=== PATIENT | male | born 1965 | race Caucasian/White ===

== ENCOUNTER → 2016-10-10 | Outpatient (CLI) | payer OTHER | END | disposition home or self-care (01) | LOC: MW.CHRC 10:33 | PROVIDERS: ATTEND Family Medicine | DX: D69.2 Other nonthrombocytopenic purpura (principal); Z53.9 Procedure and treatment not carried out, unspecified reason ==

== ENCOUNTER 2018-10-04 16:13 | Observation (INO) | payer MEDICAID, OTHER ==
[2018-10-04] MEDS ORDERED: Sodium Chloride 0.9% 1,000 ML IV ONE ×2 (16:23→17:31)
[2018-10-04] MEDS ORDERED: Albuterol/Ipratropium 3.0-0.5 MG/3 ML Neb Soln NEB ONE (16:23)
[2018-10-04] MEDS ORDERED: methylPREDNISolone Sodium Succinate 125 MG/2 ML SDV IVPUSH ONE (16:32)
--- NOTE | 2018-10-04 16:35 | EDM.PDOC ---
ED HPI GENERAL MEDICAL PROBLEM - General Chief Complaint: Respiratory Problem Stated Complaint: CAN'T BREATH Time Seen by Provider: 10/04/18 16:16 Source of Information: Reports: Patient History Limitations: Reports: No Limitations - History of Present Illness INITIAL COMMENTS - FREE TEXT/NARRATIVE: HISTORY AND PHYSICAL: History of present illness: Patient is a 52-year-old male presents to the ED today with concern of worsening shortness of breath 7 days. Patient states he does have a history of emphysema and is on several inhalers which are no longer helping his symptoms. Patient states that if he walks more than the hallway in his house, he feels as if he is going to pass out. Patient denies any heart history or any chest pain. Patient does state he has a chronic cough which has been at his baseline. Patient states he does smoke a pack a day for over 30 years. Patient denies any other health history. Patient does follow with Dr. Ureña. Patient states he has not eaten or drank much food or fluid in the past week due to his symptoms. Patient denies fever, chills, chest pain. Denies headache, neck stiff ness, change in vision, syncope. Denies nausea, vomiting, abdominal pain, diarrhea, constipation, or dysuria. Has not noted any blood in urine or stool. Review of systems: As per history of present illness and below otherwise all systems reviewed and negative. Past medical history: As per history of present illness and as reviewed below otherwise noncontributory. Surgical history: As per history of present illness and as reviewed below otherwise noncontributory. Social history: See social history for further information Family history: As per history of present illness and as reviewed below otherwise noncontributory. Physical exam: General: Patient is alert, oriented, and in no acute distress. Patient laying laying comfortably on exam table. Patient appears older than stated age. Chronically ill appearing. HEENT: Atraumatic, normocephalic, pupils equal and reactive bilaterally, negative for conjunctival pallor or scleral icterus, mucous membranes dry, TMs normal bilaterally, throat clear, neck supple, nontender, trachea midline. No drooling or trismus noted. No meningeal signs. No hot potato voice noted. Lungs: Diffuse wheezing heard to bilateral lung bases to auscultation, breath sounds equal bilaterally, chest nontender. Heart: S1S2, regular rate and rhythm without overt murmur Abdomen: Thin, soft, nondistended, nontender. Negative for masses or hepatosplenomegaly. Negative for costovertebral tenderness. Pelvis: Stable nontender. Genitourinary: Deferred. Rectal: Deferred. Skin: Intact, warm, dry. No lesions or rashes noted. Extremities: Atraumatic, negative for cords or calf pain. Neurovascular unremarkable. Neuro: Awake, alert, oriented. Cranial nerves II through XII unremarkable. Cerebellum unremarkable. Motor and sensory unremarkable throughout. Exam nonfocal. Notes: Dr. Chase verbally involved in patients care. EKG does show generalized depression. Dr. George was consulted on patient and came to see patient following first EKG. Dr. George was made aware of second EKG and negative troponin. Per his consult, admit to observation and he will be available for consult. Dr. Brooks consulted on patient and will admit to observation. Voices understanding and is agreeable to plan of care. Denies any further questions or concerns at this time. Diagnostics: CBC, CMP, EKG, troponin, chest x-ray, UA Therapeutics: Saline, DuoNeb, Solu-Medrol, ASA Impression: COPD exacerbation Cannot rule out acute coronary syndrome Dehydration Anemia, unspecified Hypokalemia Plan: 1. Admit to observation to Dr. Brooks Definitive disposition and diagnosis as appropriate pending reevaluation and review of above. - Related Data Allergies Allergy/AdvReac Type Severity Reaction Status Date / Time No Known Allergies Allergy Verified 10/04/18 16:23 Home Meds: Home Meds Albuterol Sulfate [Proair Hfa] 1 - 2 puff INH ASDIRECTED PRN 06/30/16 [History] Glycopyrrolate/Formoterol Fum [Bevespi Aerosphere Inhaler] 1 - 2 inh PO DAILY [History] Past Medical History HEENT History: Reports: None Cardiovascular History: Reports: None Respiratory History: Reports: SOB, Other (See Below) Other Respiratory History: smokes 1 pk of cigarettes per day, SOB with excertion Gastrointestinal History: Reports: None Genitourinary History: Reports: None Musculoskeletal History: Reports: Arthritis Neurological History: Reports: None Psychiatric History: Reports: None Endocrine/Metabolic History: Reports: None Hematologic History: Reports: None - Past Surgical History HEENT Surgical History: Reports: Other (See Below) Musculoskeletal Surgical History: Reports: Shoulder Surgery - History Comment History Comment: etoh" daily" ED ROS GENERAL - Review of Systems Review Of Systems: ROS reveals no pertinent complaints other than HPI. ED EXAM, GENERAL - Physical Exam Exam: See Below (See dictation) Course - Vital Signs Last Recorded V/S: Last Vital Signs Temp 36.9 C 10/04/18 16:26 Pulse 105 H 10/04/18 20:07 Resp 18 10/04/18 20:07 BP 108/75 10/04/18 20:07 Pulse Ox 98 10/04/18 20:07 - Orders/Labs/Meds Orders: Active Orders 24 hr Category Date Time Status Admission Status [Patient Status] [ADT] Stat ADT 10/04/18 20:13 Ordered EKG Documentation Completion [RC] STAT Care 10/04/18 16:22 Active EKG Documentation Completion [RC] STAT Care 10/04/18 17:28 Active Notify Provider Consults [RC] ASDIRECTED Care 10/04/18 16:47 Active RT Aerosol Therapy [RC] ASDIRECTED Care 10/04/18 16:23 Active Consult to Physician [CONS] Stat Cons 10/04/18 16:47 Active UA RFX JOSE M AND CULT IF INDIC [URIN] Stat Lab 10/04/18 16:23 Ordered Labs: Laboratory Tests 10/04/18 10/04/18 10/04/18 Range/Units 16:30 16:30 16:30 WBC 8.41 (4.0-11.0) K/uL RBC 3.13 L (4.50-5.90) M/uL Hgb 10.9 L (13.0-17.0) g/dL Hct 33.9 L (38.0-50.0) % MCV 108.3 H (80.0-98.0) fL MCH 34.8 H (27.0-32.0) pg MCHC 32.2 (31.0-37.0) g/dL RDW Std Deviation 63.0 H (28.0-62.0) fl RDW Coeff of Willy 17 H (11.0-15.0) % Plt Count 490 H (150-400) K/uL MPV 10.80 (7.40-12.00) fL Neut % (Auto) 67.6 (48.0-80.0) % Lymph % (Auto) 22.2 (16.0-40.0) % Branch % (Auto) 9.5 (0.0-15.0) % Eos % (Auto) 0.6 (0.0-7.0) % Baso % (Auto) 0.1 (0.0-1.5) % Neut # (Auto) 5.7 (1.4-5.7) K/uL Lymph # (Auto) 1.9 (0.6-2.4) K/uL Branch # (Auto) 0.8 (0.0-0.8) K/uL Eos # (Auto) 0.1 (0.0-0.7) K/uL Baso # (Auto) 0.0 (0.0-0.1) K/uL Nucleated RBC % 0.4 /100WBC Nucleated RBCs # 0 K/uL Sodium 132 L (136-148) mmol/L Potassium 3.0 L (3.5-5.1) mmol/L Chloride 90 L (98-107) mmol/L Carbon Dioxide 20.9 L (21.0-32.0) mmol/L BUN 21 H (7.0-18.0) mg/dL Creatinine 1.2 (0.8-1.3) mg/dL Est Cr Clr Drug Dosing 54.81 mL/min Estimated GFR (MDRD) > 60.0 ml/min Glucose 143 H (74-106) mg/dL Calcium 9.5 (8.5-10.1) mg/dL Total Bilirubin 2.0 H (0.2-1.0) mg/dL AST 32 (15-37) IU/L ALT 13 L (14-63) IU/L Alkaline Phosphatase 141 H (46-116) U/L Troponin I < 0.050 < 0.050 (0.000-0.056) ng/mL B-Natriuretic Peptide (<100) PG/ML Total Protein 7.8 (6.4-8.2) g/dL Albumin 3.3 L (3.4-5.0) g/dL Globulin 4.5 H (2.6-4.0) g/dL Albumin/Globulin Ratio 0.7 L (0.9-1.6) 05/02/19 Range/Units 16:44 WBC (4.0-11.0) K/uL RBC (4.50-5.90) M/uL Hgb (13.0-17.0) g/dL Hct (38.0-50.0) % MCV (80.0-98.0) fL MCH (27.0-32.0) pg MCHC (31.0-37.0) g/dL RDW Std Deviation (28.0-62.0) fl RDW Coeff of Willy (11.0-15.0) % Plt Count (150-400) K/uL MPV (7.40-12.00) fL Neut % (Auto) (48.0-80.0) % Lymph % (Auto) (16.0-40.0) % Branch % (Auto) (0.0-15.0) % Eos % (Auto) (0.0-7.0) % Baso % (Auto) (0.0-1.5) % Neut # (Auto) (1.4-5.7) K/uL Lymph # (Auto) (0.6-2.4) K/uL Branch # (Auto) (0.0-0.8) K/uL Eos # (Auto) (0.0-0.7) K/uL Baso # (Auto) (0.0-0.1) K/uL Nucleated RBC % /100WBC Nucleated RBCs # K/uL Sodium (136-148) mmol/L Potassium (3.5-5.1) mmol/L Chloride (98-107) mmol/L Carbon Dioxide (21.0-32.0) mmol/L BUN (7.0-18.0) mg/dL Creatinine (0.8-1.3) mg/dL Est Cr Clr Drug Dosing mL/min Estimated GFR (MDRD) ml/min Glucose (74-106) mg/dL Calcium (8.5-10.1) mg/dL Total Bilirubin (0.2-1.0) mg/dL AST (15-37) IU/L ALT (14-63) IU/L Alkaline Phosphatase (46-116) U/L Troponin I (0.000-0.056) ng/mL B-Natriuretic Peptide 85 (<100) PG/ML Total Protein (6.4-8.2) g/dL Albumin (3.4-5.0) g/dL Globulin (2.6-4.0) g/dL Albumin/Globulin Ratio (0.9-1.6) Meds: Medications Discontinued Medications Generic Name Dose Route Start Last Admin Trade Name Freq PRN Reason Stop Dose Admin Albuterol/Ipratropium 3 ml 10/04/18 16:23 10/04/18 16:43 Duoneb 3.0-0.5 Mg/3 Ml NEB 10/04/18 16:24 3 ml ONETIME ONE Administration Aspirin 324 mg 10/04/18 16:48 10/04/18 17:06 Aspirin PO 10/04/18 16:49 324 mg ONETIME ONE Administration Sodium Chloride 1,000 mls @ 999 mls/hr 10/04/18 16:23 10/04/18 16:54 Normal Saline IV 10/04/18 17:23 999 mls/hr BOLUS ONE Administration Sodium Chloride 1,000 mls @ 999 mls/hr 10/04/18 17:31 10/04/18 17:52 Normal Saline IV 10/04/18 18:31 999 mls/hr STAT ONE Administration Iopamidol 50 ml 10/04/18 19:06 10/04/18 19:06 Isovue Multipack-370 (76%) IVPUSH 10/04/18 19:07 50 ml ONETIME ONE Administration Methylprednisolone Sodium Succinate 125 mg 10/04/18 16:32 10/04/18 16:54 Solu-Medrol IVPUSH 10/04/18 16:33 125 mg ONETIME ONE Administration Departure - Departure Time of Disposition: 20:16 Disposition: Refer to Observation Clinical Impression: COPD exacerbation, Dehydration, Hypokalemia Anemia Qualifiers: Anemia type: unspecified type Qualified Code(s): D64.9 - Anemia, unspecified - Discharge Information Referrals: PCP,None [Primary Care Provider] - Forms: ED Department Discharge - My Orders Last 24 Hours: My Active Orders 10/04/18 16:22 EKG Documentation Completion [RC] STAT 10/04/18 16:23 RT Aerosol Therapy [RC] ASDIRECTED UA RFX JOSE M AND CULT IF INDIC [URIN] Stat 10/04/18 17:28 EKG Documentation Completion [RC] STAT 10/04/18 20:13 Admission Status [Patient Status] [ADT] Stat - Assessment/Plan Last 24 Hours: My Active Orders 10/04/18 16:22 EKG Documentation Completion [RC] STAT 10/04/18 16:23 RT Aerosol Therapy [RC] ASDIRECTED UA RFX JOSE M AND CULT IF INDIC [URIN] Stat 10/04/18 17:28 EKG Documentation Completion [RC] STAT 10/04/18 20:13 Admission Status [Patient Status] [ADT] Stat
[2018-10-04] MEDS ORDERED: Aspirin 81 MG Tab.Chew PO ONE (16:48)
[2018-10-04 17:16] LABS: CHLORIDE,CL 90 mmol/L (98-107); SODIUM,NA 132 mmol/L (136-148)
--- NOTE | 2018-10-04 18:20 | CR ---
INDICATION: Shortness of breath COMPARISON: 06/02/2016 FINDINGS: An erect single view of the chest was obtained at 1705 hours. A faint nodule is seen superimposed over the anterior end of the left 6th rib, unchanged from the previous study. Since this has been stable for more than 2 years, no further follow-up is indicated. The lungs otherwise remain clear. No focal or diffuse infiltrates are present. The heart remains normal in size. The mediastinum is normal in appearance. The osseous structures are normal in appearance for the patient`s age. IMPRESSION: No active disease seen in the chest. Stable appearance of a small nodule in the left lateral lower chest. Dictated by Matti Schwartz MD @ Oct 04 2018 6:17PM Signed by Dr. Matti Schwartz @ Oct 04 2018 6:18PM
[2018-10-04] MEDS ORDERED: Iopamidol 755 MG/ML 500 ML Multipack Bottle IVPUSH ONE (19:06)
--- NOTE | 2018-10-04 19:57 | CT ---
INDICATION: Shortness of breath; rule out PE. COMPARISON: Chest radiograph 10/04/2018. TECHNIQUE: CT chest with intravenous contrast; coronal and sagittal reformats. FINDINGS: No CT evidence of acute or chronic pulmonary thromboembolism. No evidence of aortic aneurysm or dissection. No abnormal mediastinal or hilar lymphadenopathy. Normal size cardiac silhouette without any evidence of pericardial effusion. A 3 mm subpleural noncalcified nodular density posterior segment left upper lobe slice 53 series 502. No other abnormal intra pulmonary nodular densities are identified. Limited CT through the upper abdomen is unremarkable. IMPRESSION: Negative CT chest with intravenous contrast. Please note that all CT scans at this facility use dose modulation, iterative reconstruction, and/or weight-based dosing when appropriate to reduce radiation dose to as low as reasonably achievable. Dictated by Kt Olvera MD @ Oct 04 2018 7:51PM Signed by Dr. Kt Olvera @ Oct 04 2018 7:56PM
[2018-10-04] MEDS ORDERED: Acetaminophen 325 MG Tab PO PRN (21:21)
[2018-10-04] MEDS ORDERED: Albuterol/Ipratropium 3.0-0.5 MG/3 ML Neb Soln NEB PRN (21:49)
[2018-10-04] MEDS: Sodium Chloride 0.9% 1,000 ML IV SCH (21:57)
[2018-10-04] MEDS ORDERED: Azithromycin 500 MG in Sodium Chloride 0.9% 250 ML IV SCH (22:45)
[2018-10-04] MEDS: Temazepam 15 MG Cap PO PRN (23:55)
[2018-10-05 06:04] LABS: CHLORIDE,CL 98 mmol/L (98-107); SODIUM,NA 133 mmol/L (136-148)
--- NOTE | 2018-10-05 06:54 | PCM.HP ---
H&P History of Present Illness - General Date of Service: 10/05/18 Admit Problem/Dx: Admission Diagnosis/Problem Admission Diagnosis/Problem COPD, Moderate chronic obstructive pulmonary disease Source of Information: Patient History Limitations: Reports: No Limitations - History of Present Illness Initial Comments - Free Text/Narative: The patient is a 52-year-old gentleman who had presented to the emergency department primarily out of concern for shortness of breath for the past 7 days. He was then admitted to hospital floor approximately 11 PM yesterday. The patient says that for the past 7 days he's been unable to ambulate, weak, unable to eat or drink, and has had severe pain in the soles of both his feet. The patient has described the pain in his feet as tingling and burning and does not radiate. The patient has had a history of COPD and emphysema and he still continues to smoke. The patient also said that he has been so weak that he has been unable to get up from his bed. The patient has denied any fever or chills. He also has had nausea and vomiting associated with the anorexia. Has denied any hematemesis ER hematochezia. He's had no hemoptysis. The patient feels that his health has been declining significantly over the past several months. Onset of Symptoms: Reports: Gradual Duration of Symptoms: Reports: Day(s):, Getting Worse Location: Reports: Generalized Quality: Reports: Ache, Burning Severity: Mild Improves with: Reports: Rest Worsens with: Reports: Movement Associated Symptoms: Reports: cough w sputum (Clear), Other (Bilateral foot pain ) - Related Data Allergies/Adverse Reactions: Allergies Allergy/AdvReac Type Severity Reaction Status Date / Time No Known Allergies Allergy Verified 10/04/18 16:23 Home Medications: Home Meds Albuterol Sulfate [Proair Hfa] 1 - 2 puff INH ASDIRECTED PRN 06/30/16 [History] Glycopyrrolate/Formoterol Fum [Bevespi Aerosphere Inhaler] 1 - 2 inh PO DAILY [History] Past Medical History HEENT History: Reports: None Cardiovascular History: Reports: None Respiratory History: Reports: COPD, SOB, Other (See Below) Other Respiratory History: smokes 1 pk of cigarettes per day, SOB with excertion Gastrointestinal History: Reports: None Genitourinary History: Reports: None Musculoskeletal History: Reports: Arthritis Neurological History: Reports: None Psychiatric History: Reports: None Endocrine/Metabolic History: Reports: None Hematologic History: Reports: None Immunologic History: Reports: None Oncologic (Cancer) History: Reports: None Dermatologic History: Reports: None - Infectious Disease History Infectious Disease History: Reports: Chicken Pox - Past Surgical History Head Surgeries/Procedures: Reports: None HEENT Surgical History: Reports: Other (See Below) Musculoskeletal Surgical History: Reports: Shoulder Surgery - History Comment History Comment: etoh" daily" Social & Family History - Family History Family Medical History: Noncontributory - Tobacco Use Smoking Status *Q: Current Every Day Smoker Years of Tobacco use: 30 Packs/Tins Daily: 1 Used Tobacco, but Quit: No Second Hand Smoke Exposure: Yes - Caffeine Use Caffeine Use: Reports: Coffee - Alcohol Use Days Per Week of Alcohol Use: 7 Number of Drinks Per Day: 2 Total Drinks Per Week: 14 Date of Last Drink: 10/03/18 - Recreational Drug Use Recreational Drug Use: No - Living Situation & Occupation Living situation: Reports: Single, Alone Occupation: Unemployed H&P Review of Systems - Review of Systems: Review Of Systems: See Below General: Reports: Malaise, Weakness, Fatigue, Weight Loss HEENT: Reports: No Symptoms Pulmonary: Reports: Shortness of Breath Cardiovascular: Reports: Dyspnea on Exertion, Lightheadedness Gastrointestinal: Reports: Abdominal Pain, Anorexia, Nausea, Vomiting. Denies: Hematemesis, Hematochezia, Melena Genitourinary: Reports: No Symptoms Musculoskeletal: Reports: No Symptoms Skin: Reports: No Symptoms Psychiatric: Reports: No Symptoms Neurological: Reports: Dizziness, Difficulty Walking Hematologic/Lymphatic: Reports: No Symptoms Immunologic: Reports: No Symptoms Exam - Exam Exam: See Below - Vital Signs Vital Signs: Last Vital Signs Temp 36.6 C 10/05/18 04:50 Pulse 100 10/05/18 04:50 Resp 18 10/05/18 04:50 BP 108/73 10/05/18 04:50 Pulse Ox 94 L 10/05/18 04:50 Weight: 51.12 kg - Exam Quality Assessment: No: Supplemental Oxygen General: Alert (Cachectic), Oriented, Cooperative, Mild Distress HEENT: Conjunctiva Clear, EACs Clear, EOMI, Hearing Intact, Nares Patent, Pupils Equal, Other (Temporal muscle wasting), PERRLA. No: Mucosa Moist & [place] (Dry) Neck: Supple, Trachea Midline, 2 Lungs: Clear to Auscultation, Normal Respiratory Effort Cardiovascular: Regular Rate, Regular Rhythm GI/Abdominal Exam: Normal Bowel Sounds, Soft, Non-Tender, No Distention (Male) Exam: Deferred Rectal (Males) Exam: Deferred Back Exam: Normal Inspection, Full Range of Motion, NT Extremities: Normal Inspection, Normal Range of Motion, Non-Tender, No Pedal Edema (Plantar surfaces of both feet show no signs of ulcer, inflammation or infection.) Skin: Warm, Dry, Intact Neurological: Cranial Nerves Intact Neuro Extensive - Mental Status: Alert, Oriented x3, Normal Mood/Affect, Normal Cognition Neuro Extensive - Motor, Sensory, Reflexes: CN II-XII Intact Psychiatric: Alert, Normal Affect, Normal Mood - Patient Data Lab Results Last 24 hrs: Laboratory Results - last 24 hr 10/04/18 10/04/18 10/04/18 Range/Units 00:50 16:30 16:30 WBC 8.41 (4.0-11.0) K/uL RBC 3.13 L (4.50-5.90) M/uL Hgb 10.9 L (13.0-17.0) g/dL Hct 33.9 L (38.0-50.0) % MCV 108.3 H (80.0-98.0) fL MCH 34.8 H (27.0-32.0) pg MCHC 32.2 (31.0-37.0) g/dL RDW Std Deviation 63.0 H (28.0-62.0) fl RDW Coeff of Willy 17 H (11.0-15.0) % Plt Count 490 H (150-400) K/uL MPV 10.80 (7.40-12.00) fL Neut % (Auto) 67.6 (48.0-80.0) % Lymph % (Auto) 22.2 (16.0-40.0) % [place] % (Auto) 9.5 (0.0-15.0) % Eos % (Auto) 0.6 (0.0-7.0) % Baso % (Auto) 0.1 (0.0-1.5) % Neut # (Auto) 5.7 (1.4-5.7) K/uL Lymph # (Auto) 1.9 (0.6-2.4) K/uL [place] # (Auto) 0.8 (0.0-0.8) K/uL Eos # (Auto) 0.1 (0.0-0.7) K/uL Baso # (Auto) 0.0 (0.0-0.1) K/uL Nucleated RBC % 0.4 /100WBC Nucleated RBCs # 0 K/uL Sodium 132 L (136-148) mmol/L Potassium 3.0 L (3.5-5.1) mmol/L Chloride 90 L (98-107) mmol/L Carbon Dioxide 20.9 L (21.0-32.0) mmol/L BUN 21 H (7.0-18.0) mg/dL Creatinine 1.2 (0.8-1.3) mg/dL Est Cr Clr Drug Dosing 54.81 mL/min Estimated GFR (MDRD) > 60.0 ml/min Glucose 143 H (74-106) mg/dL Calcium 9.5 (8.5-10.1) mg/dL Magnesium (1.8-2.4) mg/dL Total Bilirubin 2.0 H (0.2-1.0) mg/dL AST 32 (15-37) IU/L ALT 13 L (14-63) IU/L Alkaline Phosphatase 141 H (46-116) U/L Troponin I < 0.050 (0.000-0.056) ng/mL B-Natriuretic Peptide (<100) PG/ML Total Protein 7.8 (6.4-8.2) g/dL Albumin 3.3 L (3.4-5.0) g/dL Globulin 4.5 H (2.6-4.0) g/dL Albumin/Globulin Ratio 0.7 L (0.9-1.6) Urine Color YELLOW Urine Appearance CLEAR Urine pH 6.0 (5.0-8.0) Ur Specific [place] <= 1.005 (1.001-1.035) Urine Protein NEGATIVE (NEGATIVE) mg/dL Urine Glucose (UA) NEGATIVE (NEGATIVE) mg/dL Urine Ketones 15 H (NEGATIVE) mg/dL Urine Occult Blood NEGATIVE (NEGATIVE) Urine Nitrite NEGATIVE (NEGATIVE) Urine Bilirubin MODERATE H (NEGATIVE) Urine Ictotest NEGATIVE Urine Urobilinogen 2.0 H (<2.0) EU/dL Ur Leukocyte Esterase NEGATIVE (NEGATIVE) 10/04/18 10/04/18 10/04/18 Range/Units 16:30 16:44 23:00 WBC (4.0-11.0) K/uL RBC (4.50-5.90) M/uL Hgb (13.0-17.0) g/dL Hct (38.0-50.0) % MCV (80.0-98.0) fL MCH (27.0-32.0) pg MCHC (31.0-37.0) g/dL RDW Std Deviation (28.0-62.0) fl RDW Coeff of Willy (11.0-15.0) % Plt Count (150-400) K/uL MPV (7.40-12.00) fL Neut % (Auto) (48.0-80.0) % Lymph % (Auto) (16.0-40.0) % [place] % (Auto) (0.0-15.0) % Eos % (Auto) (0.0-7.0) % Baso % (Auto) (0.0-1.5) % Neut # (Auto) (1.4-5.7) K/uL Lymph # (Auto) (0.6-2.4) K/uL [place] # (Auto) (0.0-0.8) K/uL Eos # (Auto) (0.0-0.7) K/uL Baso # (Auto) (0.0-0.1) K/uL Nucleated RBC % /100WBC Nucleated RBCs # K/uL Sodium (136-148) mmol/L Potassium (3.5-5.1) mmol/L Chloride (98-107) mmol/L Carbon Dioxide (21.0-32.0) mmol/L BUN (7.0-18.0) mg/dL Creatinine (0.8-1.3) mg/dL Est Cr Clr Drug Dosing mL/min Estimated GFR (MDRD) ml/min Glucose (74-106) mg/dL Calcium (8.5-10.1) mg/dL Magnesium (1.8-2.4) mg/dL Total Bilirubin (0.2-1.0) mg/dL AST (15-37) IU/L ALT (14-63) IU/L Alkaline Phosphatase (46-116) U/L Troponin I < 0.050 < 0.050 (0.000-0.056) ng/mL B-Natriuretic Peptide 85 (<100) PG/ML Total Protein (6.4-8.2) g/dL Albumin (3.4-5.0) g/dL Globulin (2.6-4.0) g/dL Albumin/Globulin Ratio (0.9-1.6) Urine Color Urine Appearance Urine pH (5.0-8.0) Ur Specific [place] (1.001-1.035) Urine Protein (NEGATIVE) mg/dL Urine Glucose (UA) (NEGATIVE) mg/dL Urine Ketones (NEGATIVE) mg/dL Urine Occult Blood (NEGATIVE) Urine Nitrite (NEGATIVE) Urine Bilirubin (NEGATIVE) Urine Ictotest Urine Urobilinogen (<2.0) EU/dL Ur Leukocyte Esterase (NEGATIVE) 10/05/18 10/05/18 10/05/18 Range/Units 04:36 04:36 04:36 WBC 5.06 (4.0-11.0) K/uL RBC 2.25 L (4.50-5.90) M/uL Hgb 7.9 L (13.0-17.0) g/dL Hct 23.9 L (38.0-50.0) % MCV 106.2 H (80.0-98.0) fL MCH 35.1 H (27.0-32.0) pg MCHC 33.1 (31.0-37.0) g/dL RDW Std Deviation 63.0 H (28.0-62.0) fl RDW Coeff of Willy 16 H (11.0-15.0) % Plt Count 396 (150-400) K/uL MPV 10.50 (7.40-12.00) fL Neut % (Auto) 86.5 H (48.0-80.0) % Lymph % (Auto) 10.7 L (16.0-40.0) % [place] % (Auto) 2.8 (0.0-15.0) % Eos % (Auto) 0.0 (0.0-7.0) % Baso % (Auto) 0.0 (0.0-1.5) % Neut # (Auto) 4.4 (1.4-5.7) K/uL Lymph # (Auto) 0.5 L (0.6-2.4) K/uL [place] # (Auto) 0.1 (0.0-0.8) K/uL Eos # (Auto) 0.0 (0.0-0.7) K/uL Baso # (Auto) 0.0 (0.0-0.1) K/uL Nucleated RBC % 0.0 /100WBC Nucleated RBCs # 0 K/uL Sodium 133 L (136-148) mmol/L Potassium 2.8 L (3.5-5.1) mmol/L Chloride 98 (98-107) mmol/L Carbon Dioxide 22.2 (21.0-32.0) mmol/L BUN 19 H (7.0-18.0) mg/dL Creatinine 0.8 (0.8-1.3) mg/dL Est Cr Clr Drug Dosing 77.21 mL/min Estimated GFR (MDRD) > 60.0 ml/min Glucose 159 H (74-106) mg/dL Calcium 8.0 L (8.5-10.1) mg/dL Magnesium 1.5 L (1.8-2.4) mg/dL Total Bilirubin (0.2-1.0) mg/dL AST (15-37) IU/L ALT (14-63) IU/L Alkaline Phosphatase (46-116) U/L Troponin I < 0.050 (0.000-0.056) ng/mL B-Natriuretic Peptide (<100) PG/ML Total Protein (6.4-8.2) g/dL Albumin (3.4-5.0) g/dL Globulin (2.6-4.0) g/dL Albumin/Globulin Ratio (0.9-1.6) Urine Color Urine Appearance Urine pH (5.0-8.0) Ur Specific [place] (1.001-1.035) Urine Protein (NEGATIVE) mg/dL Urine Glucose (UA) (NEGATIVE) mg/dL Urine Ketones (NEGATIVE) mg/dL Urine Occult Blood (NEGATIVE) Urine Nitrite (NEGATIVE) Urine Bilirubin (NEGATIVE) Urine Ictotest Urine Urobilinogen (<2.0) EU/dL Ur Leukocyte Esterase (NEGATIVE) Result Diagrams: 10/05/18 04:36 10/05/18 04:36 - Problem List (1) COPD exacerbation SNOMED Code(s): 672978158 ICD Code: J44.1 - CHRONIC OBSTRUCTIVE PULMONARY DISEASE W (ACUTE) EXACERBATION Status: Acute Priority: High Current Visit: Yes (2) Severe protein-calorie malnutrition SNOMED Code(s): 969962818, 229121920, 343548075 ICD Code: E43 - UNSPECIFIED SEVERE PROTEIN-CALORIE MALNUTRITION Status: Acute Current Visit: Yes (3) Anemia SNOMED Code(s): 963943844 ICD Code: D64.9 - ANEMIA, UNSPECIFIED Status: Acute Current Visit: Yes Qualifiers: Anemia type: iron deficiency Iron deficiency anemia type: inadequate dietary iron intake Qualified Code(s): D50.8 - Other iron deficiency anemias (4) Dehydration SNOMED Code(s): 31927976 ICD Code: E86.0 - DEHYDRATION Status: Acute Priority: High Current Visit: Yes (5) Hypokalemia SNOMED Code(s): 25682833 ICD Code: E87.6 - HYPOKALEMIA Status: Acute Priority: High Current Visit: Yes (6) Neuropathy involving both lower extremities SNOMED Code(s): 136978581 ICD Code: G57.93 - UNSPECIFIED MONONEUROPATHY OF BILATERAL LOWER LIMBS Status: Chronic Priority: High Current Visit: Yes (7) Pulmonary cachexia due to chronic obstructive pulmonary disease SNOMED Code(s): 094851631 ICD Code: J44.9 - CHRONIC OBSTRUCTIVE PULMONARY DISEASE, UNSPECIFIED; R64 - [place] Status: Chronic Priority: High Current Visit: Yes (8) Tobacco user SNOMED Code(s): 343372238 ICD Code: Z72.0 - TOBACCO USE Status: Acute Current Visit: Yes Problem List Initiated/Reviewed/Updated: Yes Orders Last 24hrs: Active Orders 24 hr Category Date Time Status Admission Status [Patient Status] [ADT] Stat ADT 10/04/18 20:13 Active EKG Documentation Completion [RC] STAT Care 10/04/18 16:22 Active EKG Documentation Completion [RC] STAT Care 10/04/18 17:28 Active Notify Provider Consults [RC] ASDIRECTED Care 10/04/18 16:47 Active Oxygen Therapy [RC] ASDIRECTED Care 10/04/18 21:18 Active RT Aerosol Therapy [RC] ASDIRECTED Care 10/04/18 16:23 Active RT Aerosol Therapy [RC] ASDIRECTED Care 10/04/18 21:50 Active Telemetry Monitoring [Cardiac Monitoring] [RC] Q8H Care 10/04/18 20:59 Active Consult to Physician [CONS] Stat Cons 10/04/18 16:47 Active Regular Diet [DIET] Diet 10/05/18 Breakfast Active Acetaminophen [Tylenol] Med 10/04/18 21:21 Active 650 mg PO Q6H PRN Albuterol/Ipratropium [DuoNeb 3.0-0.5 MG/3 ML] Med 10/04/18 21:49 Active 3 ml NEB Q4HRRT PRN Azithromycin [Zithromax] 500 mg Med 10/04/18 22:45 Active Sodium Chloride 0.9% [Normal Saline] 250 ml IV Q24H Sodium Chloride 0.9% [Normal Saline] 1,000 ml Med 10/04/18 21:30 Active IV ASDIRECTED Temazepam [Restoril] Med 10/04/18 21:53 Active 15 mg PO BEDTIME PRN oxyCODONE Med 10/04/18 21:23 Active 5 mg PO Q4H PRN Medication Orders Acetaminophen (Tylenol) 650 mg PO Q6H PRN PRN Reason: Mild pain or fever. Albuterol/Ipratropium (Duoneb 3.0-0.5 Mg/3 Ml) 3 ml NEB Q4HRRT PRN PRN Reason: Shortness of Breath Sodium Chloride (Normal Saline) 1,000 mls @ 50 mls/hr IV ASDIRECTED [facility] Last Admin: 10/04/18 21:57 Dose: 50 mls/hr Azithromycin 500 mg/ Sodium (Chloride) 250 mls @ 250 mls/hr IV Q24H [facility] Last Admin: 10/04/18 23:52 Dose: 250 mls/hr Oxycodone HCl (Oxycodone) 5 mg PO Q4H PRN PRN Reason: Moderate pain. Temazepam (Restoril) 15 mg PO BEDTIME PRN PRN Reason: Insomnia Last Admin: 10/04/18 23:55 Dose: 15 mg Assessment/Plan Comment:: The patient is a 52-year-old gentleman who will be admitted as an inpatient due to his multiple issues that need to be addressed. First follow the patient has COPD with exacerbation and he'll be kept on azithromycin and steroids. Patient also has multiple electrolyte abnormalities and these will be replaced. The patient was noted upon fluid resuscitation to be anemic and his hemoglobin was monitored. Because of the patient's symptomology been recommended to have 2 units of packed red blood cells. Patient also has exhibited severe protein calorie malnutrition and I've ordered a ferritin as well as pre-albumin to better assess this. I have also ordered boost supplements with meals. Patient also have his nausea and vomiting controlled with the use of Zofran. He is currently not on oxygen however, he'll be monitored with vital signs and if he is hypoxic he will be placed on oxygen. The patient also has been given a nicotine patch 15 mg transdermal daily. I suspect that the patient's neuropathy is likely secondary to his poor dietary intake. The patient will be placed on thiamine and folate to help with the neuropathy. The patient has been encouraged to ambulate. Repeat laboratory studies of also been ordered.
[2018-10-05] MEDS ORDERED: Magnesium Sulfate/Water 2 GM in Premix Bag 1 BAG IV ONE (07:51)
[2018-10-05] MEDS ORDERED: Potassium Chloride Riders 40 MEQ in Premix Bag 1 BAG IV ONE (08:15)
[2018-10-05] MEDS ORDERED: Sodium Chloride 0.9% with KCl 1,000 ML IV SCH (08:45)
[2018-10-05] MEDS: Folic Acid/Vitamin B Complex With C Cap PO SCH (08:51)
[2018-10-05] MEDS: Thiamine 100 MG Tab PO SCH (08:51)
[2018-10-05] MEDS: oxyCODONE 5 MG Tab PO PRN (08:51)
[2018-10-05] MEDS: BEVESPI AEROSPHERE PO SCH (08:58)
[2018-10-05] MEDS: methylPREDNISolone Sodium Succinate 125 MG/2 ML SDV IVPUSH SCH ×2 (10:07→18:34)
[2018-10-05] MEDS: Nicotine 14 MG/24 Hr Patch TRDERM SCH (10:13)
[2018-10-05] MEDS: Enoxaparin 40 MG/0.4 ML Syringe SUBCUT SCH (10:15)
[2018-10-05] MEDS ORDERED: diphenhydrAMINE 50 MG/ML SDV IVPUSH ONE (10:24)
[2018-10-05] MEDS: Gabapentin 100 MG Cap PO SCH ×2 (14:07→21:52)
[2018-10-05] MEDS: Sodium Chloride 0.9% 1,000 ML IV SCH (19:57)
[2018-10-05] MEDS: Azithromycin 500 MG in Sodium Chloride 0.9% 250 ML IV SCH (21:50)
[2018-10-06] MEDS: methylPREDNISolone Sodium Succinate 125 MG/2 ML SDV IVPUSH SCH ×3 (01:06→17:14)
[2018-10-06] MEDS: oxyCODONE 5 MG Tab PO PRN ×4 (01:07→23:49)
[2018-10-06] MEDS: Temazepam 15 MG Cap PO PRN (01:07)
[2018-10-06] MEDS: Gabapentin 100 MG Cap PO SCH ×3 (07:15→22:42)
[2018-10-06 07:24] LABS: CHLORIDE,CL 102 mmol/L (98-107); SODIUM,NA 135 mmol/L (136-148)
[2018-10-06] MEDS: Nicotine 14 MG/24 Hr Patch TRDERM SCH (08:42)
[2018-10-06] MEDS: Folic Acid/Vitamin B Complex With C Cap PO SCH (08:44)
[2018-10-06] MEDS: Thiamine 100 MG Tab PO SCH (08:44)
[2018-10-06] MEDS: BEVESPI AEROSPHERE PO SCH (08:45)
--- NOTE | 2018-10-06 09:24 | PCM.PN ---
- General Info Date of Service: 10/06/18 Admission Dx/Problem (Free Text): Admission Diagnosis/Problem Admission Diagnosis/Problem COPD, Moderate chronic obstructive pulmonary disease Subjective Update: The patient is a 52-year-old gentleman who is admitted yesterday after concern for shortness of breath, nausea and vomiting along with severe dehydration. The patient had been fluid resuscitated and provided with nutritional supplements and vitamins. The patient today says that he feels much better. He said some overall improvement in his breathing. He has been able to tolerate diet. The patient has been ambulating. Functional Status: Reports: Pain Controlled, Tolerating Diet - Review of Systems General: Reports: Fatigue HEENT: Reports: No Symptoms Pulmonary: Reports: No Symptoms Cardiovascular: Reports: No Symptoms Gastrointestinal: Reports: No Symptoms Genitourinary: Reports: No Symptoms Musculoskeletal: Reports: No Symptoms Skin: Reports: No Symptoms Neurological: Reports: Difficulty Walking, Weakness Psychiatric: Reports: No Symptoms - Patient Data Vitals - Most Recent: Last Vital Signs Temp 36.1 C 10/06/18 04:00 Pulse 74 10/06/18 04:00 Resp 16 10/06/18 04:00 BP 107/73 10/06/18 04:00 Pulse Ox 97 10/06/18 04:00 Weight - Most Recent: 51.12 kg I&O - Last 24 Hours: Intake & Output 10/05/18 10/06/18 10/06/18 22:59 06:59 14:59 Intake Total 4726 1027 Output Total 350 200 Balance 4376 827 Lab Results Last 24 Hours: Laboratory Results - last 24 hr 10/05/18 10/05/18 10/06/18 Range/Units 04:36 10:38 07:05 WBC 10.88 (4.0-11.0) K/uL RBC 2.96 L (4.50-5.90) M/uL Hgb 9.9 L (13.0-17.0) g/dL Hct 29.6 L (38.0-50.0) % MCV 100.0 H (80.0-98.0) fL MCH 33.4 H (27.0-32.0) pg MCHC 33.4 (31.0-37.0) g/dL RDW Std Deviation 76.3 H (28.0-62.0) fl RDW Coeff of Willy 21 H (11.0-15.0) % Plt Count 304 (150-400) K/uL MPV 10.70 (7.40-12.00) fL Neut % (Auto) 92.4 H (48.0-80.0) % Lymph % (Auto) 5.3 L (16.0-40.0) % [place] % (Auto) 2.3 (0.0-15.0) % Eos % (Auto) 0.0 (0.0-7.0) % Baso % (Auto) 0.0 (0.0-1.5) % Neut # (Auto) 10.1 H (1.4-5.7) K/uL Lymph # (Auto) 0.6 (0.6-2.4) K/uL [place] # (Auto) 0.3 (0.0-0.8) K/uL Eos # (Auto) 0.0 (0.0-0.7) K/uL Baso # (Auto) 0.0 (0.0-0.1) K/uL Nucleated RBC % 0.4 /100WBC Nucleated RBCs # 0 K/uL Sodium (136-148) mmol/L Potassium (3.5-5.1) mmol/L Chloride (98-107) mmol/L Carbon Dioxide (21.0-32.0) mmol/L BUN (7.0-18.0) mg/dL Creatinine (0.8-1.3) mg/dL Est Cr Clr Drug Dosing mL/min Estimated GFR (MDRD) ml/min Glucose (74-106) mg/dL Calcium (8.5-10.1) mg/dL Prealbumin 9.8 L (17.0-34.0) mg/dL Blood Type O POSITIVE Antibody Screen NEGATIVE Crossmatch See Detail 10/06/18 Range/Units 07:05 WBC (4.0-11.0) K/uL RBC (4.50-5.90) M/uL Hgb (13.0-17.0) g/dL Hct (38.0-50.0) % MCV (80.0-98.0) fL MCH (27.0-32.0) pg MCHC (31.0-37.0) g/dL RDW Std Deviation (28.0-62.0) fl RDW Coeff of Willy (11.0-15.0) % Plt Count (150-400) K/uL MPV (7.40-12.00) fL Neut % (Auto) (48.0-80.0) % Lymph % (Auto) (16.0-40.0) % [place] % (Auto) (0.0-15.0) % Eos % (Auto) (0.0-7.0) % Baso % (Auto) (0.0-1.5) % Neut # (Auto) (1.4-5.7) K/uL Lymph # (Auto) (0.6-2.4) K/uL [place] # (Auto) (0.0-0.8) K/uL Eos # (Auto) (0.0-0.7) K/uL Baso # (Auto) (0.0-0.1) K/uL Nucleated RBC % /100WBC Nucleated RBCs # K/uL Sodium 135 L (136-148) mmol/L Potassium 3.8 (3.5-5.1) mmol/L Chloride 102 (98-107) mmol/L Carbon Dioxide 22.8 (21.0-32.0) mmol/L BUN 14 (7.0-18.0) mg/dL Creatinine 0.8 (0.8-1.3) mg/dL Est Cr Clr Drug Dosing 77.21 mL/min Estimated GFR (MDRD) > 60.0 ml/min Glucose 177 H (74-106) mg/dL Calcium 8.1 L (8.5-10.1) mg/dL Prealbumin (17.0-34.0) mg/dL Blood Type Antibody Screen Crossmatch Med Orders - Current: Current Medications Acetaminophen (Tylenol) 650 mg PO Q6H PRN PRN Reason: Mild pain or fever. Last Admin: 10/05/18 14:06 Dose: 650 mg Albuterol/Ipratropium (Duoneb 3.0-0.5 Mg/3 Ml) 3 ml NEB Q4HRRT PRN PRN Reason: Shortness of Breath Enoxaparin Sodium (Lovenox) 40 mg SUBCUT Q24H [facility] Last Admin: 10/05/18 10:15 Dose: 40 mg Gabapentin (Neurontin) 100 mg PO TID [facility] Last Admin: 10/06/18 07:15 Dose: 100 mg Sodium Chloride (Normal Saline) 1,000 mls @ 50 mls/hr IV ASDIRECTED [facility] Last Admin: 10/05/18 19:57 Dose: 50 mls/hr Azithromycin 500 mg/ Sodium (Chloride) 250 mls @ 250 mls/hr IV Q24H [facility] Last Admin: 10/05/18 21:50 Dose: 250 mls/hr Methylprednisolone Sodium Succinate (Solu-Medrol) 125 mg IVPUSH Q8H [facility] Last Admin: 10/06/18 01:06 Dose: 125 mg Multivit/Ca Carb/B Cmplx/FA/Prenat (Renal Caps Softgel) 1 cap PO DAILY [facility] Last Admin: 10/06/18 08:44 Dose: 1 cap Nicotine (Habitrol) 14 mg TRDERM DAILY [facility] Last Admin: 10/06/18 08:42 Dose: 14 mg Oxycodone HCl (Oxycodone) 5 mg PO Q4H PRN PRN Reason: Moderate pain. Last Admin: 10/06/18 01:07 Dose: 5 mg Bevespi Aerosphere (Inhaler 2 Puffs) 2 each PO DAILY [facility] Last Admin: 10/06/18 08:45 Dose: 2 each Temazepam (Restoril) 15 mg PO BEDTIME PRN PRN Reason: Insomnia Last Admin: 10/06/18 01:07 Dose: 15 mg Thiamine HCl (Vitamin B-1) 100 mg PO DAILY [facility] Last Admin: 10/06/18 08:44 Dose: 100 mg Discontinued Medications Albuterol/Ipratropium (Duoneb 3.0-0.5 Mg/3 Ml) 3 ml NEB ONETIME ONE Stop: 10/04/18 16:24 Last Admin: 10/04/18 16:43 Dose: 3 ml Aspirin (Aspirin) 324 mg PO ONETIME ONE Stop: 10/04/18 16:49 Last Admin: 10/04/18 17:06 Dose: 324 mg Diphenhydramine HCl (Benadryl) 50 mg IVPUSH ONETIME ONE Stop: 10/05/18 10:25 Last Admin: 10/05/18 12:12 Dose: 50 mg Sodium Chloride (Normal Saline) 1,000 mls @ 999 mls/hr IV BOLUS ONE Stop: 10/04/18 17:23 Last Admin: 10/04/18 16:54 Dose: 999 mls/hr Sodium Chloride (Normal Saline) 1,000 mls @ 999 mls/hr IV STAT ONE Stop: 10/04/18 18:31 Last Admin: 10/04/18 17:52 Dose: 999 mls/hr Azithromycin 500 mg/ Sodium (Chloride) 250 mls @ 250 mls/hr IV Q24H [facility] Last Admin: 10/04/18 23:52 Dose: 250 mls/hr Magnesium Sulfate 2 gm/ Premix 50 mls @ 50 mls/hr IV ONETIME ONE Stop: 10/05/18 08:50 Last Admin: 10/05/18 08:45 Dose: 50 mls/hr Potassium Chloride 40 meq/ (Premix) 100 mls @ 25 mls/hr IV ONETIME ONE Stop: 10/05/18 12:14 Last Admin: 10/05/18 08:42 Dose: Not Given Potassium Chloride/Sodium Chloride (Normal Saline With 40 Meq Kcl) 1,000 mls @ 150 mls/hr IV ASDIRECTED [facility] Stop: 10/05/18 12:46 Last Admin: 10/05/18 09:16 Dose: 150 mls/hr Iopamidol (Isovue Multipack-370 (76%)) 50 ml IVPUSH ONETIME ONE Stop: 10/04/18 19:07 Last Admin: 10/04/18 19:06 Dose: 50 ml Methylprednisolone Sodium Succinate (Solu-Medrol) 125 mg IVPUSH ONETIME ONE Stop: 10/04/18 16:33 Last Admin: 10/04/18 16:54 Dose: 125 mg - Exam Quality Assessment: No: Supplemental Oxygen General: Alert (Cachexia), Oriented, Cooperative, No Acute Distress HEENT: Pupils Equal, Pupils Reactive, EOMI, Mucous Membr. Moist/[place] Neck: Supple, Trachea Midline, No JVD Lungs: Clear to Auscultation, Normal Respiratory Effort Cardiovascular: Regular Rate, Tachycardia GI/Abdominal Exam: Normal Bowel Sounds, Soft, Non-Tender, No Distention Back Exam: Normal Inspection, Full Range of Motion Extremities: Normal Inspection, Normal Range of Motion, No Pedal Edema Skin: Warm, Dry, Intact Neurological: No New Focal Deficit Psy/Mental Status: Alert, Normal Affect, Normal Mood - Problem List & Annotations (1) COPD exacerbation SNOMED Code(s): 200815799 Code(s): J44.1 - CHRONIC OBSTRUCTIVE PULMONARY DISEASE W (ACUTE) EXACERBATION Status: Acute Priority: High Current Visit: Yes (2) Severe protein-calorie malnutrition SNOMED Code(s): 438854740, 341930381, 745420350 Code(s): E43 - UNSPECIFIED SEVERE PROTEIN-CALORIE MALNUTRITION Status: Acute Current Visit: Yes (3) Anemia SNOMED Code(s): 087813051 Code(s): D64.9 - ANEMIA, UNSPECIFIED Status: Acute Current Visit: Yes Qualifiers: Anemia type: iron deficiency Iron deficiency anemia type: inadequate dietary iron intake Qualified Code(s): D50.8 - Other iron deficiency anemias (4) Dehydration SNOMED Code(s): 69615771 Code(s): E86.0 - DEHYDRATION Status: Resolved Priority: High Current Visit: Yes (5) Hypokalemia SNOMED Code(s): 99264810 Code(s): E87.6 - HYPOKALEMIA Status: Resolved Priority: High Current Visit: Yes (6) Neuropathy involving both lower extremities SNOMED Code(s): 08265867598689276 Code(s): G57.93 - UNSPECIFIED MONONEUROPATHY OF BILATERAL LOWER LIMBS Status: Chronic Priority: High Current Visit: Yes (7) Pulmonary cachexia due to chronic obstructive pulmonary disease SNOMED Code(s): 051786894 Code(s): J44.9 - CHRONIC OBSTRUCTIVE PULMONARY DISEASE, UNSPECIFIED; R64 - CACHEXIA Status: Chronic Priority: High Current Visit: Yes (8) Tobacco user SNOMED Code(s): 366740707 Code(s): Z72.0 - TOBACCO USE Status: Acute Current Visit: Yes - Problem List Review Problem List Initiated/Reviewed/Updated: Yes - My Orders Last 24 Hours: My Active Orders 10/05/18 09:00 Folic Acid/Vitamin B Comp W-C [Renal Caps Softgel] 1 cap PO DAILY Patient's Own Medication [Ptom] 2 each PO DAILY Thiamine [Vitamin B-1] 100 mg PO DAILY 10/05/18 09:15 Nicotine [Habitrol] 14 mg TRDERM DAILY 10/05/18 09:45 methylPREDNISolone Sod Succ [Solu-MEDROL] 125 mg IVPUSH Q8H 10/05/18 10:00 Enoxaparin [Lovenox] 40 mg SUBCUT Q24H 10/05/18 10:23 Verify Patient Consent Obtain [RC] ASDIRECTED Transfuse Red Blood Cells [COMM] Routine 10/05/18 14:00 Gabapentin [Neurontin] 100 mg PO TID 10/05/18 22:45 Azithromycin [Zithromax] 500 mg Sodium Chloride 0.9% [Normal Saline] 250 ml IV Q24H - Plan Plan:: The patient is a 52-year-old gentleman who is admitted yesterday secondary to multiple electrolyte abnormalities, anemia and had also received 2 units packed red blood cells. The patient's anemia blood test a been ordered track the patient's hemoglobin. If his hemoglobin drops below 7.5 mg/dL he will be considered for transfusion. Patient's hemoglobin previously was 7.9 and he was transfused out of concern for being symptomatic due to the anemia. Repeat laboratory studies been ordered. Ferritin and the albumin were ordered and the patient's ferritin level is normal however, his albumin is low which supports protein calorie malnutrition. The patient will be continued on a regular diet as tolerated as well as nutritional supplements and vitamins. The patient does not have a history of diabetes however he has been exhibiting signs similar to neuropathy and this may be from his deficiencies. The patient says that he feels that he can go home today however I believe tomorrow be probably more appropriate. Patient has been encouraged to ambulate.
[2018-10-06] MEDS: Enoxaparin 40 MG/0.4 ML Syringe SUBCUT SCH (10:18)
[2018-10-06] MEDS: Sodium Chloride 0.9% 1,000 ML IV SCH (17:36)
[2018-10-06] MEDS: Azithromycin 500 MG in Sodium Chloride 0.9% 250 ML IV SCH (22:30)
[2018-10-07] MEDS: methylPREDNISolone Sodium Succinate 125 MG/2 ML SDV IVPUSH SCH ×2 (01:42→09:53)
[2018-10-07] MEDS: oxyCODONE 5 MG Tab PO PRN ×2 (06:53→13:00)
[2018-10-07] MEDS: Gabapentin 100 MG Cap PO SCH (06:54)
[2018-10-07 08:10] LABS: CHLORIDE,CL 102 mmol/L (98-107); SODIUM,NA 136 mmol/L (136-148)
[2018-10-07] MEDS: BEVESPI AEROSPHERE PO SCH (08:40)
[2018-10-07] MEDS: Nicotine 14 MG/24 Hr Patch TRDERM SCH (08:41)
[2018-10-07] MEDS: Thiamine 100 MG Tab PO SCH (08:41)
[2018-10-07] MEDS: Folic Acid/Vitamin B Complex With C Cap PO SCH (08:44)
--- NOTE | 2018-10-07 08:44 | PCM.DCSUM1 ---
Discharge Summary - Hospital Course Free Text/Narrative:: The patient is a 52-year-old gentleman who had been admitted originally for dehydration and protein calorie malnutrition. This is due to chronic nausea and vomiting. Diagnosis: Stroke: No - Discharge Data Discharge Date: 10/07/18 Discharge Disposition: Home, Self-Care 01 Condition: Fair - Discharge Diagnosis/Problem(s) (1) COPD exacerbation SNOMED Code(s): 730031844 ICD Code: J44.1 - CHRONIC OBSTRUCTIVE PULMONARY DISEASE W (ACUTE) EXACERBATION Status: Acute Priority: High (2) Severe protein-calorie malnutrition SNOMED Code(s): 736827183, 328447892, 551786499 ICD Code: E43 - UNSPECIFIED SEVERE PROTEIN-CALORIE MALNUTRITION Status: Chronic Priority: High (3) Anemia SNOMED Code(s): 749311196 ICD Code: D64.9 - ANEMIA, UNSPECIFIED Status: Chronic Priority: High Qualifiers: Anemia type: iron deficiency Iron deficiency anemia type: inadequate dietary iron intake Qualified Code(s): D50.8 - Other iron deficiency anemias (4) Dehydration SNOMED Code(s): 92975185 ICD Code: E86.0 - DEHYDRATION Status: Resolved Priority: High (5) Hypokalemia SNOMED Code(s): 89793700 ICD Code: E87.6 - HYPOKALEMIA Status: Resolved Priority: High (6) Neuropathy involving both lower extremities SNOMED Code(s): 74150984170714452 ICD Code: G57.93 - UNSPECIFIED MONONEUROPATHY OF BILATERAL LOWER LIMBS Status: Chronic Priority: High (7) Pulmonary cachexia due to chronic obstructive pulmonary disease SNOMED Code(s): 461878050 ICD Code: J44.9 - CHRONIC OBSTRUCTIVE PULMONARY DISEASE, UNSPECIFIED; R64 - [place] Status: Chronic Priority: High (8) Tobacco user SNOMED Code(s): 617838687 ICD Code: Z72.0 - TOBACCO USE Status: Acute Priority: High - Patient Summary/Data Consults: Consultations 10/04/18 16:47 Consult to Physician [CONS] Stat 10/05/18 07:43 Consult to Physical Therapy [PT Evaluation and Treatment] [CONS] Routine OT Evaluation and Treatment [CONS] Routine Hospital Course: The patient is a 52-year-old gentleman who had presented to the emergency department primarily out of concern for shortness of breath for the past 7 days. He was then admitted to hospital floor approximately 11 PM yesterday. The patient says that for the past 7 days he's been unable to ambulate, weak, unable to eat or drink, and has had severe pain in the soles of both his feet. The patient has a history of emphysema and he still continues to smoke. The patient also said that he has been so weak that he has been unable to get up from his bed. The patient has denied any fever or chills. He also has had nausea and vomiting associated with the anorexia. Has denied any hematemesis ER hematochezia. He's had no hemoptysis. The patient feels that his health has been declining significantly over the past several months. The patient was aggressively hydrated. His symptoms were controlled with the use of Zofran. The patient initially had been kept on clear liquid diet. He also had dietary supplements with boost. Patient also had been placed on thiamine and folate as was thought that the patient's neuropathy was likely secondary to vitamin deficiency. The patient had been discharged also on gabapentin 200 mg by mouth 3 times a day. Initially had been started on gabapentin 100 mg by mouth twice a day and he had tolerated this well. Initially the patient had been anemic with a hemoglobin of 10.9 prior to fluid resuscitation. He had been given 2 units of packed red blood cells as he had been symptomatic with fatigue, and weakness. The patient tolerated the blood transfusion well. By time of discharge the patient's hemoglobin had remained stable and his last hemoglobin was 9.3 g/dL. The patient also had normal renal function throughout hospitalization. It was noted that the patient's BMI was at 16.2 kg/m. This puts the patient in a cachectic state. He had been advised to continue with his diet in order to help increase his weight. Because of the patient's COPD exacerbation he had been given azithromycin 500 mg by mouth daily along with prednisone taper. The patient has been recommended to continue with his current diet as tolerated. He is to continue his supplements consisting of thiamine and folate. He is also to have activity as tolerated. The patient is to have follow-up with his primary care physician. The patient has been hemodynamically stable and he is discharged from acute hospitalization with recommendations above. - Patient Instructions Diet: Heart Healthy Diet Activity: As Tolerated - Discharge Plan *PRESCRIPTION DRUG MONITORING PROGRAM REVIEWED*: No *COPY OF PRESCRIPTION DRUG MONITORING REPORT IN PATIENT ABI: No Prescriptions/Med Rec: Azithromycin 500 mg PO DAILY #5 tablet B Complex With Vitamin C [Vitamin B-Complex & C] 1 each PO DAILY #30 tablet.er Gabapentin [Neurontin] 300 mg PO BID #30 capsule Nicotine Polacrilex [Nicorelief] 2 mg BC Q4H PRN #60 gum PRN Reason: Withdrawal Symptoms Pantoprazole Sodium [Protonix] 20 mg PO DAILY #30 tablet. predniSONE [Prednisone] 20 mg PO DAILY #3 tablet Thiamine [Vitamin B-1] 100 mg PO DAILY #30 tablet Home Medications: Home Meds Albuterol Sulfate [Proair Hfa] 1 - 2 puff INH ASDIRECTED PRN 06/30/16 [History] Glycopyrrolate/Formoterol Fum [Bevespi Aerosphere Inhaler] 1 - 2 inh PO DAILY [History] Azithromycin 500 mg PO DAILY #5 tablet 10/07/18 [Rx] B Complex With Vitamin C [Vitamin B-Complex & C] 1 each PO DAILY #30 tablet.er 10/07/18 [Rx] Gabapentin [Neurontin] 300 mg PO BID #30 capsule 10/07/18 [Rx] Nicotine Polacrilex [Nicorelief] 2 mg BC Q4H PRN #60 gum 10/07/18 [Rx] Pantoprazole Sodium [Protonix] 20 mg PO DAILY #30 tablet. 10/07/18 [Rx] Thiamine [Vitamin B-1] 100 mg PO DAILY #30 tablet 10/07/18 [Rx] predniSONE [Prednisone] 20 mg PO DAILY #3 tablet 10/07/18 [Rx] Oxygen Therapy Mode: Room Air Patient Handouts: B-Complex Vitamin with Vitamin C formulations, Nicotine chewing gum, Chronic Obstructive Pulmonary Disease, Thiamine, Vitamin B1 tablets , Azithromycin tablets, Pantoprazole tablets, Blood Transfusion, Adult, Care After, [id number], Prednisone tablets, Steps to Quit Smoking Referrals: Bandar Ureña MD [Physician] - 10/19/18 10:00 am - Discharge Summary/Plan Comment DC Time >30 min.: Yes - General Info Date of Service: 10/07/18 Admission Dx/Problem (Free Text: Admission Diagnosis/Problem Admission Diagnosis/Problem COPD, Moderate chronic obstructive pulmonary disease Subjective Update: The patient is a 52-year-old gentleman who is admitted yesterday after concern for shortness of breath, nausea and vomiting along with severe dehydration. Functional Status: Reports: Pain Controlled - Review of Systems General: Reports: No Symptoms HEENT: Reports: No Symptoms Pulmonary: Reports: No Symptoms Cardiovascular: Reports: No Symptoms Gastrointestinal: Reports: No Symptoms Genitourinary: Reports: No Symptoms Musculoskeletal: Reports: No Symptoms Skin: Reports: No Symptoms Neurological: Reports: No Symptoms Psychiatric: Reports: No Symptoms - Patient Data Vitals - Most Recent: Last Vital Signs Temp 36.1 C 10/07/18 07:41 Pulse 78 10/07/18 07:41 Resp 16 10/07/18 07:41 BP 115/75 10/07/18 07:41 Pulse Ox 94 L 10/07/18 07:41 Weight - Most Recent: 51.12 kg I&O - Last 24 hours: Intake & Output 10/06/18 10/07/18 10/07/18 22:59 06:59 14:59 Intake Total 1296 Output Total 350 Balance 946 Lab Results - Last 24 hrs: Laboratory Results - last 24 hr 10/07/18 10/07/18 Range/Units 07:35 07:35 WBC 13.70 H (4.0-11.0) K/uL RBC 2.76 L (4.50-5.90) M/uL Hgb 9.3 L (13.0-17.0) g/dL Hct 28.1 L (38.0-50.0) % MCV 101.8 H (80.0-98.0) fL MCH 33.7 H (27.0-32.0) pg MCHC 33.1 (31.0-37.0) g/dL RDW Std Deviation 76.3 H (28.0-62.0) fl RDW Coeff of Willy 21 H (11.0-15.0) % Plt Count 283 (150-400) K/uL MPV 11.00 (7.40-12.00) fL Neut % (Auto) 89.2 H (48.0-80.0) % Lymph % (Auto) 7.1 L (16.0-40.0) % [place] % (Auto) 3.6 (0.0-15.0) % Eos % (Auto) 0.0 (0.0-7.0) % Baso % (Auto) 0.1 (0.0-1.5) % Neut # (Auto) 12.2 H (1.4-5.7) K/uL Lymph # (Auto) 1.0 (0.6-2.4) K/uL [place] # (Auto) 0.5 (0.0-0.8) K/uL Eos # (Auto) 0.0 (0.0-0.7) K/uL Baso # (Auto) 0.0 (0.0-0.1) K/uL Nucleated RBC % 0.6 /100WBC Nucleated RBCs # 0 K/uL Sodium 136 (136-148) mmol/L Potassium 3.5 (3.5-5.1) mmol/L Chloride 102 (98-107) mmol/L Carbon Dioxide 23.3 (21.0-32.0) mmol/L BUN 14 (7.0-18.0) mg/dL Creatinine 0.7 L (0.8-1.3) mg/dL Est Cr Clr Drug Dosing 88.24 mL/min Estimated GFR (MDRD) > 60.0 ml/min Glucose 126 H (74-106) mg/dL Calcium 8.2 L (8.5-10.1) mg/dL Med Orders - Current: Current Medications Acetaminophen (Tylenol) 650 mg PO Q6H PRN PRN Reason: Mild pain or fever. Last Admin: 10/05/18 14:06 Dose: 650 mg Albuterol/Ipratropium (Duoneb 3.0-0.5 Mg/3 Ml) 3 ml NEB Q4HRRT PRN PRN Reason: Shortness of Breath Enoxaparin Sodium (Lovenox) 40 mg SUBCUT Q24H [facility] Last Admin: 10/06/18 10:18 Dose: 40 mg Gabapentin (Neurontin) 100 mg PO TID [facility] Last Admin: 10/07/18 06:54 Dose: 100 mg Sodium Chloride (Normal Saline) 1,000 mls @ 50 mls/hr IV ASDIRECTED [facility] Last Admin: 10/06/18 17:36 Dose: 50 mls/hr Azithromycin 500 mg/ Sodium (Chloride) 250 mls @ 250 mls/hr IV Q24H [facility] Last Admin: 10/06/18 22:30 Dose: 250 mls/hr Methylprednisolone Sodium Succinate (Solu-Medrol) 125 mg IVPUSH Q8H [facility] Last Admin: 10/07/18 01:42 Dose: 125 mg Multivit/Ca Carb/B Cmplx/FA/Prenat (Renal Caps Softgel) 1 cap PO DAILY [facility] Last Admin: 10/06/18 08:44 Dose: 1 cap Nicotine (Habitrol) 14 mg TRDERM DAILY [facility] Last Admin: 10/06/18 08:42 Dose: 14 mg Oxycodone HCl (Oxycodone) 5 mg PO Q4H PRN PRN Reason: Moderate pain. Last Admin: 10/07/18 06:53 Dose: 5 mg Bevespi Aerosphere (Inhaler 2 Puffs) 2 each PO DAILY [facility] Last Admin: 10/06/18 08:45 Dose: 2 each Temazepam (Restoril) 15 mg PO BEDTIME PRN PRN Reason: Insomnia Last Admin: 10/06/18 01:07 Dose: 15 mg Thiamine HCl (Vitamin B-1) 100 mg PO DAILY [facility] Last Admin: 10/06/18 08:44 Dose: 100 mg Discontinued Medications Albuterol/Ipratropium (Duoneb 3.0-0.5 Mg/3 Ml) 3 ml NEB ONETIME ONE Stop: 10/04/18 16:24 Last Admin: 10/04/18 16:43 Dose: 3 ml Aspirin (Aspirin) 324 mg PO ONETIME ONE Stop: 10/04/18 16:49 Last Admin: 10/04/18 17:06 Dose: 324 mg Diphenhydramine HCl (Benadryl) 50 mg IVPUSH ONETIME ONE Stop: 10/05/18 10:25 Last Admin: 10/05/18 12:12 Dose: 50 mg Sodium Chloride (Normal Saline) 1,000 mls @ 999 mls/hr IV BOLUS ONE Stop: 10/04/18 17:23 Last Admin: 10/04/18 16:54 Dose: 999 mls/hr Sodium Chloride (Normal Saline) 1,000 mls @ 999 mls/hr IV STAT ONE Stop: 10/04/18 18:31 Last Admin: 10/04/18 17:52 Dose: 999 mls/hr Azithromycin 500 mg/ Sodium (Chloride) 250 mls @ 250 mls/hr IV Q24H [facility] Last Admin: 10/04/18 23:52 Dose: 250 mls/hr Magnesium Sulfate 2 gm/ Premix 50 mls @ 50 mls/hr IV ONETIME ONE Stop: 10/05/18 08:50 Last Admin: 10/05/18 08:45 Dose: 50 mls/hr Potassium Chloride 40 meq/ (Premix) 100 mls @ 25 mls/hr IV ONETIME ONE Stop: 10/05/18 12:14 Last Admin: 10/05/18 08:42 Dose: Not Given Potassium Chloride/Sodium Chloride (Normal Saline With 40 Meq Kcl) 1,000 mls @ 150 mls/hr IV ASDIRECTED [facility] Stop: 10/05/18 12:46 Last Admin: 10/05/18 09:16 Dose: 150 mls/hr Iopamidol (Isovue Multipack-370 (76%)) 50 ml IVPUSH ONETIME ONE Stop: 10/04/18 19:07 Last Admin: 10/04/18 19:06 Dose: 50 ml Methylprednisolone Sodium Succinate (Solu-Medrol) 125 mg IVPUSH ONETIME ONE Stop: 10/04/18 16:33 Last Admin: 10/04/18 16:54 Dose: 125 mg - Exam Quality Assessment: Denies: Supplemental Oxygen General: Reports: Alert (Cachectic, appears older), Oriented, Cooperative, No Acute Distress HEENT: Reports: Pupils Equal, Pupils Reactive, EOMI Neck: Reports: Supple, Trachea Midline Lungs: Reports: Clear to Auscultation, Normal Respiratory Effort Cardiovascular: Reports: Regular Rate, Regular Rhythm GI/Abdominal Exam: Normal Bowel Sounds, Soft, Non-Tender, No Distention Back Exam: Reports: Normal Inspection, Full Range of Motion Extremities: Normal Inspection, Normal Range of Motion, No Pedal Edema Skin: Reports: Warm, Dry, Intact Neurological: Reports: No New Focal Deficit Psy/Mental Status: Reports: Alert, Normal Affect, Normal Mood
[2018-10-07] MEDS: Enoxaparin 40 MG/0.4 ML Syringe SUBCUT SCH (09:52)
[2018-10-07 12:05] VITALS: BP 119/79
== END 2018-10-07 13:30 | disposition home or self-care (01) ==
LOC: MW.ED 16:13 → MW.MS 20:32
PROVIDERS: ADMIT Internal Medicine; ATTEND Internal Medicine
DX: J43.9 Emphysema, unspecified (principal); E86.0 Dehydration; E87.6 Hypokalemia; E43 Unspecified severe protein-calorie malnutrition; D50.8 Other iron deficiency anemias; F17.210 Nicotine dependence, cigarettes, uncomplicated; G57.93 Unspecified mononeuropathy of bilateral lower limbs; R64 Cachexia; Z68.1 Body mass index [BMI] 19.9 or less, adult; Z79.899 Other long term (current) drug therapy
CPT/HCPCS: 36415; 36430; 71045; 71275; 80048; 80053; 81003; 82728; 83735; 83880; 84134; 84484; 85025; 86850; 86900; 86901; 86920; 86921; 86922; 93005; 94640; 96361; 96374; 97161; 97530; 99285; A9270; J0456; J1200; J1650; J2930; J3475; J3480; J7040; J7050; P9016; Q9967; 96365; 96366; 96367; 96372; 96375; 96376; G0378; J7620-GY

== ENCOUNTER 2018-10-13 19:22 | Emergency (ER) | payer MEDICAID ==
--- NOTE | 2018-10-13 19:29 | EDM.PDOC ---
ED HPI GENERAL MEDICAL PROBLEM - General Chief Complaint: Lower Extremity Injury/Pain Stated Complaint: SWOLLEN FEET Time Seen by Provider: 10/13/18 19:27 - History of Present Illness INITIAL COMMENTS - FREE TEXT/NARRATIVE: HISTORY AND PHYSICAL: History of present illness: The patient is a 53-year-old male with a history of COPD neuropathy anemia malnutrition who presented on October 04 and was admitted until October 07 here for shortness of breath generalized weakness nausea and vomiting. His discharge summary has been reviewed by me. During the course of his admission he was dehydrated and fluid resuscitated and then was noted to be anemic and given packed red blood cells. Discharge hemoglobin was 9.3. His COPD was addressed and on discharge he was given prednisone and Zithromax along with B complex and B1 and the recommendation was to follow-up with his provider in the clinic. The patient says that he did not fill the prescriptions until October 08 and has been taking them but he continues to smoke cigarettes. He has inhalers at home it is been using regularly and he does not say that his shortness of breath is worse than when he was discharged. He says that he is here today because starting the day after he was discharged she started getting swelling and bilateral legs and feet and it has been progressively worsening over the last 6 days. He says he is in bed with his feet elevated and he is trying to walk around to try to move the fluid but it is not helping. He currently has no abdominal pain nausea or vomiting no diarrhea. He says he is compliant with his medications. He is here with his landlord looks out for him. The patient says he still has a harsh cough which is similar to when he was discharged and it is productive occasionally of some mucus. He denies any chest pain headache neck or back pain but says that he has generalized weakness and he does frequently fall and that is not new or different from the last admission. He denies any injuries as a result of falling. He admits that he knows that he is malnourished and needs to eat more and he says he is trying but he doesn't have much of an appetite. He says that he can eat and there is no abdominal pain nausea or vomiting with eating but he is just not very good at forcing himself to eat. This cachectic state and poor nutritional state was addressed on the last admission. The patient denies that he has had any fevers or chills just complains of generalized weakness nothing focal to one arm or one leg. Review of systems: As per history of present illness and below otherwise all systems reviewed and negative. Past medical history: As per history of present illness and as reviewed below otherwise noncontributory. Surgical history: As per history of present illness and as reviewed below otherwise noncontributory. Social history: No reported history of drug or alcohol abuse. Family history: As per history of present illness and as reviewed below otherwise noncontributory. Physical exam: General: Well-developed thin cachectic sallow-looking man who has a harsh cough in the ED but is nontoxic and not breathless. Vital signs are noted by me HEENT: Atraumatic, normocephalic negative for conjunctival pallor or scleral icterus, mucous membranes moist, throat clear, neck supple, nontender, trachea midline. Lungs: Clear to auscultation with coarse breath sounds throughout all lung braun and rhonchi but no wheezing or stridor,, breath sounds equal bilaterally , chest nontender. There is no work of breathing Heart: S1S2, regular rhythm and slightly tachycardic rate on my evaluation, negative for clicks, rubs, or JVD. Abdomen: Soft, nondistended, nontender. Negative for masses or hepatosplenomegaly. Negative for costovertebral tenderness. Bowel sounds are normoactive and there appears to be a small amount of fluid wave but no tension in the abdomen Pelvis: Stable nontender. Genitourinary: Deferred. Rectal: Deferred. Extremities: Atraumatic, negative for cords or calf pain. Neurovascular unremarkable. Patient has full range of motion of all extremities and there is no soft tissue injuries from the patient's history of falls and no bony defects appreciated throughout all 4 extremities. The lower extremities have pitting edema starting at the distal leg extending into the ankle and foot which is 2+. There is no erythema or skin changes appreciated here. Neuro: Awake, alert, oriented. Cranial nerves II through XII unremarkable. Cerebellum unremarkable. Motor in the upper extremities is 4/5 and in the lower extremities is 3/5 with poor effort and sensory unremarkable throughout. Exam nonfocal. The patient can dorsi and plantar flex with 4/5 strength Back: There are no midline step-offs tenderness defects of the cervical thoracic or lumbar spine no posterior rib or posterior pelvis tenderness and no soft tissue injuries such as ecchymosis abrasions or erythema Skin: Turgor is diminished but there are no overt rashes or lesions appreciated Diagnostics: EKG CBC CMP BNP TSH troponin UA with reflex chest x-ray Therapeutics: IV O2 monitor gentle IV fluids duo anayeli Solu-Medrol Patient now tells me that although his prescriptions were filled on the day after discharge he did not pick them off for several days and has just started them over the last 24 hours. I've advised him to continue those medications and try to push potassium-rich foods as well as protein rich foods and ensure shakes. I have advised him to elevate his legs and he says he has a scheduled follow-up appointment with Dr. Ureña in the clinic on October 19 [address] his name on the exited follow-up to try to move that appointment up. At this point the patient is aware of his testing results and that he does not have any admitted bowel problems but these are much more chronic. I explained that his leg edema is the cause for admission and that he has no findings consistent with congestive heart failure or any other derangements in his workup that require admission. He says he is comfortable with going home and would like me to try to move his appointment up. He will continue his discharge medications and elevate his feet. Impression: Lower extremity edema, chronic medical problems stable Definitive disposition and diagnosis as appropriate pending reevaluation and review of above. both legs Pain Score (Numeric/FACES): 8 - Related Data Allergies Allergy/AdvReac Type Severity Reaction Status Date / Time No Known Allergies Allergy Verified 10/13/18 19:36 Home Meds: Home Meds Albuterol Sulfate [Proair Hfa] 1 - 2 puff INH ASDIRECTED PRN 06/30/16 [History] Glycopyrrolate/Formoterol Fum [Bevespi Aerosphere Inhaler] 1 - 2 inh PO DAILY [History] Azithromycin 500 mg PO DAILY #5 tablet 10/07/18 [Rx] B Complex With Vitamin C [Vitamin B-Complex & C] 1 each PO DAILY #30 tablet.er 10/07/18 [Rx] Gabapentin [Neurontin] 300 mg PO BID #30 capsule 10/07/18 [Rx] Pantoprazole Sodium [Protonix] 20 mg PO DAILY #30 tablet. 10/07/18 [Rx] Thiamine [Vitamin B-1] 100 mg PO DAILY #30 tablet 10/07/18 [Rx] predniSONE [Prednisone] 20 mg PO DAILY #3 tablet 10/07/18 [Rx] Past Medical History HEENT History: Reports: None Cardiovascular History: Reports: None Respiratory History: Reports: COPD, SOB, Other (See Below) Other Respiratory History: smokes 1 pk of cigarettes per day, SOB with excertion Gastrointestinal History: Reports: None Genitourinary History: Reports: None Musculoskeletal History: Reports: Arthritis Neurological History: Reports: None Psychiatric History: Reports: None Endocrine/Metabolic History: Reports: None Hematologic History: Reports: None Immunologic History: Reports: None Oncologic (Cancer) History: Reports: None Dermatologic History: Reports: None - Infectious Disease History Infectious Disease History: Reports: Chicken Pox - Past Surgical History Head Surgeries/Procedures: Reports: None HEENT Surgical History: Reports: Other (See Below) Musculoskeletal Surgical History: Reports: Shoulder Surgery - History Comment History Comment: etoh" daily" Social & Family History - Family History Family Medical History: Noncontributory - Caffeine Use Caffeine Use: Reports: Coffee - Living Situation & Occupation Living situation: Reports: Single, Alone Occupation: Unemployed Review of Systems - Review of Systems Review Of Systems: ROS reveals no pertinent complaints other than HPI. ED EXAM, GENERAL - Physical Exam Exam: See Below (See dictation) Course - Vital Signs Last Recorded V/S: Last Vital Signs Temp 35.8 C 10/13/18 19:25 Pulse 102 H 10/13/18 20:33 Resp 18 10/13/18 20:33 BP 120/71 10/13/18 20:33 Pulse Ox 95 10/13/18 20:34 - Orders/Labs/Meds Orders: Active Orders 24 hr Category Date Time Status Cardiac Monitoring [RC] . DIRECTED Care 10/13/18 19:38 Active EKG Documentation Completion [RC] STAT Care 10/13/18 19:38 Active Oxygen Therapy, ED [RC] ASDIRECTED Care 10/13/18 19:38 Active Pulse Oximetry [RC] ASDIRECTED Care 10/13/18 19:38 Active RT Aerosol Therapy [RC] ASDIRECTED Care 10/13/18 19:40 Active UA RFX JOSE M AND CULT IF INDIC [URIN] Stat Lab 10/13/18 19:39 Ordered Sodium Chloride 0.9% [Normal Saline] 1,000 ml Med 10/13/18 19:45 Active IV ASDIRECTED Sodium Chloride 0.9% [Saline Flush] Med 10/13/18 19:39 Active 10 ml FLUSH ASDIRECTED PRN Sodium Chloride 0.9% [Saline Flush] Med 10/13/18 19:39 Active 2.5 ml FLUSH ASDIRECTED PRN Saline Lock Insert [OM.PC] Stat Oth 10/13/18 19:38 Ordered Medication Orders Sodium Chloride (Normal Saline) 1,000 mls @ 50 mls/hr IV ASDIRECTED SHERWIN Last Admin: 10/13/18 19:59 Dose: 50 mls/hr Sodium Chloride (Saline Flush) 10 ml FLUSH ASDIRECTED PRN PRN Reason: Keep Vein Open Last Admin: 10/13/18 20:00 Dose: 10 ml Sodium Chloride (Saline Flush) 2.5 ml FLUSH ASDIRECTED PRN PRN Reason: Keep Vein Open Last Admin: 10/13/18 20:00 Dose: 2.5 ml Labs: Laboratory Tests 10/13/18 10/13/18 10/13/18 Range/Units 19:50 19:50 19:50 WBC 12.83 H (4.0-11.0) K/uL RBC 3.36 L (4.50-5.90) M/uL Hgb 11.4 L (13.0-17.0) g/dL Hct 34.3 L (38.0-50.0) % MCV 102.1 H (80.0-98.0) fL MCH 33.9 H (27.0-32.0) pg MCHC 33.2 (31.0-37.0) g/dL RDW Std Deviation 68.8 H (28.0-62.0) fl RDW Coeff of Willy 19 H (11.0-15.0) % Plt Count 294 (150-400) K/uL MPV 10.70 (7.40-12.00) fL Neut % (Auto) 91.0 H (48.0-80.0) % Lymph % (Auto) 7.0 L (16.0-40.0) % Iron % (Auto) 1.9 (0.0-15.0) % Eos % (Auto) 0.0 (0.0-7.0) % Baso % (Auto) 0.1 (0.0-1.5) % Neut # (Auto) 11.7 H (1.4-5.7) K/uL Lymph # (Auto) 0.9 (0.6-2.4) K/uL Iron # (Auto) 0.3 (0.0-0.8) K/uL Eos # (Auto) 0.0 (0.0-0.7) K/uL Baso # (Auto) 0.0 (0.0-0.1) K/uL Nucleated RBC % 0.0 /100WBC Nucleated RBCs # 0 K/uL Sodium 138 (136-148) mmol/L Potassium 3.1 L (3.5-5.1) mmol/L Chloride 97 L (98-107) mmol/L Carbon Dioxide 28.7 (21.0-32.0) mmol/L BUN 5 L (7.0-18.0) mg/dL Creatinine 0.7 L (0.8-1.3) mg/dL Est Cr Clr Drug Dosing 93.31 mL/min Estimated GFR (MDRD) > 60.0 ml/min Glucose 157 H (74-106) mg/dL Calcium 8.7 (8.5-10.1) mg/dL Total Bilirubin 1.2 H (0.2-1.0) mg/dL AST 39 H (15-37) IU/L ALT 51 (14-63) IU/L Alkaline Phosphatase 234 H (46-116) U/L Troponin I < 0.050 (0.000-0.056) ng/mL B-Natriuretic Peptide 224 H (<100) PG/ML Total Protein 7.0 (6.4-8.2) g/dL Albumin 3.0 L (3.4-5.0) g/dL Globulin 4.0 (2.6-4.0) g/dL Albumin/Globulin Ratio 0.8 L (0.9-1.6) TSH 3rd Generation 1.08 (0.36-3.74) uIU/mL Meds: Medications Generic Name Dose Route Start Last Admin Trade Name Freq PRN Reason Stop Dose Admin Sodium Chloride 1,000 mls @ 50 mls/hr 10/13/18 19:45 10/13/18 19:59 Normal Saline IV 50 mls/hr ASDIRECTED SHERWIN Administration Sodium Chloride 10 ml 10/13/18 19:39 10/13/18 20:00 Saline Flush FLUSH 10 ml ASDIRECTED PRN Administration Keep Vein Open Sodium Chloride 2.5 ml 10/13/18 19:39 10/13/18 20:00 Saline Flush FLUSH 2.5 ml ASDIRECTED PRN Administration Keep Vein Open Discontinued Medications Generic Name Dose Route Start Last Admin Trade Name Derek PRN Reason Stop Dose Admin Albuterol/Ipratropium 3 ml 10/13/18 19:39 10/13/18 19:59 Duoneb 3.0-0.5 Mg/3 Ml NEB 10/13/18 19:40 3 ml ONETIME ONE Administration Methylprednisolone Sodium Succinate 125 mg 10/13/18 19:39 10/13/18 20:00 Solu-Medrol IVPUSH 10/13/18 19:40 125 mg ONETIME ONE Administration Potassium Chloride 40 meq 10/13/18 20:56 Klor-Con M20 PO 10/13/18 20:57 ONETIME ONE Departure - Departure Time of Disposition: 21:05 Disposition: Home, Self-Care 01 Condition: Fair Clinical Impression: Lower extremity edema - Discharge Information Referrals: Bandar Ureña MD [Primary Care Provider] - Forms: ED Department Discharge Additional Instructions: The following information is given to patients seen in the emergency department who are being discharged to home. This information is to outline your options for follow-up care. We provide all patients seen in our emergency department with a follow-up referral. The need for follow-up, as well as the timing and circumstances, are variable depending upon the specifics of your emergency department visit. If you don't have a primary care physician on staff, we will provide you with a referral. We always advise you to contact your personal physician following an emergency department visit to inform them of the circumstance of the visit and for follow-up with them and/or the need for any referrals to a consulting specialist. The emergency department will also refer you to a specialist when appropriate. This referral assures that you have the opportunity for followup care with a specialist. All of these measure are taken in an effort to provide you with optimal care, which includes your followup. Under all circumstances we always encourage you to contact your private physician who remains a resource for coordinating your care. When calling for followup care, please make the office aware that this follow-up is from your recent emergency room visit. If for any reason you are refused follow-up, please contact the emergency department at and ask to speak to the emergency department charge nurse. [facility] Primary care- Internal Medicine and Family [address] [id number] Please call the clinic on Monday at 8 AM to try to move her appointment up knowing that we put your name on the expedited follow-up list. Elevate your legs and try to eat potassium-rich foods such as bananas and whole gr. Try to supplement your diet by drinking in sure and other protein shakes. Take all medications you have been prescribed and return to ER as needed and as discussed. - My Orders Last 24 Hours: My Active Orders 10/13/18 19:38 Cardiac Monitoring [RC] . DIRECTED EKG Documentation Completion [RC] STAT Oxygen Therapy, ED [RC] ASDIRECTED Pulse Oximetry [RC] ASDIRECTED Saline Lock Insert [OM.PC] Stat 10/13/18 19:39 UA RFX JOSE M AND CULT IF INDIC [URIN] Stat Sodium Chloride 0.9% [Saline Flush] 10 ml FLUSH ASDIRECTED PRN Sodium Chloride 0.9% [Saline Flush] 2.5 ml FLUSH ASDIRECTED PRN 10/13/18 19:40 RT Aerosol Therapy [RC] ASDIRECTED 10/13/18 19:45 Sodium Chloride 0.9% [Normal Saline] 1,000 ml IV ASDIRECTED - Assessment/Plan Last 24 Hours: My Active Orders 10/13/18 19:38 Cardiac Monitoring [RC] . DIRECTED EKG Documentation Completion [RC] STAT Oxygen Therapy, ED [RC] ASDIRECTED Pulse Oximetry [RC] ASDIRECTED Saline Lock Insert [OM.PC] Stat 10/13/18 19:39 UA RFX JOSE M AND CULT IF INDIC [URIN] Stat Sodium Chloride 0.9% [Saline Flush] 10 ml FLUSH ASDIRECTED PRN Sodium Chloride 0.9% [Saline Flush] 2.5 ml FLUSH ASDIRECTED PRN 10/13/18 19:40 RT Aerosol Therapy [RC] ASDIRECTED 10/13/18 19:45 Sodium Chloride 0.9% [Normal Saline] 1,000 ml IV ASDIRECTED
[2018-10-13] MEDS ORDERED: methylPREDNISolone Sodium Succinate 125 MG/2 ML SDV IVPUSH ONE (19:39)
[2018-10-13] MEDS ORDERED: Sodium Chloride 0.9% 10 ML Syringe FLUSH PRN (19:39)
[2018-10-13] MEDS ORDERED: Albuterol/Ipratropium 3.0-0.5 MG/3 ML Neb Soln NEB ONE (19:39)
[2018-10-13] MEDS ORDERED: Sodium Chloride 0.9% 2.5 ML Syringe FLUSH PRN (19:39)
[2018-10-13] MEDS ORDERED: Sodium Chloride 0.9% 1,000 ML IV SCH (19:45)
--- NOTE | 2018-10-13 20:32 | CR ---
INDICATION: Shortness of breath and chest pain. COMPARISON: CT of the chest from 10/04/2018 FINDINGS: An erect single view of the chest was obtained at 1953 hours. The lungs remain clear. No focal or diffuse infiltrates are present. The heart remains normal in size. The mediastinum is normal in appearance. The osseous structures are normal in appearance for the patient`s age. IMPRESSION: Normal chest single view. Dictated by Matti Schwartz MD @ Oct 13 2018 8:28PM Signed by Dr. Matti Schwartz @ Oct 13 2018 8:29PM
[2018-10-13 20:34] LABS: CHLORIDE,CL 97 mmol/L (98-107); SODIUM,NA 138 mmol/L (136-148)
[2018-10-13] MEDS ORDERED: Potassium Chloride 20 MEQ Tab.ER PO ONE (20:56)
[2018-10-13 21:39] VITALS: BP 106/85
== END 2018-10-13 21:42 | disposition home or self-care (01) ==
LOC: MW.ED 19:22
DX: R60.0 Localized edema (principal); J44.9 Chronic obstructive pulmonary disease, unspecified; F17.210 Nicotine dependence, cigarettes, uncomplicated; Z79.899 Other long term (current) drug therapy
CPT/HCPCS: 36415; 71045; 80053; 83880; 84443; 84484; 85025; 93005; 94640; 96361; 96374; 99284; A9270; J2930; J7040; J7620-GY

== ENCOUNTER 2018-11-02 13:39 | Inpatient (IN) | payer MEDICAID ==
--- NOTE | 2018-11-02 13:44 | EDM.PDOC ---
ED HPI GENERAL MEDICAL PROBLEM - General Stated Complaint: UNCONTROLLABLE BOWEL Time Seen by Provider: 11/02/18 13:41 Source of Information: Reports: Patient History Limitations: Reports: No Limitations - History of Present Illness INITIAL COMMENTS - FREE TEXT/NARRATIVE: HISTORY AND PHYSICAL: History of present illness: Patient is a 53-year-old male who presents to the emergency room with complaints of diarrhea 2 weeks. He states that he has been incontinent of stool during this time. He was admitted on 10/05/18 for COPD exacerbation, weakness and anorexia. Upon his discharge he states he tried to increase his calories as he was encouraged to do by the hospitalist and his primary care provider, Dr. Ureña. He states over the past 2 weeks as soon as he eats "it goes straight through me". He has been drinking a small amount of fluids, eating soup and small amount of bread. He states that he feels very weak and "exhausted". Denies any injury, trauma or falls. Patient denies any fever, chills, headache, change in vision, syncope or near syncope. Denies any chest pain, back pain, shortness of breath or cough. Denies any abdominal pain, nausea, vomiting, diarrhea, constipation or dysuria. Has not noted any blood in urine or stool. Patient has been eating and drinking appropriately. Patient has a past medical history of COPD, emphysema, neuropathy, anemia and malnutrition. Patient is a current pack per day smoker, chronic. He reports that he drinks alcohol daily. "On a good day all have 4-5 mixed whiskey drinks" . He states occasionally he does drink more than that. Review of systems: As per history of present illness and below otherwise all systems reviewed and negative. Past medical history: As per history of present illness and as reviewed below otherwise noncontributory. Surgical history: As per history of present illness and as reviewed below otherwise noncontributory. Social history: See social history for further information Family history: As per history of present illness and as reviewed below otherwise noncontributory. Physical exam: General: Cachectic-appearing 53-year-old male. Sallow appearance. Nontoxic appearing and in no acute distress. HEENT: Atraumatic, normocephalic, pupils equal and reactive bilaterally, negative for conjunctival pallor or scleral icterus, mucous membranes dry, throat clear, neck supple, nontender, trachea midline. No drooling or trismus noted. No meningeal signs. No hot potato voice noted. Lungs: Clear to auscultation, breath sounds equal bilaterally, chest nontender. Heart: S1S2, regular rate and rhythm without overt murmur Abdomen: Soft, extremely thin, nontender. Negative for masses. Negative for costovertebral tenderness. Pelvis: Stable nontender. Genitourinary: Deferred. Rectal: +Rectal tone. No external hemorrhoids noted. Hemoccult positive. Skin: Intact, warm, dry. No lesions or rashes noted. Extremities: Atraumatic, moves all extremities per self without difficulty or deficits, negative for cords or calf pain. Neurovascular unremarkable. Neuro: Awake, alert, oriented. Cranial nerves II through XII unremarkable. Cerebellum unremarkable. Motor and sensory unremarkable throughout. Exam nonfocal. Notes: Upon entering the patient's room he is incontinent of stool. Liquid green stool noted. Rectal exam was done with consent and banker mason at the bedside. Patient does have positive rectal tone, hemoccult positive. No neurological symptoms or foot droop. Patient states he does have chronic neuropathy of his distal extremities. Patient has not been able to give us a stool sample while here. Vital signs have been reviewed by me. Laboratory results have been reviewed by me. IV potassium ordered. I did talk with Dr. Alexander about admission. He is agreeable. Patient is aware and agreeable with plan of care. Diagnostics: CBC, CMP, stool studies, CT abd/pelvis, EKG Therapeutics: IV fluids, 40meQ Potassium Impression: Hypokalemia Anemia History of COPD Dehydration Anorexia History of neuropathy involving both lower extremities Diarrhea Plan: Admission to Med/Surg with Telemetry Definitive disposition and diagnosis as appropriate pending reevaluation and review of above. Duration: Week(s): - Related Data Allergies Allergy/AdvReac Type Severity Reaction Status Date / Time No Known Allergies Allergy Verified 11/02/18 13:51 Home Meds: Home Meds Albuterol Sulfate [Proair Hfa] 1 - 2 puff INH ASDIRECTED PRN 06/30/16 [History] Glycopyrrolate/Formoterol Fum [Bevespi Aerosphere Inhaler] 1 - 2 inh PO DAILY [History] B Complex With Vitamin C [Vitamin B-Complex & C] 1 each PO DAILY #30 tablet.er 10/07/18 [Rx] Gabapentin [Neurontin] 300 mg PO BID #30 capsule 10/07/18 [Rx] Pantoprazole Sodium [Protonix] 20 mg PO DAILY #30 tablet. 10/07/18 [Rx] Thiamine [Vitamin B-1] 100 mg PO DAILY #30 tablet 10/07/18 [Rx] predniSONE [Prednisone] 20 mg PO DAILY #3 tablet 10/07/18 [Rx] Past Medical History HEENT History: Reports: None Cardiovascular History: Reports: None Respiratory History: Reports: COPD, SOB, Other (See Below) Other Respiratory History: smokes 1 pk of cigarettes per day, SOB with excertion Gastrointestinal History: Reports: None Genitourinary History: Reports: None Musculoskeletal History: Reports: Arthritis Neurological History: Reports: None Psychiatric History: Reports: None Endocrine/Metabolic History: Reports: None Hematologic History: Reports: None Immunologic History: Reports: None Oncologic (Cancer) History: Reports: None Dermatologic History: Reports: None - Infectious Disease History Infectious Disease History: Reports: Chicken Pox - Past Surgical History Head Surgeries/Procedures: Reports: None HEENT Surgical History: Reports: Other (See Below) Musculoskeletal Surgical History: Reports: Shoulder Surgery - History Comment History Comment: etoh" daily" Social & Family History - Family History Family Medical History: Noncontributory - Caffeine Use Caffeine Use: Reports: Coffee - Living Situation & Occupation Living situation: Reports: Single, Alone Occupation: Unemployed ED ROS GENERAL - Review of Systems Review Of Systems: ROS reveals no pertinent complaints other than HPI. ED EXAM, GI/ABD - Physical Exam Exam: See Below (See dictation) Course - Vital Signs Last Recorded V/S: Last Vital Signs Temp 96.4 F 11/02/18 13:51 Pulse 92 11/02/18 14:26 Resp 18 11/02/18 14:26 BP 96/64 11/02/18 14:26 Pulse Ox 100 11/02/18 14:26 - Orders/Labs/Meds Orders: Active Orders 24 hr Category Date Time Status Admission Status [Patient Status] [ADT] Stat ADT 11/02/18 15:15 Active EKG Documentation Completion [RC] STAT Care 11/02/18 15:04 Active Fecal Occult Blood Collection [RC] ASDIRECTED Care 11/02/18 13:45 Active Abdomen Pelvis wo Cont [CT] Stat Exams 11/02/18 14:30 Taken CDIFF TOX A+B [OP] Stat Lab 11/02/18 13:45 Ordered CULTURE STOOL + CAMPY+SHIGATOX [RM] Stat Lab 11/02/18 13:45 Ordered OVA & PARASITES BY IMMUNOASSAY [MREF] Stat Lab 11/02/18 13:45 Ordered UA RFX JOSE M AND CULT IF INDIC [URIN] Stat Lab 11/02/18 14:11 Ordered Potassium Chloride Riders [KCL 40 MEQ in Water 100 ML] Med 11/02/18 15:04 Active 40 meq Premix Bag 1 bag IV ONETIME Sodium Chloride 0.9% [Normal Saline] 1,000 ml Med 11/02/18 14:06 Active IV STAT Isolation [COMM] Stat Oth 11/02/18 13:46 Ordered Medication Orders Sodium Chloride (Normal Saline) 1,000 mls @ 150 mls/hr IV STAT ONE Stop: 11/02/18 20:45 Last Admin: 11/02/18 14:25 Dose: 150 mls/hr Potassium Chloride 40 meq/ (Premix) 100 mls @ 25 mls/hr IV ONETIME ONE Stop: 11/02/18 19:03 Last Admin: 11/02/18 15:11 Dose: 25 mls/hr Labs: Laboratory Tests 11/02/18 11/02/18 Range/Units 14:30 14:30 WBC 17.31 H (4.0-11.0) K/uL RBC 2.91 L (4.50-5.90) M/uL Hgb 10.0 L (13.0-17.0) g/dL Hct 29.3 L (38.0-50.0) % MCV 100.7 H (80.0-98.0) fL MCH 34.4 H (27.0-32.0) pg MCHC 34.1 (31.0-37.0) g/dL RDW Std Deviation 72.9 H (28.0-62.0) fl RDW Coeff of Willy 21 H (11.0-15.0) % Plt Count 296 (150-400) K/uL MPV 11.60 (7.40-12.00) fL Neut % (Auto) 74.7 (48.0-80.0) % Lymph % (Auto) 15.9 L (16.0-40.0) % [place] % (Auto) 8.7 (0.0-15.0) % Eos % (Auto) 0.4 (0.0-7.0) % Baso % (Auto) 0.3 (0.0-1.5) % Neut # (Auto) 12.9 H (1.4-5.7) K/uL Lymph # (Auto) 2.8 H (0.6-2.4) K/uL [place] # (Auto) 1.5 H (0.0-0.8) K/uL Eos # (Auto) 0.1 (0.0-0.7) K/uL Baso # (Auto) 0.1 (0.0-0.1) K/uL Nucleated RBC % 0.0 /100WBC Nucleated RBCs # 0 K/uL Sodium 132 L (136-148) mmol/L Potassium 2.1 L* (3.5-5.1) mmol/L Chloride 93 L (98-107) mmol/L Carbon Dioxide 23.0 (21.0-32.0) mmol/L BUN 20 H (7.0-18.0) mg/dL Creatinine 2.9 H (0.8-1.3) mg/dL Est Cr Clr Drug Dosing 20.55 mL/min Estimated GFR (MDRD) 22.8 ml/min Glucose 103 (74-106) mg/dL Calcium 7.6 L (8.5-10.1) mg/dL Total Bilirubin 0.7 (0.2-1.0) mg/dL AST 114 H (15-37) IU/L ALT 44 (14-63) IU/L Alkaline Phosphatase 304 H (46-116) U/L Total Protein 6.4 (6.4-8.2) g/dL Albumin 2.2 L (3.4-5.0) g/dL Globulin 4.2 H (2.6-4.0) g/dL Albumin/Globulin Ratio 0.5 L (0.9-1.6) Meds: Medications Generic Name Dose Route Start Last Admin Trade Name Freq PRN Reason Stop Dose Admin Sodium Chloride 1,000 mls @ 150 mls/hr 11/02/18 14:06 11/02/18 14:25 Normal Saline IV 11/02/18 20:45 150 mls/hr STAT ONE Administration Potassium Chloride 40 meq/ 100 mls @ 25 mls/hr 11/02/18 15:04 11/02/18 15:11 Premix IV 11/02/18 19:03 25 mls/hr ONETIME ONE Administration Departure - Departure Time of Disposition: 15:17 Disposition: Admitted As Inpatient 65 Clinical Impression: Neuropathy involving both lower extremities, Hypokalemia, History of COPD, Anorexia, Dehydration Anemia Qualifiers: Anemia type: iron deficiency Iron deficiency anemia type: inadequate dietary iron intake Qualified Code(s): D50.8 - Other iron deficiency anemias Diarrhea Qualifiers: Diarrhea type: unspecified type Qualified Code(s): R19.7 - Diarrhea, unspecified - Discharge Information Referrals: Bandar Ureña MD [Primary Care Provider] - - My Orders Last 24 Hours: My Active Orders 11/02/18 13:45 Fecal Occult Blood Collection [RC] ASDIRECTED CDIFF TOX A+B [OP] Stat CULTURE STOOL + CAMPY+SHIGATOX [RM] Stat OVA & PARASITES BY IMMUNOASSAY [MREF] Stat 11/02/18 13:46 Isolation [COMM] Stat 11/02/18 14:06 Sodium Chloride 0.9% [Normal Saline] 1,000 ml IV STAT 11/02/18 14:11 UA RFX JOSE M AND CULT IF INDIC [URIN] Stat 11/02/18 14:30 Abdomen Pelvis wo Cont [CT] Stat 11/02/18 15:04 EKG Documentation Completion [RC] STAT Potassium Chloride Riders [KCL 40 MEQ in Water 100 ML] 40 meq Premix Bag 1 bag IV ONETIME 11/02/18 15:15 Admission Status [Patient Status] [ADT] Stat - Assessment/Plan Last 24 Hours: My Active Orders 11/02/18 13:45 Fecal Occult Blood Collection [RC] ASDIRECTED CDIFF TOX A+B [OP] Stat CULTURE STOOL + CAMPY+SHIGATOX [RM] Stat OVA & PARASITES BY IMMUNOASSAY [MREF] Stat 11/02/18 13:46 Isolation [COMM] Stat 11/02/18 14:06 Sodium Chloride 0.9% [Normal Saline] 1,000 ml IV STAT 11/02/18 14:11 UA RFX JOSE M AND CULT IF INDIC [URIN] Stat 11/02/18 14:30 Abdomen Pelvis wo Cont [CT] Stat 11/02/18 15:04 EKG Documentation Completion [RC] STAT Potassium Chloride Riders [KCL 40 MEQ in Water 100 ML] 40 meq Premix Bag 1 bag IV ONETIME 11/02/18 15:15 Admission Status [Patient Status] [ADT] Stat
[2018-11-02] MEDS ORDERED: Sodium Chloride 0.9% 1,000 ML IV ONE ×4 (14:06→21:37)
[2018-11-02] MEDS ORDERED: Potassium Chloride Riders 40 MEQ in Premix Bag 1 BAG IV ONE (15:04)
--- NOTE | 2018-11-02 15:50 | CT ---
INDICATION: Incontinence of stool, hemoccult positive stool. CT ABDOMEN AND PELVIS WITHOUT CONTRAST TECHNIQUE: Multidetector CT imaging was performed through the abdomen and pelvis without intravenous contrast administration. Coronal and sagittal reconstructions were generated. COMPARISON: None. FINDINGS: Lower chest: Patchy and micronodular infiltrate in the basilar portion of the left lower lobe, suspicious for pneumonia. Liver: Diffuse fatty infiltration of the liver. Gallbladder and bile ducts: Partially contracted gallbladder. Question of a small amount of gallbladder sludge or small stones in the dependent portion of the gallbladder. No findings suggestive of cholecystitis. No biliary dilation identified. Pancreas: Unremarkable. Spleen: Normal. Adrenals: No nodules or masses. Kidneys, ureters, and urinary bladder: No urinary tract stones identified. No renal masses or hydronephrosis. No bladder mass or definite wall thickening. Gastrointestinal tract: Nonspecific mild prominence of gas and fluid throughout the small bowel with several air-fluid levels, with no definite caliber transition or wall thickening. The appendix and colon appear normal. Vascular structures: Normal caliber abdominal aorta with mild aortoiliac atherosclerotic calcifications. Peritoneum: No free air, abscess, or significant free fluid. Lymph nodes: No pathologically enlarged nodes identified. Reproductive organs: Borderline prostatic enlargement. Bones: Normal for age. IMPRESSION: 1. Nonspecific mild prominence of small bowel gas and fluid, possibly reflecting gastroenteritis. 2. Mild patchy and micronodular infiltrate in the basilar left lower lobe, suspicious for pneumonia. 3 Nonacute additional findings as detailed above. BROCK BLACKWELL MD [employer] [employer] Dictated by Anirudh Blackwell MD @ 11/02/2018 3:48:24 PM Dictated by: Anirudh Blackwell MD @ 11/02/2018 15:48:41 (Electronically Signed)
[2018-11-02] MEDS ORDERED: Ondansetron 4 MG/2 ML SDV IVPUSH PRN (16:04)
[2018-11-02] MEDS ORDERED: LORazepam 2 MG/ML SDV IVPUSH PRN (16:09)
[2018-11-02] MEDS ORDERED: Potassium Chloride 20 MEQ Tab.ER PO ONE ×2 (16:11→18:00)
[2018-11-02] MEDS ORDERED: Levofloxacin/Dextrose 5%-Water 750 MG in Premix Bag 1 BAG IV SCH ×3 (16:15→18:15)
[2018-11-02] MEDS ORDERED: Piperacillin/Tazobactam 3.375 GM in Sodium Chloride 0.9% 50 ML IV SCH (16:15)
[2018-11-02] MEDS ORDERED: Heparin Sodium 5,000 Units/ML Vial SUBCUT SCH (16:15)
[2018-11-02] MEDS ORDERED: Sodium Chloride 0.9% with KCl 1,000 ML IV SCH (16:30)
--- NOTE | 2018-11-02 16:31 | PCM.HP ---
H&P History of Present Illness - General Date of Service: 11/02/18 Admit Problem/Dx: Admission Diagnosis/Problem Admission Diagnosis/Problem Hypokalemia Source of Information: Patient History Limitations: Reports: No Limitations - History of Present Illness Initial Comments - Free Text/Narative: 53M hx of COPD, Alcohol abuse w/protein malnutrition that presented to the ER complaining of profuse watery diarrhea (nonbloody) that has been ongoing for the past weeks. He denies abdominal pain, says that hes been having a hard time eating due to lack of appetite. No nausea or vomiting. He also endorses a productive cough. He was recently admitted for COPD exacerbation and dehydration. He drinks 2 alcoholic beverages daily, says he cut down and has no history of withdrawals. Last drink was yesterday. - Related Data Allergies/Adverse Reactions: Allergies Allergy/AdvReac Type Severity Reaction Status Date / Time No Known Allergies Allergy Verified 11/02/18 13:51 Home Medications: Home Meds Albuterol Sulfate [Proair Hfa] 1 - 2 puff INH ASDIRECTED PRN 06/30/16 [History] Glycopyrrolate/Formoterol Fum [Bevespi Aerosphere Inhaler] 1 - 2 inh PO DAILY [History] B Complex With Vitamin C [Vitamin B-Complex & C] 1 each PO DAILY #30 tablet.er 10/07/18 [Rx] Gabapentin [Neurontin] 300 mg PO BID #30 capsule 10/07/18 [Rx] Pantoprazole Sodium [Protonix] 20 mg PO DAILY #30 tablet.dr 10/07/18 [Rx] Thiamine [Vitamin B-1] 100 mg PO DAILY #30 tablet 10/07/18 [Rx] predniSONE [Prednisone] 20 mg PO DAILY #3 tablet 10/07/18 [Rx] Past Medical History HEENT History: Reports: None Cardiovascular History: Reports: None Respiratory History: Reports: COPD, SOB, Other (See Below) Other Respiratory History: smokes 1 pk of cigarettes per day, SOB with excertion Gastrointestinal History: Reports: None Genitourinary History: Reports: None Musculoskeletal History: Reports: Arthritis Neurological History: Reports: None Psychiatric History: Reports: None Endocrine/Metabolic History: Reports: None Hematologic History: Reports: None Immunologic History: Reports: None Oncologic (Cancer) History: Reports: None Dermatologic History: Reports: None - Infectious Disease History Infectious Disease History: Reports: Chicken Pox - Past Surgical History Head Surgeries/Procedures: Reports: None HEENT Surgical History: Reports: Other (See Below) Musculoskeletal Surgical History: Reports: Shoulder Surgery - History Comment History Comment: etoh" daily" Social & Family History - Family History Family Medical History: Noncontributory - Tobacco Use Smoking Status *Q: Current Every Day Smoker Years of Tobacco use: 34 Packs/Tins Daily: 1 - Caffeine Use Caffeine Use: Reports: Coffee - Alcohol Use Days Per Week of Alcohol Use: 7 Number of Drinks Per Day: 5 Total Drinks Per Week: 35 - Recreational Drug Use Recreational Drug Use: No - Living Situation & Occupation Living situation: Reports: Single, Alone Occupation: Unemployed H&P Review of Systems - Review of Systems: Review Of Systems: ROS reveals no pertinent complaints other than HPI. Exam - Exam Exam: See Below - Vital Signs Vital Signs: Last Vital Signs Temp 36.6 C 11/02/18 16:17 Pulse 109 H 11/02/18 16:17 Resp 18 11/02/18 16:17 BP 91/66 11/02/18 16:17 Pulse Ox 99 11/02/18 16:17 Weight: 49.895 kg - Exam General: Alert, Oriented, Other (cachectic ) HEENT: PERRLA, Hearing Intact, Mucosa Moist & [place], Nares Patent, Normal Nasal Septum, Posterior Pharynx Clear, Conjunctiva Clear, EOMI, EACs Clear, TMs Clear Neck: Supple, Trachea Midline, 2 Lungs: Normal Respiratory Effort, Rales Cardiovascular: Regular Rate, Regular Rhythm GI/Abdominal Exam: Normal Bowel Sounds, Soft, Non-Tender, No Organomegaly, No Distention, No Mass Back Exam: Normal Inspection, Full Range of Motion, NT Extremities: Normal Inspection, Normal Range of Motion, Non-Tender, No Pedal Edema, Normal Capillary Refill Peripheral Pulses: 2+: Dorsalis Pedis (L), Dorsalis Pedis (R) Skin: Warm, Dry, Intact Neurological: Cranial Nerves Intact, Reflexes Equal Bilateral Neuro Extensive - Mental Status: Alert, Oriented x3, Normal Mood/Affect, Normal Cognition Neuro Extensive - Motor, Sensory, Reflexes: CN II-XII Intact, Normal Gait, Normal Reflexes. No: Tremor Psychiatric: Alert, Normal Affect, Normal Mood - Patient Data Lab Results Last 24 hrs: Laboratory Results - last 24 hr 11/02/18 11/02/18 Range/Units 14:30 14:30 WBC 17.31 H (4.0-11.0) K/uL RBC 2.91 L (4.50-5.90) M/uL Hgb 10.0 L (13.0-17.0) g/dL Hct 29.3 L (38.0-50.0) % MCV 100.7 H (80.0-98.0) fL MCH 34.4 H (27.0-32.0) pg MCHC 34.1 (31.0-37.0) g/dL RDW Std Deviation 72.9 H (28.0-62.0) fl RDW Coeff of Willy 21 H (11.0-15.0) % Plt Count 296 (150-400) K/uL MPV 11.60 (7.40-12.00) fL Neut % (Auto) 74.7 (48.0-80.0) % Lymph % (Auto) 15.9 L (16.0-40.0) % Ocean % (Auto) 8.7 (0.0-15.0) % Eos % (Auto) 0.4 (0.0-7.0) % Baso % (Auto) 0.3 (0.0-1.5) % Neut # (Auto) 12.9 H (1.4-5.7) K/uL Lymph # (Auto) 2.8 H (0.6-2.4) K/uL Ocean # (Auto) 1.5 H (0.0-0.8) K/uL Eos # (Auto) 0.1 (0.0-0.7) K/uL Baso # (Auto) 0.1 (0.0-0.1) K/uL Nucleated RBC % 0.0 /100WBC Nucleated RBCs # 0 K/uL Sodium 132 L (136-148) mmol/L Potassium 2.1 L* (3.5-5.1) mmol/L Chloride 93 L (98-107) mmol/L Carbon Dioxide 23.0 (21.0-32.0) mmol/L BUN 20 H (7.0-18.0) mg/dL Creatinine 2.9 H (0.8-1.3) mg/dL Est Cr Clr Drug Dosing 20.55 mL/min Estimated GFR (MDRD) 22.8 ml/min Glucose 103 (74-106) mg/dL Calcium 7.6 L (8.5-10.1) mg/dL Total Bilirubin 0.7 (0.2-1.0) mg/dL AST 114 H (15-37) IU/L ALT 44 (14-63) IU/L Alkaline Phosphatase 304 H (46-116) U/L Total Protein 6.4 (6.4-8.2) g/dL Albumin 2.2 L (3.4-5.0) g/dL Globulin 4.2 H (2.6-4.0) g/dL Albumin/Globulin Ratio 0.5 L (0.9-1.6) Result Diagrams: 11/02/18 14:30 11/02/18 14:30 Problem List Initiated/Reviewed/Updated: Yes Orders Last 24hrs: Active Orders 24 hr Category Date Time Status Admission Status [Patient Status] [ADT] Stat ADT 11/02/18 15:15 Active Antiembolic Devices [RC] PER UNIT ROUTINE Care 11/02/18 16:05 Ordered Cardiac Monitoring [RC] CONTINUOUS Care 11/02/18 16:04 Ordered EKG Documentation Completion [RC] STAT Care 11/02/18 15:04 Active Fecal Occult Blood Collection [RC] ASDIRECTED Care 11/02/18 13:45 Active Oxygen Therapy [RC] PRN Care 11/02/18 16:04 Ordered RT Aerosol Therapy [RC] ASDIRECTED Care 11/02/18 16:10 Ordered Telemetry Monitoring [Cardiac Monitoring] [RC] . Care 11/02/18 15:46 Active DIRECTED Up ad Anita [RC] ASDIRECTED Care 11/02/18 16:04 Ordered VTE/DVT Education [RC] PER UNIT ROUTINE Care 11/02/18 16:04 Ordered Vital Signs [RC] Q4H Care 11/02/18 16:04 Ordered Regular Diet [DIET] Diet 11/02/18 Dinner Ordered BASIC METABOLIC PANEL,BMP [CHEM] AM Lab 11/03/18 05:11 Ordered BASIC METABOLIC PANEL,BMP [CHEM] Routine Lab 11/02/18 20:00 Ordered CDIFF TOX A+B [OP] Stat Lab 11/02/18 13:45 Ordered CULTURE STOOL + CAMPY+SHIGATOX [RM] Stat Lab 11/02/18 13:45 Ordered MAGNESIUM [CHEM] Routine Lab 11/02/18 16:19 Ordered OVA & PARASITES BY IMMUNOASSAY [MREF] Stat Lab 11/02/18 13:45 Ordered UA RFX JOSE M AND CULT IF INDIC [URIN] Stat Lab 11/02/18 14:11 Ordered Acetaminophen [Tylenol] Med 11/02/18 16:04 Ordered 650 mg PO Q4H PRN Albuterol/Ipratropium [DuoNeb 3.0-0.5 MG/3 ML] Med 11/02/18 16:10 Ordered 3 ml NEB Q4H PRN Folic Acid Med 11/02/18 21:00 Ordered 1 mg PO BEDTIME Gabapentin [Neurontin] Med 11/02/18 21:00 Ordered 300 mg PO BID Heparin Sodium Med 11/02/18 16:15 Ordered 5,000 units SUBCUT Q8H LORazepam [Ativan] Med 11/02/18 16:09 Ordered See Protocol IVPUSH Q4H PRN Levofloxacin/Dextrose 5%-Water [Levaquin in D5W 750 MG/ Med 11/02/18 17:00 Active 150 ML] 750 mg Premix Bag 1 bag IV Q48H Nicotine [Habitrol] Med 11/02/18 16:15 Ordered 14 mg TRDERM DAILY Ondansetron [Zofran] Med 11/02/18 16:04 Ordered 4 mg IVPUSH Q4H PRN Pantoprazole Sodium [Protonix] Med 11/03/18 09:00 Ordered 20 mg PO DAILY Pharmacy to Dose - Vancomycin Med 11/02/18 16:15 Ordered 1 dose .XX ASDIRECTED Piperacillin/Tazobactam [Piperacil-Tazobact] 4.5 gm Med 11/02/18 16:15 Ordered Sodium Chloride 0.9% [Normal Saline] 100 ml IV Q6H Potassium Chloride Riders [KCL 40 MEQ in Water 100 ML] Med 11/02/18 15:04 Active 40 meq Premix Bag 1 bag IV ONETIME Sodium Chloride 0.9% [Normal Saline] 1,000 ml Med 11/02/18 14:06 Active IV STAT Sodium Chloride 0.9% [Normal Saline] 1,000 ml Med 11/02/18 16:21 Ordered IV STAT Sodium Chloride 0.9% with KCl [Normal Saline with 40 Med 11/02/18 16:30 Ordered mEq KCl] 1,000 ml IV ASDIRECTED Thiamine [Vitamin B-1] Med 11/02/18 21:00 Ordered 100 mg PO BEDTIME Vancomycin 1 gm Med 11/02/18 16:15 Active Sodium Chloride 0.9% [Normal Saline] 250 ml IV Q24H Isolation [COMM] Stat Oth 11/02/18 13:46 Ordered Sequential Compression Device [OM.PC] Per Unit Routine Oth 11/02/18 16:05 Ordered Resuscitation Status Routine Resus Stat 11/02/18 16:04 Ordered Medication Orders Acetaminophen (Tylenol) 650 mg PO Q4H PRN PRN Reason: Pain (Mild 1-3)/fever Albuterol/Ipratropium (Duoneb 3.0-0.5 Mg/3 Ml) 3 ml NEB Q4HRRT PRN PRN Reason: Shortness of Breath Folic Acid (Folic Acid) 1 mg PO BEDTIME SHERWIN Gabapentin (Neurontin) 300 mg PO BID SHERWIN Heparin Sodium (Porcine) (Heparin Sodium) 5,000 units SUBCUT Q8H SHERWIN Sodium Chloride (Normal Saline) 1,000 mls @ 150 mls/hr IV STAT ONE Stop: 11/02/18 20:45 Last Admin: 11/02/18 14:25 Dose: 150 mls/hr Potassium Chloride 40 meq/ (Premix) 100 mls @ 25 mls/hr IV ONETIME ONE Stop: 11/02/18 19:03 Last Admin: 11/02/18 15:11 Dose: 25 mls/hr Piperacillin Sod/Tazobactam (Sod 3.375 gm/ Sodium Chloride) 50 mls @ 50 mls/hr IV Q6H SHERWIN Levofloxacin/Dextrose 750 mg/ (Premix) 150 mls @ 100 mls/hr IV Q48H SHERWIN Vancomycin HCl 1 gm/ Sodium (Chloride) 250 mls @ 166.667 mls/hr IV Q24H SHERWIN Potassium Chloride/Sodium Chloride (Normal Saline With 40 Meq Kcl) 1,000 mls @ 150 mls/hr IV ASDIRECTED SHERWIN Sodium Chloride (Normal Saline) 1,000 mls @ 999 mls/hr IV STAT ONE Stop: 11/02/18 17:21 Lorazepam (Ativan) 0 mg IVPUSH Q4H PRN; Protocol PRN Reason: Withdrawal Symptoms Nicotine (Habitrol) 14 mg TRDERM Q24H [facility] Non-Formulary Medication (Pantoprazole Sodium [Protonix]) 20 mg PO DAILY SHERWIN Ondansetron HCl (Zofran) 4 mg IVPUSH Q4H PRN PRN Reason: Nausea Thiamine HCl (Vitamin B-1) 100 mg PO BEDTIME SHERWIN Vancomycin HCl (Pharmacy To Dose - Vancomycin) 1 dose .XX ASDIRECTED [facility] Assessment/Plan Comment:: Assessment: #1. Healthcare associated pneumonia #2. Dehydration #3. ANA #4. Hypokalemia #5. Leukocytosis #6. Macrocytic anemia #7. Hyponatremia #8. Transaminitis #9. Elevated alkphos #10. Hypoalbuminemia #11. History of COPD, peripheral neuropathy, alcohol abuse, chronic malnutrition Plan: #1. Admit as inpatient. Vitals per floor. Cardiac monitoring. DNR/DNI #2. Replace potassium as ordered. Will recheck BMP this evening #3. IV vanc/zosyn/levaquin for healthcare associated pneumonia. F/u on stool cultures as would like to minimize duration of broad spectrum IV abx if possible if there is a c. diff infection; would switch to PO vancomycin #4. Thiamine folic acid #5. CIWA as per protocol with PRN ativan #6. Check magnesium #7. PRN duoneb #8. Heparin for DVT Prophylaxis
[2018-11-02] MEDS: Acetaminophen 325 MG Tab PO PRN (17:17)
[2018-11-02] MEDS: Piperacillin/Tazobactam 3.375 GM in Sodium Chloride 0.9% 50 ML IV SCH (17:25)
[2018-11-02] MEDS: Nicotine 14 MG/24 Hr Patch TRDERM SCH (17:31)
[2018-11-02] MEDS ORDERED: Magnesium Sulfate/Water 2 GM in Premix Bag 1 BAG IV ONE (18:01)
[2018-11-02] MEDS: Thiamine 100 MG Tab PO SCH (22:24)
[2018-11-02] MEDS: Folic Acid 1 MG Tab PO SCH (22:24)
[2018-11-02] MEDS: Gabapentin 300 MG Cap PO SCH (22:24)
[2018-11-02] MEDS ORDERED: Pantoprazole 40 MG in Sodium Chloride 0.9% 100 ML IVPUSH SCH (22:30)
--- NOTE | 2018-11-02 23:06 | CR ---
INDICATION: Sepsis TECHNIQUE: Chest radiograph 1 view COMPARISON: 10/13/18 FINDINGS: Mediastinum: The mediastinum is normal in appearance. The heart silhouette is normal in size and morphology. Lung: A radiographic marker is noted over the hemithorax, designating the site of maximal reported symptoms. . No sign of pleural effusion seen. No pneumothorax is identified. Musculoskeletal: Unremarkable for age. IMPRESSION: 1. A radiographic marker is noted over the hemithorax, designating the site of maximal reported symptoms. . Dictated by: Keyshawn Hutchison MD @ 11/02/2018 23:03:34 (Electronically Signed)
--- NOTE | 2018-11-02 23:51 | PCM.SN ---
- Free Text/Narrative Note: Patient was transferred to ICU for persistently low blood pressures despite adequate fluid resuscitation. Patient complaints of dizziness. He was started on levophed and is now on 3 mcg/min maintaining maps of 65. I consult Dr. Vera regarding central line placement but Dr. Vera was reluctant to place a line due to recent heparin use. I spoke with Dr. Tello and may readdress the need for central line if Levophed drip dose increases. Nurses instructed to call if levophed drip increase to 5mcg/min for 30 minutes.
--- NOTE | 2018-11-03 00:02 | PCM.SN ---
- Free Text/Narrative Note: Pt seen, chart reviewed, cx dictated, [id number]; central line consult for sepsis; last subQ heparin was administered 6 hrs ago; this is risky for blind stick, intervention radiology would be for the best interest for the pt; please hold heparin for now, reassess situation in morning; plan central line afternoon if need continues. Plan discussed w Dr. Alexander.
[2018-11-03] MEDS: Pantoprazole 40 MG Vial IV SCH (00:29)
[2018-11-03] MEDS: Piperacillin/Tazobactam 3.375 GM in Sodium Chloride 0.9% 50 ML IV SCH ×4 (01:03→18:28)
[2018-11-03] MEDS: Gabapentin 300 MG Cap PO SCH ×2 (08:15→20:14)
[2018-11-03] MEDS ORDERED: Magnesium Sulfate/Water 4 GM in Premix Bag 1 BAG IV ONE (08:43)
[2018-11-03] MEDS ORDERED: Calcium Chloride 10% 1 GM/10 ML Syringe IVPUSH ONE (08:46)
[2018-11-03] MEDS ORDERED: Pantoprazole 40 MG Tab.CR PO SCH (09:00)
[2018-11-03] MEDS ORDERED: Albumin 25% 12.5 GM/50 ML BAG IV ONE (09:05)
[2018-11-03] MEDS ORDERED: Cyanocobalamin (Vitamin B12) 1,000 MCG/ML SDV IM ONE (09:09)
[2018-11-03] MEDS ORDERED: MVI, Adult with Vitamin K 10 ML, Thiamine 100 MG, Folic Acid 1 MG in Sodium Chloride 0.... IV ONE ×4 (09:15)
--- NOTE | 2018-11-03 09:32 | PCM.SN ---
- Free Text/Narrative Note: Pt seen this morning, looking better, much more responsive to doctor interview; levophed ongoing; bpressure hoovering around 104-110; urine output 820/12 hrs; long discussion w pt re central line placement 1) risk bleeding 2) increase infection risk, it is a foreign body 3) scratch the lung, necessitate chest tube insertion pt voiced understanding, agree to proceed; plan for noon time procedure.
[2018-11-03] MEDS: Magnesium Oxide 400 MG Tab PO SCH ×2 (09:40→20:13)
[2018-11-03] MEDS: Multivitamin Tab PO SCH (09:40)
[2018-11-03] MEDS: Potassium Chloride 20 MEQ Tab.ER PO SCH ×2 (09:40→20:13)
[2018-11-03] MEDS: Hydrocortisone Sodium Succinate 100 MG/2 ML SDV IVPUSH SCH ×2 (09:41→17:05)
[2018-11-03] MEDS: Calcium Carbonate/Vitamin D3 1500 MG-400 Units Tab PO SCH (09:41)
--- NOTE | 2018-11-03 11:16 | PCM.PN ---
- General Info Date of Service: 11/03/18 - Review of Systems Systems Review Comment:: patient feeling better, still having diarrhea, reports chest congestion. - Patient Data Vitals - Most Recent: Last Vital Signs Temp 36.3 C 11/03/18 08:00 Pulse 102 H 11/02/18 21:30 Resp 17 11/03/18 10:00 BP 92/59 L 11/03/18 10:00 Pulse Ox 99 11/03/18 10:00 Weight - Most Recent: 51.936 kg I&O - Last 24 Hours: Intake & Output 11/02/18 11/03/18 11/03/18 22:59 06:59 14:59 Intake Total 2898 300 Output Total 820 Balance 2078 300 Lab Results Last 24 Hours: Laboratory Results - last 24 hr 11/02/18 11/02/18 11/02/18 Range/Units 14:25 14:30 14:30 WBC 17.31 H (4.0-11.0) K/uL RBC 2.91 L (4.50-5.90) M/uL Hgb 10.0 L (13.0-17.0) g/dL Hct 29.3 L (38.0-50.0) % MCV 100.7 H (80.0-98.0) fL MCH 34.4 H (27.0-32.0) pg MCHC 34.1 (31.0-37.0) g/dL RDW Std Deviation 72.9 H (28.0-62.0) fl RDW Coeff of Willy 21 H (11.0-15.0) % Plt Count 296 (150-400) K/uL MPV 11.60 (7.40-12.00) fL Neut % (Auto) 74.7 (48.0-80.0) % Lymph % (Auto) 15.9 L (16.0-40.0) % [place] % (Auto) 8.7 (0.0-15.0) % Eos % (Auto) 0.4 (0.0-7.0) % Baso % (Auto) 0.3 (0.0-1.5) % Neut # (Auto) 12.9 H (1.4-5.7) K/uL Lymph # (Auto) 2.8 H (0.6-2.4) K/uL [place] # (Auto) 1.5 H (0.0-0.8) K/uL Eos # (Auto) 0.1 (0.0-0.7) K/uL Baso # (Auto) 0.1 (0.0-0.1) K/uL Nucleated RBC % 0.0 /100WBC Nucleated RBCs # 0 K/uL INR APTT (18.6-31.3) SEC Lactate (0.20-2.00) mmol/L Sodium 132 L (136-148) mmol/L Potassium 2.1 L* (3.5-5.1) mmol/L Chloride 93 L (98-107) mmol/L Carbon Dioxide 23.0 (21.0-32.0) mmol/L BUN 20 H (7.0-18.0) mg/dL Creatinine 2.9 H (0.8-1.3) mg/dL Est Cr Clr Drug Dosing 20.55 mL/min Estimated GFR (MDRD) 22.8 ml/min Glucose 103 (74-106) mg/dL Calcium 7.6 L (8.5-10.1) mg/dL Phosphorus (2.6-4.7) mg/dL Magnesium 1.3 L (1.8-2.4) mg/dL Total Bilirubin 0.7 (0.2-1.0) mg/dL AST 114 H (15-37) IU/L ALT 44 (14-63) IU/L Alkaline Phosphatase 304 H (46-116) U/L Total Protein 6.4 (6.4-8.2) g/dL Albumin 2.2 L (3.4-5.0) g/dL Globulin 4.2 H (2.6-4.0) g/dL Albumin/Globulin Ratio 0.5 L (0.9-1.6) Urine Color Urine Appearance Urine pH (5.0-8.0) Ur Specific [place] (1.001-1.035) Urine Protein (NEGATIVE) mg/dL Urine Glucose (UA) (NEGATIVE) mg/dL Urine Ketones (NEGATIVE) mg/dL Urine Occult Blood (NEGATIVE) Urine Nitrite (NEGATIVE) Urine Bilirubin (NEGATIVE) Urine Urobilinogen (<2.0) EU/dL Ur Leukocyte Esterase (NEGATIVE) Urine RBC (0-2/HPF) Urine WBC (0-5/HPF) Ur Epithelial Cells (NONE-FEW) Urine Bacteria (NEGATIVE) 11/02/18 11/02/18 11/02/18 Range/Units 19:53 21:05 21:05 WBC (4.0-11.0) K/uL RBC (4.50-5.90) M/uL Hgb 7.9 L (13.0-17.0) g/dL Hct (38.0-50.0) % MCV (80.0-98.0) fL MCH (27.0-32.0) pg MCHC (31.0-37.0) g/dL RDW Std Deviation (28.0-62.0) fl RDW Coeff of Willy (11.0-15.0) % Plt Count (150-400) K/uL MPV (7.40-12.00) fL Neut % (Auto) (48.0-80.0) % Lymph % (Auto) (16.0-40.0) % [place] % (Auto) (0.0-15.0) % Eos % (Auto) (0.0-7.0) % Baso % (Auto) (0.0-1.5) % Neut # (Auto) (1.4-5.7) K/uL Lymph # (Auto) (0.6-2.4) K/uL [place] # (Auto) (0.0-0.8) K/uL Eos # (Auto) (0.0-0.7) K/uL Baso # (Auto) (0.0-0.1) K/uL Nucleated RBC % /100WBC Nucleated RBCs # K/uL INR APTT (18.6-31.3) SEC Lactate 1.9 (0.20-2.00) mmol/L Sodium 135 L (136-148) mmol/L Potassium 3.0 L (3.5-5.1) mmol/L Chloride 100 (98-107) mmol/L Carbon Dioxide 20.3 L (21.0-32.0) mmol/L BUN 20 H (7.0-18.0) mg/dL Creatinine 2.5 H (0.8-1.3) mg/dL Est Cr Clr Drug Dosing 22.86 mL/min Estimated GFR (MDRD) 27.0 ml/min Glucose 131 H (74-106) mg/dL Calcium 6.9 L (8.5-10.1) mg/dL Phosphorus (2.6-4.7) mg/dL Magnesium (1.8-2.4) mg/dL Total Bilirubin (0.2-1.0) mg/dL AST (15-37) IU/L ALT (14-63) IU/L Alkaline Phosphatase (46-116) U/L Total Protein (6.4-8.2) g/dL Albumin (3.4-5.0) g/dL Globulin (2.6-4.0) g/dL Albumin/Globulin Ratio (0.9-1.6) Urine Color Urine Appearance Urine pH (5.0-8.0) Ur Specific [place] (1.001-1.035) Urine Protein (NEGATIVE) mg/dL Urine Glucose (UA) (NEGATIVE) mg/dL Urine Ketones (NEGATIVE) mg/dL Urine Occult Blood (NEGATIVE) Urine Nitrite (NEGATIVE) Urine Bilirubin (NEGATIVE) Urine Urobilinogen (<2.0) EU/dL Ur Leukocyte Esterase (NEGATIVE) Urine RBC (0-2/HPF) Urine WBC (0-5/HPF) Ur Epithelial Cells (NONE-FEW) Urine Bacteria (NEGATIVE) 11/03/18 11/03/18 11/03/18 Range/Units 00:26 06:02 06:02 WBC 13.60 H (4.0-11.0) K/uL RBC 2.22 L (4.50-5.90) M/uL Hgb 7.7 L (13.0-17.0) g/dL Hct 22.8 L (38.0-50.0) % MCV 102.7 H (80.0-98.0) fL MCH 34.7 H (27.0-32.0) pg MCHC 33.8 (31.0-37.0) g/dL RDW Std Deviation 75.3 H (28.0-62.0) fl RDW Coeff of Willy 21 H (11.0-15.0) % Plt Count 244 (150-400) K/uL MPV 11.40 (7.40-12.00) fL Neut % (Auto) 84.9 H (48.0-80.0) % Lymph % (Auto) 7.7 L (16.0-40.0) % [place] % (Auto) 7.2 (0.0-15.0) % Eos % (Auto) 0.1 (0.0-7.0) % Baso % (Auto) 0.1 (0.0-1.5) % Neut # (Auto) 11.5 H (1.4-5.7) K/uL Lymph # (Auto) 1.1 (0.6-2.4) K/uL [place] # (Auto) 1.0 H (0.0-0.8) K/uL Eos # (Auto) 0.0 (0.0-0.7) K/uL Baso # (Auto) 0.0 (0.0-0.1) K/uL Nucleated RBC % 0.2 /100WBC Nucleated RBCs # 0 K/uL INR 1.20 APTT (18.6-31.3) SEC Lactate (0.20-2.00) mmol/L Sodium 138 (136-148) mmol/L Potassium 3.1 L (3.5-5.1) mmol/L Chloride 107 (98-107) mmol/L Carbon Dioxide 21.8 (21.0-32.0) mmol/L BUN 17 (7.0-18.0) mg/dL Creatinine 1.7 H (0.8-1.3) mg/dL Est Cr Clr Drug Dosing 33.62 mL/min Estimated GFR (MDRD) 42.2 ml/min Glucose 151 H (74-106) mg/dL Calcium 6.3 L (8.5-10.1) mg/dL Phosphorus (2.6-4.7) mg/dL Magnesium 1.7 L (1.8-2.4) mg/dL Total Bilirubin (0.2-1.0) mg/dL AST (15-37) IU/L ALT (14-63) IU/L Alkaline Phosphatase (46-116) U/L Total Protein (6.4-8.2) g/dL Albumin (3.4-5.0) g/dL Globulin (2.6-4.0) g/dL Albumin/Globulin Ratio (0.9-1.6) Urine Color Urine Appearance Urine pH (5.0-8.0) Ur Specific [place] (1.001-1.035) Urine Protein (NEGATIVE) mg/dL Urine Glucose (UA) (NEGATIVE) mg/dL Urine Ketones (NEGATIVE) mg/dL Urine Occult Blood (NEGATIVE) Urine Nitrite (NEGATIVE) Urine Bilirubin (NEGATIVE) Urine Urobilinogen (<2.0) EU/dL Ur Leukocyte Esterase (NEGATIVE) Urine RBC (0-2/HPF) Urine WBC (0-5/HPF) Ur Epithelial Cells (NONE-FEW) Urine Bacteria (NEGATIVE) 11/03/18 11/03/18 11/03/18 Range/Units 06:02 06:02 06:02 WBC (4.0-11.0) K/uL RBC (4.50-5.90) M/uL Hgb (13.0-17.0) g/dL Hct (38.0-50.0) % MCV (80.0-98.0) fL MCH (27.0-32.0) pg MCHC (31.0-37.0) g/dL RDW Std Deviation (28.0-62.0) fl RDW Coeff of Willy (11.0-15.0) % Plt Count (150-400) K/uL MPV (7.40-12.00) fL Neut % (Auto) (48.0-80.0) % Lymph % (Auto) (16.0-40.0) % [place] % (Auto) (0.0-15.0) % Eos % (Auto) (0.0-7.0) % Baso % (Auto) (0.0-1.5) % Neut # (Auto) (1.4-5.7) K/uL Lymph # (Auto) (0.6-2.4) K/uL [place] # (Auto) (0.0-0.8) K/uL Eos # (Auto) (0.0-0.7) K/uL Baso # (Auto) (0.0-0.1) K/uL Nucleated RBC % /100WBC Nucleated RBCs # K/uL INR APTT 30.0 (18.6-31.3) SEC Lactate 1.1 (0.20-2.00) mmol/L Sodium (136-148) mmol/L Potassium (3.5-5.1) mmol/L Chloride (98-107) mmol/L Carbon Dioxide (21.0-32.0) mmol/L BUN (7.0-18.0) mg/dL Creatinine (0.8-1.3) mg/dL Est Cr Clr Drug Dosing mL/min Estimated GFR (MDRD) ml/min Glucose (74-106) mg/dL Calcium (8.5-10.1) mg/dL Phosphorus 1.9 L (2.6-4.7) mg/dL Magnesium (1.8-2.4) mg/dL Total Bilirubin (0.2-1.0) mg/dL AST (15-37) IU/L ALT (14-63) IU/L Alkaline Phosphatase (46-116) U/L Total Protein (6.4-8.2) g/dL Albumin (3.4-5.0) g/dL Globulin (2.6-4.0) g/dL Albumin/Globulin Ratio (0.9-1.6) Urine Color Urine Appearance Urine pH (5.0-8.0) Ur Specific [place] (1.001-1.035) Urine Protein (NEGATIVE) mg/dL Urine Glucose (UA) (NEGATIVE) mg/dL Urine Ketones (NEGATIVE) mg/dL Urine Occult Blood (NEGATIVE) Urine Nitrite (NEGATIVE) Urine Bilirubin (NEGATIVE) Urine Urobilinogen (<2.0) EU/dL Ur Leukocyte Esterase (NEGATIVE) Urine RBC (0-2/HPF) Urine WBC (0-5/HPF) Ur Epithelial Cells (NONE-FEW) Urine Bacteria (NEGATIVE) 11/03/18 Range/Units 09:00 WBC (4.0-11.0) K/uL RBC (4.50-5.90) M/uL Hgb (13.0-17.0) g/dL Hct (38.0-50.0) % MCV (80.0-98.0) fL MCH (27.0-32.0) pg MCHC (31.0-37.0) g/dL RDW Std Deviation (28.0-62.0) fl RDW Coeff of Willy (11.0-15.0) % Plt Count (150-400) K/uL MPV (7.40-12.00) fL Neut % (Auto) (48.0-80.0) % Lymph % (Auto) (16.0-40.0) % [place] % (Auto) (0.0-15.0) % Eos % (Auto) (0.0-7.0) % Baso % (Auto) (0.0-1.5) % Neut # (Auto) (1.4-5.7) K/uL Lymph # (Auto) (0.6-2.4) K/uL [place] # (Auto) (0.0-0.8) K/uL Eos # (Auto) (0.0-0.7) K/uL Baso # (Auto) (0.0-0.1) K/uL Nucleated RBC % /100WBC Nucleated RBCs # K/uL INR APTT (18.6-31.3) SEC Lactate (0.20-2.00) mmol/L Sodium (136-148) mmol/L Potassium (3.5-5.1) mmol/L Chloride (98-107) mmol/L Carbon Dioxide (21.0-32.0) mmol/L BUN (7.0-18.0) mg/dL Creatinine (0.8-1.3) mg/dL Est Cr Clr Drug Dosing mL/min Estimated GFR (MDRD) ml/min Glucose (74-106) mg/dL Calcium (8.5-10.1) mg/dL Phosphorus (2.6-4.7) mg/dL Magnesium (1.8-2.4) mg/dL Total Bilirubin (0.2-1.0) mg/dL AST (15-37) IU/L ALT (14-63) IU/L Alkaline Phosphatase (46-116) U/L Total Protein (6.4-8.2) g/dL Albumin (3.4-5.0) g/dL Globulin (2.6-4.0) g/dL Albumin/Globulin Ratio (0.9-1.6) Urine Color YELLOW Urine Appearance CLEAR Urine pH 5.5 (5.0-8.0) Ur Specific [place] 1.015 (1.001-1.035) Urine Protein NEGATIVE (NEGATIVE) mg/dL Urine Glucose (UA) NEGATIVE (NEGATIVE) mg/dL Urine Ketones NEGATIVE (NEGATIVE) mg/dL Urine Occult Blood TRACE-LYSED H (NEGATIVE) Urine Nitrite NEGATIVE (NEGATIVE) Urine Bilirubin NEGATIVE (NEGATIVE) Urine Urobilinogen 0.2 (<2.0) EU/dL Ur Leukocyte Esterase NEGATIVE (NEGATIVE) Urine RBC 0-3 (0-2/HPF) Urine WBC 0-2 (0-5/HPF) Ur Epithelial Cells RARE (NONE-FEW) Urine Bacteria RARE (NEGATIVE) Kike Results Last 24 Hours: Microbiology 11/02/18 20:35 Campylobacter Antigen Assay - Final Stool / Feces NEGATIVE CAMPYLOBACTER AG REFERENCE RANGE: NEGATIVE 11/02/18 17:50 Clostridium difficile Toxin A & B - Final Stool / Feces Negative for C.Diff Toxin/AG REFERENCE RANGE: NEGATIVE Med Orders - Current: Current Medications Acetaminophen (Tylenol) 650 mg PO Q4H PRN PRN Reason: Pain (Mild 1-3)/fever Last Admin: 11/02/18 17:17 Dose: 650 mg Albuterol/Ipratropium (Duoneb 3.0-0.5 Mg/3 Ml) 3 ml NEB Q4HRRT PRN PRN Reason: Shortness of Breath Ascorbic Acid (Vitamin C) 1,500 mg PO TID [facility] Calcium Carbonate (Caltrate 600+D 1500 Mg-400 Units) 1 tab PO DAILY [facility] Last Admin: 11/03/18 09:41 Dose: 1 tab Folic Acid (Folic Acid) 1 mg PO BEDTIME [facility] Last Admin: 11/02/18 22:24 Dose: 1 mg Gabapentin (Neurontin) 300 mg PO BID [facility] Last Admin: 11/03/18 08:15 Dose: 300 mg Hydrocortisone Sodium Succinate (Solu-Cortef) 100 mg IVPUSH Q8H [facility] Last Admin: 11/03/18 09:41 Dose: 100 mg Piperacillin Sod/Tazobactam (Sod 3.375 gm/ Sodium Chloride) 50 mls @ 100 mls/ hr IV Q6H [facility] Last Admin: 11/03/18 06:22 Dose: 100 mls/hr Vancomycin HCl 1 gm/ Sodium (Chloride) 250 mls @ 166.667 mls/hr IV Q24H [facility] Last Admin: 11/02/18 22:23 Dose: 166.667 mls/hr Norepinephrine Bitartrate (Norepinephr-0.9% Nacl 4 Mg/250) 4 mg in 250 mls @ 7.5 mls/hr IV TITRATE SHERWIN; Protocol Last Admin: 11/03/18 07:13 Dose: 12 mcg/min, 45 mls/hr Potassium Chloride 30 meq/Sodium Bicarbonate 150 meq/Dextrose/Water 1,165 mls @ 114.778 mls/hr IV ASDIRECTED [facility] Last Admin: 11/03/18 01:01 Dose: 114.778 mls/hr Multivitamins/Minerals 10 ml/Thiamine HCl 100 mg/ Folic Acid 1 mg/ Sodium Chloride 1,011.2 mls @ 200 mls/hr IV ONETIME ONE Stop: 11/03/18 14:18 Last Admin: 11/03/18 09:43 Dose: 200 mls/hr Thiamine HCl 200 mg/ Sodium (Chloride) 52 mls @ 104 mls/hr IV TID [facility] Lorazepam (Ativan) 0 mg IVPUSH Q4H PRN; Protocol PRN Reason: Withdrawal Symptoms Magnesium Oxide (Magnesium Oxide) 400 mg PO BID [facility] Last Admin: 11/03/18 09:40 Dose: 400 mg Multivitamins/Minerals/Vitamin C (Tab-A-Alvaro) 1 tab PO DAILY [facility] Last Admin: 11/03/18 09:40 Dose: 1 tab Nicotine (Habitrol) 14 mg TRDERM Q24H [facility] Last Admin: 11/02/18 17:31 Dose: 14 mg Ondansetron HCl (Zofran) 4 mg IVPUSH Q4H PRN PRN Reason: Nausea Last Admin: 11/03/18 00:29 Dose: 4 mg Pantoprazole Sodium (Protonix Iv) 40 mg IV Q24H [facility] Last Admin: 11/03/18 00:29 Dose: 40 mg Potassium Chloride (Klor-Con M20) 40 meq PO BID [facility] Last Admin: 11/03/18 09:40 Dose: 40 meq Sodium Phosphate (Neutra-Phos) 250 mg PO QID [facility] Thiamine HCl (Vitamin B-1) 100 mg PO BEDTIME [facility] Last Admin: 11/02/18 22:24 Dose: 100 mg Vancomycin HCl (Pharmacy To Dose - Vancomycin) 1 dose .XX ASDIRECTED [facility] Discontinued Medications Calcium Chloride (Calcium Chloride 10%) 1 gm IVPUSH ONETIME ONE Stop: 11/03/18 08:47 Last Admin: 11/03/18 10:46 Dose: 1 gm Cyanocobalamin (Vitamin B12) 1,000 mcg IM ONETIME ONE Stop: 11/03/18 09:10 Last Admin: 11/03/18 09:41 Dose: 1,000 mcg Heparin Sodium (Porcine) (Heparin Sodium) 5,000 units SUBCUT Q8H [facility] Last Admin: 11/02/18 17:31 Dose: 5,000 units Sodium Chloride (Normal Saline) 1,000 mls @ 150 mls/hr IV STAT ONE Stop: 11/02/18 20:45 Last Admin: 11/02/18 14:25 Dose: 150 mls/hr Potassium Chloride 40 meq/ (Premix) 100 mls @ 25 mls/hr IV ONETIME ONE Stop: 11/02/18 19:03 Last Admin: 11/02/18 15:11 Dose: 25 mls/hr Levofloxacin/Dextrose 750 mg/ (Premix) 150 mls @ 100 mls/hr IV Q48H [facility] Piperacillin Sod/Tazobactam (Sod 3.375 gm/ Sodium Chloride) 50 mls @ 50 mls/hr IV Q6H [facility] Last Admin: 11/02/18 17:43 Dose: Not Given Levofloxacin/Dextrose 750 mg/ (Premix) 150 mls @ 100 mls/hr IV Q48H [facility] Last Admin: 11/02/18 18:09 Dose: Not Given Vancomycin HCl 1 gm/ Sodium (Chloride) 250 mls @ 166.667 mls/hr IV Q24H [facility] Last Admin: 11/02/18 17:43 Dose: Not Given Potassium Chloride/Sodium Chloride (Normal Saline With 40 Meq Kcl) 1,000 mls @ 150 mls/hr IV ASDIRECTED [facility] Last Admin: 11/02/18 18:08 Dose: 150 mls/hr Sodium Chloride (Normal Saline) 1,000 mls @ 999 mls/hr IV STAT ONE Stop: 11/02/18 17:21 Last Admin: 11/02/18 17:17 Dose: 999 mls/hr Levofloxacin/Dextrose 750 mg/ (Premix) 150 mls @ 100 mls/hr IV Q48H [facility] Last Admin: 11/02/18 18:21 Dose: 100 mls/hr Magnesium Sulfate 2 gm/ Premix 50 mls @ 25 mls/hr IV ONETIME ONE Stop: 11/02/18 20:00 Last Admin: 11/02/18 19:20 Dose: 25 mls/hr Sodium Chloride (Normal Saline) 1,000 mls @ 999 mls/hr IV .Bolus ONE Stop: 11/02/18 20:28 Last Admin: 11/02/18 19:58 Dose: 999 mls/hr Sodium Chloride (Normal Saline) 1,000 mls @ 999 mls/hr IV .Bolus ONE Stop: 11/02/18 22:37 Last Admin: 11/02/18 22:00 Dose: 999 mls/hr Pantoprazole Sodium 40 mg/ (Sodium Chloride) 100 mls @ 10 mls/hr IVPUSH Q24H SHERWIN Last Admin: 11/03/18 00:15 Dose: Not Given Potassium Chloride 30 meq/ (Dextrose/Water) 1,015 mls @ 100 mls/hr IV ASDIRECTED [facility] Magnesium Sulfate 4 gm/ Premix 100 mls @ 50 mls/hr IV ONETIME ONE Stop: 11/03/18 10:42 Last Admin: 11/03/18 09:42 Dose: 50 mls/hr Albumin Human (Flexbumin 25%) 12.5 gm in 50 mls @ 100 mls/hr IV ONETIME ONE Stop: 11/03/18 09:34 Last Admin: 11/03/18 09:44 Dose: 100 mls/hr Pantoprazole Sodium (Protonix) 40 mg PO DAILY [facility] Potassium Chloride (Klor-Con M20) 40 meq PO ONETIME ONE Stop: 11/02/18 16:12 Last Admin: 11/02/18 17:30 Dose: 40 meq Potassium Chloride (Klor-Con M20) 40 meq PO ONETIME ONE Stop: 11/02/18 18:01 Thiamine HCl (Vitamin B-1) 200 mg IV TID SHERWIN - Exam General: Alert, Oriented, Other (cachectic) Neck: Supple Lungs: Rhonchi GI/Abdominal Exam: Normal Bowel Sounds, Soft, Non-Tender, No Distention Extremities: Non-Tender, No Pedal Edema Skin: Warm, Dry, Intact Neurological: No New Focal Deficit Psy/Mental Status: Normal Mood - Problem List Review Problem List Initiated/Reviewed/Updated: Yes - My Orders Last 24 Hours: My Active Orders 11/02/18 15:46 Telemetry Monitoring [Cardiac Monitoring] [RC] Q8H 11/02/18 21:37 Blood Culture x2 Reflex Set [OM.PC] Stat 11/02/18 21:38 Transfer Patient (Change bed) [ADT] Routine 11/02/18 21:55 CULTURE BLOOD [BC] Stat 11/02/18 22:02 CULTURE BLOOD [BC] Stat 11/02/18 22:45 Norepinephrine Bit/0.9 % NaCl [Norepinephr-0.9% NaCl 4 mg/250] 4 mg in 250 ml IV TITRATE 11/03/18 00:15 Pantoprazole [ProTONIX IV] 40 mg IV Q24H 11/03/18 00:39 Potassium Chloride 30 meq Sodium Bicarbonate [Sodium Bicarbonate 8.4%] 150 meq Dextrose 5% in Water 1,000 ml IV ASDIRECTED 11/03/18 11:09 RED BLOOD CELLS LP [BBK] Routine TYPE AND SCREEN [BBK] Routine Transfuse Red Blood Cells [COMM] Routine 11/03/18 12:00 Phosphorus #1 [Neutra-Phos] 250 mg PO QID 11/04/18 05:11 CBC WITH AUTO DIFF [HEME] AM 11/05/18 05:11 CBC WITH AUTO DIFF [HEME] AM 11/05/18 18:00 VANCOMYCIN TROUGH [CHEM] Routine - Plan Plan:: 53 yo male with pmh of alcoholism and admisison last month for COPD exacerbation who is admitted for hypovolumia due to diarrhea and septic shock from suspect pneumonia and enteritis. Septic shock: continue pressors. Dr. Vera consulted last night and plans on placing line at noon today. Patient on hydrocortisone, he has history of prednisone taper earlier this month Pneumonia: continue antibiotics of vancomycin, Zosyn and Levaquin, requiring 2 liters NC Enteritis/Hypovolumia: on Bicarb drip, received multiple fluid boluses last night, stool culture pending, C.diff negative Acute Kidney injury: Creatinine improving COPD: duonebs prn, Alcohol abuse: no signs of withdrawal, on CIWA protocol, thiamin and folic acid Hypokalemia/hypomagnesia/hypophoshatemia: replacing electrolytes Anemia: Hemoccult positive, but no blood seen in diarrhea. Patient is on protonix, will transfuse two units. He was transfused two units during his last admission. anemia of chronic disease vs. slow GI bleed
[2018-11-03] MEDS ORDERED: Lidocaine 1% 20 ML MDV ONE (11:59)
[2018-11-03] MEDS ORDERED: Sodium Phosphate 15 mMole/5 ML SDV IV ONE (12:15)
[2018-11-03] MEDS ORDERED: Sodium Phosphate 30 MMOLE in Sodium Chloride 0.9% 250 ML IV ONE (12:20)
--- NOTE | 2018-11-03 12:38 | PCM.OPNOTE ---
- General Post-Op/Procedure Note Date of Surgery/Procedure: 11/03/18 Operative Procedure(s): L central line placement Findings: L cent line in, with good blood return in all 3 lines, prelim reading cxr by myself, line is in good position, no ptx, ok to use, routine line mainenance; [id number] Pre Op Diagnosis: sepsis Post-Op Diagnosis: Same Anesthesia Technique: Local Primary Surgeon: Santo Vera Complications: None Condition: Serious Free Text/Narrative:: Intake & Output 11/02/18 11/03/18 11/03/18 22:59 06:59 14:59 Intake Total 2898 300 Output Total 820 Balance 2078 300
--- NOTE | 2018-11-03 12:41 | CR ---
Indication: Central line placement. Technique: A single AP portable view of the chest was obtained. Comparison: November 02, 2018 Findings: a left subclavian central venous catheter is identified with the tip overlying the superior vena cava. Heart is normal in size. The lungs are clear. No infiltrate, pleural effusion, or pneumothorax is identified. Impression: Left subclavian central venous catheter with the tip overlying the superior vena cava. Dictated by Linda Valenzuela MD @ Nov 03 2018 12:38PM Signed by Dr. Linda Valenzuela @ Nov 03 2018 12:39PM
--- NOTE | 2018-11-03 12:43 | PCM.SURGPN ---
- General Info Date of Service: 11/03/18 Functional Status: Reports: Pain Controlled - Review of Systems General: Reports: No Symptoms (still in icu, septic, receiving aggressive resuscitation; numbers are better, on levophed) - Patient Data Vitals - Most Recent: Last Vital Signs Temp 97.4 F 11/03/18 08:00 Pulse 102 H 11/02/18 21:30 Resp 17 11/03/18 11:00 BP 103/70 11/03/18 11:00 Pulse Ox 91 L 11/03/18 11:00 Weight - Most Recent: 114 lb 8 oz I&O - Last 24 Hours: Intake & Output 11/02/18 11/03/18 11/03/18 22:59 06:59 14:59 Intake Total 2898 300 Output Total 820 Balance 2078 300 Lab Results Last 24 Hrs: Laboratory Results - last 24 hr 11/02/18 11/02/18 11/02/18 Range/Units 14:25 14:30 14:30 WBC 17.31 H (4.0-11.0) K/uL RBC 2.91 L (4.50-5.90) M/uL Hgb 10.0 L (13.0-17.0) g/dL Hct 29.3 L (38.0-50.0) % MCV 100.7 H (80.0-98.0) fL MCH 34.4 H (27.0-32.0) pg MCHC 34.1 (31.0-37.0) g/dL RDW Std Deviation 72.9 H (28.0-62.0) fl RDW Coeff of Willy 21 H (11.0-15.0) % Plt Count 296 (150-400) K/uL MPV 11.60 (7.40-12.00) fL Neut % (Auto) 74.7 (48.0-80.0) % Lymph % (Auto) 15.9 L (16.0-40.0) % [place] % (Auto) 8.7 (0.0-15.0) % Eos % (Auto) 0.4 (0.0-7.0) % Baso % (Auto) 0.3 (0.0-1.5) % Neut # (Auto) 12.9 H (1.4-5.7) K/uL Lymph # (Auto) 2.8 H (0.6-2.4) K/uL [place] # (Auto) 1.5 H (0.0-0.8) K/uL Eos # (Auto) 0.1 (0.0-0.7) K/uL Baso # (Auto) 0.1 (0.0-0.1) K/uL Nucleated RBC % 0.0 /100WBC Nucleated RBCs # 0 K/uL INR APTT (18.6-31.3) SEC Lactate (0.20-2.00) mmol/L Sodium 132 L (136-148) mmol/L Potassium 2.1 L* (3.5-5.1) mmol/L Chloride 93 L (98-107) mmol/L Carbon Dioxide 23.0 (21.0-32.0) mmol/L BUN 20 H (7.0-18.0) mg/dL Creatinine 2.9 H (0.8-1.3) mg/dL Est Cr Clr Drug Dosing 20.55 mL/min Estimated GFR (MDRD) 22.8 ml/min Glucose 103 (74-106) mg/dL Calcium 7.6 L (8.5-10.1) mg/dL Phosphorus (2.6-4.7) mg/dL Magnesium 1.3 L (1.8-2.4) mg/dL Total Bilirubin 0.7 (0.2-1.0) mg/dL AST 114 H (15-37) IU/L ALT 44 (14-63) IU/L Alkaline Phosphatase 304 H (46-116) U/L Total Protein 6.4 (6.4-8.2) g/dL Albumin 2.2 L (3.4-5.0) g/dL Globulin 4.2 H (2.6-4.0) g/dL Albumin/Globulin Ratio 0.5 L (0.9-1.6) Urine Color Urine Appearance Urine pH (5.0-8.0) Ur Specific [place] (1.001-1.035) Urine Protein (NEGATIVE) mg/dL Urine Glucose (UA) (NEGATIVE) mg/dL Urine Ketones (NEGATIVE) mg/dL Urine Occult Blood (NEGATIVE) Urine Nitrite (NEGATIVE) Urine Bilirubin (NEGATIVE) Urine Urobilinogen (<2.0) EU/dL Ur Leukocyte Esterase (NEGATIVE) Urine RBC (0-2/HPF) Urine WBC (0-5/HPF) Ur Epithelial Cells (NONE-FEW) Urine Bacteria (NEGATIVE) 11/02/18 11/02/18 11/02/18 Range/Units 19:53 21:05 21:05 WBC (4.0-11.0) K/uL RBC (4.50-5.90) M/uL Hgb 7.9 L (13.0-17.0) g/dL Hct (38.0-50.0) % MCV (80.0-98.0) fL MCH (27.0-32.0) pg MCHC (31.0-37.0) g/dL RDW Std Deviation (28.0-62.0) fl RDW Coeff of Willy (11.0-15.0) % Plt Count (150-400) K/uL MPV (7.40-12.00) fL Neut % (Auto) (48.0-80.0) % Lymph % (Auto) (16.0-40.0) % [place] % (Auto) (0.0-15.0) % Eos % (Auto) (0.0-7.0) % Baso % (Auto) (0.0-1.5) % Neut # (Auto) (1.4-5.7) K/uL Lymph # (Auto) (0.6-2.4) K/uL [place] # (Auto) (0.0-0.8) K/uL Eos # (Auto) (0.0-0.7) K/uL Baso # (Auto) (0.0-0.1) K/uL Nucleated RBC % /100WBC Nucleated RBCs # K/uL INR APTT (18.6-31.3) SEC Lactate 1.9 (0.20-2.00) mmol/L Sodium 135 L (136-148) mmol/L Potassium 3.0 L (3.5-5.1) mmol/L Chloride 100 (98-107) mmol/L Carbon Dioxide 20.3 L (21.0-32.0) mmol/L BUN 20 H (7.0-18.0) mg/dL Creatinine 2.5 H (0.8-1.3) mg/dL Est Cr Clr Drug Dosing 22.86 mL/min Estimated GFR (MDRD) 27.0 ml/min Glucose 131 H (74-106) mg/dL Calcium 6.9 L (8.5-10.1) mg/dL Phosphorus (2.6-4.7) mg/dL Magnesium (1.8-2.4) mg/dL Total Bilirubin (0.2-1.0) mg/dL AST (15-37) IU/L ALT (14-63) IU/L Alkaline Phosphatase (46-116) U/L Total Protein (6.4-8.2) g/dL Albumin (3.4-5.0) g/dL Globulin (2.6-4.0) g/dL Albumin/Globulin Ratio (0.9-1.6) Urine Color Urine Appearance Urine pH (5.0-8.0) Ur Specific [place] (1.001-1.035) Urine Protein (NEGATIVE) mg/dL Urine Glucose (UA) (NEGATIVE) mg/dL Urine Ketones (NEGATIVE) mg/dL Urine Occult Blood (NEGATIVE) Urine Nitrite (NEGATIVE) Urine Bilirubin (NEGATIVE) Urine Urobilinogen (<2.0) EU/dL Ur Leukocyte Esterase (NEGATIVE) Urine RBC (0-2/HPF) Urine WBC (0-5/HPF) Ur Epithelial Cells (NONE-FEW) Urine Bacteria (NEGATIVE) 11/03/18 11/03/18 11/03/18 Range/Units 00:26 06:02 06:02 WBC 13.60 H (4.0-11.0) K/uL RBC 2.22 L (4.50-5.90) M/uL Hgb 7.7 L (13.0-17.0) g/dL Hct 22.8 L (38.0-50.0) % MCV 102.7 H (80.0-98.0) fL MCH 34.7 H (27.0-32.0) pg MCHC 33.8 (31.0-37.0) g/dL RDW Std Deviation 75.3 H (28.0-62.0) fl RDW Coeff of Willy 21 H (11.0-15.0) % Plt Count 244 (150-400) K/uL MPV 11.40 (7.40-12.00) fL Neut % (Auto) 84.9 H (48.0-80.0) % Lymph % (Auto) 7.7 L (16.0-40.0) % [place] % (Auto) 7.2 (0.0-15.0) % Eos % (Auto) 0.1 (0.0-7.0) % Baso % (Auto) 0.1 (0.0-1.5) % Neut # (Auto) 11.5 H (1.4-5.7) K/uL Lymph # (Auto) 1.1 (0.6-2.4) K/uL [place] # (Auto) 1.0 H (0.0-0.8) K/uL Eos # (Auto) 0.0 (0.0-0.7) K/uL Baso # (Auto) 0.0 (0.0-0.1) K/uL Nucleated RBC % 0.2 /100WBC Nucleated RBCs # 0 K/uL INR 1.20 APTT (18.6-31.3) SEC Lactate (0.20-2.00) mmol/L Sodium 138 (136-148) mmol/L Potassium 3.1 L (3.5-5.1) mmol/L Chloride 107 (98-107) mmol/L Carbon Dioxide 21.8 (21.0-32.0) mmol/L BUN 17 (7.0-18.0) mg/dL Creatinine 1.7 H (0.8-1.3) mg/dL Est Cr Clr Drug Dosing 33.62 mL/min Estimated GFR (MDRD) 42.2 ml/min Glucose 151 H (74-106) mg/dL Calcium 6.3 L (8.5-10.1) mg/dL Phosphorus (2.6-4.7) mg/dL Magnesium 1.7 L (1.8-2.4) mg/dL Total Bilirubin (0.2-1.0) mg/dL AST (15-37) IU/L ALT (14-63) IU/L Alkaline Phosphatase (46-116) U/L Total Protein (6.4-8.2) g/dL Albumin (3.4-5.0) g/dL Globulin (2.6-4.0) g/dL Albumin/Globulin Ratio (0.9-1.6) Urine Color Urine Appearance Urine pH (5.0-8.0) Ur Specific [place] (1.001-1.035) Urine Protein (NEGATIVE) mg/dL Urine Glucose (UA) (NEGATIVE) mg/dL Urine Ketones (NEGATIVE) mg/dL Urine Occult Blood (NEGATIVE) Urine Nitrite (NEGATIVE) Urine Bilirubin (NEGATIVE) Urine Urobilinogen (<2.0) EU/dL Ur Leukocyte Esterase (NEGATIVE) Urine RBC (0-2/HPF) Urine WBC (0-5/HPF) Ur Epithelial Cells (NONE-FEW) Urine Bacteria (NEGATIVE) 11/03/18 11/03/18 11/03/18 Range/Units 06:02 06:02 06:02 WBC (4.0-11.0) K/uL RBC (4.50-5.90) M/uL Hgb (13.0-17.0) g/dL Hct (38.0-50.0) % MCV (80.0-98.0) fL MCH (27.0-32.0) pg MCHC (31.0-37.0) g/dL RDW Std Deviation (28.0-62.0) fl RDW Coeff of Willy (11.0-15.0) % Plt Count (150-400) K/uL MPV (7.40-12.00) fL Neut % (Auto) (48.0-80.0) % Lymph % (Auto) (16.0-40.0) % [place] % (Auto) (0.0-15.0) % Eos % (Auto) (0.0-7.0) % Baso % (Auto) (0.0-1.5) % Neut # (Auto) (1.4-5.7) K/uL Lymph # (Auto) (0.6-2.4) K/uL [place] # (Auto) (0.0-0.8) K/uL Eos # (Auto) (0.0-0.7) K/uL Baso # (Auto) (0.0-0.1) K/uL Nucleated RBC % /100WBC Nucleated RBCs # K/uL INR APTT 30.0 (18.6-31.3) SEC Lactate 1.1 (0.20-2.00) mmol/L Sodium (136-148) mmol/L Potassium (3.5-5.1) mmol/L Chloride (98-107) mmol/L Carbon Dioxide (21.0-32.0) mmol/L BUN (7.0-18.0) mg/dL Creatinine (0.8-1.3) mg/dL Est Cr Clr Drug Dosing mL/min Estimated GFR (MDRD) ml/min Glucose (74-106) mg/dL Calcium (8.5-10.1) mg/dL Phosphorus 1.9 L (2.6-4.7) mg/dL Magnesium (1.8-2.4) mg/dL Total Bilirubin (0.2-1.0) mg/dL AST (15-37) IU/L ALT (14-63) IU/L Alkaline Phosphatase (46-116) U/L Total Protein (6.4-8.2) g/dL Albumin (3.4-5.0) g/dL Globulin (2.6-4.0) g/dL Albumin/Globulin Ratio (0.9-1.6) Urine Color Urine Appearance Urine pH (5.0-8.0) Ur Specific [place] (1.001-1.035) Urine Protein (NEGATIVE) mg/dL Urine Glucose (UA) (NEGATIVE) mg/dL Urine Ketones (NEGATIVE) mg/dL Urine Occult Blood (NEGATIVE) Urine Nitrite (NEGATIVE) Urine Bilirubin (NEGATIVE) Urine Urobilinogen (<2.0) EU/dL Ur Leukocyte Esterase (NEGATIVE) Urine RBC (0-2/HPF) Urine WBC (0-5/HPF) Ur Epithelial Cells (NONE-FEW) Urine Bacteria (NEGATIVE) 11/03/18 11/03/18 Range/Units 09:00 12:13 WBC (4.0-11.0) K/uL RBC (4.50-5.90) M/uL Hgb 7.2 L (13.0-17.0) g/dL Hct (38.0-50.0) % MCV (80.0-98.0) fL MCH (27.0-32.0) pg MCHC (31.0-37.0) g/dL RDW Std Deviation (28.0-62.0) fl RDW Coeff of Willy (11.0-15.0) % Plt Count (150-400) K/uL MPV (7.40-12.00) fL Neut % (Auto) (48.0-80.0) % Lymph % (Auto) (16.0-40.0) % [place] % (Auto) (0.0-15.0) % Eos % (Auto) (0.0-7.0) % Baso % (Auto) (0.0-1.5) % Neut # (Auto) (1.4-5.7) K/uL Lymph # (Auto) (0.6-2.4) K/uL [place] # (Auto) (0.0-0.8) K/uL Eos # (Auto) (0.0-0.7) K/uL Baso # (Auto) (0.0-0.1) K/uL Nucleated RBC % /100WBC Nucleated RBCs # K/uL INR APTT (18.6-31.3) SEC Lactate (0.20-2.00) mmol/L Sodium (136-148) mmol/L Potassium (3.5-5.1) mmol/L Chloride (98-107) mmol/L Carbon Dioxide (21.0-32.0) mmol/L BUN (7.0-18.0) mg/dL Creatinine (0.8-1.3) mg/dL Est Cr Clr Drug Dosing mL/min Estimated GFR (MDRD) ml/min Glucose (74-106) mg/dL Calcium (8.5-10.1) mg/dL Phosphorus (2.6-4.7) mg/dL Magnesium (1.8-2.4) mg/dL Total Bilirubin (0.2-1.0) mg/dL AST (15-37) IU/L ALT (14-63) IU/L Alkaline Phosphatase (46-116) U/L Total Protein (6.4-8.2) g/dL Albumin (3.4-5.0) g/dL Globulin (2.6-4.0) g/dL Albumin/Globulin Ratio (0.9-1.6) Urine Color YELLOW Urine Appearance CLEAR Urine pH 5.5 (5.0-8.0) Ur Specific [place] 1.015 (1.001-1.035) Urine Protein NEGATIVE (NEGATIVE) mg/dL Urine Glucose (UA) NEGATIVE (NEGATIVE) mg/dL Urine Ketones NEGATIVE (NEGATIVE) mg/dL Urine Occult Blood TRACE-LYSED H (NEGATIVE) Urine Nitrite NEGATIVE (NEGATIVE) Urine Bilirubin NEGATIVE (NEGATIVE) Urine Urobilinogen 0.2 (<2.0) EU/dL Ur Leukocyte Esterase NEGATIVE (NEGATIVE) Urine RBC 0-3 (0-2/HPF) Urine WBC 0-2 (0-5/HPF) Ur Epithelial Cells RARE (NONE-FEW) Urine Bacteria RARE (NEGATIVE) Kike Results Last 24 Hrs: Microbiology 11/02/18 20:35 Campylobacter Antigen Assay - Final Stool / Feces NEGATIVE CAMPYLOBACTER AG REFERENCE RANGE: NEGATIVE 11/02/18 17:50 Clostridium difficile Toxin A & B - Final Stool / Feces Negative for C.Diff Toxin/AG REFERENCE RANGE: NEGATIVE Med Orders - Current: Current Medications Acetaminophen (Tylenol) 650 mg PO Q4H PRN PRN Reason: Pain (Mild 1-3)/fever Last Admin: 11/02/18 17:17 Dose: 650 mg Albuterol/Ipratropium (Duoneb 3.0-0.5 Mg/3 Ml) 3 ml NEB Q4HRRT PRN PRN Reason: Shortness of Breath Ascorbic Acid (Vitamin C) 1,500 mg PO TID [facility] Calcium Carbonate (Caltrate 600+D 1500 Mg-400 Units) 1 tab PO DAILY [facility] Last Admin: 11/03/18 09:41 Dose: 1 tab Folic Acid (Folic Acid) 1 mg PO BEDTIME [facility] Last Admin: 11/02/18 22:24 Dose: 1 mg Gabapentin (Neurontin) 300 mg PO BID [facility] Last Admin: 11/03/18 08:15 Dose: 300 mg Hydrocortisone Sodium Succinate (Solu-Cortef) 100 mg IVPUSH Q8H [facility] Last Admin: 11/03/18 09:41 Dose: 100 mg Piperacillin Sod/Tazobactam (Sod 3.375 gm/ Sodium Chloride) 50 mls @ 100 mls/ hr IV Q6H [facility] Last Admin: 11/03/18 06:22 Dose: 100 mls/hr Vancomycin HCl 1 gm/ Sodium (Chloride) 250 mls @ 166.667 mls/hr IV Q24H [facility] Last Admin: 11/02/18 22:23 Dose: 166.667 mls/hr Norepinephrine Bitartrate (Norepinephr-0.9% Nacl 4 Mg/250) 4 mg in 250 mls @ 7.5 mls/hr IV TITRATE SHERWIN; Protocol Last Admin: 11/03/18 07:13 Dose: 12 mcg/min, 45 mls/hr Potassium Chloride 30 meq/Sodium Bicarbonate 150 meq/Dextrose/Water 1,165 mls @ 114.778 mls/hr IV ASDIRECTED [facility] Last Admin: 11/03/18 01:01 Dose: 114.778 mls/hr Multivitamins/Minerals 10 ml/Thiamine HCl 100 mg/ Folic Acid 1 mg/ Sodium Chloride 1,011.2 mls @ 200 mls/hr IV ONETIME ONE Stop: 11/03/18 14:18 Last Admin: 11/03/18 09:43 Dose: 200 mls/hr Thiamine HCl 200 mg/ Sodium (Chloride) 52 mls @ 104 mls/hr IV TID SHERWIN Sodium Phosphate 30 mmole/ (Sodium Chloride) 260 mls @ 86.667 mls/hr IV ONETIME ONE Stop: 11/03/18 15:19 Lorazepam (Ativan) 0 mg IVPUSH Q4H PRN; Protocol PRN Reason: Withdrawal Symptoms Magnesium Oxide (Magnesium Oxide) 400 mg PO BID [facility] Last Admin: 11/03/18 09:40 Dose: 400 mg Multivitamins/Minerals/Vitamin C (Tab-A-Alvaro) 1 tab PO DAILY [facility] Last Admin: 11/03/18 09:40 Dose: 1 tab Nicotine (Habitrol) 14 mg TRDERM Q24H [facility] Last Admin: 11/02/18 17:31 Dose: 14 mg Ondansetron HCl (Zofran) 4 mg IVPUSH Q4H PRN PRN Reason: Nausea Last Admin: 11/03/18 00:29 Dose: 4 mg Pantoprazole Sodium (Protonix Iv) 40 mg IV Q24H [facility] Last Admin: 11/03/18 00:29 Dose: 40 mg Potassium Chloride (Klor-Con M20) 40 meq PO BID [facility] Last Admin: 11/03/18 09:40 Dose: 40 meq Sodium Phosphate (Neutra-Phos) 250 mg PO QID [facility] Thiamine HCl (Vitamin B-1) 100 mg PO BEDTIME [facility] Last Admin: 11/02/18 22:24 Dose: 100 mg Vancomycin HCl (Pharmacy To Dose - Vancomycin) 1 dose .XX ASDIRECTED [facility] Discontinued Medications Calcium Chloride (Calcium Chloride 10%) 1 gm IVPUSH ONETIME ONE Stop: 11/03/18 08:47 Last Admin: 11/03/18 10:46 Dose: 1 gm Cyanocobalamin (Vitamin B12) 1,000 mcg IM ONETIME ONE Stop: 11/03/18 09:10 Last Admin: 11/03/18 09:41 Dose: 1,000 mcg Heparin Sodium (Porcine) (Heparin Sodium) 5,000 units SUBCUT Q8H [facility] Last Admin: 11/02/18 17:31 Dose: 5,000 units Sodium Chloride (Normal Saline) 1,000 mls @ 150 mls/hr IV STAT ONE Stop: 11/02/18 20:45 Last Admin: 11/02/18 14:25 Dose: 150 mls/hr Potassium Chloride 40 meq/ (Premix) 100 mls @ 25 mls/hr IV ONETIME ONE Stop: 11/02/18 19:03 Last Admin: 11/02/18 15:11 Dose: 25 mls/hr Levofloxacin/Dextrose 750 mg/ (Premix) 150 mls @ 100 mls/hr IV Q48H [facility] Piperacillin Sod/Tazobactam (Sod 3.375 gm/ Sodium Chloride) 50 mls @ 50 mls/hr IV Q6H [facility] Last Admin: 11/02/18 17:43 Dose: Not Given Levofloxacin/Dextrose 750 mg/ (Premix) 150 mls @ 100 mls/hr IV Q48H [facility] Last Admin: 11/02/18 18:09 Dose: Not Given Vancomycin HCl 1 gm/ Sodium (Chloride) 250 mls @ 166.667 mls/hr IV Q24H [facility] Last Admin: 11/02/18 17:43 Dose: Not Given Potassium Chloride/Sodium Chloride (Normal Saline With 40 Meq Kcl) 1,000 mls @ 150 mls/hr IV ASDIRECTED [facility] Last Admin: 11/02/18 18:08 Dose: 150 mls/hr Sodium Chloride (Normal Saline) 1,000 mls @ 999 mls/hr IV STAT ONE Stop: 11/02/18 17:21 Last Admin: 11/02/18 17:17 Dose: 999 mls/hr Levofloxacin/Dextrose 750 mg/ (Premix) 150 mls @ 100 mls/hr IV Q48H [facility] Last Admin: 11/02/18 18:21 Dose: 100 mls/hr Magnesium Sulfate 2 gm/ Premix 50 mls @ 25 mls/hr IV ONETIME ONE Stop: 11/02/18 20:00 Last Admin: 11/02/18 19:20 Dose: 25 mls/hr Sodium Chloride (Normal Saline) 1,000 mls @ 999 mls/hr IV .Bolus ONE Stop: 11/02/18 20:28 Last Admin: 11/02/18 19:58 Dose: 999 mls/hr Sodium Chloride (Normal Saline) 1,000 mls @ 999 mls/hr IV .Bolus ONE Stop: 11/02/18 22:37 Last Admin: 11/02/18 22:00 Dose: 999 mls/hr Pantoprazole Sodium 40 mg/ (Sodium Chloride) 100 mls @ 10 mls/hr IVPUSH Q24H [facility] Last Admin: 11/03/18 00:15 Dose: Not Given Potassium Chloride 30 meq/ (Dextrose/Water) 1,015 mls @ 100 mls/hr IV ASDIRECTED [facility] Magnesium Sulfate 4 gm/ Premix 100 mls @ 50 mls/hr IV ONETIME ONE Stop: 11/03/18 10:42 Last Admin: 11/03/18 09:42 Dose: 50 mls/hr Albumin Human (Flexbumin 25%) 12.5 gm in 50 mls @ 100 mls/hr IV ONETIME ONE Stop: 11/03/18 09:34 Last Admin: 11/03/18 09:44 Dose: 100 mls/hr Lidocaine HCl (Xylocaine 1%) Confirm Administered Dose 20 ml .ROUTE .STK-MED ONE Stop: 11/03/18 12:00 Pantoprazole Sodium (Protonix) 40 mg PO DAILY [facility] Potassium Chloride (Klor-Con M20) 40 meq PO ONETIME ONE Stop: 11/02/18 16:12 Last Admin: 11/02/18 17:30 Dose: 40 meq Potassium Chloride (Klor-Con M20) 40 meq PO ONETIME ONE Stop: 11/02/18 18:01 Sodium Phosphate (Sodium Phosphate) 30 mmole IV ONETIME ONE Stop: 11/03/18 12:16 Thiamine HCl (Vitamin B-1) 200 mg IV TID SHERWIN - Exam GI/Abdominal Exam: Soft, Non-Tender - Problem List Review Problem List Initiated/Reviewed/Updated: Yes - My Orders Last 24 Hours: Active Orders 24 hr Category Date Time Status Admission Status [Patient Status] [ADT] Stat ADT 11/02/18 15:15 Active Transfer Patient (Change bed) [ADT] Routine ADT 11/02/18 21:38 Ordered Antiembolic Devices [RC] PER UNIT ROUTINE Care 11/02/18 16:05 Active Cardiac Monitoring [RC] CONTINUOUS Care 11/02/18 16:04 Active Fecal Occult Blood Collection [RC] ASDIRECTED Care 11/02/18 13:45 Active Oxygen Therapy [RC] PRN Care 11/02/18 16:04 Active RT Aerosol Therapy [RC] ASDIRECTED Care 11/02/18 16:10 Active Supplement (Dietary) [Dietary Supplements] [RC] Care 11/03/18 09:00 Active TIDMEALS Telemetry Monitoring [Cardiac Monitoring] [RC] Q8H Care 11/02/18 15:46 Active Up ad Anita [RC] ASDIRECTED Care 11/02/18 16:04 Active VTE/DVT Education [RC] PER UNIT ROUTINE Care 11/02/18 16:04 Active Vital Signs [RC] Q1H Care 11/02/18 16:04 Active Consult to Lens Blank Gauger [CONS] Routine Cons 11/03/18 09:00 Active High Calorie High Protein [High Calorie] [DIET] Diet 11/03/18 Breakfast Active Chest 1V Frontal [CR] Stat Exams 11/03/18 12:16 Taken CBC WITH AUTO DIFF [HEME] AM Lab 11/04/18 05:11 Ordered CBC WITH AUTO DIFF [HEME] AM Lab 11/05/18 05:11 Ordered CULTURE BLOOD [BC] Stat Lab 11/02/18 21:55 Received CULTURE BLOOD [BC] Stat Lab 11/02/18 22:02 Received CULTURE STOOL + CAMPY+SHIGATOX [RM] Stat Lab 11/02/18 20:35 Results FERRITIN [CHEM] Routine Lab 11/03/18 12:13 Received GLIADIN IGG/IGA AB PROF, EIA [REF] Routine Lab 11/03/18 12:13 Received HIV I/II AG/AB 4TH GEN [REF] Routine Lab 11/03/18 12:13 Received IRON/TIBC [CHEM] Routine Lab 11/03/18 12:13 Received OVA & PARASITES BY IMMUNOASSAY [MREF] Stat Lab 11/02/18 21:13 Received PROCALCITONIN [REF] Urgent Lab 11/03/18 12:13 Received RED BLOOD CELLS LP [BBK] Routine Lab 11/03/18 12:13 Received TYPE AND SCREEN [BBK] Routine Lab 11/03/18 12:13 Received VANCOMYCIN TROUGH [CHEM] Routine Lab 11/05/18 18:00 Ordered Acetaminophen [Tylenol] Med 11/02/18 16:04 Active 650 mg PO Q4H PRN Albuterol/Ipratropium [DuoNeb 3.0-0.5 MG/3 ML] Med 11/02/18 16:10 Active 3 ml NEB Q4HRRT PRN Ascorbic Acid [Vitamin C] Med 11/03/18 14:00 Active 1,500 mg PO TID Calcium Carbonate/Vitamin D3 [Caltrate 600+D 1500 MG- Med 11/03/18 09:00 Active 400 Units] 1 tab PO DAILY Folic Acid Med 11/02/18 21:00 Active 1 mg PO BEDTIME Gabapentin [Neurontin] Med 11/02/18 21:00 Active 300 mg PO BID Hydrocortisone Sod Succinate [Solu-CORTEF] Med 11/03/18 09:00 Active 100 mg IVPUSH Q8H LORazepam [Ativan] Med 11/02/18 16:09 Active See Protocol IVPUSH Q4H PRN MVI, Adult with Vitamin K [Infuvite Adult] 10 ml Med 11/03/18 09:15 Active Thiamine [Vitamin B-1] 100 mg Folic Acid 1 mg Sodium Chloride 0.9% [Normal Saline] 1,000 ml IV ONETIME Magnesium Oxide Med 11/03/18 09:00 Active 400 mg PO BID Multivitamins [Tab-A-Alvaro] Med 11/03/18 09:15 Active 1 tab PO DAILY Nicotine [Habitrol] Med 11/02/18 16:15 Active 14 mg TRDERM Q24H Norepinephrine Bit/0.9 % NaCl [Norepinephr-0.9% NaCl 4 Med 11/02/18 22:45 Active mg/250] 4 mg in 250 ml IV TITRATE Ondansetron [Zofran] Med 11/02/18 16:04 Active 4 mg IVPUSH Q4H PRN Pantoprazole [ProTONIX IV] Med 11/03/18 00:15 Active 40 mg IV Q24H Pharmacy to Dose - Vancomycin Med 11/02/18 16:15 Active 1 dose .XX ASDIRECTED Phosphorus #1 [Neutra-Phos] Med 11/03/18 12:00 Active 250 mg PO QID Piperacillin/Tazobactam [Piperacil-Tazobact] 3.375 gm Med 11/02/18 17:45 Active Sodium Chloride 0.9% [Normal Saline] 50 ml IV Q6H Potassium Chloride 30 meq Med 11/03/18 00:39 Active Sodium Bicarbonate [Sodium Bicarbonate 8.4%] 150 meq Dextrose 5% in Water 1,000 ml IV ASDIRECTED Potassium Chloride [Klor-Con M20] Med 11/03/18 09:00 Active 40 meq PO BID Sodium Phosphate 30 mmole Med 11/03/18 12:20 Active Sodium Chloride 0.9% [Normal Saline] 250 ml IV ONETIME Thiamine [Vitamin B-1] Med 11/02/18 21:00 Active 100 mg PO BEDTIME Thiamine [Vitamin B-1] 200 mg Med 11/03/18 14:00 Active Sodium Chloride 0.9% [Normal Saline] 50 ml IV TID Vancomycin 1 gm Med 11/02/18 19:00 Active Sodium Chloride 0.9% [Normal Saline] 250 ml IV Q24H Blood Culture x2 Reflex Set [OM.PC] Stat Ot 11/02/18 21:37 Ordered Isolation [COMM] Stat Ot 11/02/18 13:46 Ordered Isolation [COMM] Stat Ot 11/03/18 08:52 Ordered Sequential Compression Device [OM.PC] Per Unit Routine Ot 11/02/18 16:05 Ordered Transfuse Red Blood Cells [COMM] Routine Ot 11/03/18 11:09 Ordered Resuscitation Status Routine Resus Stat 11/02/18 16:04 Ordered Medication Orders Acetaminophen (Tylenol) 650 mg PO Q4H PRN PRN Reason: Pain (Mild 1-3)/fever Last Admin: 11/02/18 17:17 Dose: 650 mg Albuterol/Ipratropium (Duoneb 3.0-0.5 Mg/3 Ml) 3 ml NEB Q4HRRT PRN PRN Reason: Shortness of Breath Ascorbic Acid (Vitamin C) 1,500 mg PO TID [facility]ERWIN Calcium Carbonate (Caltrate 600+D 1500 Mg-400 Units) 1 tab PO DAILY [facility]ERWIN Last Admin: 11/03/18 09:41 Dose: 1 tab Folic Acid (Folic Acid) 1 mg PO BEDTIME [facility] Last Admin: 11/02/18 22:24 Dose: 1 mg Gabapentin (Neurontin) 300 mg PO BID [facility] Last Admin: 11/03/18 08:15 Dose: 300 mg Admin: 11/02/18 22:24 Dose: 300 mg Hydrocortisone Sodium Succinate (Solu-Cortef) 100 mg IVPUSH Q8H [facility] Last Admin: 11/03/18 09:41 Dose: 100 mg Piperacillin Sod/Tazobactam (Sod 3.375 gm/ Sodium Chloride) 50 mls @ 100 mls/ hr IV Q6H [facility] Last Admin: 11/03/18 06:22 Dose: 100 mls/hr Infusion: 11/03/18 01:33 Dose: 100 mls/hr Admin: 11/03/18 01:03 Dose: 100 mls/hr Infusion: 11/02/18 17:55 Dose: 100 mls/hr Admin: 11/02/18 17:25 Dose: 100 mls/hr Vancomycin HCl 1 gm/ Sodium (Chloride) 250 mls @ 166.667 mls/hr IV Q24H [facility] Last Admin: 11/02/18 22:23 Dose: 166.667 mls/hr Norepinephrine Bitartrate (Norepinephr-0.9% Nacl 4 Mg/250) 4 mg in 250 mls @ 7.5 mls/hr IV TITRATE [facility]; Protocol Last Admin: 11/03/18 07:13 Dose: 12 mcg/min, 45 mls/hr Titration: 11/03/18 06:46 Dose: 11 mcg/min, 41.25 mls/hr Titration: 11/03/18 03:52 Dose: 11 mcg/min, 41.25 mls/hr Titration: 11/03/18 02:34 Dose: 10 mcg/min, 37.5 mls/hr Titration: 11/03/18 02:28 Dose: 11 mcg/min, 41.25 mls/hr Titration: 11/03/18 01:49 Dose: 12 mcg/min, 45 mls/hr Titration: 11/03/18 01:41 Dose: 11 mcg/min, 41.25 mls/hr Titration: 11/03/18 01:33 Dose: 10 mcg/min, 37.5 mls/hr Titration: 11/03/18 01:29 Dose: 9 mcg/min, 33.75 mls/hr Titration: 11/03/18 01:21 Dose: 8 mcg/min, 30 mls/hr Titration: 11/03/18 01:16 Dose: 7 mcg/min, 26.25 mls/hr Titration: 11/03/18 01:11 Dose: 6 mcg/min, 22.5 mls/hr Titration: 11/03/18 00:57 Dose: 5 mcg/min, 18.75 mls/hr Titration: 11/03/18 00:29 Dose: 4 mcg/min, 15 mls/hr Titration: 11/02/18 23:17 Dose: 3 mcg/min, 11.25 mls/hr Admin: 11/02/18 22:48 Dose: 2 mcg/min, 7.5 mls/hr Potassium Chloride 30 meq/Sodium Bicarbonate 150 meq/Dextrose/Water 1,165 mls @ 114.778 mls/hr IV ASDIRECTED [facility] Last Admin: 11/03/18 01:01 Dose: 114.778 mls/hr Multivitamins/Minerals 10 ml/Thiamine HCl 100 mg/ Folic Acid 1 mg/ Sodium Chloride 1,011.2 mls @ 200 mls/hr IV ONETIME ONE Stop: 11/03/18 14:18 Last Admin: 11/03/18 09:43 Dose: 200 mls/hr Thiamine HCl 200 mg/ Sodium (Chloride) 52 mls @ 104 mls/hr IV TID [facility] Sodium Phosphate 30 mmole/ (Sodium Chloride) 260 mls @ 86.667 mls/hr IV ONETIME ONE Stop: 11/03/18 15:19 Lorazepam (Ativan) 0 mg IVPUSH Q4H PRN; Protocol PRN Reason: Withdrawal Symptoms Magnesium Oxide (Magnesium Oxide) 400 mg PO BID [facility] Last Admin: 11/03/18 09:40 Dose: 400 mg Multivitamins/Minerals/Vitamin C (Tab-A-Alvaro) 1 tab PO DAILY [facility] Last Admin: 11/03/18 09:40 Dose: 1 tab Nicotine (Habitrol) 14 mg TRDERM Q24H [facility] Last Admin: 11/02/18 17:31 Dose: 14 mg Ondansetron HCl (Zofran) 4 mg IVPUSH Q4H PRN PRN Reason: Nausea Last Admin: 11/03/18 00:29 Dose: 4 mg Pantoprazole Sodium (Protonix Iv) 40 mg IV Q24H [facility] Last Admin: 11/03/18 00:29 Dose: 40 mg Potassium Chloride (Klor-Con M20) 40 meq PO BID [facility] Last Admin: 11/03/18 09:40 Dose: 40 meq Sodium Phosphate (Neutra-Phos) 250 mg PO QID [facility] Thiamine HCl (Vitamin B-1) 100 mg PO BEDTIME [facility] Last Admin: 11/02/18 22:24 Dose: 100 mg Vancomycin HCl (Pharmacy To Dose - Vancomycin) 1 dose .XX ASDIRECTED [facility] - Assessment Assessment (Free Text/Narrative):: on levophed, agree central line placement for sepsis; last sq heparin was 18 hrs ago, proceed w central line insertion; line in; cxr pending; my prelim reading, line in good position, no ptx; - Plan Plan (Free Text/Narrative):: on levophed, agree central line placement for sepsis; last sq heparin was 18 hrs ago, proceed w central line insertion; line in; cxr pending; my prelim reading, line in good position, no ptx;
--- NOTE | 2018-11-03 13:35 | PCM.PRNOTE ---
- Free Text/Narrative Note: Requested for a-line on 53 y/o with significant health issues. Chart reviewed, discussed, procedure explained. Understands risks and benefits. Permit signed. Left wrist prepped with chlorhexidine. Area drapped with sterile towels. Skin localized with 0.1 ml 1% lidocaine. Each entry point localized. 20g angiocath used. Insertions 1 and 2 good flow but unable to thread catheter. Needle pulled eah time and pressure for 5 minutes. Insertion #3 was threaded with some difficulty. Good backflow and flushed well. Sterile occlusive drsg applied. Pressure wave form good. Tolerated well. No problems noted post.
[2018-11-03] MEDS ORDERED: Thiamine 200 MG/2 ML MDV IV SCH (14:00)
--- NOTE | 2018-11-03 14:08 | OR ---
SURGEON: Santo Vera MD DATE OF PROCEDURE: 11/03/2018 PREOPERATIVE DIAGNOSIS: Sepsis, requiring central line placement. POSTOPERATIVE DIAGNOSIS: Sepsis, requiring central line placement. PROCEDURE PERFORMED: Central line placement to the left subclavian vein. PRIMARY SURGEON: Santo Vera MD. COMPLICATIONS: None. FINDINGS: A plain chest x-ray read by myself. Line is in good position. No pneumothorax. Await for formal Radiology reading. PROCEDURE IN DETAIL: After explaining the patient, informed consent was obtained and also explained about options. The patient concurred to proceed with surgery. Procedure was done at bedside in ICU. A roll of towel was placed behind the patient's back to hyperextend the neck, and the patient was then prepped and draped in sterile fashion on the left chest. Using Seldinger technique, a guidewire was inserted through the left chest through the left subclavian vein and followed with insertion of triple-lumen line and a triple-lumen line was then anchored to the skin and all 3 lines have blood return. A plain chest x-ray obtained, line is in good position, and no pneumothorax. 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 KAREEM / OSMIN /[id number]
[2018-11-03] MEDS: Ascorbic Acid 500 MG Tab PO SCH ×2 (14:46→21:17)
[2018-11-03] MEDS: Phosphorus #1 250 MG Tab PO SCH ×2 (14:47→17:05)
[2018-11-03] MEDS ORDERED: Thrombin (Bovine) 5,000 Unit Kit TOP ONE (15:02)
[2018-11-03] MEDS: Nicotine 14 MG/24 Hr Patch TRDERM SCH (17:05)
[2018-11-03] MEDS ORDERED: Sodium Chloride 0.9% 250 ML ONE (18:26)
[2018-11-03] MEDS: Albuterol/Ipratropium 3.0-0.5 MG/3 ML Neb Soln NEB PRN (19:13)
[2018-11-03] MEDS: Folic Acid 1 MG Tab PO SCH (20:13)
[2018-11-03] MEDS: Thiamine 100 MG Tab PO SCH (20:14)
[2018-11-03] MEDS ORDERED: guaiFENesin 300 MG/15 ML Soln 15 ML UD Cup PO PRN (20:46)
[2018-11-03] MEDS: Morphine 2 MG/ML Syringe IVPUSH PRN (21:18)
[2018-11-03] MEDS: guaiFENesin 100 MG/5 ML Soln 5 ML UD Cup PO PRN (21:48)
[2018-11-04] MEDS: Phosphorus #1 250 MG Tab PO SCH ×5 (00:03→23:14)
[2018-11-04] MEDS: Pantoprazole 40 MG Vial IV SCH ×2 (00:04→23:15)
[2018-11-04] MEDS: Piperacillin/Tazobactam 3.375 GM in Sodium Chloride 0.9% 50 ML IV SCH ×5 (00:04→23:29)
[2018-11-04] MEDS: Acetaminophen 325 MG Tab PO PRN ×3 (00:29→17:31)
[2018-11-04] MEDS: Morphine 2 MG/ML Syringe IVPUSH PRN ×2 (00:31→08:36)
[2018-11-04 01:19] LABS: CHLORIDE,CL 108 mmol/L (98-107); SODIUM,NA 142 mmol/L (136-148)
[2018-11-04] MEDS: Hydrocortisone Sodium Succinate 100 MG/2 ML SDV IVPUSH SCH ×3 (01:19→17:31)
[2018-11-04] MEDS: guaiFENesin 100 MG/5 ML Soln 5 ML UD Cup PO PRN (05:56)
[2018-11-04] MEDS: Ascorbic Acid 500 MG Tab PO SCH ×3 (05:56→21:06)
[2018-11-04 06:56] LABS: CHLORIDE,CL 108 mmol/L (98-107); SODIUM,NA 142 mmol/L (136-148)
[2018-11-04] MEDS: Magnesium Oxide 400 MG Tab PO SCH ×2 (08:37→20:37)
[2018-11-04] MEDS: Calcium Carbonate/Vitamin D3 1500 MG-400 Units Tab PO SCH (08:37)
[2018-11-04] MEDS: Potassium Chloride 20 MEQ Tab.ER PO SCH ×2 (08:37→20:37)
[2018-11-04] MEDS: Gabapentin 300 MG Cap PO SCH ×2 (08:37→20:37)
[2018-11-04] MEDS: Multivitamin Tab PO SCH (08:37)
[2018-11-04] MEDS: Nicotine 14 MG/24 Hr Patch TRDERM SCH (15:44)
--- NOTE | 2018-11-04 16:00 | PCM.PN ---
- General Info Date of Service: 11/04/18 - Review of Systems Systems Review Comment:: feeling better, still having stools, cough improved - Patient Data Vitals - Most Recent: Last Vital Signs Temp 37.2 C 11/04/18 14:00 Pulse 87 11/03/18 18:56 Resp 16 11/04/18 15:00 BP 113/73 11/04/18 15:00 Pulse Ox 90 L 11/04/18 15:00 Weight - Most Recent: 58.196 kg I&O - Last 24 Hours: Intake & Output 11/04/18 11/04/18 11/04/18 06:59 14:59 22:59 Intake Total 3120 1600 600 Output Total 425 4 Balance 2695 1600 596 Lab Results Last 24 Hours: Laboratory Results - last 24 hr 11/03/18 11/03/18 11/04/18 Range/Units 12:13 19:07 00:54 WBC 10.43 (4.0-11.0) K/uL RBC 3.05 L (4.50-5.90) M/uL Hgb 9.8 L (13.0-17.0) g/dL Hct 29.1 L (38.0-50.0) % MCV 95.4 (80.0-98.0) fL MCH 32.1 H (27.0-32.0) pg MCHC 33.7 (31.0-37.0) g/dL RDW Std Deviation 75.0 H (28.0-62.0) fl RDW Coeff of Willy 23 H (11.0-15.0) % Plt Count 219 (150-400) K/uL MPV 11.70 (7.40-12.00) fL Add Manual Diff YES Neutrophils % (Manual) 92 H (48.0-80.0) % Band Neutrophils % 2 % Lymphocytes % (Manual) 5 L (16.0-40.0) % Monocytes % (Manual) 1 (0.0-15.0) % Nucleated RBC % 0.2 /100WBC Absolute Seg Neuts 9.6 H (1.4-5.7) Band Neutrophils # 0.2 Lymphocytes # (Manual) 0.5 L (0.6-2.4) Monocytes # (Manual) 0.1 (0.0-0.8) Nucleated RBCs # 0 K/uL INR APTT (18.6-31.3) SEC Sodium 142 (136-148) mmol/L Potassium 3.7 (3.5-5.1) mmol/L Chloride 108 H (98-107) mmol/L Carbon Dioxide 20.5 L (21.0-32.0) mmol/L BUN 10 (7.0-18.0) mg/dL Creatinine 1.1 (0.8-1.3) mg/dL Est Cr Clr Drug Dosing 56.40 mL/min Estimated GFR (MDRD) > 60.0 ml/min Glucose 200 H (74-106) mg/dL Calcium 6.6 L (8.5-10.1) mg/dL Phosphorus 2.8 (2.6-4.7) mg/dL Magnesium 1.8 (1.8-2.4) mg/dL Blood Type O POSITIVE Antibody Screen NEGATIVE Crossmatch See Detail 11/04/18 11/04/18 11/04/18 Range/Units 06:21 06:21 06:21 WBC 14.02 H (4.0-11.0) K/uL RBC 2.85 L (4.50-5.90) M/uL Hgb 9.2 L (13.0-17.0) g/dL Hct 27.1 L (38.0-50.0) % MCV 95.1 (80.0-98.0) fL MCH 32.3 H (27.0-32.0) pg MCHC 33.9 (31.0-37.0) g/dL RDW Std Deviation 76.3 H (28.0-62.0) fl RDW Coeff of Willy 24 H (11.0-15.0) % Plt Count 176 (150-400) K/uL MPV 11.50 (7.40-12.00) fL Add Manual Diff YES Neutrophils % (Manual) 88 H (48.0-80.0) % Band Neutrophils % 1 % Lymphocytes % (Manual) 10 L (16.0-40.0) % Monocytes % (Manual) 1 (0.0-15.0) % Nucleated RBC % 0.2 /100WBC Absolute Seg Neuts 12.3 H (1.4-5.7) Band Neutrophils # 0.1 Lymphocytes # (Manual) 1.4 (0.6-2.4) Monocytes # (Manual) 0.1 (0.0-0.8) Nucleated RBCs # 0 K/uL INR 1.19 APTT 28.1 (18.6-31.3) SEC Sodium 142 (136-148) mmol/L Potassium 3.9 (3.5-5.1) mmol/L Chloride 108 H (98-107) mmol/L Carbon Dioxide 23.0 (21.0-32.0) mmol/L BUN 11 (7.0-18.0) mg/dL Creatinine 1.1 (0.8-1.3) mg/dL Est Cr Clr Drug Dosing 64.87 mL/min Estimated GFR (MDRD) > 60.0 ml/min Glucose 188 H (74-106) mg/dL Calcium 6.8 L (8.5-10.1) mg/dL Phosphorus 3.0 (2.6-4.7) mg/dL Magnesium 1.9 (1.8-2.4) mg/dL Blood Type Antibody Screen Crossmatch Kike Results Last 24 Hours: Microbiology 11/04/18 09:35 Gram Stain - Preliminary Sputum - Expectorated 11/02/18 20:35 Stool Culture - Final Stool / Feces NO SALMONELLA, SHIGELLA,OR E.COLI O157 ISOLATED Campylobacter Antigen Assay - Final NEGATIVE CAMPYLOBACTER AG REFERENCE RANGE: NEGATIVE Shiga Toxin I - Final Shiga Toxin II - Final 11/02/18 22:02 Aerobic Blood Culture - Preliminary Blood - Venous - Lab Draw NO GROWTH AFTER 1 DAY Anaerobic Blood Culture - Preliminary NO GROWTH AFTER 1 DAY 11/02/18 21:55 Aerobic Blood Culture - Preliminary Blood - Venous NO GROWTH AFTER 1 DAY Anaerobic Blood Culture - Preliminary NO GROWTH AFTER 1 DAY Med Orders - Current: Current Medications Acetaminophen (Tylenol) 650 mg PO Q4H PRN PRN Reason: Pain (Mild 1-3)/fever Last Admin: 11/04/18 08:37 Dose: 650 mg Albuterol/Ipratropium (Duoneb 3.0-0.5 Mg/3 Ml) 3 ml NEB Q4HRRT PRN PRN Reason: Shortness of Breath Last Admin: 11/03/18 19:13 Dose: 3 ml Ascorbic Acid (Vitamin C) 1,500 mg PO TID [facility] Last Admin: 11/04/18 14:12 Dose: 1,500 mg Calcium Carbonate (Caltrate 600+D 1500 Mg-400 Units) 1 tab PO DAILY [facility] Last Admin: 11/04/18 08:37 Dose: 1 tab Folic Acid (Folic Acid) 1 mg PO BEDTIME [facility] Last Admin: 11/03/18 20:13 Dose: 1 mg Gabapentin (Neurontin) 300 mg PO BID [facility] Last Admin: 11/04/18 08:37 Dose: 300 mg Guaifenesin (Robitussin) 300 mg PO Q6H PRN PRN Reason: Cough Last Admin: 11/04/18 05:56 Dose: 300 mg Hydrocortisone Sodium Succinate (Solu-Cortef) 100 mg IVPUSH Q8H [facility] Last Admin: 11/04/18 08:36 Dose: 100 mg Norepinephrine Bitartrate (Norepinephr-0.9% Nacl 4 Mg/250) 4 mg in 250 mls @ 7.5 mls/hr IV TITRATE [facility]; Protocol Last Titration: 11/04/18 04:11 Dose: 0 mcg/min, 0 mls/hr Potassium Chloride 30 meq/Sodium Bicarbonate 150 meq/Dextrose/Water 1,165 mls @ 114.778 mls/hr IV ASDIRECTED [facility] Last Admin: 11/04/18 12:14 Dose: 114.778 mls/hr Thiamine HCl 200 mg/ Sodium (Chloride) 52 mls @ 104 mls/hr IV TID [facility] Last Admin: 11/04/18 14:13 Dose: 104 mls/hr Piperacillin Sod/Tazobactam (Sod 3.375 gm/ Sodium Chloride) 50 mls @ 100 mls/ hr IV Q6H [facility] Last Admin: 11/04/18 12:14 Dose: 100 mls/hr Vancomycin HCl 1 gm/ Sodium (Chloride) 250 mls @ 166.667 mls/hr IV Q12H [facility] Last Admin: 11/04/18 10:10 Dose: 166.667 mls/hr Potassium Chloride 40 meq/ (Sodium Chloride) 1,020 mls @ 125 mls/hr IV ASDIRECTED [facility] Lorazepam (Ativan) 0 mg IVPUSH Q4H PRN; Protocol PRN Reason: Withdrawal Symptoms Magnesium Oxide (Magnesium Oxide) 400 mg PO BID [facility] Last Admin: 11/04/18 08:37 Dose: 400 mg Morphine Sulfate (Morphine) 1 mg IVPUSH Q2H PRN PRN Reason: Pain Last Admin: 11/04/18 08:36 Dose: 1 mg Multivitamins/Minerals/Vitamin C (Tab-A-Alvaro) 1 tab PO DAILY [facility] Last Admin: 11/04/18 08:37 Dose: 1 tab Nicotine (Habitrol) 14 mg TRDERM Q24H [facility] Last Admin: 11/04/18 15:44 Dose: 14 mg Ondansetron HCl (Zofran) 4 mg IVPUSH Q4H PRN PRN Reason: Nausea Last Admin: 11/03/18 00:29 Dose: 4 mg Pantoprazole Sodium (Protonix Iv) 40 mg IV Q24H [facility] Last Admin: 11/04/18 00:04 Dose: 40 mg Potassium Chloride (Klor-Con M20) 40 meq PO BID [facility] Last Admin: 11/04/18 08:37 Dose: 40 meq Sodium Phosphate (Neutra-Phos) 250 mg PO QID [facility] Last Admin: 11/04/18 12:14 Dose: 250 mg Thiamine HCl (Vitamin B-1) 100 mg PO BEDTIME [facility] Last Admin: 11/03/18 20:14 Dose: 100 mg Vancomycin HCl (Pharmacy To Dose - Vancomycin) 1 dose .XX ASDIRECTED [facility] Discontinued Medications Calcium Chloride (Calcium Chloride 10%) 1 gm IVPUSH ONETIME ONE Stop: 11/03/18 08:47 Last Admin: 11/03/18 10:46 Dose: 1 gm Cyanocobalamin (Vitamin B12) 1,000 mcg IM ONETIME ONE Stop: 11/03/18 09:10 Last Admin: 11/03/18 09:41 Dose: 1,000 mcg Guaifenesin (Guaifenesin) 300 mg PO Q6H PRN PRN Reason: Cough Heparin Sodium (Porcine) (Heparin Sodium) 5,000 units SUBCUT Q8H [facility] Last Admin: 11/02/18 17:31 Dose: 5,000 units Sodium Chloride (Normal Saline) 1,000 mls @ 150 mls/hr IV STAT ONE Stop: 11/02/18 20:45 Last Admin: 11/02/18 14:25 Dose: 150 mls/hr Potassium Chloride 40 meq/ (Premix) 100 mls @ 25 mls/hr IV ONETIME ONE Stop: 11/02/18 19:03 Last Admin: 11/02/18 15:11 Dose: 25 mls/hr Levofloxacin/Dextrose 750 mg/ (Premix) 150 mls @ 100 mls/hr IV Q48H [facility] Piperacillin Sod/Tazobactam (Sod 3.375 gm/ Sodium Chloride) 50 mls @ 50 mls/hr IV Q6H [facility] Last Admin: 11/02/18 17:43 Dose: Not Given Levofloxacin/Dextrose 750 mg/ (Premix) 150 mls @ 100 mls/hr IV Q48H [facility] Last Admin: 11/02/18 18:09 Dose: Not Given Vancomycin HCl 1 gm/ Sodium (Chloride) 250 mls @ 166.667 mls/hr IV Q24H [facility] Last Admin: 11/02/18 17:43 Dose: Not Given Potassium Chloride/Sodium Chloride (Normal Saline With 40 Meq Kcl) 1,000 mls @ 150 mls/hr IV ASDIRECTED [facility] Last Admin: 11/02/18 18:08 Dose: 150 mls/hr Sodium Chloride (Normal Saline) 1,000 mls @ 999 mls/hr IV STAT ONE Stop: 11/02/18 17:21 Last Admin: 11/02/18 17:17 Dose: 999 mls/hr Piperacillin Sod/Tazobactam (Sod 3.375 gm/ Sodium Chloride) 50 mls @ 100 mls/ hr IV Q6H [facility] Last Admin: 11/03/18 13:08 Dose: 100 mls/hr Levofloxacin/Dextrose 750 mg/ (Premix) 150 mls @ 100 mls/hr IV Q48H [facility] Last Admin: 11/02/18 18:21 Dose: 100 mls/hr Vancomycin HCl 1 gm/ Sodium (Chloride) 250 mls @ 166.667 mls/hr IV Q24H [facility] Last Admin: 11/03/18 18:28 Dose: 166.667 mls/hr Magnesium Sulfate 2 gm/ Premix 50 mls @ 25 mls/hr IV ONETIME ONE Stop: 11/02/18 20:00 Last Admin: 11/02/18 19:20 Dose: 25 mls/hr Sodium Chloride (Normal Saline) 1,000 mls @ 999 mls/hr IV .Bolus ONE Stop: 11/02/18 20:28 Last Admin: 11/02/18 19:58 Dose: 999 mls/hr Sodium Chloride (Normal Saline) 1,000 mls @ 999 mls/hr IV .Bolus ONE Stop: 11/02/18 22:37 Last Admin: 11/02/18 22:00 Dose: 999 mls/hr Pantoprazole Sodium 40 mg/ (Sodium Chloride) 100 mls @ 10 mls/hr IVPUSH Q24H [facility] Last Admin: 11/03/18 00:15 Dose: Not Given Potassium Chloride 30 meq/ (Dextrose/Water) 1,015 mls @ 100 mls/hr IV ASDIRECTED [facility] Magnesium Sulfate 4 gm/ Premix 100 mls @ 50 mls/hr IV ONETIME ONE Stop: 11/03/18 10:42 Last Admin: 11/03/18 09:42 Dose: 50 mls/hr Multivitamins/Minerals 10 ml/Thiamine HCl 100 mg/ Folic Acid 1 mg/ Sodium Chloride 1,011.2 mls @ 200 mls/hr IV ONETIME ONE Stop: 11/03/18 14:18 Last Admin: 11/03/18 09:43 Dose: 200 mls/hr Albumin Human (Flexbumin 25%) 12.5 gm in 50 mls @ 100 mls/hr IV ONETIME ONE Stop: 11/03/18 09:34 Last Admin: 11/03/18 09:44 Dose: 100 mls/hr Sodium Phosphate 30 mmole/ (Sodium Chloride) 260 mls @ 86.667 mls/hr IV ONETIME ONE Stop: 11/03/18 15:19 Last Admin: 11/03/18 13:05 Dose: 86.667 mls/hr Sodium Chloride (Normal Saline) Confirm Administered Dose 250 mls @ as directed .ROUTE .STK-MED ONE Stop: 11/03/18 18:27 Last Admin: 11/03/18 19:31 Dose: Not Given Potassium Chloride 40 meq/ (Sodium Chloride) 1,020 mls @ 125 mls/hr IV ASDIRECTED [facility] Lidocaine HCl (Xylocaine 1%) Confirm Administered Dose 20 ml .ROUTE .STK-MED ONE Stop: 11/03/18 12:00 Last Admin: 11/03/18 14:46 Dose: 20 ml Pantoprazole Sodium (Protonix) 40 mg PO DAILY [facility] Potassium Chloride (Klor-Con M20) 40 meq PO ONETIME ONE Stop: 11/02/18 16:12 Last Admin: 11/02/18 17:30 Dose: 40 meq Potassium Chloride (Klor-Con M20) 40 meq PO ONETIME ONE Stop: 11/02/18 18:01 Sodium Phosphate (Sodium Phosphate) 30 mmole IV ONETIME ONE Stop: 11/03/18 12:16 Thiamine HCl (Vitamin B-1) 200 mg IV TID [facility] Thrombin (Thrombin-Jmi) 5,000 unit TOP ONETIME ONE Stop: 11/03/18 15:03 Last Admin: 11/03/18 15:44 Dose: 5,000 unit - Exam General: Alert, Oriented, Cooperative Neck: Supple Lungs: Clear to Auscultation, Normal Respiratory Effort Cardiovascular: Regular Rhythm, Tachycardia GI/Abdominal Exam: Normal Bowel Sounds, Soft, Non-Tender, No Distention Extremities: No Pedal Edema Skin: Warm, Dry, Intact - Problem List Review Problem List Initiated/Reviewed/Updated: Yes - My Orders Last 24 Hours: My Active Orders 11/04/18 09:35 CULTURE SPUTUM + SMEAR [RM] Routine 11/05/18 05:11 CBC WITH AUTO DIFF [HEME] AM 11/05/18 20:00 VANCOMYCIN TROUGH [CHEM] Routine - Plan Plan:: 53 yo male with pmh of alcoholism and admisison last month for COPD exacerbation who is admitted for hypovolumia due to diarrhea and septic shock from suspect pneumonia and enteritis. Septic shock: levophed weaned off this morning, Patient on hydrocortisone, he has history of prednisone taper earlier this month Pneumonia: continue antibiotics of vancomycin, Zosyn and Levaquin, requiring 2 liters NC, cultures pending Enteritis: continue IV fluids, stool culture pending, C.diff negative Acute Kidney injury: Creatinine improving COPD: duonebs prn, Alcohol abuse: no signs of withdrawal, on CIWA protocol, thiamin and folic acid , last drink was day of admission Hypokalemia/hypomagnesia/hypophoshatemia: replacing electrolytes Anemia: Hemoccult positive, but no blood seen in diarrhea. Patient is on protonix, s/p transfusion of 2 units of pRBC two units. Hgb 9.2 today
[2018-11-04] MEDS ORDERED: Sodium Chloride 0.9% with KCl 1,000 ML ONE (19:30)
[2018-11-04] MEDS: Albuterol/Ipratropium 3.0-0.5 MG/3 ML Neb Soln NEB PRN (20:06)
[2018-11-04] MEDS ORDERED: Sodium Chloride 0.9% with KCl 1,000 ML IV SCH (20:30)
[2018-11-04] MEDS: Folic Acid 1 MG Tab PO SCH (20:36)
[2018-11-04] MEDS: Thiamine 100 MG Tab PO SCH (20:37)
[2018-11-04] MEDS ORDERED: Hydrocortisone 2.5% Crm 30 GM Tube TOP PRN ×2 (21:48→21:53)
[2018-11-04] MEDS: oxyCODONE 5 MG Tab PO PRN (21:51)
[2018-11-04] MEDS ORDERED: Cocoa Butter/Phenylephrine Rectal Supp RECTAL PRN (22:02)
[2018-11-04] MEDS: Loperamide 2 MG Cap PO PRN (23:14)
[2018-11-05] MEDS: Hydrocortisone Sodium Succinate 100 MG/2 ML SDV IVPUSH SCH (01:11)
[2018-11-05] MEDS: Ascorbic Acid 500 MG Tab PO SCH ×3 (05:18→22:58)
[2018-11-05] MEDS: Phosphorus #1 250 MG Tab PO SCH ×4 (05:18→23:22)
[2018-11-05] MEDS: Albuterol/Ipratropium 3.0-0.5 MG/3 ML Neb Soln NEB PRN ×2 (05:44→23:03)
[2018-11-05] MEDS: Piperacillin/Tazobactam 3.375 GM in Sodium Chloride 0.9% 50 ML IV SCH ×3 (05:51→18:41)
[2018-11-05 06:30] LABS: CHLORIDE,CL 110 mmol/L (98-107); SODIUM,NA 146 mmol/L (136-148)
--- NOTE | 2018-11-05 08:42 | CONS ---
DATE OF CONSULTATION: 11/02/2018 DATE OF : 1965 PRIMARY CARE PHYSICIAN: Bandar Ureña This is a consult from Dr. Alexander for central line placement because of sepsis. HISTORY OF PRESENT ILLNESS: The patient is a 53-year-old gentleman, who has a history of alcohol abuse and was admitted after not feeling well for about 2 to 3 weeks per patient. The patient mentioned that he is having incontinence of both bowel movement, as well as urination, for last 2 to 3 weeks and also having hard time to have an appetite, but he can take a couple drinks every day. PAST MEDICAL HISTORY: Includes COPD, alcohol abuse, and tobacco abuse. The patient is on steroid, prednisone 20 mg p.o. three times a day for the COPD. Abdominal surgery, none. According to patient, he never had any central line near either collar bone and did not have any trauma or collar bone broken in the past. FAMILY HISTORY: Noncontributory. ALLERGIES: Please refer to nursing for details. MEDICATION: Please refer to nursing for details. PHYSICAL EXAMINATION: GENERAL: A cachectic appearing gentleman, but has very clear mind, resting in bed. HEENT: Normocephalic and atraumatic. Sclerae anicteric. LUNGS: Clear to auscultation. HEART: Regular rate and rhythm. ABDOMEN: Soft, nondistended. No pulsating midline abdominal structure and no surgical scar or hernia. LABORATORY DATA: Upon consultation, white count 17,000 and H and H are 10 and 29, and platelets 300,000. Sodium 135, potassium 3.0, BUN is 20, creatinine is 2.5. IMPRESSION/PLAN: Sepsis, on Levophed. Primary medical team will consult for central line placement for sepsis. Unfortunately, the patient already is on 5000 units of subcu heparin prophylaxis, last dose was about 6-1/2 hours ago. In light of the situation for subclavian central line placement, there is a risk. I would like to have 24-hour history of off heparin, and also we will send to check the patient's coags, as patient has history of alcohol use and also poor nutrition. If there is dire strait situation to have central line placed, then probably the best manner will be done under Radiology, rather than a blind stick, and plan has been discussed with Dr. Alexander and we will assess in the morning, see how the patient responds to resuscitation. Otherwise with the current situation, the best time I can put in a central line with the current critical situation will be probably around 2:00 p.m. or 3:00 p.m. on the next day. We will continue to follow the patient. First of all, we will try to hold off the subcu heparin and also we will order coag tests. As always, thank you for your kind referral. KAREEM SOLORIO /[id number]
[2018-11-05] MEDS ORDERED: Magnesium Sulfate/Water 4 GM in Premix Bag 1 BAG IV ONE (08:43)
[2018-11-05] MEDS: Potassium Chloride 20 MEQ Tab.ER PO SCH ×2 (09:08→20:36)
[2018-11-05] MEDS: Calcium Carbonate/Vitamin D3 1500 MG-400 Units Tab PO SCH (09:09)
[2018-11-05] MEDS: Multivitamin Tab PO SCH (09:10)
[2018-11-05] MEDS: Gabapentin 300 MG Cap PO SCH ×2 (09:10→20:36)
[2018-11-05] MEDS: Magnesium Oxide 400 MG Tab PO SCH ×2 (09:10→20:35)
[2018-11-05] MEDS: Hydrocortisone Sodium Succinate 100 MG/2 ML SDV IV SCH ×2 (09:25→18:15)
[2018-11-05] MEDS: Loperamide 2 MG Cap PO PRN ×2 (10:47→22:57)
[2018-11-05] MEDS ORDERED: Pantoprazole 40 MG Tab.CR ONE (11:05)
[2018-11-05] MEDS: Pantoprazole 40 MG Tab.CR PO SCH (11:18)
--- NOTE | 2018-11-05 15:17 | PCM.PN ---
- General Info Date of Service: 11/05/18 Subjective Update: Doing better this morning. still having loose watery stools. No fevers overnight. Denies nausea, vomiting, chest pain, abdominal pain. - Patient Data Vitals - Most Recent: Last Vital Signs Temp 37.2 C 11/05/18 12:00 Pulse 112 H 11/05/18 14:00 Resp 18 11/05/18 14:00 BP 112/71 11/05/18 14:00 Pulse Ox 94 L 11/05/18 14:00 Weight - Most Recent: 62.188 kg I&O - Last 24 Hours: Intake & Output 11/05/18 11/05/18 11/05/18 06:59 14:59 22:59 Intake Total 0 400 Balance 2089 400 Lab Results Last 24 Hours: Laboratory Results - last 24 hr 11/05/18 11/05/18 11/05/18 Range/Units 05:35 05:35 12:50 WBC 21.27 H (4.0-11.0) K/uL RBC 2.96 L (4.50-5.90) M/uL Hgb 9.5 L (13.0-17.0) g/dL Hct 29.2 L (38.0-50.0) % MCV 98.6 H (80.0-98.0) fL MCH 32.1 H (27.0-32.0) pg MCHC 32.5 (31.0-37.0) g/dL RDW Std Deviation 78.3 H (28.0-62.0) fl RDW Coeff of Willy 24 H (11.0-15.0) % Plt Count 230 (150-400) K/uL MPV 11.80 (7.40-12.00) fL Add Manual Diff YES Neutrophils % (Manual) 86 H (48.0-80.0) % Band Neutrophils % 2 % Lymphocytes % (Manual) 10 L (16.0-40.0) % Monocytes % (Manual) 2 (0.0-15.0) % Nucleated RBC % 0.3 /100WBC Absolute Seg Neuts 18.3 H (1.4-5.7) Band Neutrophils # 0.4 Lymphocytes # (Manual) 2.1 (0.6-2.4) Monocytes # (Manual) 0.4 (0.0-0.8) Absolute Metamyelocyte 0.2 Nucleated RBCs # 0 K/uL ESR 18 (0-19) mm/hr Sodium 146 (136-148) mmol/L Potassium 4.3 (3.5-5.1) mmol/L Chloride 110 H (98-107) mmol/L Carbon Dioxide 27.2 (21.0-32.0) mmol/L BUN 8 (7.0-18.0) mg/dL Creatinine 1.0 (0.8-1.3) mg/dL Est Cr Clr Drug Dosing 73.52 mL/min Estimated GFR (MDRD) > 60.0 ml/min Glucose 143 H (74-106) mg/dL Calcium 6.4 L (8.5-10.1) mg/dL Phosphorus 2.5 L (2.6-4.7) mg/dL Magnesium 1.3 L (1.8-2.4) mg/dL Total Bilirubin 0.8 (0.2-1.0) mg/dL AST 59 H (15-37) IU/L ALT 31 (14-63) IU/L Alkaline Phosphatase 161 H (46-116) U/L C-Reactive Protein (0.00-0.90) mg/dL Total Protein 5.0 L (6.4-8.2) g/dL Albumin 1.7 L (3.4-5.0) g/dL Globulin 3.3 (2.6-4.0) g/dL Albumin/Globulin Ratio 0.5 L (0.9-1.6) 11/05/18 Range/Units 12:50 WBC (4.0-11.0) K/uL RBC (4.50-5.90) M/uL Hgb (13.0-17.0) g/dL Hct (38.0-50.0) % MCV (80.0-98.0) fL MCH (27.0-32.0) pg MCHC (31.0-37.0) g/dL RDW Std Deviation (28.0-62.0) fl RDW Coeff of Willy (11.0-15.0) % Plt Count (150-400) K/uL MPV (7.40-12.00) fL Add Manual Diff Neutrophils % (Manual) (48.0-80.0) % Band Neutrophils % % Lymphocytes % (Manual) (16.0-40.0) % Monocytes % (Manual) (0.0-15.0) % Nucleated RBC % /100WBC Absolute Seg Neuts (1.4-5.7) Band Neutrophils # Lymphocytes # (Manual) (0.6-2.4) Monocytes # (Manual) (0.0-0.8) Absolute Metamyelocyte Nucleated RBCs # K/uL ESR (0-19) mm/hr Sodium (136-148) mmol/L Potassium (3.5-5.1) mmol/L Chloride (98-107) mmol/L Carbon Dioxide (21.0-32.0) mmol/L BUN (7.0-18.0) mg/dL Creatinine (0.8-1.3) mg/dL Est Cr Clr Drug Dosing mL/min Estimated GFR (MDRD) ml/min Glucose (74-106) mg/dL Calcium (8.5-10.1) mg/dL Phosphorus (2.6-4.7) mg/dL Magnesium (1.8-2.4) mg/dL Total Bilirubin (0.2-1.0) mg/dL AST (15-37) IU/L ALT (14-63) IU/L Alkaline Phosphatase (46-116) U/L C-Reactive Protein 1.00 H (0.00-0.90) mg/dL Total Protein (6.4-8.2) g/dL Albumin (3.4-5.0) g/dL Globulin (2.6-4.0) g/dL Albumin/Globulin Ratio (0.9-1.6) Kike Results Last 24 Hours: Microbiology 11/04/18 09:35 Gram Stain - Final Sputum - Expectorated Sputum Culture - Preliminary 11/02/18 22:02 Aerobic Blood Culture - Preliminary Blood - Venous - Lab Draw NO GROWTH AFTER 2 DAYS Anaerobic Blood Culture - Preliminary NO GROWTH AFTER 2 DAYS 11/02/18 21:55 Aerobic Blood Culture - Preliminary Blood - Venous NO GROWTH AFTER 2 DAYS Anaerobic Blood Culture - Preliminary NO GROWTH AFTER 2 DAYS Med Orders - Current: Current Medications Acetaminophen (Tylenol) 650 mg PO Q4H PRN PRN Reason: Pain (Mild 1-3)/fever Last Admin: 11/04/18 17:31 Dose: 650 mg Albuterol/Ipratropium (Duoneb 3.0-0.5 Mg/3 Ml) 3 ml NEB Q4HRRT PRN PRN Reason: Shortness of Breath Last Admin: 11/05/18 05:44 Dose: 3 ml Ascorbic Acid (Vitamin C) 1,500 mg PO TID [facility] Last Admin: 11/05/18 05:18 Dose: 1,500 mg Calcium Carbonate (Caltrate 600+D 1500 Mg-400 Units) 1 tab PO DAILY [facility] Last Admin: 11/05/18 09:09 Dose: 1 tab [place] Butter/Phenylephrine (Preparation H Supp) 1 each RECTAL DAILY PRN PRN Reason: Hemorrhoids Last Admin: 11/05/18 05:18 Dose: 1 each Folic Acid (Folic Acid) 1 mg PO BEDTIME [facility] Last Admin: 11/04/18 20:36 Dose: 1 mg Gabapentin (Neurontin) 300 mg PO BID [facility] Last Admin: 11/05/18 09:10 Dose: 300 mg Guaifenesin (Robitussin) 300 mg PO Q6H PRN PRN Reason: Cough Last Admin: 11/04/18 05:56 Dose: 300 mg Hydrocortisone Sodium Succinate (Solu-Cortef) 50 mg IV Q8H [facility] Last Admin: 11/05/18 09:25 Dose: 50 mg Norepinephrine Bitartrate (Norepinephr-0.9% Nacl 4 Mg/250) 4 mg in 250 mls @ 7.5 mls/hr IV TITRATE [facility]; Protocol Last Titration: 11/04/18 04:11 Dose: 0 mcg/min, 0 mls/hr Potassium Chloride 30 meq/Sodium Bicarbonate 150 meq/Dextrose/Water 1,165 mls @ 114.778 mls/hr IV ASDIRECTED [facility] Last Admin: 11/04/18 12:14 Dose: 114.778 mls/hr Thiamine HCl 200 mg/ Sodium (Chloride) 52 mls @ 104 mls/hr IV TID [facility] Last Admin: 11/05/18 05:09 Dose: 104 mls/hr Piperacillin Sod/Tazobactam (Sod 3.375 gm/ Sodium Chloride) 50 mls @ 100 mls/ hr IV Q6H [facility] Last Admin: 11/05/18 12:18 Dose: 100 mls/hr Lactated Ringer's (Ringers, Lactated) 1,000 mls @ 150 mls/hr IV ASDIRECTED [facility] Loperamide HCl (Imodium) 2 mg PO Q6H PRN PRN Reason: Other Last Admin: 11/05/18 10:47 Dose: 2 mg Lorazepam (Ativan) 0 mg IVPUSH Q4H PRN; Protocol PRN Reason: Withdrawal Symptoms Magnesium Oxide (Magnesium Oxide) 400 mg PO BID [facility] Last Admin: 11/05/18 09:10 Dose: 400 mg Morphine Sulfate (Morphine) 1 mg IVPUSH Q2H PRN PRN Reason: Pain Last Admin: 11/04/18 08:36 Dose: 1 mg Multivitamins/Minerals/Vitamin C (Tab-A-Alavro) 1 tab PO DAILY [facility] Last Admin: 11/05/18 09:10 Dose: 1 tab Nicotine (Habitrol) 14 mg TRDERM Q24H [facility] Last Admin: 11/04/18 15:44 Dose: 14 mg Ondansetron HCl (Zofran) 4 mg IVPUSH Q4H PRN PRN Reason: Nausea Last Admin: 11/03/18 00:29 Dose: 4 mg Oxycodone HCl (Oxycodone) 5 mg PO Q4H PRN PRN Reason: Pain Last Admin: 11/04/18 21:51 Dose: 5 mg Pantoprazole Sodium (Protonix) 40 mg PO ACBREAKFAST [facility] Last Admin: 11/05/18 11:18 Dose: 40 mg Potassium Chloride (Klor-Con M20) 40 meq PO BID [facility] Last Admin: 11/05/18 09:08 Dose: 40 meq Silver Sulfadiazine (Silvadene 1% Cream 400 Gm) 0 gm TOP BID [facility] Sodium Phosphate (Neutra-Phos) 250 mg PO QID [facility] Last Admin: 11/05/18 11:17 Dose: 250 mg Thiamine HCl (Vitamin B-1) 100 mg PO BEDTIME [facility] Last Admin: 11/04/18 20:37 Dose: 100 mg Discontinued Medications Calcium Chloride (Calcium Chloride 10%) 1 gm IVPUSH ONETIME ONE Stop: 11/03/18 08:47 Last Admin: 11/03/18 10:46 Dose: 1 gm Cyanocobalamin (Vitamin B12) 1,000 mcg IM ONETIME ONE Stop: 11/03/18 09:10 Last Admin: 11/03/18 09:41 Dose: 1,000 mcg Guaifenesin (Guaifenesin) 300 mg PO Q6H PRN PRN Reason: Cough Heparin Sodium (Porcine) (Heparin Sodium) 5,000 units SUBCUT Q8H [facility] Last Admin: 11/02/18 17:31 Dose: 5,000 units Hydrocortisone (Proctozone-Hc 2.5% Crm) 0.5 gm TOP ASDIRECTED PRN PRN Reason: Itching Hydrocortisone (Proctozone-Hc 2.5% Crm) 0 gm TOP ASDIRECTED PRN PRN Reason: Itching Hydrocortisone Sodium Succinate (Solu-Cortef) 100 mg IVPUSH Q8H [facility] Last Admin: 11/05/18 01:11 Dose: 100 mg Sodium Chloride (Normal Saline) 1,000 mls @ 150 mls/hr IV STAT ONE Stop: 11/02/18 20:45 Last Admin: 11/02/18 14:25 Dose: 150 mls/hr Potassium Chloride 40 meq/ (Premix) 100 mls @ 25 mls/hr IV ONETIME ONE Stop: 11/02/18 19:03 Last Admin: 11/02/18 15:11 Dose: 25 mls/hr Levofloxacin/Dextrose 750 mg/ (Premix) 150 mls @ 100 mls/hr IV Q48H [facility] Piperacillin Sod/Tazobactam (Sod 3.375 gm/ Sodium Chloride) 50 mls @ 50 mls/hr IV Q6H [facility] Last Admin: 11/02/18 17:43 Dose: Not Given Levofloxacin/Dextrose 750 mg/ (Premix) 150 mls @ 100 mls/hr IV Q48H [facility] Last Admin: 11/02/18 18:09 Dose: Not Given Vancomycin HCl 1 gm/ Sodium (Chloride) 250 mls @ 166.667 mls/hr IV Q24H [facility] Last Admin: 11/02/18 17:43 Dose: Not Given Potassium Chloride/Sodium Chloride (Normal Saline With 40 Meq Kcl) 1,000 mls @ 150 mls/hr IV ASDIRECTED [facility] Last Admin: 11/02/18 18:08 Dose: 150 mls/hr Sodium Chloride (Normal Saline) 1,000 mls @ 999 mls/hr IV STAT ONE Stop: 11/02/18 17:21 Last Admin: 11/02/18 17:17 Dose: 999 mls/hr Piperacillin Sod/Tazobactam (Sod 3.375 gm/ Sodium Chloride) 50 mls @ 100 mls/ hr IV Q6H [facility] Last Admin: 11/03/18 13:08 Dose: 100 mls/hr Levofloxacin/Dextrose 750 mg/ (Premix) 150 mls @ 100 mls/hr IV Q48H [facility] Last Admin: 11/02/18 18:21 Dose: 100 mls/hr Vancomycin HCl 1 gm/ Sodium (Chloride) 250 mls @ 166.667 mls/hr IV Q24H [facility] Last Admin: 11/03/18 18:28 Dose: 166.667 mls/hr Magnesium Sulfate 2 gm/ Premix 50 mls @ 25 mls/hr IV ONETIME ONE Stop: 11/02/18 20:00 Last Admin: 11/02/18 19:20 Dose: 25 mls/hr Sodium Chloride (Normal Saline) 1,000 mls @ 999 mls/hr IV .Bolus ONE Stop: 11/02/18 20:28 Last Admin: 11/02/18 19:58 Dose: 999 mls/hr Sodium Chloride (Normal Saline) 1,000 mls @ 999 mls/hr IV .Bolus ONE Stop: 11/02/18 22:37 Last Admin: 11/02/18 22:00 Dose: 999 mls/hr Pantoprazole Sodium 40 mg/ (Sodium Chloride) 100 mls @ 10 mls/hr IVPUSH Q24H [facility] Last Admin: 11/03/18 00:15 Dose: Not Given Potassium Chloride 30 meq/ (Dextrose/Water) 1,015 mls @ 100 mls/hr IV ASDIRECTED [facility] Magnesium Sulfate 4 gm/ Premix 100 mls @ 50 mls/hr IV ONETIME ONE Stop: 11/03/18 10:42 Last Admin: 11/03/18 09:42 Dose: 50 mls/hr Multivitamins/Minerals 10 ml/Thiamine HCl 100 mg/ Folic Acid 1 mg/ Sodium Chloride 1,011.2 mls @ 200 mls/hr IV ONETIME ONE Stop: 11/03/18 14:18 Last Admin: 11/03/18 09:43 Dose: 200 mls/hr Albumin Human (Flexbumin 25%) 12.5 gm in 50 mls @ 100 mls/hr IV ONETIME ONE Stop: 11/03/18 09:34 Last Admin: 11/03/18 09:44 Dose: 100 mls/hr Sodium Phosphate 30 mmole/ (Sodium Chloride) 260 mls @ 86.667 mls/hr IV ONETIME ONE Stop: 11/03/18 15:19 Last Admin: 11/03/18 13:05 Dose: 86.667 mls/hr Sodium Chloride (Normal Saline) Confirm Administered Dose 250 mls @ as directed .ROUTE .[email or web address]MED ONE Stop: 11/03/18 18:27 Last Admin: 11/03/18 19:31 Dose: Not Given Vancomycin HCl 1 gm/ Sodium (Chloride) 250 mls @ 166.667 mls/hr IV Q12H [facility] Last Admin: 11/05/18 09:22 Dose: 166.667 mls/hr Potassium Chloride 40 meq/ (Sodium Chloride) 1,020 mls @ 125 mls/hr IV ASDIRECTED [facility] Potassium Chloride 40 meq/ (Sodium Chloride) 1,020 mls @ 125 mls/hr IV ASDIRECTED [facility] Potassium Chloride/Sodium Chloride (Normal Saline With 40 Meq Kcl) Confirm Administered Dose 1,000 mls @ as directed .ROUTE .[facility] [[email or web address]]-MED ONE Stop: 11/04/18 19:31 Last Admin: 11/04/18 20:29 Dose: Not Given Potassium Chloride/Sodium Chloride (Normal Saline With 40 Meq Kcl) 1,000 mls @ 125 mls/hr IV ASDIRECTED [facility] Last Infusion: 11/05/18 06:29 Dose: Infused Potassium Chloride 40 meq/ (Sodium Chloride) 1,020 mls @ 150 mls/hr IV Q6H [facility] Last Admin: 11/05/18 10:22 Dose: Not Given Magnesium Sulfate 4 gm/ Premix 100 mls @ 50 mls/hr IV ONETIME ONE Stop: 11/05/18 10:42 Last Admin: 11/05/18 10:20 Dose: 50 mls/hr Lidocaine HCl (Xylocaine 1%) Confirm Administered Dose 20 ml .ROUTE .STK-MED ONE Stop: 11/03/18 12:00 Last Admin: 11/03/18 14:46 Dose: 20 ml Pantoprazole Sodium (Protonix) 40 mg PO DAILY [facility] Pantoprazole Sodium (Protonix Iv) 40 mg IV Q24H [facility] Last Admin: 11/04/18 23:15 Dose: 40 mg Pantoprazole Sodium (Protonix) Confirm Administered Dose 40 mg .ROUTE .STK- MED ONE Stop: 11/05/18 11:06 Last Admin: 11/05/18 11:17 Dose: Not Given Potassium Chloride (Klor-Con M20) 40 meq PO ONETIME ONE Stop: 11/02/18 16:12 Last Admin: 11/02/18 17:30 Dose: 40 meq Potassium Chloride (Klor-Con M20) 40 meq PO ONETIME ONE Stop: 11/02/18 18:01 Sodium Phosphate (Neutra-Phos) 250 mg PO QID [facility] Last Admin: 11/05/18 05:18 Dose: 250 mg Sodium Phosphate (Sodium Phosphate) 30 mmole IV ONETIME ONE Stop: 11/03/18 12:16 Thiamine HCl (Vitamin B-1) 200 mg IV TID [facility] Thrombin (Thrombin-Jmi) 5,000 unit TOP ONETIME ONE Stop: 11/03/18 15:03 Last Admin: 11/03/18 15:44 Dose: 5,000 unit Vancomycin HCl (Pharmacy To Dose - Vancomycin) 1 dose .XX ASDIRECTED [facility] - Exam Quality Assessment: Supplemental Oxygen General: Alert, Oriented, Cooperative, No Acute Distress HEENT: Pupils Equal, Pupils Reactive Lungs: Clear to Auscultation. No: Crackles, Wheezing Cardiovascular: Regular Rate, Regular Rhythm, No Murmurs GI/Abdominal Exam: Soft, Non-Tender, No Distention. No: Guarding, Rebound Extremities: Normal Inspection, No Pedal Edema Skin: Warm, Dry - Problem List Review Problem List Initiated/Reviewed/Updated: Yes - My Orders Last 24 Hours: My Active Orders 11/05/18 12:37 LEGIONELLA ANTIGEN [RM] Routine WBC, STOOL [OP] Routine 11/05/18 12:48 Hemoccult [Fecal Occult Blood Collection] [RC] ASDIRECTED 11/05/18 21:00 Silver Sulfadiazine [Silvadene 1% Cream 400 GM] See Dose Instructions TOP BID 11/06/18 05:11 CBC WITH AUTO DIFF [HEME] AM COMPREHENSIVE METABOLIC PN,CMP [CHEM] AM MAGNESIUM [CHEM] AM PHOSPHORUS [CHEM] AM - Plan Plan:: A: 1. HCAP 2. Leukocytosis 3. Diarrhea 4. Macrocytic anemia s/p 2 units PRBCs 5. Hypomagnesemia 6. Hypophosphatemia 7. Alcohol abuse P: 1. HCAP- continue with Zosyn. wean O2 as tolerated. 2. Leukocytosis, likely 2/2 above and hydrocortisone intake. No fevers. Continue to monitor. 3. Diarrhea. Likely 2/2 to his alcohol consumption. Will check legionella, ESR, CRP, Stool studies. Possibly have malabsorption due to his alcohol intake. 4. Macrocytic anemia s/p 2 units PRBCs, stable. Continue with protonix and monitoring Hg. Will check b12, folate levels. 5. Hypomagnesemia, replace 6. Hypophosphatemia, replace 7. Alcohol abuse, continue CIWA monitoring. No signs of withdrawal. Dispo:2-3 days
[2018-11-05 16:40] LABS: CHLORIDE,CL 111 mmol/L (98-107); SODIUM,NA 145 mmol/L (136-148)
[2018-11-05] MEDS: Nicotine 14 MG/24 Hr Patch TRDERM SCH (17:00)
[2018-11-05] MEDS: Heparin Sodium 5,000 Units/ML Vial SUBCUT SCH ×2 (18:08→23:22)
[2018-11-05] MEDS: oxyCODONE 5 MG Tab PO PRN ×2 (18:30→22:59)
[2018-11-05] MEDS: Lactated Ringers 1,000 ML IV SCH (18:36)
[2018-11-05] MEDS: Silver Sulfadiazine 1% Crm 400 GM Jar TOP SCH (20:34)
[2018-11-05] MEDS: Thiamine 100 MG Tab PO SCH (20:35)
[2018-11-05] MEDS: guaiFENesin 100 MG/5 ML Soln 5 ML UD Cup PO PRN (20:36)
[2018-11-05] MEDS: Folic Acid 1 MG Tab PO SCH (20:37)
[2018-11-06] MEDS: Hydrocortisone Sodium Succinate 100 MG/2 ML SDV IV SCH ×3 (00:13→17:03)
[2018-11-06] MEDS: Piperacillin/Tazobactam 3.375 GM in Sodium Chloride 0.9% 50 ML IV SCH ×4 (00:13→18:28)
[2018-11-06] MEDS: Morphine 2 MG/ML Syringe IVPUSH PRN (00:13)
[2018-11-06] MEDS: Lactated Ringers 1,000 ML IV SCH (01:22)
[2018-11-06] MEDS: Ascorbic Acid 500 MG Tab PO SCH ×3 (05:34→22:22)
[2018-11-06] MEDS: Phosphorus #1 250 MG Tab PO SCH ×3 (05:34→18:28)
[2018-11-06] MEDS: Loperamide 2 MG Cap PO PRN (05:34)
[2018-11-06] MEDS: oxyCODONE 5 MG Tab PO PRN (05:52)
[2018-11-06 06:15] LABS: CHLORIDE,CL 108 mmol/L (98-107); SODIUM,NA 143 mmol/L (136-148)
[2018-11-06] MEDS: Pantoprazole 40 MG Tab.CR PO SCH (08:09)
[2018-11-06] MEDS: Gabapentin 300 MG Cap PO SCH ×2 (09:10→20:21)
[2018-11-06] MEDS: Calcium Carbonate/Vitamin D3 1500 MG-400 Units Tab PO SCH (09:10)
[2018-11-06] MEDS: Multivitamin Tab PO SCH (09:10)
[2018-11-06] MEDS: Potassium Chloride 20 MEQ Tab.ER PO SCH ×2 (09:11→20:21)
[2018-11-06] MEDS ORDERED: Nystatin Susp 100,000 Unit/ML 5 ML UD Cup ONE (09:52)
[2018-11-06] MEDS: Magnesium Oxide 400 MG Tab PO SCH (10:07)
[2018-11-06] MEDS: Silver Sulfadiazine 1% Crm 400 GM Jar TOP SCH ×2 (10:18→20:22)
[2018-11-06] MEDS: Heparin Sodium 5,000 Units/ML Vial SUBCUT SCH ×3 (11:28→22:22)
[2018-11-06] MEDS: Nystatin Susp 100,000 Unit/ML 5 ML UD Cup PO SCH ×2 (11:33→18:28)
[2018-11-06] MEDS ORDERED: Heparin Sodium 5,000 Units/ML Vial ONE (16:31)
[2018-11-06] MEDS ORDERED: Ascorbic Acid 500 MG Tab ONE (16:31)
[2018-11-06] MEDS: Thiamine 100 MG Tab PO SCH ×2 (16:38→22:22)
[2018-11-06] MEDS: Nicotine 14 MG/24 Hr Patch TRDERM SCH (16:39)
--- NOTE | 2018-11-06 19:35 | PCM.PN ---
- General Info Date of Service: 11/06/18 Subjective Update: No acute events overnight. Patient still having multiple loose bowel movements but states he feels better. No vomiting. Denies any chest pain, dyspnea. Some diffuse mild abdominal pain, no rebound. - Patient Data Vitals - Most Recent: Last Vital Signs Temp 37.4 C 11/06/18 16:00 Pulse 111 H 11/06/18 16:00 Resp 20 11/06/18 16:00 BP 116/82 11/06/18 16:00 Pulse Ox 94 L 11/06/18 16:00 Weight - Most Recent: 62.188 kg I&O - Last 24 Hours: Intake & Output 11/06/18 11/06/18 11/06/18 06:59 14:59 22:59 Intake Total 1300 594 Output Total 450 300 Balance 850 294 Lab Results Last 24 Hours: Laboratory Results - last 24 hr 11/03/18 11/06/18 11/06/18 Range/Units 12:13 05:25 05:25 WBC 20.44 H (4.0-11.0) K/uL RBC 3.05 L (4.50-5.90) M/uL Hgb 9.9 L (13.0-17.0) g/dL Hct 30.7 L (38.0-50.0) % MCV 100.7 H (80.0-98.0) fL MCH 32.5 H (27.0-32.0) pg MCHC 32.2 (31.0-37.0) g/dL RDW Std Deviation 81.2 H (28.0-62.0) fl RDW Coeff of Willy 25 H (11.0-15.0) % Plt Count 238 (150-400) K/uL MPV 12.10 H (7.40-12.00) fL Add Manual Diff YES Neutrophils % (Manual) 86 H (48.0-80.0) % Band Neutrophils % 3 % Lymphocytes % (Manual) 6 L (16.0-40.0) % Monocytes % (Manual) 4 (0.0-15.0) % Metamyelocytes % 1 % Nucleated RBC % 0.2 /100WBC Absolute Seg Neuts 17.6 H (1.4-5.7) Band Neutrophils # 0.6 Lymphocytes # (Manual) 1.2 (0.6-2.4) Monocytes # (Manual) 0.8 (0.0-0.8) Absolute Metamyelocyte 0.2 Nucleated RBCs # 0 K/uL Sodium 143 (136-148) mmol/L Potassium 3.9 (3.5-5.1) mmol/L Chloride 108 H (98-107) mmol/L Carbon Dioxide 28.0 (21.0-32.0) mmol/L BUN 8 (7.0-18.0) mg/dL Creatinine 0.9 (0.8-1.3) mg/dL Est Cr Clr Drug Dosing 82.53 mL/min Estimated GFR (MDRD) > 60.0 ml/min Glucose 132 H (74-106) mg/dL Calcium 6.9 L (8.5-10.1) mg/dL Phosphorus 3.4 (2.6-4.7) mg/dL Magnesium 1.8 (1.8-2.4) mg/dL Total Bilirubin 1.0 (0.2-1.0) mg/dL AST 57 H (15-37) IU/L ALT 31 (14-63) IU/L Alkaline Phosphatase 166 H (46-116) U/L Total Protein 4.8 L (6.4-8.2) g/dL Albumin 1.7 L (3.4-5.0) g/dL Globulin 3.1 (2.6-4.0) g/dL Albumin/Globulin Ratio 0.6 L (0.9-1.6) Procalcitonin 6.88 H (<0.10) ng/mL Kike Results Last 24 Hours: Microbiology 11/02/18 21:13 Cryptosporidium/Giardia - Final Stool / Feces 11/06/18 09:11 Legionella Antigen - Final Urine, Clean Catch 11/04/18 09:35 Gram Stain - Final Sputum - Expectorated Sputum Culture - Preliminary 11/02/18 22:02 Aerobic Blood Culture - Preliminary Blood - Venous - Lab Draw NO GROWTH AFTER 3 DAYS Anaerobic Blood Culture - Preliminary NO GROWTH AFTER 3 DAYS 11/02/18 21:55 Aerobic Blood Culture - Preliminary Blood - Venous NO GROWTH AFTER 3 DAYS Anaerobic Blood Culture - Preliminary NO GROWTH AFTER 3 DAYS 11/05/18 14:52 Stool for WBCs - Final Stool / Feces POSITIVE FOR WBC'S REFERENCE RANGE: NO WBC SEEN Med Orders - Current: Current Medications Acetaminophen (Tylenol) 650 mg PO Q4H PRN PRN Reason: Pain (Mild 1-3)/fever Last Admin: 11/04/18 17:31 Dose: 650 mg Albuterol/Ipratropium (Duoneb 3.0-0.5 Mg/3 Ml) 3 ml NEB Q4HRRT PRN PRN Reason: Shortness of Breath Last Admin: 11/05/18 23:03 Dose: 3 ml Ascorbic Acid (Vitamin C) 1,500 mg PO TID [facility] Last Admin: 11/06/18 16:43 Dose: 1,500 mg Calcium Carbonate (Caltrate 600+D 1500 Mg-400 Units) 1 tab PO DAILY [facility] Last Admin: 11/06/18 09:10 Dose: 1 tab [place] Butter/Phenylephrine (Preparation H Supp) 1 each RECTAL DAILY PRN PRN Reason: Hemorrhoids Last Admin: 11/05/18 05:18 Dose: 1 each Folic Acid (Folic Acid) 1 mg PO BEDTIME [facility] Last Admin: 11/05/18 20:37 Dose: 1 mg Gabapentin (Neurontin) 300 mg PO BID [facility] Last Admin: 11/06/18 09:10 Dose: 300 mg Guaifenesin (Robitussin) 300 mg PO Q6H PRN PRN Reason: Cough Last Admin: 11/05/18 20:36 Dose: 300 mg Heparin Sodium (Porcine) (Heparin Sodium) 5,000 units SUBCUT Q8H [facility] Last Admin: 11/06/18 16:59 Dose: 5,000 units Hydrocortisone Sodium Succinate (Solu-Cortef) 25 mg IV Q8H [facility] Last Admin: 11/06/18 17:03 Dose: 25 mg Norepinephrine Bitartrate (Norepinephr-0.9% Nacl 4 Mg/250) 4 mg in 250 mls @ 7.5 mls/hr IV TITRATE [facility]; Protocol Last Titration: 11/04/18 04:11 Dose: 0 mcg/min, 0 mls/hr Potassium Chloride 30 meq/Sodium Bicarbonate 150 meq/Dextrose/Water 1,165 mls @ 114.778 mls/hr IV ASDIRECTED [facility] Last Admin: 11/04/18 12:14 Dose: 114.778 mls/hr Piperacillin Sod/Tazobactam (Sod 3.375 gm/ Sodium Chloride) 50 mls @ 100 mls/ hr IV Q6H [facility] Last Admin: 11/06/18 18:28 Dose: 100 mls/hr Loperamide HCl (Imodium) 2 mg PO Q6H PRN PRN Reason: Other Last Admin: 11/06/18 05:34 Dose: 2 mg Lorazepam (Ativan) 0 mg IVPUSH Q4H PRN; Protocol PRN Reason: Withdrawal Symptoms Morphine Sulfate (Morphine) 1 mg IVPUSH Q2H PRN PRN Reason: Pain Last Admin: 11/06/18 00:13 Dose: 1 mg Multivitamins/Minerals/Vitamin C (Tab-A-Alvaro) 1 tab PO DAILY [facility] Last Admin: 11/06/18 09:10 Dose: 1 tab Nicotine (Habitrol) 14 mg TRDERM Q24H [facility] Last Admin: 11/06/18 16:39 Dose: 14 mg Nystatin (Mycostatin) 5 ml PO QID [facility] Last Admin: 11/06/18 18:28 Dose: 5 ml Ondansetron HCl (Zofran) 4 mg IVPUSH Q4H PRN PRN Reason: Nausea Last Admin: 11/03/18 00:29 Dose: 4 mg Oxycodone HCl (Oxycodone) 5 mg PO Q4H PRN PRN Reason: Pain Last Admin: 11/06/18 05:52 Dose: 5 mg Pantoprazole Sodium (Protonix) 40 mg PO ACBREAKFAST [facility] Last Admin: 11/06/18 08:09 Dose: 40 mg Potassium Chloride (Klor-Con M20) 40 meq PO BID [facility] Last Admin: 11/06/18 09:11 Dose: 40 meq Silver Sulfadiazine (Silvadene 1% Cream 400 Gm) 0 gm TOP BID [facility] Last Admin: 11/06/18 10:18 Dose: 400 mg Sodium Phosphate (Neutra-Phos) 250 mg PO QID [facility] Last Admin: 11/06/18 18:28 Dose: 250 mg Thiamine HCl (Vitamin B-1) 100 mg PO TID [facility] Last Admin: 11/06/18 16:38 Dose: 100 mg Discontinued Medications Ascorbic Acid (Vitamin C) Confirm Administered Dose 500 mg .ROUTE .STK-MED ONE Stop: 11/06/18 16:32 Last Admin: 11/06/18 17:09 Dose: Not Given Calcium Chloride (Calcium Chloride 10%) 1 gm IVPUSH ONETIME ONE Stop: 11/03/18 08:47 Last Admin: 11/03/18 10:46 Dose: 1 gm Cyanocobalamin (Vitamin B12) 1,000 mcg IM ONETIME ONE Stop: 11/03/18 09:10 Last Admin: 11/03/18 09:41 Dose: 1,000 mcg Guaifenesin (Guaifenesin) 300 mg PO Q6H PRN PRN Reason: Cough Heparin Sodium (Porcine) (Heparin Sodium) 5,000 units SUBCUT Q8H [facility] Last Admin: 11/02/18 17:31 Dose: 5,000 units Heparin Sodium (Porcine) (Heparin Sodium) Confirm Administered Dose 5,000 units .ROUTE .STK-MED ONE Stop: 11/06/18 16:32 Last Admin: 11/06/18 17:09 Dose: Not Given Hydrocortisone (Proctozone-Hc 2.5% Crm) 0.5 gm TOP ASDIRECTED PRN PRN Reason: Itching Hydrocortisone (Proctozone-Hc 2.5% Crm) 0 gm TOP ASDIRECTED PRN PRN Reason: Itching Hydrocortisone Sodium Succinate (Solu-Cortef) 100 mg IVPUSH Q8H [facility] Last Admin: 11/05/18 01:11 Dose: 100 mg Hydrocortisone Sodium Succinate (Solu-Cortef) 50 mg IV Q8H [facility] Last Admin: 11/06/18 00:13 Dose: 50 mg Sodium Chloride (Normal Saline) 1,000 mls @ 150 mls/hr IV STAT ONE Stop: 11/02/18 20:45 Last Admin: 11/02/18 14:25 Dose: 150 mls/hr Potassium Chloride 40 meq/ (Premix) 100 mls @ 25 mls/hr IV ONETIME ONE Stop: 11/02/18 19:03 Last Admin: 11/02/18 15:11 Dose: 25 mls/hr Levofloxacin/Dextrose 750 mg/ (Premix) 150 mls @ 100 mls/hr IV Q48H [facility] Piperacillin Sod/Tazobactam (Sod 3.375 gm/ Sodium Chloride) 50 mls @ 50 mls/hr IV Q6H [facility] Last Admin: 11/02/18 17:43 Dose: Not Given Levofloxacin/Dextrose 750 mg/ (Premix) 150 mls @ 100 mls/hr IV Q48H [facility] Last Admin: 11/02/18 18:09 Dose: Not Given Vancomycin HCl 1 gm/ Sodium (Chloride) 250 mls @ 166.667 mls/hr IV Q24H [facility] Last Admin: 11/02/18 17:43 Dose: Not Given Potassium Chloride/Sodium Chloride (Normal Saline With 40 Meq Kcl) 1,000 mls @ 150 mls/hr IV ASDIRECTED [facility] Last Admin: 11/02/18 18:08 Dose: 150 mls/hr Sodium Chloride (Normal Saline) 1,000 mls @ 999 mls/hr IV STAT ONE Stop: 11/02/18 17:21 Last Admin: 11/02/18 17:17 Dose: 999 mls/hr Piperacillin Sod/Tazobactam (Sod 3.375 gm/ Sodium Chloride) 50 mls @ 100 mls/ hr IV Q6H [facility] Last Admin: 11/03/18 13:08 Dose: 100 mls/hr Levofloxacin/Dextrose 750 mg/ (Premix) 150 mls @ 100 mls/hr IV Q48H [facility] Last Admin: 11/02/18 18:21 Dose: 100 mls/hr Vancomycin HCl 1 gm/ Sodium (Chloride) 250 mls @ 166.667 mls/hr IV Q24H [facility] Last Admin: 11/03/18 18:28 Dose: 166.667 mls/hr Magnesium Sulfate 2 gm/ Premix 50 mls @ 25 mls/hr IV ONETIME ONE Stop: 11/02/18 20:00 Last Admin: 11/02/18 19:20 Dose: 25 mls/hr Sodium Chloride (Normal Saline) 1,000 mls @ 999 mls/hr IV .Bolus ONE Stop: 11/02/18 20:28 Last Admin: 11/02/18 19:58 Dose: 999 mls/hr Sodium Chloride (Normal Saline) 1,000 mls @ 999 mls/hr IV .Bolus ONE Stop: 11/02/18 22:37 Last Admin: 11/02/18 22:00 Dose: 999 mls/hr Pantoprazole Sodium 40 mg/ (Sodium Chloride) 100 mls @ 10 mls/hr IVPUSH Q24H [facility] Last Admin: 11/03/18 00:15 Dose: Not Given Potassium Chloride 30 meq/ (Dextrose/Water) 1,015 mls @ 100 mls/hr IV ASDIRECTED [facility] Magnesium Sulfate 4 gm/ Premix 100 mls @ 50 mls/hr IV ONETIME ONE Stop: 11/03/18 10:42 Last Admin: 11/03/18 09:42 Dose: 50 mls/hr Multivitamins/Minerals 10 ml/Thiamine HCl 100 mg/ Folic Acid 1 mg/ Sodium Chloride 1,011.2 mls @ 200 mls/hr IV ONETIME ONE Stop: 11/03/18 14:18 Last Admin: 11/03/18 09:43 Dose: 200 mls/hr Thiamine HCl 200 mg/ Sodium (Chloride) 52 mls @ 104 mls/hr IV TID [facility] Last Admin: 11/06/18 16:14 Dose: Not Given Albumin Human (Flexbumin 25%) 12.5 gm in 50 mls @ 100 mls/hr IV ONETIME ONE Stop: 11/03/18 09:34 Last Admin: 11/03/18 09:44 Dose: 100 mls/hr Sodium Phosphate 30 mmole/ (Sodium Chloride) 260 mls @ 86.667 mls/hr IV ONETIME ONE Stop: 11/03/18 15:19 Last Admin: 11/03/18 13:05 Dose: 86.667 mls/hr Sodium Chloride (Normal Saline) Confirm Administered Dose 250 mls @ as directed .ROUTE .STK-MED ONE Stop: 11/03/18 18:27 Last Admin: 11/03/18 19:31 Dose: Not Given Vancomycin HCl 1 gm/ Sodium (Chloride) 250 mls @ 166.667 mls/hr IV Q12H [facility] Last Admin: 11/05/18 09:22 Dose: 166.667 mls/hr Potassium Chloride 40 meq/ (Sodium Chloride) 1,020 mls @ 125 mls/hr IV ASDIRECTED [facility] Potassium Chloride 40 meq/ (Sodium Chloride) 1,020 mls @ 125 mls/hr IV ASDIRECTED [facility] Potassium Chloride/Sodium Chloride (Normal Saline With 40 Meq Kcl) Confirm Administered Dose 1,000 mls @ as directed .ROUTE .STK-MED ONE Stop: 11/04/18 19:31 Last Admin: 11/04/18 20:29 Dose: Not Given Potassium Chloride/Sodium Chloride (Normal Saline With 40 Meq Kcl) 1,000 mls @ 125 mls/hr IV ASDIRECTED [facility] Last Infusion: 11/05/18 06:29 Dose: Infused Potassium Chloride 40 meq/ (Sodium Chloride) 1,020 mls @ 150 mls/hr IV Q6H [facility] Last Admin: 11/05/18 10:22 Dose: Not Given Magnesium Sulfate 4 gm/ Premix 100 mls @ 50 mls/hr IV ONETIME ONE Stop: 11/05/18 10:42 Last Admin: 11/05/18 10:20 Dose: 50 mls/hr Lactated Ringer's (Ringers, Lactated) 1,000 mls @ 150 mls/hr IV ASDIRECTED [facility] Last Admin: 11/06/18 01:22 Dose: 150 mls/hr Lidocaine HCl (Xylocaine 1%) Confirm Administered Dose 20 ml .ROUTE .STK-MED ONE Stop: 11/03/18 12:00 Last Admin: 11/03/18 14:46 Dose: 20 ml Magnesium Oxide (Magnesium Oxide) 400 mg PO BID [facility] Last Admin: 11/06/18 10:07 Dose: Not Given Nystatin (Mycostatin) Confirm Administered Dose 5 ml .ROUTE .STK-MED ONE Stop: 11/06/18 09:53 Last Admin: 11/06/18 10:19 Dose: 5 ml Pantoprazole Sodium (Protonix) 40 mg PO DAILY [facility] Pantoprazole Sodium (Protonix Iv) 40 mg IV Q24H [facility] Last Admin: 11/04/18 23:15 Dose: 40 mg Pantoprazole Sodium (Protonix) Confirm Administered Dose 40 mg .ROUTE .STK- MED ONE Stop: 11/05/18 11:06 Last Admin: 11/05/18 11:17 Dose: Not Given Potassium Chloride (Klor-Con M20) 40 meq PO ONETIME ONE Stop: 11/02/18 16:12 Last Admin: 11/02/18 17:30 Dose: 40 meq Potassium Chloride (Klor-Con M20) 40 meq PO ONETIME ONE Stop: 11/02/18 18:01 Sodium Phosphate (Neutra-Phos) 250 mg PO QID [facility] Last Admin: 11/05/18 05:18 Dose: 250 mg Sodium Phosphate (Sodium Phosphate) 30 mmole IV ONETIME ONE Stop: 11/03/18 12:16 Thiamine HCl (Vitamin B-1) 100 mg PO BEDTIME [facility] Last Admin: 11/05/18 20:35 Dose: 100 mg Thiamine HCl (Vitamin B-1) 200 mg IV TID [facility] Thrombin (Thrombin-Jmi) 5,000 unit TOP ONETIME ONE Stop: 11/03/18 15:03 Last Admin: 11/03/18 15:44 Dose: 5,000 unit Vancomycin HCl (Pharmacy To Dose - Vancomycin) 1 dose .XX ASDIRECTED [facility] - Exam General: Alert, Oriented, Cooperative, No Acute Distress Lungs: Rhonchi, Wheezing Cardiovascular: Regular Rate, Regular Rhythm GI/Abdominal Exam: Other (soft, non distended. Mildly diffuse tenderness. no rebound.) Extremities: Normal Inspection, No Pedal Edema Skin: Warm, Dry - Problem List Review Problem List Initiated/Reviewed/Updated: Yes - My Orders Last 24 Hours: My Active Orders 11/05/18 21:00 Silver Sulfadiazine [Silvadene 1% Cream 400 GM] See Dose Instructions TOP BID 11/06/18 10:34 Transfer Patient (Change bed) [ADT] Routine Consult to Physical Therapy [PT Evaluation and Treatment] [CONS] Routine 11/06/18 12:00 Nystatin [Mycostatin] 5 ml PO QID - Plan Plan:: A: 1. HCAP 2. Leukocytosis 3. Enteritis 4. Macrocytic anemia s/p 2 units PRBCs, stable 5. Hypomagnesemia, resolved 6. Hypophosphatemia, resolved 7. Hypokalemia, resolved 7. Alcohol abuse P: 1. HCAP- continue with Zosyn. 2. Leukocytosis, multifactorial likely reactive due to above and steroid administration. Will wean down hydrocortisone. 3. Enteritis, likely infectious since stool WBCs were positive. Pending other stool studies results. Will continue with Zosyn. Will likely need colonoscopy as outpatient due to enteritis. 4. Macrocytic anemia s/p 2 units PRBCs, stable. Continue with protonix and monitoring Hg. 5. Alcohol abuse, continue CIWA monitoring and lorazepam PRN. No signs of alcohol withdrawal. Dispo:2-3 days
[2018-11-06] MEDS: Folic Acid 1 MG Tab PO SCH (20:21)
[2018-11-07] MEDS: Hydrocortisone Sodium Succinate 100 MG/2 ML SDV IV SCH ×2 (00:14→08:14)
[2018-11-07] MEDS: Piperacillin/Tazobactam 3.375 GM in Sodium Chloride 0.9% 50 ML IV SCH ×4 (00:16→17:46)
[2018-11-07] MEDS: Nystatin Susp 100,000 Unit/ML 5 ML UD Cup PO SCH ×4 (00:16→17:45)
[2018-11-07] MEDS: Phosphorus #1 250 MG Tab PO SCH ×4 (00:16→17:45)
[2018-11-07] MEDS: Ascorbic Acid 500 MG Tab PO SCH ×3 (06:36→22:32)
[2018-11-07] MEDS: Thiamine 100 MG Tab PO SCH ×3 (06:36→22:33)
[2018-11-07] MEDS: Pantoprazole 40 MG Tab.CR PO SCH (06:36)
[2018-11-07 07:10] LABS: CHLORIDE,CL 111 mmol/L (98-107); SODIUM,NA 145 mmol/L (136-148)
[2018-11-07] MEDS ORDERED: Magnesium Sulfate/Water 2 GM in Premix Bag 1 BAG IV ONE (08:02)
[2018-11-07] MEDS: Potassium Chloride 20 MEQ Tab.ER PO SCH ×2 (08:15→21:01)
[2018-11-07] MEDS: Gabapentin 300 MG Cap PO SCH ×2 (08:15→21:01)
[2018-11-07] MEDS: Multivitamin Tab PO SCH (08:16)
[2018-11-07] MEDS: Calcium Carbonate/Vitamin D3 1500 MG-400 Units Tab PO SCH (08:17)
[2018-11-07] MEDS: Silver Sulfadiazine 1% Crm 400 GM Jar TOP SCH (08:18)
[2018-11-07] MEDS: Loperamide 2 MG Cap PO PRN (08:27)
[2018-11-07] MEDS: Heparin Sodium 5,000 Units/ML Vial SUBCUT SCH ×2 (08:28→15:16)
[2018-11-07] MEDS: oxyCODONE 5 MG Tab PO PRN ×2 (09:53→16:30)
[2018-11-07] MEDS: Albuterol/Ipratropium 3.0-0.5 MG/3 ML Neb Soln NEB PRN (10:00)
[2018-11-07] MEDS: Nystatin Topical Powder 15 GM Bottle TOP SCH ×2 (13:45→22:34)
--- NOTE | 2018-11-07 14:27 | PCM.PN ---
- General Info Date of Service: 11/07/18 Subjective Update: No acute events overnight. Feeling better this morning. Denies chest pain. Endorses some dyspnea with activity. No nausea or vomiting. - Patient Data Vitals - Most Recent: Last Vital Signs Temp 36.6 C 11/07/18 12:00 Pulse 118 H 11/07/18 12:00 Resp 18 11/07/18 12:00 BP 123/70 11/07/18 12:00 Pulse Ox 93 L 11/07/18 12:00 Weight - Most Recent: 65.317 kg I&O - Last 24 Hours: Intake & Output 11/06/18 11/07/18 11/07/18 22:59 06:59 14:59 Intake Total 594 1100 50 Output Total 300 Balance 294 1100 50 Lab Results Last 24 Hours: Laboratory Results - last 24 hr 11/07/18 11/07/18 Range/Units 06:08 06:08 WBC 17.56 H (4.0-11.0) K/uL RBC 2.87 L (4.50-5.90) M/uL Hgb 9.2 L (13.0-17.0) g/dL Hct 29.1 L (38.0-50.0) % MCV 101.4 H (80.0-98.0) fL MCH 32.1 H (27.0-32.0) pg MCHC 31.6 (31.0-37.0) g/dL RDW Std Deviation 87.8 H (28.0-62.0) fl RDW Coeff of Willy 25 H (11.0-15.0) % Plt Count 211 (150-400) K/uL MPV 11.30 (7.40-12.00) fL Nucleated RBC % 0.0 /100WBC Nucleated RBCs # 0 K/uL Sodium 145 (136-148) mmol/L Potassium 3.8 (3.5-5.1) mmol/L Chloride 111 H (98-107) mmol/L Carbon Dioxide 26.4 (21.0-32.0) mmol/L BUN 8 (7.0-18.0) mg/dL Creatinine 0.9 (0.8-1.3) mg/dL Est Cr Clr Drug Dosing 86.69 mL/min Estimated GFR (MDRD) > 60.0 ml/min Glucose 105 (74-106) mg/dL Calcium 7.6 L (8.5-10.1) mg/dL Phosphorus 3.8 (2.6-4.7) mg/dL Magnesium 1.7 L (1.8-2.4) mg/dL Total Bilirubin 0.9 (0.2-1.0) mg/dL AST 53 H (15-37) IU/L ALT 29 (14-63) IU/L Alkaline Phosphatase 164 H (46-116) U/L Total Protein 4.6 L (6.4-8.2) g/dL Albumin 1.6 L (3.4-5.0) g/dL Globulin 3.0 (2.6-4.0) g/dL Albumin/Globulin Ratio 0.5 L (0.9-1.6) Kike Results Last 24 Hours: Microbiology 11/02/18 22:02 Aerobic Blood Culture - Preliminary Blood - Venous - Lab Draw NO GROWTH AFTER 4 DAYS Anaerobic Blood Culture - Preliminary NO GROWTH AFTER 4 DAYS 11/02/18 21:55 Aerobic Blood Culture - Preliminary Blood - Venous NO GROWTH AFTER 4 DAYS Anaerobic Blood Culture - Preliminary NO GROWTH AFTER 4 DAYS 11/02/18 21:13 Cryptosporidium/Giardia - Final Stool / Feces 11/06/18 09:11 Legionella Antigen - Final Urine, Clean Catch Med Orders - Current: Current Medications Acetaminophen (Tylenol) 650 mg PO Q4H PRN PRN Reason: Pain (Mild 1-3)/fever Last Admin: 11/04/18 17:31 Dose: 650 mg Albuterol/Ipratropium (Duoneb 3.0-0.5 Mg/3 Ml) 3 ml NEB Q4HRRT PRN PRN Reason: Shortness of Breath Last Admin: 11/07/18 10:00 Dose: 3 ml Ascorbic Acid (Vitamin C) 1,500 mg PO TID [facility] Last Admin: 11/07/18 13:44 Dose: 1,500 mg Calcium Carbonate (Caltrate 600+D 1500 Mg-400 Units) 1 tab PO DAILY [facility] Last Admin: 11/07/18 08:17 Dose: 1 tab [place] Butter/Phenylephrine (Preparation H Supp) 1 each RECTAL DAILY PRN PRN Reason: Hemorrhoids Last Admin: 11/05/18 05:18 Dose: 1 each Folic Acid (Folic Acid) 1 mg PO BEDTIME [facility] Last Admin: 11/06/18 20:21 Dose: 1 mg Gabapentin (Neurontin) 300 mg PO BID [facility] Last Admin: 11/07/18 08:15 Dose: 300 mg Guaifenesin (Robitussin) 300 mg PO Q6H PRN PRN Reason: Cough Last Admin: 11/05/18 20:36 Dose: 300 mg Heparin Sodium (Porcine) (Heparin Sodium) 5,000 units SUBCUT Q8H [facility] Last Admin: 11/07/18 08:28 Dose: 5,000 units Piperacillin Sod/Tazobactam (Sod 3.375 gm/ Sodium Chloride) 50 mls @ 100 mls/ hr IV Q6H [facility] Last Admin: 11/07/18 11:32 Dose: 100 mls/hr Loperamide HCl (Imodium) 2 mg PO Q6H PRN PRN Reason: Other Last Admin: 11/07/18 08:27 Dose: 2 mg Lorazepam (Ativan) 0 mg IVPUSH Q4H PRN; Protocol PRN Reason: Withdrawal Symptoms Morphine Sulfate (Morphine) 1 mg IVPUSH Q2H PRN PRN Reason: Pain Last Admin: 11/06/18 00:13 Dose: 1 mg Multivitamins/Minerals/Vitamin C (Tab-A-Alvaro) 1 tab PO DAILY [facility] Last Admin: 11/07/18 08:16 Dose: 1 tab Nicotine (Habitrol) 14 mg TRDERM Q24H [facility] Last Admin: 11/06/18 16:39 Dose: 14 mg Nystatin (Mycostatin) 5 ml PO QID [facility] Last Admin: 11/07/18 11:32 Dose: 5 ml Nystatin (Nystop) 0 gm TOP TID [facility] Last Admin: 11/07/18 13:45 Dose: 1 applic Ondansetron HCl (Zofran) 4 mg IVPUSH Q4H PRN PRN Reason: Nausea Last Admin: 11/03/18 00:29 Dose: 4 mg Oxycodone HCl (Oxycodone) 5 mg PO Q4H PRN PRN Reason: Pain Last Admin: 11/07/18 09:53 Dose: 5 mg Pantoprazole Sodium (Protonix) 40 mg PO ACBREAKFAST [facility] Last Admin: 11/07/18 06:36 Dose: 40 mg Potassium Chloride (Klor-Con M20) 40 meq PO BID [facility] Last Admin: 11/07/18 08:15 Dose: 40 meq Sodium Phosphate (Neutra-Phos) 250 mg PO QID [facility] Last Admin: 11/07/18 11:32 Dose: 250 mg Thiamine HCl (Vitamin B-1) 100 mg PO TID [facility] Last Admin: 11/07/18 13:46 Dose: 100 mg Discontinued Medications Ascorbic Acid (Vitamin C) Confirm Administered Dose 500 mg .ROUTE .[facility] ONE Stop: 11/06/18 16:32 Last Admin: 11/06/18 17:09 Dose: Not Given Calcium Chloride (Calcium Chloride 10%) 1 gm IVPUSH ONETIME ONE Stop: 11/03/18 08:47 Last Admin: 11/03/18 10:46 Dose: 1 gm Cyanocobalamin (Vitamin B12) 1,000 mcg IM ONETIME ONE Stop: 11/03/18 09:10 Last Admin: 11/03/18 09:41 Dose: 1,000 mcg Guaifenesin (Guaifenesin) 300 mg PO Q6H PRN PRN Reason: Cough Heparin Sodium (Porcine) (Heparin Sodium) 5,000 units SUBCUT Q8H [facility] Last Admin: 11/02/18 17:31 Dose: 5,000 units Heparin Sodium (Porcine) (Heparin Sodium) Confirm Administered Dose 5,000 units .ROUTE .[facility] ONE Stop: 11/06/18 16:32 Last Admin: 11/06/18 17:09 Dose: Not Given Hydrocortisone (Proctozone-Hc 2.5% Crm) 0.5 gm TOP ASDIRECTED PRN PRN Reason: Itching Hydrocortisone (Proctozone-Hc 2.5% Crm) 0 gm TOP ASDIRECTED PRN PRN Reason: Itching Hydrocortisone Sodium Succinate (Solu-Cortef) 100 mg IVPUSH Q8H [facility] Last Admin: 11/05/18 01:11 Dose: 100 mg Hydrocortisone Sodium Succinate (Solu-Cortef) 50 mg IV Q8H [facility] Last Admin: 11/06/18 00:13 Dose: 50 mg Hydrocortisone Sodium Succinate (Solu-Cortef) 25 mg IV Q8H [facility] Last Admin: 11/07/18 08:14 Dose: 25 mg Sodium Chloride (Normal Saline) 1,000 mls @ 150 mls/hr IV STAT ONE Stop: 11/02/18 20:45 Last Admin: 11/02/18 14:25 Dose: 150 mls/hr Potassium Chloride 40 meq/ (Premix) 100 mls @ 25 mls/hr IV ONETIME ONE Stop: 11/02/18 19:03 Last Admin: 11/02/18 15:11 Dose: 25 mls/hr Levofloxacin/Dextrose 750 mg/ (Premix) 150 mls @ 100 mls/hr IV Q48H [facility] Piperacillin Sod/Tazobactam (Sod 3.375 gm/ Sodium Chloride) 50 mls @ 50 mls/hr IV Q6H [facility] Last Admin: 11/02/18 17:43 Dose: Not Given Levofloxacin/Dextrose 750 mg/ (Premix) 150 mls @ 100 mls/hr IV Q48H [facility] Last Admin: 11/02/18 18:09 Dose: Not Given Vancomycin HCl 1 gm/ Sodium (Chloride) 250 mls @ 166.667 mls/hr IV Q24H [facility] Last Admin: 11/02/18 17:43 Dose: Not Given Potassium Chloride/Sodium Chloride (Normal Saline With 40 Meq Kcl) 1,000 mls @ 150 mls/hr IV ASDIRECTED [facility] Last Admin: 11/02/18 18:08 Dose: 150 mls/hr Sodium Chloride (Normal Saline) 1,000 mls @ 999 mls/hr IV STAT ONE Stop: 11/02/18 17:21 Last Admin: 11/02/18 17:17 Dose: 999 mls/hr Piperacillin Sod/Tazobactam (Sod 3.375 gm/ Sodium Chloride) 50 mls @ 100 mls/ hr IV Q6H [facility] Last Admin: 11/03/18 13:08 Dose: 100 mls/hr Levofloxacin/Dextrose 750 mg/ (Premix) 150 mls @ 100 mls/hr IV Q48H [facility] Last Admin: 11/02/18 18:21 Dose: 100 mls/hr Vancomycin HCl 1 gm/ Sodium (Chloride) 250 mls @ 166.667 mls/hr IV Q24H [facility] Last Admin: 11/03/18 18:28 Dose: 166.667 mls/hr Magnesium Sulfate 2 gm/ Premix 50 mls @ 25 mls/hr IV ONETIME ONE Stop: 11/02/18 20:00 Last Admin: 11/02/18 19:20 Dose: 25 mls/hr Sodium Chloride (Normal Saline) 1,000 mls @ 999 mls/hr IV .Bolus ONE Stop: 11/02/18 20:28 Last Admin: 11/02/18 19:58 Dose: 999 mls/hr Sodium Chloride (Normal Saline) 1,000 mls @ 999 mls/hr IV .Bolus ONE Stop: 11/02/18 22:37 Last Admin: 11/02/18 22:00 Dose: 999 mls/hr Pantoprazole Sodium 40 mg/ (Sodium Chloride) 100 mls @ 10 mls/hr IVPUSH Q24H [facility] Last Admin: 11/03/18 00:15 Dose: Not Given Norepinephrine Bitartrate (Norepinephr-0.9% Nacl 4 Mg/250) 4 mg in 250 mls @ 7.5 mls/hr IV TITRATE [facility]; Protocol Last Titration: 11/04/18 04:11 Dose: 0 mcg/min, 0 mls/hr Potassium Chloride 30 meq/ (Dextrose/Water) 1,015 mls @ 100 mls/hr IV ASDIRECTED [facility] Potassium Chloride 30 meq/Sodium Bicarbonate 150 meq/Dextrose/Water 1,165 mls @ 114.778 mls/hr IV ASDIRECTED [facility] Last Admin: 11/04/18 12:14 Dose: 114.778 mls/hr Magnesium Sulfate 4 gm/ Premix 100 mls @ 50 mls/hr IV ONETIME ONE Stop: 11/03/18 10:42 Last Admin: 11/03/18 09:42 Dose: 50 mls/hr Multivitamins/Minerals 10 ml/Thiamine HCl 100 mg/ Folic Acid 1 mg/ Sodium Chloride 1,011.2 mls @ 200 mls/hr IV ONETIME ONE Stop: 11/03/18 14:18 Last Admin: 11/03/18 09:43 Dose: 200 mls/hr Thiamine HCl 200 mg/ Sodium (Chloride) 52 mls @ 104 mls/hr IV TID [facility] Last Admin: 11/06/18 16:14 Dose: Not Given Albumin Human (Flexbumin 25%) 12.5 gm in 50 mls @ 100 mls/hr IV ONETIME ONE Stop: 11/03/18 09:34 Last Admin: 11/03/18 09:44 Dose: 100 mls/hr Sodium Phosphate 30 mmole/ (Sodium Chloride) 260 mls @ 86.667 mls/hr IV ONETIME ONE Stop: 11/03/18 15:19 Last Admin: 11/03/18 13:05 Dose: 86.667 mls/hr Sodium Chloride (Normal Saline) Confirm Administered Dose 250 mls @ as directed .ROUTE .STK-MED ONE Stop: 11/03/18 18:27 Last Admin: 11/03/18 19:31 Dose: Not Given Vancomycin HCl 1 gm/ Sodium (Chloride) 250 mls @ 166.667 mls/hr IV Q12H [facility] Last Admin: 11/05/18 09:22 Dose: 166.667 mls/hr Potassium Chloride 40 meq/ (Sodium Chloride) 1,020 mls @ 125 mls/hr IV ASDIRECTED [facility] Potassium Chloride 40 meq/ (Sodium Chloride) 1,020 mls @ 125 mls/hr IV ASDIRECTED [facility] Potassium Chloride/Sodium Chloride (Normal Saline With 40 Meq Kcl) Confirm Administered Dose 1,000 mls @ as directed .ROUTE .ST-MED ONE Stop: 11/04/18 19:31 Last Admin: 11/04/18 20:29 Dose: Not Given Potassium Chloride/Sodium Chloride (Normal Saline With 40 Meq Kcl) 1,000 mls @ 125 mls/hr IV ASDIRECTED [facility] Last Infusion: 11/05/18 06:29 Dose: Infused Potassium Chloride 40 meq/ (Sodium Chloride) 1,020 mls @ 150 mls/hr IV Q6H [facility] Last Admin: 11/05/18 10:22 Dose: Not Given Magnesium Sulfate 4 gm/ Premix 100 mls @ 50 mls/hr IV ONETIME ONE Stop: 11/05/18 10:42 Last Admin: 11/05/18 10:20 Dose: 50 mls/hr Lactated Ringer's (Ringers, Lactated) 1,000 mls @ 150 mls/hr IV ASDIRECTED [facility] Last Admin: 11/06/18 01:22 Dose: 150 mls/hr Magnesium Sulfate 2 gm/ Premix 50 mls @ 25 mls/hr IV ONETIME ONE Stop: 11/07/18 10:01 Last Admin: 11/07/18 08:14 Dose: 25 mls/hr Lidocaine HCl (Xylocaine 1%) Confirm Administered Dose 20 ml .ROUTE .STK-MED ONE Stop: 11/03/18 12:00 Last Admin: 11/03/18 14:46 Dose: 20 ml Magnesium Oxide (Magnesium Oxide) 400 mg PO BID [facility] Last Admin: 11/06/18 10:07 Dose: Not Given Nystatin (Mycostatin) Confirm Administered Dose 5 ml .ROUTE .STK-MED ONE Stop: 11/06/18 09:53 Last Admin: 11/06/18 10:19 Dose: 5 ml Pantoprazole Sodium (Protonix) 40 mg PO DAILY [facility] Pantoprazole Sodium (Protonix Iv) 40 mg IV Q24H [facility] Last Admin: 11/04/18 23:15 Dose: 40 mg Pantoprazole Sodium (Protonix) Confirm Administered Dose 40 mg .ROUTE .[facility] ONE Stop: 11/05/18 11:06 Last Admin: 11/05/18 11:17 Dose: Not Given Potassium Chloride (Klor-Con M20) 40 meq PO ONETIME ONE Stop: 11/02/18 16:12 Last Admin: 11/02/18 17:30 Dose: 40 meq Potassium Chloride (Klor-Con M20) 40 meq PO ONETIME ONE Stop: 11/02/18 18:01 Silver Sulfadiazine (Silvadene 1% Cream 400 Gm) 0 gm TOP BID [facility] Last Admin: 11/07/18 08:18 Dose: 1 applic Sodium Phosphate (Neutra-Phos) 250 mg PO QID [facility] Last Admin: 11/05/18 05:18 Dose: 250 mg Sodium Phosphate (Sodium Phosphate) 30 mmole IV ONETIME ONE Stop: 11/03/18 12:16 Thiamine HCl (Vitamin B-1) 100 mg PO BEDTIME [facility] Last Admin: 11/05/18 20:35 Dose: 100 mg Thiamine HCl (Vitamin B-1) 200 mg IV TID [facility] Thrombin (Thrombin-Jmi) 5,000 unit TOP ONETIME ONE Stop: 11/03/18 15:03 Last Admin: 11/03/18 15:44 Dose: 5,000 unit Vancomycin HCl (Pharmacy To Dose - Vancomycin) 1 dose .XX ASDIRECTED [facility] - Exam General: Alert, Oriented, Cooperative, No Acute Distress Lungs: Normal Respiratory Effort, Rhonchi. No: Wheezing Cardiovascular: Tachycardia GI/Abdominal Exam: Normal Bowel Sounds, Soft, Non-Tender, No Distention (Male) Exam: Scrotal Swelling Extremities: Normal Inspection, No Pedal Edema - Problem List Review Problem List Initiated/Reviewed/Updated: Yes - Plan Plan:: A: 1. HCAP 2. Leukocytosis 3. Enteritis 4. Macrocytic anemia s/p 2 units PRBCs, stable 5. Hypomagnesemia 6. Alcohol abuse 7. Tinea cruris P: 1. HCAP- continue with Zosyn day 5 2. Leukocytosis, improving. Discontinued steroids. 3. Enteritis, improving. Bowel movements decreasing in frequency. Continue to monitor. Will need outpatient colonoscopy. 4. Hypomagnesemia-replaced with MgS 2g IV once. 5. Alcohol abuse, continue CIWA monitoring and lorazepam PRN. No signs of alcohol withdrawal. Dispo:likely dc in 2-3 days.
[2018-11-07] MEDS: Nicotine 14 MG/24 Hr Patch TRDERM SCH (15:16)
[2018-11-07] MEDS: Folic Acid 1 MG Tab PO SCH (21:01)
[2018-11-07] MEDS: guaiFENesin 100 MG/5 ML Soln 5 ML UD Cup PO PRN (22:33)
[2018-11-08] MEDS: Heparin Sodium 5,000 Units/ML Vial SUBCUT SCH ×4 (00:04→23:11)
[2018-11-08] MEDS: Phosphorus #1 250 MG Tab PO SCH ×5 (00:05→23:12)
[2018-11-08] MEDS: Nystatin Susp 100,000 Unit/ML 5 ML UD Cup PO SCH ×5 (00:06→23:12)
[2018-11-08] MEDS: Piperacillin/Tazobactam 3.375 GM in Sodium Chloride 0.9% 50 ML IV SCH ×2 (00:08→06:00)
[2018-11-08] MEDS: Ascorbic Acid 500 MG Tab PO SCH ×3 (05:57→21:27)
[2018-11-08] MEDS: Thiamine 100 MG Tab PO SCH ×3 (05:57→21:28)
[2018-11-08] MEDS: Nystatin Topical Powder 15 GM Bottle TOP SCH ×3 (05:59→21:30)
[2018-11-08 06:09] LABS: CHLORIDE,CL 111 mmol/L (98-107); SODIUM,NA 144 mmol/L (136-148)
[2018-11-08] MEDS: Pantoprazole 40 MG Tab.CR PO SCH (06:45)
[2018-11-08] MEDS: Multivitamin Tab PO SCH (08:56)
[2018-11-08] MEDS: Potassium Chloride 20 MEQ Tab.ER PO SCH ×2 (08:57→21:29)
[2018-11-08] MEDS: Calcium Carbonate/Vitamin D3 1500 MG-400 Units Tab PO SCH (08:57)
[2018-11-08] MEDS: Gabapentin 300 MG Cap PO SCH ×2 (08:57→21:29)
[2018-11-08] MEDS: oxyCODONE 5 MG Tab PO PRN ×4 (09:08→21:54)
[2018-11-08] MEDS: guaiFENesin 100 MG/5 ML Soln 5 ML UD Cup PO PRN (09:09)
[2018-11-08] MEDS: Albuterol/Ipratropium 3.0-0.5 MG/3 ML Neb Soln NEB PRN (10:46)
[2018-11-08] MEDS: Cefdinir 300 MG Cap PO SCH ×2 (11:21→21:29)
--- NOTE | 2018-11-08 12:41 | PCM.PN ---
- General Info Date of Service: 11/08/18 Subjective Update: No acute events overnight. However, patient states he did not sleep well last night due staff coming in and out. Denies any chest pain, abdominal pain, dysuria. States his stools are less frequent and more formed. - Patient Data Vitals - Most Recent: Last Vital Signs Temp 36.6 C 11/08/18 11:50 Pulse 73 11/08/18 11:50 Resp 14 11/08/18 11:50 BP 138/57 L 11/08/18 11:50 Pulse Ox 98 11/08/18 11:50 Weight - Most Recent: 65.459 kg I&O - Last 24 Hours: Intake & Output 11/07/18 11/08/18 11/08/18 22:59 06:59 14:59 Intake Total 1116 520 Output Total 250 Balance 1116 270 Lab Results Last 24 Hours: Laboratory Results - last 24 hr 11/08/18 11/08/18 Range/Units 05:33 05:33 WBC 18.01 H (4.0-11.0) K/uL RBC 2.74 L (4.50-5.90) M/uL Hgb 8.9 L (13.0-17.0) g/dL Hct 27.5 L (38.0-50.0) % MCV 100.4 H (80.0-98.0) fL MCH 32.5 H (27.0-32.0) pg MCHC 32.4 (31.0-37.0) g/dL RDW Std Deviation 85.4 H (28.0-62.0) fl RDW Coeff of Willy 24 H (11.0-15.0) % Plt Count 185 (150-400) K/uL MPV 11.00 (7.40-12.00) fL Neut % (Auto) 80.9 H (48.0-80.0) % Lymph % (Auto) 10.7 L (16.0-40.0) % [place] % (Auto) 8.0 (0.0-15.0) % Eos % (Auto) 0.3 (0.0-7.0) % Baso % (Auto) 0.1 (0.0-1.5) % Neut # (Auto) 14.6 H (1.4-5.7) K/uL Lymph # (Auto) 1.9 (0.6-2.4) K/uL [place] # (Auto) 1.4 H (0.0-0.8) K/uL Eos # (Auto) 0.1 (0.0-0.7) K/uL Baso # (Auto) 0.0 (0.0-0.1) K/uL Nucleated RBC % 0.2 /100WBC Nucleated RBCs # 0 K/uL Sodium 144 (136-148) mmol/L Potassium 3.5 (3.5-5.1) mmol/L Chloride 111 H (98-107) mmol/L Carbon Dioxide 24.9 (21.0-32.0) mmol/L BUN 6 L (7.0-18.0) mg/dL Creatinine 0.8 (0.8-1.3) mg/dL Est Cr Clr Drug Dosing 97.52 mL/min Estimated GFR (MDRD) > 60.0 ml/min Glucose 88 (74-106) mg/dL Calcium 7.4 L (8.5-10.1) mg/dL Magnesium 1.8 (1.8-2.4) mg/dL Total Bilirubin 1.2 H (0.2-1.0) mg/dL AST 57 H (15-37) IU/L ALT 32 (14-63) IU/L Alkaline Phosphatase 152 H (46-116) U/L Total Protein 4.5 L (6.4-8.2) g/dL Albumin 1.6 L (3.4-5.0) g/dL Globulin 2.9 (2.6-4.0) g/dL Albumin/Globulin Ratio 0.6 L (0.9-1.6) Kike Results Last 24 Hours: Microbiology 11/04/18 09:35 Gram Stain - Final Sputum - Expectorated Sputum Culture - Final Normal Respiratory Shanice Yeast 11/02/18 22:02 Aerobic Blood Culture - Final Blood - Venous - Lab Draw NO GROWTH AFTER 5 DAYS Anaerobic Blood Culture - Final NO GROWTH AFTER 5 DAYS 11/02/18 21:55 Aerobic Blood Culture - Final Blood - Venous NO GROWTH AFTER 5 DAYS Anaerobic Blood Culture - Final NO GROWTH AFTER 5 DAYS Med Orders - Current: Current Medications Acetaminophen (Tylenol) 650 mg PO Q4H PRN PRN Reason: Pain (Mild 1-3)/fever Last Admin: 11/04/18 17:31 Dose: 650 mg Albuterol/Ipratropium (Duoneb 3.0-0.5 Mg/3 Ml) 3 ml NEB Q4HRRT PRN PRN Reason: Shortness of Breath Last Admin: 11/08/18 10:46 Dose: 3 ml Ascorbic Acid (Vitamin C) 1,500 mg PO TID [facility] Last Admin: 11/08/18 05:57 Dose: 1,500 mg Calcium Carbonate (Caltrate 600+D 1500 Mg-400 Units) 1 tab PO DAILY [facility] Last Admin: 11/08/18 08:57 Dose: 1 tab Cefdinir (Omnicef) 300 mg PO BID [facility] Last Admin: 11/08/18 11:21 Dose: 300 mg [place] Butter/Phenylephrine (Preparation H Supp) 1 each RECTAL DAILY PRN PRN Reason: Hemorrhoids Last Admin: 11/05/18 05:18 Dose: 1 each Folic Acid (Folic Acid) 1 mg PO BEDTIME [facility] Last Admin: 11/07/18 21:01 Dose: 1 mg Gabapentin (Neurontin) 300 mg PO BID [facility] Last Admin: 11/08/18 08:57 Dose: 300 mg Guaifenesin (Robitussin) 300 mg PO Q6H PRN PRN Reason: Cough Last Admin: 11/08/18 09:09 Dose: 300 mg Heparin Sodium (Porcine) (Heparin Sodium) 5,000 units SUBCUT Q8H [facility] Last Admin: 11/08/18 06:45 Dose: 5,000 units Loperamide HCl (Imodium) 2 mg PO Q6H PRN PRN Reason: Other Last Admin: 11/07/18 08:27 Dose: 2 mg Lorazepam (Ativan) 0 mg IVPUSH Q4H PRN; Protocol PRN Reason: Withdrawal Symptoms Multivitamins/Minerals/Vitamin C (Tab-A-Alvaro) 1 tab PO DAILY [facility] Last Admin: 11/08/18 08:56 Dose: 1 tab Nicotine (Habitrol) 14 mg TRDERM Q24H [facility] Last Admin: 11/07/18 15:16 Dose: 14 mg Nystatin (Mycostatin) 5 ml PO QID [facility] Last Admin: 11/08/18 11:21 Dose: 5 ml Nystatin (Nystop) 0 gm TOP TID [facility] Last Admin: 11/08/18 05:59 Dose: 1 applic Ondansetron HCl (Zofran) 4 mg IVPUSH Q4H PRN PRN Reason: Nausea Last Admin: 11/03/18 00:29 Dose: 4 mg Oxycodone HCl (Oxycodone) 5 mg PO Q4H PRN PRN Reason: Pain Last Admin: 11/08/18 09:08 Dose: 5 mg Pantoprazole Sodium (Protonix) 40 mg PO ACBREAKFAST [facility] Last Admin: 11/08/18 06:45 Dose: 40 mg Potassium Chloride (Klor-Con M20) 40 meq PO BID [facility] Last Admin: 11/08/18 08:57 Dose: 40 meq Sodium Phosphate (Neutra-Phos) 250 mg PO QID [facility] Last Admin: 11/08/18 11:21 Dose: 250 mg Thiamine HCl (Vitamin B-1) 100 mg PO TID [facility] Last Admin: 11/08/18 05:57 Dose: 100 mg Discontinued Medications Ascorbic Acid (Vitamin C) Confirm Administered Dose 500 mg .ROUTE .STK-MED ONE Stop: 11/06/18 16:32 Last Admin: 11/06/18 17:09 Dose: Not Given Calcium Chloride (Calcium Chloride 10%) 1 gm IVPUSH ONETIME ONE Stop: 11/03/18 08:47 Last Admin: 11/03/18 10:46 Dose: 1 gm Cyanocobalamin (Vitamin B12) 1,000 mcg IM ONETIME ONE Stop: 11/03/18 09:10 Last Admin: 11/03/18 09:41 Dose: 1,000 mcg Guaifenesin (Guaifenesin) 300 mg PO Q6H PRN PRN Reason: Cough Heparin Sodium (Porcine) (Heparin Sodium) 5,000 units SUBCUT Q8H [facility] Last Admin: 11/02/18 17:31 Dose: 5,000 units Heparin Sodium (Porcine) (Heparin Sodium) Confirm Administered Dose 5,000 units .ROUTE .STK-MED ONE Stop: 11/06/18 16:32 Last Admin: 11/06/18 17:09 Dose: Not Given Hydrocortisone (Proctozone-Hc 2.5% Crm) 0.5 gm TOP ASDIRECTED PRN PRN Reason: Itching Hydrocortisone (Proctozone-Hc 2.5% Crm) 0 gm TOP ASDIRECTED PRN PRN Reason: Itching Hydrocortisone Sodium Succinate (Solu-Cortef) 100 mg IVPUSH Q8H [facility] Last Admin: 11/05/18 01:11 Dose: 100 mg Hydrocortisone Sodium Succinate (Solu-Cortef) 50 mg IV Q8H [facility] Last Admin: 11/06/18 00:13 Dose: 50 mg Hydrocortisone Sodium Succinate (Solu-Cortef) 25 mg IV Q8H [facility] Last Admin: 11/07/18 08:14 Dose: 25 mg Sodium Chloride (Normal Saline) 1,000 mls @ 150 mls/hr IV STAT ONE Stop: 11/02/18 20:45 Last Admin: 11/02/18 14:25 Dose: 150 mls/hr Potassium Chloride 40 meq/ (Premix) 100 mls @ 25 mls/hr IV ONETIME ONE Stop: 11/02/18 19:03 Last Admin: 11/02/18 15:11 Dose: 25 mls/hr Levofloxacin/Dextrose 750 mg/ (Premix) 150 mls @ 100 mls/hr IV Q48H [facility] Piperacillin Sod/Tazobactam (Sod 3.375 gm/ Sodium Chloride) 50 mls @ 50 mls/hr IV Q6H [facility] Last Admin: 11/02/18 17:43 Dose: Not Given Levofloxacin/Dextrose 750 mg/ (Premix) 150 mls @ 100 mls/hr IV Q48H [facility] Last Admin: 11/02/18 18:09 Dose: Not Given Vancomycin HCl 1 gm/ Sodium (Chloride) 250 mls @ 166.667 mls/hr IV Q24H [facility] Last Admin: 11/02/18 17:43 Dose: Not Given Potassium Chloride/Sodium Chloride (Normal Saline With 40 Meq Kcl) 1,000 mls @ 150 mls/hr IV ASDIRECTED [facility] Last Admin: 11/02/18 18:08 Dose: 150 mls/hr Sodium Chloride (Normal Saline) 1,000 mls @ 999 mls/hr IV STAT ONE Stop: 11/02/18 17:21 Last Admin: 11/02/18 17:17 Dose: 999 mls/hr Piperacillin Sod/Tazobactam (Sod 3.375 gm/ Sodium Chloride) 50 mls @ 100 mls/ hr IV Q6H [facility] Last Admin: 11/03/18 13:08 Dose: 100 mls/hr Levofloxacin/Dextrose 750 mg/ (Premix) 150 mls @ 100 mls/hr IV Q48H [facility] Last Admin: 11/02/18 18:21 Dose: 100 mls/hr Vancomycin HCl 1 gm/ Sodium (Chloride) 250 mls @ 166.667 mls/hr IV Q24H [facility] Last Admin: 11/03/18 18:28 Dose: 166.667 mls/hr Magnesium Sulfate 2 gm/ Premix 50 mls @ 25 mls/hr IV ONETIME ONE Stop: 11/02/18 20:00 Last Admin: 11/02/18 19:20 Dose: 25 mls/hr Sodium Chloride (Normal Saline) 1,000 mls @ 999 mls/hr IV .Bolus ONE Stop: 11/02/18 20:28 Last Admin: 11/02/18 19:58 Dose: 999 mls/hr Sodium Chloride (Normal Saline) 1,000 mls @ 999 mls/hr IV .Bolus ONE Stop: 11/02/18 22:37 Last Admin: 11/02/18 22:00 Dose: 999 mls/hr Pantoprazole Sodium 40 mg/ (Sodium Chloride) 100 mls @ 10 mls/hr IVPUSH Q24H [facility] Last Admin: 11/03/18 00:15 Dose: Not Given Norepinephrine Bitartrate (Norepinephr-0.9% Nacl 4 Mg/250) 4 mg in 250 mls @ 7.5 mls/hr IV TITRATE [facility]; Protocol Last Titration: 11/04/18 04:11 Dose: 0 mcg/min, 0 mls/hr Potassium Chloride 30 meq/ (Dextrose/Water) 1,015 mls @ 100 mls/hr IV ASDIRECTED [facility] Potassium Chloride 30 meq/Sodium Bicarbonate 150 meq/Dextrose/Water 1,165 mls @ 114.778 mls/hr IV ASDIRECTED [facility] Last Admin: 11/04/18 12:14 Dose: 114.778 mls/hr Magnesium Sulfate 4 gm/ Premix 100 mls @ 50 mls/hr IV ONETIME ONE Stop: 11/03/18 10:42 Last Admin: 11/03/18 09:42 Dose: 50 mls/hr Multivitamins/Minerals 10 ml/Thiamine HCl 100 mg/ Folic Acid 1 mg/ Sodium Chloride 1,011.2 mls @ 200 mls/hr IV ONETIME ONE Stop: 11/03/18 14:18 Last Admin: 11/03/18 09:43 Dose: 200 mls/hr Thiamine HCl 200 mg/ Sodium (Chloride) 52 mls @ 104 mls/hr IV TID [facility] Last Admin: 11/06/18 16:14 Dose: Not Given Albumin Human (Flexbumin 25%) 12.5 gm in 50 mls @ 100 mls/hr IV ONETIME ONE Stop: 11/03/18 09:34 Last Admin: 11/03/18 09:44 Dose: 100 mls/hr Sodium Phosphate 30 mmole/ (Sodium Chloride) 260 mls @ 86.667 mls/hr IV ONETIME ONE Stop: 11/03/18 15:19 Last Admin: 11/03/18 13:05 Dose: 86.667 mls/hr Piperacillin Sod/Tazobactam (Sod 3.375 gm/ Sodium Chloride) 50 mls @ 100 mls/ hr IV Q6H [facility] Last Admin: 11/08/18 06:00 Dose: 100 mls/hr Sodium Chloride (Normal Saline) Confirm Administered Dose 250 mls @ as directed .ROUTE .STK-MED ONE Stop: 11/03/18 18:27 Last Admin: 11/03/18 19:31 Dose: Not Given Vancomycin HCl 1 gm/ Sodium (Chloride) 250 mls @ 166.667 mls/hr IV Q12H [facility] Last Admin: 11/05/18 09:22 Dose: 166.667 mls/hr Potassium Chloride 40 meq/ (Sodium Chloride) 1,020 mls @ 125 mls/hr IV ASDIRECTED [facility] Potassium Chloride 40 meq/ (Sodium Chloride) 1,020 mls @ 125 mls/hr IV ASDIRECTED [facility] Potassium Chloride/Sodium Chloride (Normal Saline With 40 Meq Kcl) Confirm Administered Dose 1,000 mls @ as directed .ROUTE .STK-MED ONE Stop: 11/04/18 19:31 Last Admin: 11/04/18 20:29 Dose: Not Given Potassium Chloride/Sodium Chloride (Normal Saline With 40 Meq Kcl) 1,000 mls @ 125 mls/hr IV ASDIRECTED [facility] Last Infusion: 11/05/18 06:29 Dose: Infused Potassium Chloride 40 meq/ (Sodium Chloride) 1,020 mls @ 150 mls/hr IV Q6H [facility] Last Admin: 11/05/18 10:22 Dose: Not Given Magnesium Sulfate 4 gm/ Premix 100 mls @ 50 mls/hr IV ONETIME ONE Stop: 11/05/18 10:42 Last Admin: 11/05/18 10:20 Dose: 50 mls/hr Lactated Ringer's (Ringers, Lactated) 1,000 mls @ 150 mls/hr IV ASDIRECTED [facility] Last Admin: 11/06/18 01:22 Dose: 150 mls/hr Magnesium Sulfate 2 gm/ Premix 50 mls @ 25 mls/hr IV ONETIME ONE Stop: 11/07/18 10:01 Last Admin: 11/07/18 08:14 Dose: 25 mls/hr Lidocaine HCl (Xylocaine 1%) Confirm Administered Dose 20 ml .ROUTE .STK-MED ONE Stop: 11/03/18 12:00 Last Admin: 11/03/18 14:46 Dose: 20 ml Magnesium Oxide (Magnesium Oxide) 400 mg PO BID [facility] Last Admin: 11/06/18 10:07 Dose: Not Given Morphine Sulfate (Morphine) 1 mg IVPUSH Q2H PRN PRN Reason: Pain Last Admin: 11/06/18 00:13 Dose: 1 mg Nystatin (Mycostatin) Confirm Administered Dose 5 ml .ROUTE .STK-MED ONE Stop: 11/06/18 09:53 Last Admin: 11/06/18 10:19 Dose: 5 ml Pantoprazole Sodium (Protonix) 40 mg PO DAILY [facility] Pantoprazole Sodium (Protonix Iv) 40 mg IV Q24H [facility] Last Admin: 11/04/18 23:15 Dose: 40 mg Pantoprazole Sodium (Protonix) Confirm Administered Dose 40 mg .ROUTE .STK- MED ONE Stop: 11/05/18 11:06 Last Admin: 11/05/18 11:17 Dose: Not Given Potassium Chloride (Klor-Con M20) 40 meq PO ONETIME ONE Stop: 11/02/18 16:12 Last Admin: 11/02/18 17:30 Dose: 40 meq Potassium Chloride (Klor-Con M20) 40 meq PO ONETIME ONE Stop: 11/02/18 18:01 Silver Sulfadiazine (Silvadene 1% Cream 400 Gm) 0 gm TOP BID [facility] Last Admin: 11/07/18 08:18 Dose: 1 applic Sodium Phosphate (Neutra-Phos) 250 mg PO QID [facility] Last Admin: 11/05/18 05:18 Dose: 250 mg Sodium Phosphate (Sodium Phosphate) 30 mmole IV ONETIME ONE Stop: 11/03/18 12:16 Thiamine HCl (Vitamin B-1) 100 mg PO BEDTIME [facility] Last Admin: 11/05/18 20:35 Dose: 100 mg Thiamine HCl (Vitamin B-1) 200 mg IV TID [facility] Thrombin (Thrombin-Jmi) 5,000 unit TOP ONETIME ONE Stop: 11/03/18 15:03 Last Admin: 11/03/18 15:44 Dose: 5,000 unit Vancomycin HCl (Pharmacy To Dose - Vancomycin) 1 dose .XX ASDIRECTED [facility] - Exam General: Alert, Oriented, Cooperative, No Acute Distress Lungs: Other (bilateral rhonchi, no wheezing) Cardiovascular: Regular Rate, Regular Rhythm GI/Abdominal Exam: Normal Bowel Sounds, Soft, Non-Tender, No Distention Extremities: Normal Inspection, No Pedal Edema Skin: Warm, Dry - Problem List Review Problem List Initiated/Reviewed/Updated: Yes - My Orders Last 24 Hours: My Active Orders 11/08/18 11:15 Cefdinir [Omnicef] 300 mg PO BID - Plan Plan:: A: 1. HCAP 2. Leukocytosis 3. Enteritis, improving 4. Macrocytic anemia s/p 2 units PRBCs, stable 5. Hypomagnesemia 6. Hypokalemia 6. Alcohol abuse 7. Tinea cruris P: 1. HCAP- DC IV antibiotic and transition to Cefdinir. 2. Leukocytosis, still elevated. Likely due to recent steroid use. Afebrile. Will continue to monitor. 3. Enteritis, improving. Fewer stools and more formed. Will need outpatient colonoscopy. 4. Hypomagnesemia-replaced with MgS 2g IV once. 5. Hypokalemia, replaced with KCl 40 mEq once. recheck tomorrow. 6. Alcohol abuse, continue CIWA monitoring and lorazepam PRN. No signs of alcohol withdrawal. Dispo:likely dc tomorrow.
[2018-11-08] MEDS ORDERED: Potassium Chloride 10% 20 MEQ/15 ML Soln 30 ML UD Cup PO ONE (12:42)
[2018-11-08] MEDS ORDERED: Magnesium Sulfate/Water 2 GM in Premix Bag 1 BAG IV ONE (12:42)
[2018-11-08] MEDS: Nicotine 14 MG/24 Hr Patch TRDERM SCH (15:30)
[2018-11-08] MEDS: Folic Acid 1 MG Tab PO SCH (21:28)
[2018-11-09] MEDS: oxyCODONE 5 MG Tab PO PRN ×3 (03:26→11:57)
[2018-11-09] MEDS: Ascorbic Acid 500 MG Tab PO SCH (06:20)
[2018-11-09] MEDS: Heparin Sodium 5,000 Units/ML Vial SUBCUT SCH (06:21)
[2018-11-09] MEDS: Thiamine 100 MG Tab PO SCH (06:21)
[2018-11-09] MEDS: Phosphorus #1 250 MG Tab PO SCH ×2 (06:21→12:04)
[2018-11-09] MEDS: Nystatin Susp 100,000 Unit/ML 5 ML UD Cup PO SCH ×2 (06:21→12:05)
[2018-11-09 06:25] LABS: CHLORIDE,CL 112 mmol/L (98-107); SODIUM,NA 145 mmol/L (136-148)
[2018-11-09] MEDS: Pantoprazole 40 MG Tab.CR PO SCH (06:31)
[2018-11-09] MEDS: Nystatin Topical Powder 15 GM Bottle TOP SCH (06:45)
[2018-11-09] MEDS: Calcium Carbonate/Vitamin D3 1500 MG-400 Units Tab PO SCH (10:24)
[2018-11-09] MEDS: Potassium Chloride 20 MEQ Tab.ER PO SCH (10:25)
[2018-11-09] MEDS: Gabapentin 300 MG Cap PO SCH (10:27)
[2018-11-09] MEDS: Multivitamin Tab PO SCH (10:29)
[2018-11-09] MEDS: Cefdinir 300 MG Cap PO SCH (10:34)
[2018-11-09] MEDS: Albuterol/Ipratropium 3.0-0.5 MG/3 ML Neb Soln NEB PRN (11:02)
[2018-11-09] MEDS: Loperamide 2 MG Cap PO PRN (11:17)
[2018-11-09 12:11] VITALS: BP 122/90
--- NOTE | 2018-11-09 12:14 | PCM.DCSUM1 ---
<Alek ElisaAddy - Last Filed: 11/09/18 14:15> Discharge Summary - Hospital Course Free Text/Narrative:: Cal Arroyo is a 53 y/o male with history of alcohol abuse and COPD who presented to the ER with diarrhea and shortness of breath. Imaging Showed a left basilar infiltrate and he was admitted for pneumonia. He was started on IV antibiotics and CIWA implementation with lorazepam PRN. He did not show signs of withdrawal, however, he remained hypotensive even after fluid resuscitation so he was transferred to the ICU and a central line was placed by General Surgery for pressor administration. His blood pressure stabilized and after few days he was able to be transferred out from the ICU. His diarrhea improved and became more formed and less frequent. Stool studies were performed and were negative for C.diff. He was encouraged to eat a high calorie diet since he was severely protein malnourished. He was monitored for refeeding syndrome and his electrolytes were monitored and replaced. In addition, CT abdomen showed enteritis so he was started on Zosyn. His leukocytosis was trending down and it was attributed to recent steroid administration. He remained afebrile. He improved over this hospitalization and transitioned to cefdinir. He was advised to finish the full course of cefdinir and follow-up with his PCP. He will need a colonoscopy as outpatient to further assess his enteritis. - Discharge Data Discharge Date: 11/09/18 Discharge Disposition: Home, Self-Care 01 Condition: Fair - Patient Summary/Data Operative Procedure(s) Performed: L central line placement Consults: Consultations 11/03/18 09:00 Consult to Office Services Specialist [CONS] Routine 11/06/18 10:34 Consult to Physical Therapy [PT Evaluation and Treatment] [CONS] Routine - Patient Instructions Diet: Regular Diet as Tolerated, No Alcoholic Beverages Diet, Other: Take High protein shakes. Activity: As Tolerated Notify Provider of: Fever, Increased Pain, Swelling and Redness, Nausea and/or Vomiting - Discharge Plan *PRESCRIPTION DRUG MONITORING PROGRAM REVIEWED*: Not Applicable *COPY OF PRESCRIPTION DRUG MONITORING REPORT IN PATIENT ABI: Not Applicable Prescriptions/Med Rec: Ascorbic Acid [Vitamin C] 1,500 mg PO TID #90 tablet Calcium Carbonate/Vitamin D3 [Caltrate 600+D 1500 MG-400 Units] 1 tab PO DAILY # 30 tablet Cefdinir [Omnicef] 300 mg PO BID 3 Days #60 cap Folic Acid 1 mg PO BEDTIME #30 tablet Loperamide [Imodium] 2 mg PO Q6H PRN #30 cap PRN Reason: Other Nystatin [Nystop] 1 mg TOP TID PRN #1 bottle PRN Reason: Rash Pantoprazole Sodium 40 mg PO DAILY #30 tablet.dr Salvador Rolle, [place]/K Phos [place] [Av-Phos 250 Neutral Tablet] 250 mg PO DAILY #30 tablet Thiamine [Vitamin B-1] 100 mg PO TID #90 tablet Home Medications: Home Meds Albuterol Sulfate [Proair Hfa] 1 - 2 puff INH ASDIRECTED PRN 06/30/16 [History] Glycopyrrolate/Formoterol Fum [Bevespi Aerosphere Inhaler] 1 - 2 inh PO DAILY [History] B Complex With Vitamin C [Vitamin B-Complex & C] 1 each PO DAILY #30 tablet.er 10/07/18 [Rx] Gabapentin [Neurontin] 300 mg PO BID #30 capsule 10/07/18 [Rx] Ascorbic Acid [Vitamin C] 1,500 mg PO TID #90 tablet 11/09/18 [Rx] Calcium Carbonate/Vitamin D3 [Caltrate 600+D 1500 MG-400 Units] 1 tab PO DAILY # 30 tablet 11/09/18 [Rx] Cefdinir [Omnicef] 300 mg PO BID 3 Days #60 cap 11/09/18 [Rx] Folic Acid 1 mg PO BEDTIME #30 tablet 11/09/18 [Rx] Loperamide [Imodium] 2 mg PO Q6H PRN #30 cap 11/09/18 [Rx] Nystatin [Nystop] 1 mg TOP TID PRN #1 bottle 11/09/18 [Rx] Pantoprazole Sodium 40 mg PO DAILY #30 tablet. 11/09/18 [Rx] Salvador Rolle [place]/K Phos [place] [Av-Phos 250 Neutral Tablet] 250 mg PO DAILY #30 tablet 11/09/18 [Rx] Thiamine [Vitamin B-1] 100 mg PO TID #90 tablet 11/09/18 [Rx] Patient Handouts: Loperamide tablets or capsules, Nystatin topical powder, Cefdinir capsules, Hypokalemia, Thiamine, Vitamin B1 tablets, Pantoprazole tablets, Calcium; Vitamin D chewable tablet, Folic Acid, Vitamin B9 tablets Referrals: Bandar Ureña MD [Primary Care Provider] - 11/15/18 1:00 pm - Discharge Summary/Plan Comment DC Time >30 min.: No - Patient Data Vitals - Most Recent: Last Vital Signs Temp 37.3 C 11/09/18 12:09 Pulse 100 11/09/18 12:09 Resp 20 11/09/18 12:09 BP 122/90 11/09/18 12:09 Pulse Ox 93 L 11/09/18 12:09 Weight - Most Recent: 64.58 kg I&O - Last 24 hours: Intake & Output 11/08/18 11/09/18 11/09/18 22:59 06:59 14:59 Intake Total 1500 870 Output Total 450 25 Balance 1050 845 Lab Results - Last 24 hrs: Laboratory Results - last 24 hr 11/03/18 11/09/18 11/09/18 Range/Units 12:13 04:50 04:50 WBC 17.69 H (4.0-11.0) K/uL RBC 2.69 L (4.50-5.90) M/uL Hgb 8.7 L (13.0-17.0) g/dL Hct 27.8 L (38.0-50.0) % MCV 103.3 H (80.0-98.0) fL MCH 32.3 H (27.0-32.0) pg MCHC 31.3 (31.0-37.0) g/dL RDW Std Deviation 89.0 H (28.0-62.0) fl RDW Coeff of Willy 25 H (11.0-15.0) % Plt Count 198 (150-400) K/uL MPV 11.60 (7.40-12.00) fL Nucleated RBC % 0.0 /100WBC Nucleated RBCs # 0 K/uL Sodium 145 (136-148) mmol/L Potassium 4.5 (3.5-5.1) mmol/L Chloride 112 H (98-107) mmol/L Carbon Dioxide 25.2 (21.0-32.0) mmol/L BUN 7 (7.0-18.0) mg/dL Creatinine 0.7 L (0.8-1.3) mg/dL Est Cr Clr Drug Dosing 110.20 mL/min Estimated GFR (MDRD) > 60.0 ml/min Glucose 106 (74-106) mg/dL Calcium 7.6 L (8.5-10.1) mg/dL Magnesium 2.0 (1.8-2.4) mg/dL Gliadin (Deamidat) IgG 3 (0-19) units Gliadin (Deamidat) IgA 43 H (0-19) units JOSE M Results - Last 24 hrs: Microbiology 11/04/18 09:35 Gram Stain - Final Sputum - Expectorated Sputum Culture - Final Normal Respiratory Shanice Yeast Med Orders - Current: Current Medications Acetaminophen (Tylenol) 650 mg PO Q4H PRN PRN Reason: Pain (Mild 1-3)/fever Last Admin: 11/04/18 17:31 Dose: 650 mg Albuterol/Ipratropium (Duoneb 3.0-0.5 Mg/3 Ml) 3 ml NEB Q4HRRT PRN PRN Reason: Shortness of Breath Last Admin: 11/09/18 11:02 Dose: 3 ml Ascorbic Acid (Vitamin C) 1,500 mg PO TID [facility] Last Admin: 11/09/18 06:20 Dose: 1,500 mg Calcium Carbonate (Caltrate 600+D 1500 Mg-400 Units) 1 tab PO DAILY [facility] Last Admin: 11/09/18 10:24 Dose: 1 tab Cefdinir (Omnicef) 300 mg PO BID [facility] Last Admin: 11/09/18 10:34 Dose: 300 mg [place] Butter/Phenylephrine (Preparation H Supp) 1 each RECTAL DAILY PRN PRN Reason: Hemorrhoids Last Admin: 11/05/18 05:18 Dose: 1 each Folic Acid (Folic Acid) 1 mg PO BEDTIME [facility] Last Admin: 11/08/18 21:28 Dose: 1 mg Gabapentin (Neurontin) 300 mg PO BID [facility] Last Admin: 11/09/18 10:27 Dose: 300 mg Guaifenesin (Robitussin) 300 mg PO Q6H PRN PRN Reason: Cough Last Admin: 11/08/18 09:09 Dose: 300 mg Heparin Sodium (Porcine) (Heparin Sodium) 5,000 units SUBCUT Q8H [facility] Last Admin: 11/09/18 06:21 Dose: 5,000 units Loperamide HCl (Imodium) 2 mg PO Q6H PRN PRN Reason: Other Last Admin: 11/09/18 11:17 Dose: 2 mg Lorazepam (Ativan) 0 mg IVPUSH Q4H PRN; Protocol PRN Reason: Withdrawal Symptoms Multivitamins/Minerals/Vitamin C (Tab-A-Alvaro) 1 tab PO DAILY [facility] Last Admin: 11/09/18 10:29 Dose: 1 tab Nicotine (Habitrol) 14 mg TRDERM Q24H [facility] Last Admin: 11/08/18 15:30 Dose: 14 mg Nystatin (Mycostatin) 5 ml PO QID [facility] Last Admin: 11/09/18 12:05 Dose: 5 ml Nystatin (Nystop) 0 gm TOP TID [facility] Last Admin: 11/09/18 06:45 Dose: 1 applic Ondansetron HCl (Zofran) 4 mg IVPUSH Q4H PRN PRN Reason: Nausea Last Admin: 11/03/18 00:29 Dose: 4 mg Oxycodone HCl (Oxycodone) 5 mg PO Q4H PRN PRN Reason: Pain Last Admin: 11/09/18 11:57 Dose: 5 mg Pantoprazole Sodium (Protonix) 40 mg PO ACBREAKFAST [facility] Last Admin: 11/09/18 06:31 Dose: 40 mg Potassium Chloride (Klor-Con M20) 40 meq PO BID [facility] Last Admin: 11/09/18 10:25 Dose: 40 meq Sodium Phosphate (Neutra-Phos) 250 mg PO QID [facility] Last Admin: 11/09/18 12:04 Dose: 250 mg Thiamine HCl (Vitamin B-1) 100 mg PO TID [facility] Last Admin: 11/09/18 06:21 Dose: 100 mg Discontinued Medications Ascorbic Acid (Vitamin C) Confirm Administered Dose 500 mg .ROUTE .STK-MED ONE Stop: 11/06/18 16:32 Last Admin: 11/06/18 17:09 Dose: Not Given Calcium Chloride (Calcium Chloride 10%) 1 gm IVPUSH ONETIME ONE Stop: 11/03/18 08:47 Last Admin: 11/03/18 10:46 Dose: 1 gm Cyanocobalamin (Vitamin B12) 1,000 mcg IM ONETIME ONE Stop: 11/03/18 09:10 Last Admin: 11/03/18 09:41 Dose: 1,000 mcg Guaifenesin (Guaifenesin) 300 mg PO Q6H PRN PRN Reason: Cough Heparin Sodium (Porcine) (Heparin Sodium) 5,000 units SUBCUT Q8H [facility] Last Admin: 11/02/18 17:31 Dose: 5,000 units Heparin Sodium (Porcine) (Heparin Sodium) Confirm Administered Dose 5,000 units .ROUTE .STK-MED ONE Stop: 11/06/18 16:32 Last Admin: 11/06/18 17:09 Dose: Not Given Hydrocortisone (Proctozone-Hc 2.5% Crm) 0.5 gm TOP ASDIRECTED PRN PRN Reason: Itching Hydrocortisone (Proctozone-Hc 2.5% Crm) 0 gm TOP ASDIRECTED PRN PRN Reason: Itching Hydrocortisone Sodium Succinate (Solu-Cortef) 100 mg IVPUSH Q8H [facility] Last Admin: 11/05/18 01:11 Dose: 100 mg Hydrocortisone Sodium Succinate (Solu-Cortef) 50 mg IV Q8H [facility] Last Admin: 11/06/18 00:13 Dose: 50 mg Hydrocortisone Sodium Succinate (Solu-Cortef) 25 mg IV Q8H [facility] Last Admin: 11/07/18 08:14 Dose: 25 mg Sodium Chloride (Normal Saline) 1,000 mls @ 150 mls/hr IV STAT ONE Stop: 11/02/18 20:45 Last Admin: 11/02/18 14:25 Dose: 150 mls/hr Potassium Chloride 40 meq/ (Premix) 100 mls @ 25 mls/hr IV ONETIME ONE Stop: 11/02/18 19:03 Last Admin: 11/02/18 15:11 Dose: 25 mls/hr Levofloxacin/Dextrose 750 mg/ (Premix) 150 mls @ 100 mls/hr IV Q48H [facility] Piperacillin Sod/Tazobactam (Sod 3.375 gm/ Sodium Chloride) 50 mls @ 50 mls/hr IV Q6H [facility] Last Admin: 11/02/18 17:43 Dose: Not Given Levofloxacin/Dextrose 750 mg/ (Premix) 150 mls @ 100 mls/hr IV Q48H [facility] Last Admin: 11/02/18 18:09 Dose: Not Given Vancomycin HCl 1 gm/ Sodium (Chloride) 250 mls @ 166.667 mls/hr IV Q24H [facility] Last Admin: 11/02/18 17:43 Dose: Not Given Potassium Chloride/Sodium Chloride (Normal Saline With 40 Meq Kcl) 1,000 mls @ 150 mls/hr IV ASDIRECTED [facility] Last Admin: 11/02/18 18:08 Dose: 150 mls/hr Sodium Chloride (Normal Saline) 1,000 mls @ 999 mls/hr IV STAT ONE Stop: 11/02/18 17:21 Last Admin: 11/02/18 17:17 Dose: 999 mls/hr Piperacillin Sod/Tazobactam (Sod 3.375 gm/ Sodium Chloride) 50 mls @ 100 mls/ hr IV Q6H [facility] Last Admin: 11/03/18 13:08 Dose: 100 mls/hr Levofloxacin/Dextrose 750 mg/ (Premix) 150 mls @ 100 mls/hr IV Q48H [facility] Last Admin: 11/02/18 18:21 Dose: 100 mls/hr Vancomycin HCl 1 gm/ Sodium (Chloride) 250 mls @ 166.667 mls/hr IV Q24H [facility] Last Admin: 11/03/18 18:28 Dose: 166.667 mls/hr Magnesium Sulfate 2 gm/ Premix 50 mls @ 25 mls/hr IV ONETIME ONE Stop: 11/02/18 20:00 Last Admin: 11/02/18 19:20 Dose: 25 mls/hr Sodium Chloride (Normal Saline) 1,000 mls @ 999 mls/hr IV .Bolus ONE Stop: 11/02/18 20:28 Last Admin: 11/02/18 19:58 Dose: 999 mls/hr Sodium Chloride (Normal Saline) 1,000 mls @ 999 mls/hr IV .Bolus ONE Stop: 11/02/18 22:37 Last Admin: 11/02/18 22:00 Dose: 999 mls/hr Pantoprazole Sodium 40 mg/ (Sodium Chloride) 100 mls @ 10 mls/hr IVPUSH Q24H [facility] Last Admin: 11/03/18 00:15 Dose: Not Given Norepinephrine Bitartrate (Norepinephr-0.9% Nacl 4 Mg/250) 4 mg in 250 mls @ 7.5 mls/hr IV TITRATE [facility]; Protocol Last Titration: 11/04/18 04:11 Dose: 0 mcg/min, 0 mls/hr Potassium Chloride 30 meq/ (Dextrose/Water) 1,015 mls @ 100 mls/hr IV ASDIRECTED [facility] Potassium Chloride 30 meq/Sodium Bicarbonate 150 meq/Dextrose/Water 1,165 mls @ 114.778 mls/hr IV ASDIRECTED [facility] Last Admin: 11/04/18 12:14 Dose: 114.778 mls/hr Magnesium Sulfate 4 gm/ Premix 100 mls @ 50 mls/hr IV ONETIME ONE Stop: 11/03/18 10:42 Last Admin: 11/03/18 09:42 Dose: 50 mls/hr Multivitamins/Minerals 10 ml/Thiamine HCl 100 mg/ Folic Acid 1 mg/ Sodium Chloride 1,011.2 mls @ 200 mls/hr IV ONETIME ONE Stop: 11/03/18 14:18 Last Admin: 11/03/18 09:43 Dose: 200 mls/hr Thiamine HCl 200 mg/ Sodium (Chloride) 52 mls @ 104 mls/hr IV TID [facility] Last Admin: 11/06/18 16:14 Dose: Not Given Albumin Human (Flexbumin 25%) 12.5 gm in 50 mls @ 100 mls/hr IV ONETIME ONE Stop: 11/03/18 09:34 Last Admin: 11/03/18 09:44 Dose: 100 mls/hr Sodium Phosphate 30 mmole/ (Sodium Chloride) 260 mls @ 86.667 mls/hr IV ONETIME ONE Stop: 11/03/18 15:19 Last Admin: 11/03/18 13:05 Dose: 86.667 mls/hr Piperacillin Sod/Tazobactam (Sod 3.375 gm/ Sodium Chloride) 50 mls @ 100 mls/ hr IV Q6H [facility] Last Admin: 11/08/18 06:00 Dose: 100 mls/hr Sodium Chloride (Normal Saline) Confirm Administered Dose 250 mls @ as directed .ROUTE .STK-MED ONE Stop: 11/03/18 18:27 Last Admin: 11/03/18 19:31 Dose: Not Given Vancomycin HCl 1 gm/ Sodium (Chloride) 250 mls @ 166.667 mls/hr IV Q12H [facility] Last Admin: 11/05/18 09:22 Dose: 166.667 mls/hr Potassium Chloride 40 meq/ (Sodium Chloride) 1,020 mls @ 125 mls/hr IV ASDIRECTED [facility] Potassium Chloride 40 meq/ (Sodium Chloride) 1,020 mls @ 125 mls/hr IV ASDIRECTED [facility] Potassium Chloride/Sodium Chloride (Normal Saline With 40 Meq Kcl) Confirm Administered Dose 1,000 mls @ as directed .ROUTE .STK-MED ONE Stop: 11/04/18 19:31 Last Admin: 11/04/18 20:29 Dose: Not Given Potassium Chloride/Sodium Chloride (Normal Saline With 40 Meq Kcl) 1,000 mls @ 125 mls/hr IV ASDIRECTED [facility] Last Infusion: 11/05/18 06:29 Dose: Infused Potassium Chloride 40 meq/ (Sodium Chloride) 1,020 mls @ 150 mls/hr IV Q6H [facility] Last Admin: 11/05/18 10:22 Dose: Not Given Magnesium Sulfate 4 gm/ Premix 100 mls @ 50 mls/hr IV ONETIME ONE Stop: 11/05/18 10:42 Last Admin: 11/05/18 10:20 Dose: 50 mls/hr Lactated Ringer's (Ringers, Lactated) 1,000 mls @ 150 mls/hr IV ASDIRECTED [facility] Last Admin: 11/06/18 01:22 Dose: 150 mls/hr Magnesium Sulfate 2 gm/ Premix 50 mls @ 25 mls/hr IV ONETIME ONE Stop: 11/07/18 10:01 Last Admin: 11/07/18 08:14 Dose: 25 mls/hr Magnesium Sulfate 2 gm/ Premix 50 mls @ 25 mls/hr IV ONETIME ONE Stop: 11/08/18 14:41 Last Admin: 11/08/18 13:42 Dose: 25 mls/hr Lidocaine HCl (Xylocaine 1%) Confirm Administered Dose 20 ml .ROUTE .STK-MED ONE Stop: 11/03/18 12:00 Last Admin: 11/03/18 14:46 Dose: 20 ml Magnesium Oxide (Magnesium Oxide) 400 mg PO BID [facility] Last Admin: 11/06/18 10:07 Dose: Not Given Morphine Sulfate (Morphine) 1 mg IVPUSH Q2H PRN PRN Reason: Pain Last Admin: 11/06/18 00:13 Dose: 1 mg Nystatin (Mycostatin) Confirm Administered Dose 5 ml .ROUTE .STK-MED ONE Stop: 11/06/18 09:53 Last Admin: 11/06/18 10:19 Dose: 5 ml Pantoprazole Sodium (Protonix) 40 mg PO DAILY [facility] Pantoprazole Sodium (Protonix Iv) 40 mg IV Q24H [facility] Last Admin: 11/04/18 23:15 Dose: 40 mg Pantoprazole Sodium (Protonix) Confirm Administered Dose 40 mg .ROUTE .STK- MED ONE Stop: 11/05/18 11:06 Last Admin: 11/05/18 11:17 Dose: Not Given Potassium Chloride (Klor-Con M20) 40 meq PO ONETIME ONE Stop: 11/02/18 16:12 Last Admin: 11/02/18 17:30 Dose: 40 meq Potassium Chloride (Klor-Con M20) 40 meq PO ONETIME ONE Stop: 11/02/18 18:01 Potassium Chloride (Potassium Chloride) 40 meq PO ONETIME ONE Stop: 11/08/18 12:43 Last Admin: 11/08/18 13:38 Dose: 40 meq Silver Sulfadiazine (Silvadene 1% Cream 400 Gm) 0 gm TOP BID [facility] Last Admin: 11/07/18 08:18 Dose: 1 applic Sodium Phosphate (Neutra-Phos) 250 mg PO QID [facility] Last Admin: 11/05/18 05:18 Dose: 250 mg Sodium Phosphate (Sodium Phosphate) 30 mmole IV ONETIME ONE Stop: 11/03/18 12:16 Thiamine HCl (Vitamin B-1) 100 mg PO BEDTIME [facility] Last Admin: 11/05/18 20:35 Dose: 100 mg Thiamine HCl (Vitamin B-1) 200 mg IV TID [facility] Thrombin (Thrombin-Jmi) 5,000 unit TOP ONETIME ONE Stop: 11/03/18 15:03 Last Admin: 11/03/18 15:44 Dose: 5,000 unit Vancomycin HCl (Pharmacy To Dose - Vancomycin) 1 dose .XX ASDIRECTED [facility] <Duane Alexander J - Last Filed: 11/11/18 19:22> Discharge Summary - Patient Summary/Data Consults: Consultations 11/03/18 09:00 Consult to Office Services Specialist [CONS] Routine 11/06/18 10:34 Consult to Physical Therapy [PT Evaluation and Treatment] [CONS] Routine - Patient Data Vitals - Most Recent: Last Vital Signs Temp 37.3 C 11/09/18 12:09 Pulse 100 11/09/18 12:09 Resp 20 11/09/18 12:09 BP 122/90 11/09/18 12:09 Pulse Ox 93 L 11/09/18 12:09 Med Orders - Current: Current Medications Discontinued Medications Acetaminophen (Tylenol) 650 mg PO Q4H PRN PRN Reason: Pain (Mild 1-3)/fever Last Admin: 11/04/18 17:31 Dose: 650 mg Albuterol/Ipratropium (Duoneb 3.0-0.5 Mg/3 Ml) 3 ml NEB Q4HRRT PRN PRN Reason: Shortness of Breath Last Admin: 11/09/18 11:02 Dose: 3 ml Ascorbic Acid (Vitamin C) 1,500 mg PO TID [facility] Last Admin: 11/09/18 06:20 Dose: 1,500 mg Ascorbic Acid (Vitamin C) Confirm Administered Dose 500 mg .ROUTE .STK-MED ONE Stop: 11/06/18 16:32 Last Admin: 11/06/18 17:09 Dose: Not Given Calcium Carbonate (Caltrate 600+D 1500 Mg-400 Units) 1 tab PO DAILY [facility] Last Admin: 11/09/18 10:24 Dose: 1 tab Calcium Chloride (Calcium Chloride 10%) 1 gm IVPUSH ONETIME ONE Stop: 11/03/18 08:47 Last Admin: 11/03/18 10:46 Dose: 1 gm Cefdinir (Omnicef) 300 mg PO BID [facility] Last Admin: 11/09/18 10:34 Dose: 300 mg [place] Butter/Phenylephrine (Preparation H Supp) 1 each RECTAL DAILY PRN PRN Reason: Hemorrhoids Last Admin: 11/05/18 05:18 Dose: 1 each Cyanocobalamin (Vitamin B12) 1,000 mcg IM ONETIME ONE Stop: 11/03/18 09:10 Last Admin: 11/03/18 09:41 Dose: 1,000 mcg Folic Acid (Folic Acid) 1 mg PO BEDTIME [facility] Last Admin: 11/08/18 21:28 Dose: 1 mg Gabapentin (Neurontin) 300 mg PO BID [facility] Last Admin: 11/09/18 10:27 Dose: 300 mg Guaifenesin (Guaifenesin) 300 mg PO Q6H PRN PRN Reason: Cough Guaifenesin (Robitussin) 300 mg PO Q6H PRN PRN Reason: Cough Last Admin: 11/08/18 09:09 Dose: 300 mg Heparin Sodium (Porcine) (Heparin Sodium) 5,000 units SUBCUT Q8H [facility] Last Admin: 11/02/18 17:31 Dose: 5,000 units Heparin Sodium (Porcine) (Heparin Sodium) 5,000 units SUBCUT Q8H [facility] Last Admin: 11/09/18 06:21 Dose: 5,000 units Heparin Sodium (Porcine) (Heparin Sodium) Confirm Administered Dose 5,000 units .ROUTE .STK-MED ONE Stop: 11/06/18 16:32 Last Admin: 11/06/18 17:09 Dose: Not Given Hydrocortisone (Proctozone-Hc 2.5% Crm) 0.5 gm TOP ASDIRECTED PRN PRN Reason: Itching Hydrocortisone (Proctozone-Hc 2.5% Crm) 0 gm TOP ASDIRECTED PRN PRN Reason: Itching Hydrocortisone Sodium Succinate (Solu-Cortef) 100 mg IVPUSH Q8H [facility] Last Admin: 11/05/18 01:11 Dose: 100 mg Hydrocortisone Sodium Succinate (Solu-Cortef) 50 mg IV Q8H [facility] Last Admin: 11/06/18 00:13 Dose: 50 mg Hydrocortisone Sodium Succinate (Solu-Cortef) 25 mg IV Q8H [facility] Last Admin: 11/07/18 08:14 Dose: 25 mg Sodium Chloride (Normal Saline) 1,000 mls @ 150 mls/hr IV STAT ONE Stop: 11/02/18 20:45 Last Admin: 11/02/18 14:25 Dose: 150 mls/hr Potassium Chloride 40 meq/ (Premix) 100 mls @ 25 mls/hr IV ONETIME ONE Stop: 11/02/18 19:03 Last Admin: 11/02/18 15:11 Dose: 25 mls/hr Levofloxacin/Dextrose 750 mg/ (Premix) 150 mls @ 100 mls/hr IV Q48H [facility] Piperacillin Sod/Tazobactam (Sod 3.375 gm/ Sodium Chloride) 50 mls @ 50 mls/hr IV Q6H [facility] Last Admin: 11/02/18 17:43 Dose: Not Given Levofloxacin/Dextrose 750 mg/ (Premix) 150 mls @ 100 mls/hr IV Q48H [facility] Last Admin: 11/02/18 18:09 Dose: Not Given Vancomycin HCl 1 gm/ Sodium (Chloride) 250 mls @ 166.667 mls/hr IV Q24H [facility] Last Admin: 11/02/18 17:43 Dose: Not Given Potassium Chloride/Sodium Chloride (Normal Saline With 40 Meq Kcl) 1,000 mls @ 150 mls/hr IV ASDIRECTED [facility] Last Admin: 11/02/18 18:08 Dose: 150 mls/hr Sodium Chloride (Normal Saline) 1,000 mls @ 999 mls/hr IV STAT ONE Stop: 11/02/18 17:21 Last Admin: 11/02/18 17:17 Dose: 999 mls/hr Piperacillin Sod/Tazobactam (Sod 3.375 gm/ Sodium Chloride) 50 mls @ 100 mls/ hr IV Q6H [facility] Last Admin: 11/03/18 13:08 Dose: 100 mls/hr Levofloxacin/Dextrose 750 mg/ (Premix) 150 mls @ 100 mls/hr IV Q48H [facility] Last Admin: 11/02/18 18:21 Dose: 100 mls/hr Vancomycin HCl 1 gm/ Sodium (Chloride) 250 mls @ 166.667 mls/hr IV Q24H [facility] Last Admin: 11/03/18 18:28 Dose: 166.667 mls/hr Magnesium Sulfate 2 gm/ Premix 50 mls @ 25 mls/hr IV ONETIME ONE Stop: 11/02/18 20:00 Last Admin: 11/02/18 19:20 Dose: 25 mls/hr Sodium Chloride (Normal Saline) 1,000 mls @ 999 mls/hr IV .Bolus ONE Stop: 11/02/18 20:28 Last Admin: 11/02/18 19:58 Dose: 999 mls/hr Sodium Chloride (Normal Saline) 1,000 mls @ 999 mls/hr IV .Bolus ONE Stop: 11/02/18 22:37 Last Admin: 11/02/18 22:00 Dose: 999 mls/hr Pantoprazole Sodium 40 mg/ (Sodium Chloride) 100 mls @ 10 mls/hr IVPUSH Q24H [facility] Last Admin: 11/03/18 00:15 Dose: Not Given Norepinephrine Bitartrate (Norepinephr-0.9% Nacl 4 Mg/250) 4 mg in 250 mls @ 7.5 mls/hr IV TITRATE [facility]; Protocol Last Titration: 11/04/18 04:11 Dose: 0 mcg/min, 0 mls/hr Potassium Chloride 30 meq/ (Dextrose/Water) 1,015 mls @ 100 mls/hr IV ASDIRECTED [facility] Potassium Chloride 30 meq/Sodium Bicarbonate 150 meq/Dextrose/Water 1,165 mls @ 114.778 mls/hr IV ASDIRECTED [facility] Last Admin: 11/04/18 12:14 Dose: 114.778 mls/hr Magnesium Sulfate 4 gm/ Premix 100 mls @ 50 mls/hr IV ONETIME ONE Stop: 11/03/18 10:42 Last Admin: 11/03/18 09:42 Dose: 50 mls/hr Multivitamins/Minerals 10 ml/Thiamine HCl 100 mg/ Folic Acid 1 mg/ Sodium Chloride 1,011.2 mls @ 200 mls/hr IV ONETIME ONE Stop: 11/03/18 14:18 Last Admin: 11/03/18 09:43 Dose: 200 mls/hr Thiamine HCl 200 mg/ Sodium (Chloride) 52 mls @ 104 mls/hr IV TID [facility] Last Admin: 11/06/18 16:14 Dose: Not Given Albumin Human (Flexbumin 25%) 12.5 gm in 50 mls @ 100 mls/hr IV ONETIME ONE Stop: 11/03/18 09:34 Last Admin: 11/03/18 09:44 Dose: 100 mls/hr Sodium Phosphate 30 mmole/ (Sodium Chloride) 260 mls @ 86.667 mls/hr IV ONETIME ONE Stop: 11/03/18 15:19 Last Admin: 11/03/18 13:05 Dose: 86.667 mls/hr Piperacillin Sod/Tazobactam (Sod 3.375 gm/ Sodium Chloride) 50 mls @ 100 mls/ hr IV Q6H [facility] Last Admin: 11/08/18 06:00 Dose: 100 mls/hr Sodium Chloride (Normal Saline) Confirm Administered Dose 250 mls @ as directed .ROUTE .STK-MED ONE Stop: 11/03/18 18:27 Last Admin: 11/03/18 19:31 Dose: Not Given Vancomycin HCl 1 gm/ Sodium (Chloride) 250 mls @ 166.667 mls/hr IV Q12H [facility] Last Admin: 11/05/18 09:22 Dose: 166.667 mls/hr Potassium Chloride 40 meq/ (Sodium Chloride) 1,020 mls @ 125 mls/hr IV ASDIRECTED [facility] Potassium Chloride 40 meq/ (Sodium Chloride) 1,020 mls @ 125 mls/hr IV ASDIRECTED [facility] Potassium Chloride/Sodium Chloride (Normal Saline With 40 Meq Kcl) Confirm Administered Dose 1,000 mls @ as directed .ROUTE .STK-MED ONE Stop: 11/04/18 19:31 Last Admin: 11/04/18 20:29 Dose: Not Given Potassium Chloride/Sodium Chloride (Normal Saline With 40 Meq Kcl) 1,000 mls @ 125 mls/hr IV ASDIRECTED [facility] Last Infusion: 11/05/18 06:29 Dose: Infused Potassium Chloride 40 meq/ (Sodium Chloride) 1,020 mls @ 150 mls/hr IV Q6H [facility] Last Admin: 11/05/18 10:22 Dose: Not Given Magnesium Sulfate 4 gm/ Premix 100 mls @ 50 mls/hr IV ONETIME ONE Stop: 11/05/18 10:42 Last Admin: 11/05/18 10:20 Dose: 50 mls/hr Lactated Ringer's (Ringers, Lactated) 1,000 mls @ 150 mls/hr IV ASDIRECTED [facility] Last Admin: 11/06/18 01:22 Dose: 150 mls/hr Magnesium Sulfate 2 gm/ Premix 50 mls @ 25 mls/hr IV ONETIME ONE Stop: 11/07/18 10:01 Last Admin: 11/07/18 08:14 Dose: 25 mls/hr Magnesium Sulfate 2 gm/ Premix 50 mls @ 25 mls/hr IV ONETIME ONE Stop: 11/08/18 14:41 Last Admin: 11/08/18 13:42 Dose: 25 mls/hr Lidocaine HCl (Xylocaine 1%) Confirm Administered Dose 20 ml .ROUTE .STK-MED ONE Stop: 11/03/18 12:00 Last Admin: 11/03/18 14:46 Dose: 20 ml Loperamide HCl (Imodium) 2 mg PO Q6H PRN PRN Reason: Other Last Admin: 11/09/18 11:17 Dose: 2 mg Lorazepam (Ativan) 0 mg IVPUSH Q4H PRN; Protocol PRN Reason: Withdrawal Symptoms Magnesium Oxide (Magnesium Oxide) 400 mg PO BID [facility] Last Admin: 11/06/18 10:07 Dose: Not Given Morphine Sulfate (Morphine) 1 mg IVPUSH Q2H PRN PRN Reason: Pain Last Admin: 11/06/18 00:13 Dose: 1 mg Multivitamins/Minerals/Vitamin C (Tab-A-Alvaro) 1 tab PO DAILY [facility] Last Admin: 11/09/18 10:29 Dose: 1 tab Nicotine (Habitrol) 14 mg TRDERM Q24H [facility] Last Admin: 11/08/18 15:30 Dose: 14 mg Nystatin (Mycostatin) 5 ml PO QID [facility] Last Admin: 11/09/18 12:05 Dose: 5 ml Nystatin (Mycostatin) Confirm Administered Dose 5 ml .ROUTE .STK-MED ONE Stop: 11/06/18 09:53 Last Admin: 11/06/18 10:19 Dose: 5 ml Nystatin (Nystop) 0 gm TOP TID [facility] Last Admin: 11/09/18 06:45 Dose: 1 applic Ondansetron HCl (Zofran) 4 mg IVPUSH Q4H PRN PRN Reason: Nausea Last Admin: 11/03/18 00:29 Dose: 4 mg Oxycodone HCl (Oxycodone) 5 mg PO Q4H PRN PRN Reason: Pain Last Admin: 11/09/18 11:57 Dose: 5 mg Pantoprazole Sodium (Protonix) 40 mg PO DAILY [facility] Pantoprazole Sodium (Protonix Iv) 40 mg IV Q24H [facility] Last Admin: 11/04/18 23:15 Dose: 40 mg Pantoprazole Sodium (Protonix) 40 mg PO ACBREAKFAST [facility] Last Admin: 11/09/18 06:31 Dose: 40 mg Pantoprazole Sodium (Protonix) Confirm Administered Dose 40 mg .ROUTE .STK- MED ONE Stop: 11/05/18 11:06 Last Admin: 11/05/18 11:17 Dose: Not Given Potassium Chloride (Klor-Con M20) 40 meq PO ONETIME ONE Stop: 11/02/18 16:12 Last Admin: 11/02/18 17:30 Dose: 40 meq Potassium Chloride (Klor-Con M20) 40 meq PO ONETIME ONE Stop: 11/02/18 18:01 Potassium Chloride (Klor-Con M20) 40 meq PO BID [facility] Last Admin: 11/09/18 10:25 Dose: 40 meq Potassium Chloride (Potassium Chloride) 40 meq PO ONETIME ONE Stop: 11/08/18 12:43 Last Admin: 11/08/18 13:38 Dose: 40 meq Silver Sulfadiazine (Silvadene 1% Cream 400 Gm) 0 gm TOP BID [facility] Last Admin: 11/07/18 08:18 Dose: 1 applic Sodium Phosphate (Neutra-Phos) 250 mg PO QID [facility] Last Admin: 11/05/18 05:18 Dose: 250 mg Sodium Phosphate (Sodium Phosphate) 30 mmole IV ONETIME ONE Stop: 11/03/18 12:16 Sodium Phosphate (Neutra-Phos) 250 mg PO QID [facility] Last Admin: 11/09/18 12:04 Dose: 250 mg Thiamine HCl (Vitamin B-1) 100 mg PO BEDTIME [facility] Last Admin: 11/05/18 20:35 Dose: 100 mg Thiamine HCl (Vitamin B-1) 200 mg IV TID [facility] Thiamine HCl (Vitamin B-1) 100 mg PO TID [facility] Last Admin: 11/09/18 06:21 Dose: 100 mg Thrombin (Thrombin-Jmi) 5,000 unit TOP ONETIME ONE Stop: 11/03/18 15:03 Last Admin: 11/03/18 15:44 Dose: 5,000 unit Vancomycin HCl (Pharmacy To Dose - Vancomycin) 1 dose .XX ASDIRECTED [facility] - Free Text/Narrative Note: I have examined the patient. I have discussed findings and treatment plan with the resident. I agree with the assessment and plan outlined in the following resident's note.
== END 2018-11-09 13:00 | disposition home or self-care (01) | DRG 871 ==
LOC: MW.ED 13:39 → MW.MS 15:23 → MW.ICU 21:49 → MW.MS 11-06 14:10
PROVIDERS: ADMIT Internal Medicine; ATTEND Internal Medicine
PROC: HZ2ZZZZ Detoxification Services for Substance Abuse Treatment (ICD-10-PCS; 2018-11-02)
PROC: 3E043XZ Introduction of Vasopressor into Central Vein, Percutaneous Approach (ICD-10-PCS; 2018-11-05)
PROC: 30233N1 Transfusion of Nonautologous Red Blood Cells into Peripheral Vein, Percutaneous Approach (ICD-10-PCS; principal; 2018-11-08)
DX: A41.9 Sepsis, unspecified organism (principal); J18.9 Pneumonia, unspecified organism; R65.21 Severe sepsis with septic shock; E87.1 Hypo-osmolality and hyponatremia; N17.9 Acute kidney failure, unspecified; F17.210 Nicotine dependence, cigarettes, uncomplicated; M19.91 Primary osteoarthritis, unspecified site; E86.0 Dehydration; E87.6 Hypokalemia; E88.09 Other disorders of plasma-protein metabolism, not elsewhere classified; G62.9 Polyneuropathy, unspecified; Z66 Do not resuscitate; J43.9 Emphysema, unspecified; K52.9 Noninfective gastroenteritis and colitis, unspecified; B35.6 Tinea cruris; D53.9 Nutritional anemia, unspecified; F10.10 Alcohol abuse, uncomplicated; Z79.899 Other long term (current) drug therapy; Z79.52 Long term (current) use of systemic steroids
CPT/HCPCS: 36415; 36430; 36620; 71045; 71045-26; 74176; 74176-26; 80048; 80053; 81001; 82607; 82728; 82746; 83516; 83550; 83605; 83630; 83735; 84100; 84145; 85018; 85025; 85027; 85049; 85610; 85652; 85730; 86140; 86850; 86900; 86901; 86920; 86921; 86922; 87040; 87046; 87070; 87205; 87324; 87328; 87329; 87389; 87899; 93005; 94640; 96361; 96365; 97161-GP; 99284; 99285-25; A4217; A9270-GY; C9113; J1644; J1720; J1956; J2001; J2270; J2405; J2543; J3370; J3411; J3420; J3475; J3480; J7040; J7050; J7060; J7120; J7620-GY; P9016; P9047

== ENCOUNTER 2018-11-11 13:40 | Inpatient (IN) | payer MEDICAID ==
[2018-11-11] MEDS ORDERED: Sodium Chloride 0.9% 1,000 ML IV ONE (13:46)
[2018-11-11] MEDS ORDERED: methylPREDNISolone Sodium Succinate 125 MG/2 ML SDV IVPUSH ONE (13:47)
[2018-11-11] MEDS ORDERED: Albuterol/Ipratropium 3.0-0.5 MG/3 ML Neb Soln NEB ONE (13:47)
--- NOTE | 2018-11-11 14:03 | EDM.PDOC ---
ED HPI GENERAL MEDICAL PROBLEM - General Chief Complaint: Respiratory Problem Stated Complaint: TROUBLE BREATHING Time Seen by Provider: 11/11/18 13:48 Source of Information: Reports: Patient History Limitations: Reports: No Limitations - History of Present Illness INITIAL COMMENTS - FREE TEXT/NARRATIVE: HISTORY AND PHYSICAL: History of present illness: Patient is a 53-year-old male presents to the ED today with concern of 9 out of 10 midsternal chest pain and shortness of breath. Patient states starting last night he began to experience the symptoms before when he woke up this morning he noticed they were worse. Patient was seen in our ED on 11/02/18 and was admitted for a left lower lobe pneumonia and malnourishment. Patient was discharged on 11/09/18 (2 days ago). Patient has also been recently admitted over the past few months for COPD exacerbations and malnourishment. Patient states he feels as if he needs to cough but does not have the energy to cough up anything. Patient states he has not smoked any cigarettes since his admission on November 02. Patient denies fever, chills. Denies headache, neck stiff ness, change in vision , syncope, or near syncope. Denies nausea, vomiting, abdominal pain, diarrhea, constipation, or dysuria. Has not noted any blood in urine or stool. Patient has a history of COPD, malnutrition, chronic alcohol abuse, heavy smoking history, and anemia. Review of systems: As per history of present illness and below otherwise all systems reviewed and negative. Past medical history: As per history of present illness and as reviewed below otherwise noncontributory. Surgical history: As per history of present illness and as reviewed below otherwise noncontributory. Social history: See social history for further information Family history: As per history of present illness and as reviewed below otherwise noncontributory. Physical exam: General: Patient is alert, oriented, and in mild respiratory distress. Patient seated on exam table, speaking 3-4 word sentences and tachypneic. Patient appears chronically ill and older than stated age. He appears thin and cachectic. HEENT: Atraumatic, normocephalic, pupils equal and reactive bilaterally, negative for conjunctival pallor or scleral icterus, mucous membranes dry, TMs normal bilaterally, throat clear, neck supple, nontender, trachea midline. No drooling or trismus noted. No meningeal signs. No hot potato voice noted. Lungs: Crackles heard diffusely to bilateral lung braun to auscultation, breath sounds equal bilaterally, chest nontender. Heart: (heard sounds limited due to lung sounds) S1S2, regular rate and rhythm without overt murmur Abdomen: Thin, soft, nondistended, nontender. Negative for masses or hepatosplenomegaly. Negative for costovertebral tenderness. Pelvis: Stable nontender. Genitourinary: Deferred. Rectal: Deferred. Skin: Intact, warm, dry. No lesions or rashes noted. Extremities: Atraumatic, negative for cords or calf pain. Neurovascular unremarkable. 3+ pitting edema of bilateral lower extremities to knees. Neuro: Awake, alert, oriented. Cranial nerves II through XII unremarkable. Cerebellum unremarkable. Motor and sensory unremarkable throughout. Exam nonfocal. Notes: Patient 78% on RA, placed on oxymask 15L and immediately came up to 98%. Patient does appear dry on exam but does also appear to be third spacing fluids. Fluids started at a rate of 80 due to both volume deleted and third spacing issue. Dr. Alexander consulted on patient and per his recommendations will start levofloxacin in ED and admit to observation. Voices understanding and is agreeable to plan of care. Denies any further questions or concerns at this time. Diagnostics: CBC, CMP, UA, troponin, EKG, lactate, blood cultures 2, lipase, chest x-ray, cardiac monitoring Therapeutics: Saline, Solu-Medrol, DuoNeb, O2, levofloxacin Impression: Pneumonia Hypoxia H/o COPD Chronic medical history at baseline Plan: 1. Admit to observation to Dr. Alexander Definitive disposition and diagnosis as appropriate pending reevaluation and review of above. chest pain Pain Score (Numeric/FACES): 10 - Related Data Allergies Allergy/AdvReac Type Severity Reaction Status Date / Time No Known Allergies Allergy Verified 11/02/18 13:51 Home Meds: Home Meds Albuterol Sulfate [Proair Hfa] 1 - 2 puff INH ASDIRECTED PRN 06/30/16 [History] Glycopyrrolate/Formoterol Fum [Bevespi Aerosphere Inhaler] 1 - 2 inh PO DAILY [History] B Complex With Vitamin C [Vitamin B-Complex & C] 1 each PO DAILY #30 tablet.er 10/07/18 [Rx] Gabapentin [Neurontin] 300 mg PO BID #30 capsule 10/07/18 [Rx] Pantoprazole Sodium [Protonix] 20 mg PO DAILY #30 tablet. 10/07/18 [Rx] Thiamine [Vitamin B-1] 100 mg PO DAILY #30 tablet 10/07/18 [Rx] Ascorbic Acid [Vitamin C] 1,500 mg PO TID #90 tablet 11/09/18 [Rx] Calcium Carbonate/Vitamin D3 [Caltrate 600+D 1500 MG-400 Units] 1 tab PO DAILY # 30 tablet 11/09/18 [Rx] Cefdinir [Omnicef] 300 mg PO BID 3 Days #60 cap 11/09/18 [Rx] Folic Acid 1 mg PO BEDTIME #30 tablet 11/09/18 [Rx] Loperamide [Imodium] 2 mg PO Q6H PRN #30 cap 11/09/18 [Rx] Nystatin [Nystop] 1 mg TOP TID PRN #1 bottle 11/09/18 [Rx] Pantoprazole Sodium 40 mg PO DAILY #30 tablet. 11/09/18 [Rx] Sod Phos Di, Ford/K Phos Ford [Av-Phos 250 Neutral Tablet] 250 mg PO DAILY #30 tablet 11/09/18 [Rx] Thiamine [Vitamin B-1] 100 mg PO TID #90 tablet 11/09/18 [Rx] Past Medical History HEENT History: Reports: None Cardiovascular History: Reports: None Respiratory History: Reports: COPD, SOB, Other (See Below) Other Respiratory History: smokes 1 pk of cigarettes per day, SOB with excertion Gastrointestinal History: Reports: None Genitourinary History: Reports: Prostate Disorder Musculoskeletal History: Reports: Arthritis Neurological History: Reports: None Psychiatric History: Reports: None Endocrine/Metabolic History: Reports: None Hematologic History: Reports: None Immunologic History: Reports: None Oncologic (Cancer) History: Reports: None Dermatologic History: Reports: None - Infectious Disease History Infectious Disease History: Reports: Chicken Pox - Past Surgical History Head Surgeries/Procedures: Reports: None HEENT Surgical History: Reports: Other (See Below) Cardiovascular Surgical History: Reports: None Respiratory Surgical History: Reports: None GI Surgical History: Reports: None Musculoskeletal Surgical History: Reports: Shoulder Surgery - History Comment History Comment: etoh" daily" Social & Family History - Family History Family Medical History: Noncontributory - Caffeine Use Caffeine Use: Reports: Coffee - Living Situation & Occupation Living situation: Reports: Single, Alone Occupation: Unemployed ED ROS GENERAL - Review of Systems Review Of Systems: ROS reveals no pertinent complaints other than HPI. ED EXAM, GENERAL - Physical Exam Exam: See Below (see dictation) Course - Vital Signs Last Recorded V/S: Last Vital Signs Temp 37.2 C 11/11/18 13:51 Pulse 122 H 11/11/18 13:51 Resp 24 H 11/11/18 13:51 BP 147/91 H 11/11/18 13:51 Pulse Ox 80 L 11/11/18 13:51 - Orders/Labs/Meds Orders: Active Orders 24 hr Category Date Time Status Admission Status [Patient Status] [ADT] Stat ADT 11/11/18 14:43 Ordered Cardiac Monitoring [RC] . DIRECTED Care 11/11/18 13:46 Active EKG Documentation Completion [RC] STAT Care 11/11/18 13:46 Active Oxygen Therapy [RC] ASDIRECTED Care 11/11/18 13:46 Active RT Aerosol Therapy [RC] ASDIRECTED Care 11/11/18 13:47 Active CULTURE BLOOD [BC] Stat Lab 11/11/18 12:10 Received CULTURE BLOOD [BC] Stat Lab 11/11/18 13:48 Received UA RFX JOSE M AND CULT IF INDIC [URIN] Stat Lab 11/11/18 13:46 Ordered Levofloxacin/Dextrose 5%-Water [Levaquin in D5W 750 MG/ Med 11/11/18 14:41 Ordered 150 ML] 750 mg Premix Bag 1 bag IV ONETIME Sodium Chloride 0.9% [Normal Saline] 1,000 ml Med 11/11/18 13:46 Active IV BOLUS Blood Culture x2 Reflex Set [OM.PC] Stat Oth 11/11/18 13:48 Ordered Medication Orders Sodium Chloride (Normal Saline) 1,000 mls @ 999 mls/hr IV BOLUS ONE Stop: 11/11/18 14:46 Last Infusion: 11/11/18 13:59 Dose: 80 mls/hr Admin: 11/11/18 13:59 Dose: 999 mls/hr Levofloxacin/Dextrose 750 mg/ (Premix) 150 mls @ 100 mls/hr IV ONETIME ONE Stop: 11/11/18 16:10 Labs: Laboratory Tests 11/11/18 11/11/18 11/11/18 Range/Units 13:48 13:48 13:48 WBC 20.33 H (4.0-11.0) K/uL RBC 3.21 L (4.50-5.90) M/uL Hgb 10.5 L (13.0-17.0) g/dL Hct 33.2 L (38.0-50.0) % MCV 103.4 H (80.0-98.0) fL MCH 32.7 H (27.0-32.0) pg MCHC 31.6 (31.0-37.0) g/dL RDW Std Deviation 88.4 H (28.0-62.0) fl RDW Coeff of Willy 24 H (11.0-15.0) % Plt Count 278 (150-400) K/uL MPV 11.60 (7.40-12.00) fL Add Manual Diff YES Neutrophils % (Manual) 78 (48.0-80.0) % Band Neutrophils % 5 % Lymphocytes % (Manual) 6 L (16.0-40.0) % Monocytes % (Manual) 7 (0.0-15.0) % Eosinophils % (Manual) 1 (0.0-7.0) % Metamyelocytes % 3 % Nucleated RBC % 0.0 /100WBC Absolute Seg Neuts 15.9 H (1.4-5.7) Band Neutrophils # 1.0 Lymphocytes # (Manual) 1.2 (0.6-2.4) Monocytes # (Manual) 1.4 H (0.0-0.8) Eosinophils # (Manual) 0.2 (0.0-0.7) Absolute Metamyelocyte 0.6 Nucleated RBCs # 0 K/uL Lactate 2.8 H (0.20-2.00) mmol/L Sodium 141 (136-148) mmol/L Potassium 4.2 (3.5-5.1) mmol/L Chloride 107 (98-107) mmol/L Carbon Dioxide 21.8 (21.0-32.0) mmol/L BUN 3 L (7.0-18.0) mg/dL Creatinine 0.8 (0.8-1.3) mg/dL Est Cr Clr Drug Dosing 88.04 mL/min Estimated GFR (MDRD) > 60.0 ml/min Glucose 91 (74-106) mg/dL Calcium 8.2 L (8.5-10.1) mg/dL Total Bilirubin 0.9 (0.2-1.0) mg/dL AST 59 H (15-37) IU/L ALT 33 (14-63) IU/L Alkaline Phosphatase 193 H (46-116) U/L Troponin I < 0.050 (0.000-0.056) ng/mL Total Protein 6.0 L (6.4-8.2) g/dL Albumin 2.0 L (3.4-5.0) g/dL Globulin 4.0 (2.6-4.0) g/dL Albumin/Globulin Ratio 0.5 L (0.9-1.6) Lipase 73 (73-393) U/L Meds: Medications Generic Name Dose Route Start Last Admin Trade Name Freq PRN Reason Stop Dose Admin Sodium Chloride 1,000 mls @ 999 mls/hr 11/11/18 13:46 11/11/18 13:59 Normal Saline IV 11/11/18 14:46 80 mls/hr BOLUS ONE Infusion Levofloxacin/Dextrose 750 mg/ 150 mls @ 100 mls/hr 11/11/18 14:41 Premix IV 11/11/18 16:10 ONETIME ONE Discontinued Medications Generic Name Dose Route Start Last Admin Trade Name Freq PRN Reason Stop Dose Admin Albuterol/Ipratropium 3 ml 11/11/18 13:47 11/11/18 13:52 Duoneb 3.0-0.5 Mg/3 Ml NEB 11/11/18 13:48 3 ml ONETIME ONE Administration Methylprednisolone Sodium Succinate 125 mg 11/11/18 13:47 11/11/18 13:59 Solu-Medrol IVPUSH 11/11/18 13:48 125 mg ONETIME ONE Administration Departure - Departure Time of Disposition: 14:47 Disposition: Refer to Observation Clinical Impression: Hypoxia Pneumonia Qualifiers: Pneumonia type: due to unspecified organism Laterality: left Lung location: lower lobe of lung Qualified Code(s): J18.1 - Lobar pneumonia, unspecified organism - Discharge Information - My Orders Last 24 Hours: My Active Orders 11/11/18 12:10 CULTURE BLOOD [BC] Stat 11/11/18 13:46 Cardiac Monitoring [RC] . DIRECTED EKG Documentation Completion [RC] STAT Oxygen Therapy [RC] ASDIRECTED UA RFX JOSE M AND CULT IF INDIC [URIN] Stat Sodium Chloride 0.9% [Normal Saline] 1,000 ml IV BOLUS 11/11/18 13:47 RT Aerosol Therapy [RC] ASDIRECTED 11/11/18 13:48 CULTURE BLOOD [BC] Stat Blood Culture x2 Reflex Set [OM.PC] Stat 11/11/18 14:41 Levofloxacin/Dextrose 5%-Water [Levaquin in D5W 750 MG/150 ML] 750 mg Premix Bag 1 bag IV ONETIME 11/11/18 14:43 Admission Status [Patient Status] [ADT] Stat - Assessment/Plan Last 24 Hours: My Active Orders 11/11/18 12:10 CULTURE BLOOD [BC] Stat 11/11/18 13:46 Cardiac Monitoring [RC] . DIRECTED EKG Documentation Completion [RC] STAT Oxygen Therapy [RC] ASDIRECTED UA RFX JOSE M AND CULT IF INDIC [URIN] Stat Sodium Chloride 0.9% [Normal Saline] 1,000 ml IV BOLUS 11/11/18 13:47 RT Aerosol Therapy [RC] ASDIRECTED 11/11/18 13:48 CULTURE BLOOD [BC] Stat Blood Culture x2 Reflex Set [OM.PC] Stat 11/11/18 14:41 Levofloxacin/Dextrose 5%-Water [Levaquin in D5W 750 MG/150 ML] 750 mg Premix Bag 1 bag IV ONETIME 11/11/18 14:43 Admission Status [Patient Status] [ADT] Stat
[2018-11-11 14:24] LABS: CHLORIDE,CL 107 mmol/L (98-107); SODIUM,NA 141 mmol/L (136-148)
--- NOTE | 2018-11-11 14:28 | CR ---
INDICATION: Short of breath. Chest pain. TECHNIQUE: Portable 1 view chest. COMPARISON: Portable chest 11/12/2018. FINDINGS: Removal of the left-sided central venous catheter. Heart and mediastinum are normal in size. Pulmonary vessels are normal. Right hilar bronchial wall thickening and patchy infiltrate. Patchy infiltrate in the left lower lobe. No pleural fluid. No acute bony abnormalities. IMPRESSION: 1. Removal of the left-sided catheter. No pneumothorax. 2. Right hilar bronchial wall thickening and patchy infiltrate. 3. Patchy left lower lobe infiltrate. Dictated by Cat Winn MD @ Nov 11 2018 2:28PM Signed by Dr. Cat Winn @ Nov 11 2018 2:28PM
[2018-11-11] MEDS ORDERED: Levofloxacin/Dextrose 5%-Water 750 MG in Premix Bag 1 BAG IV ONE (14:41)
[2018-11-11] MEDS: Sodium Chloride 0.9% 1,000 ML IV SCH ×2 (17:03→23:54)
[2018-11-11] MEDS: Acetaminophen 325 MG Tab PO PRN ×2 (17:24→21:44)
[2018-11-11] MEDS ORDERED: LORazepam 2 MG/ML SDV IVPUSH PRN (17:52)
--- NOTE | 2018-11-11 17:55 | PCM.HP ---
H&P History of Present Illness - General Date of Service: 11/11/18 Admit Problem/Dx: Admission Diagnosis/Problem Admission Diagnosis/Problem Pneumonia - History of Present Illness Initial Comments - Free Text/Narative: 53 yo male who was recently discharged three days ago after receiving treatment for pneumonia, COPD, enteritis and hypovolemia from diarrhea. After discharge he did not fill any his prescriptions including his antibiotic. He complains of worsening shortness of breath. PAtient reports he can't catch his breath. He reports increasing sputum production and wheezing. He was seen in the ED and noted to be satting in the 70s on room air and 96% on NC. Chest x-ray revealed patchy infiltrates. rib Pain Score (Numeric/FACES): 7 - Related Data Allergies/Adverse Reactions: Allergies Allergy/AdvReac Type Severity Reaction Status Date / Time No Known Allergies Allergy Verified 11/02/18 13:51 Home Medications: Home Meds Albuterol Sulfate [Proair Hfa] 1 - 2 puff INH ASDIRECTED PRN 06/30/16 [History] Glycopyrrolate/Formoterol Fum [Bevespi Aerosphere Inhaler] 1 - 2 inh PO DAILY [History] B Complex With Vitamin C [Vitamin B-Complex & C] 1 each PO DAILY #30 tablet.er 10/07/18 [Rx] Gabapentin [Neurontin] 300 mg PO BID #30 capsule 10/07/18 [Rx] Ascorbic Acid [Vitamin C] 1,500 mg PO TID #90 tablet 11/09/18 [Rx] Calcium Carbonate/Vitamin D3 [Caltrate 600+D 1500 MG-400 Units] 1 tab PO DAILY # 30 tablet 11/09/18 [Rx] Cefdinir [Omnicef] 300 mg PO BID 3 Days #60 cap 11/09/18 [Rx] Folic Acid 1 mg PO BEDTIME #30 tablet 11/09/18 [Rx] Loperamide [Imodium] 2 mg PO Q6H PRN #30 cap 11/09/18 [Rx] Nystatin [Nystop] 1 mg TOP TID PRN #1 bottle 11/09/18 [Rx] Pantoprazole Sodium 40 mg PO DAILY #30 tablet. 11/09/18 [Rx] Sod Phos Di, Randolph/K Phos Randolph [Av-Phos 250 Neutral Tablet] 250 mg PO DAILY #30 tablet 11/09/18 [Rx] Thiamine [Vitamin B-1] 100 mg PO TID #90 tablet 11/09/18 [Rx] Past Medical History HEENT History: Reports: None Cardiovascular History: Reports: None Respiratory History: Reports: COPD, SOB, Other (See Below) Other Respiratory History: smokes 1 pk of cigarettes per day, SOB with excertion Gastrointestinal History: Reports: None Genitourinary History: Reports: Prostate Disorder Musculoskeletal History: Reports: Arthritis Neurological History: Reports: None Psychiatric History: Reports: None Endocrine/Metabolic History: Reports: None Hematologic History: Reports: None Immunologic History: Reports: None Oncologic (Cancer) History: Reports: None Dermatologic History: Reports: None - Infectious Disease History Infectious Disease History: Reports: Chicken Pox - Past Surgical History Head Surgeries/Procedures: Reports: None HEENT Surgical History: Reports: Other (See Below) Cardiovascular Surgical History: Reports: None Respiratory Surgical History: Reports: None GI Surgical History: Reports: None Musculoskeletal Surgical History: Reports: Shoulder Surgery - History Comment History Comment: etoh" daily" Social & Family History - Family History Family Medical History: Noncontributory - Tobacco Use Smoking Status *Q: Former Smoker Used Tobacco, but Quit: Yes Month/Year Tobacco Last Used: 35 - Caffeine Use Caffeine Use: Reports: Coffee - Recreational Drug Use Recreational Drug Use: No - Living Situation & Occupation Living situation: Reports: Single, Alone Occupation: Unemployed H&P Review of Systems - Review of Systems: Review Of Systems: ROS reveals no pertinent complaints other than HPI. Exam - Exam Exam: See Below - Vital Signs Vital Signs: Last Vital Signs Temp 37.0 C 11/11/18 15:49 Pulse 122 H 11/11/18 15:49 Resp 20 11/11/18 15:49 BP 135/76 11/11/18 15:49 Pulse Ox 97 11/11/18 15:49 Weight: 61.235 kg - Exam General: Alert, Oriented HEENT: Mucosa Moist & [place] Lungs: Normal Respiratory Effort, Rhonchi, Wheezing Cardiovascular: Regular Rate, Regular Rhythm GI/Abdominal Exam: Normal Bowel Sounds, Soft, Non-Tender Extremities: Non-Tender, No Pedal Edema Skin: Warm, Dry, Intact Neurological: Cranial Nerves Intact - Patient Data Lab Results Last 24 hrs: Laboratory Results - last 24 hr 11/11/18 11/11/18 11/11/18 Range/Units 13:48 13:48 13:48 WBC 20.33 H (4.0-11.0) K/uL RBC 3.21 L (4.50-5.90) M/uL Hgb 10.5 L (13.0-17.0) g/dL Hct 33.2 L (38.0-50.0) % MCV 103.4 H (80.0-98.0) fL MCH 32.7 H (27.0-32.0) pg MCHC 31.6 (31.0-37.0) g/dL RDW Std Deviation 88.4 H (28.0-62.0) fl RDW Coeff of Willy 24 H (11.0-15.0) % Plt Count 278 (150-400) K/uL MPV 11.60 (7.40-12.00) fL Add Manual Diff YES Neutrophils % (Manual) 78 (48.0-80.0) % Band Neutrophils % 5 % Lymphocytes % (Manual) 6 L (16.0-40.0) % Monocytes % (Manual) 7 (0.0-15.0) % Eosinophils % (Manual) 1 (0.0-7.0) % Metamyelocytes % 3 % Nucleated RBC % 0.0 /100WBC Absolute Seg Neuts 15.9 H (1.4-5.7) Band Neutrophils # 1.0 Lymphocytes # (Manual) 1.2 (0.6-2.4) Monocytes # (Manual) 1.4 H (0.0-0.8) Eosinophils # (Manual) 0.2 (0.0-0.7) Absolute Metamyelocyte 0.6 Nucleated RBCs # 0 K/uL Lactate 2.8 H (0.20-2.00) mmol/L Sodium 141 (136-148) mmol/L Potassium 4.2 (3.5-5.1) mmol/L Chloride 107 (98-107) mmol/L Carbon Dioxide 21.8 (21.0-32.0) mmol/L BUN 3 L (7.0-18.0) mg/dL Creatinine 0.8 (0.8-1.3) mg/dL Est Cr Clr Drug Dosing 88.04 mL/min Estimated GFR (MDRD) > 60.0 ml/min Glucose 91 (74-106) mg/dL Calcium 8.2 L (8.5-10.1) mg/dL Total Bilirubin 0.9 (0.2-1.0) mg/dL AST 59 H (15-37) IU/L ALT 33 (14-63) IU/L Alkaline Phosphatase 193 H (46-116) U/L Troponin I < 0.050 (0.000-0.056) ng/mL Total Protein 6.0 L (6.4-8.2) g/dL Albumin 2.0 L (3.4-5.0) g/dL Globulin 4.0 (2.6-4.0) g/dL Albumin/Globulin Ratio 0.5 L (0.9-1.6) Lipase 73 (73-393) U/L Urine Color Urine Appearance Urine pH (5.0-8.0) Ur Specific Reynolds (1.001-1.035) Urine Protein (NEGATIVE) mg/dL Urine Glucose (UA) (NEGATIVE) mg/dL Urine Ketones (NEGATIVE) mg/dL Urine Occult Blood (NEGATIVE) Urine Nitrite (NEGATIVE) Urine Bilirubin (NEGATIVE) Urine Urobilinogen (<2.0) EU/dL Ur Leukocyte Esterase (NEGATIVE) 11/11/18 Range/Units 15:33 WBC (4.0-11.0) K/uL RBC (4.50-5.90) M/uL Hgb (13.0-17.0) g/dL Hct (38.0-50.0) % MCV (80.0-98.0) fL MCH (27.0-32.0) pg MCHC (31.0-37.0) g/dL RDW Std Deviation (28.0-62.0) fl RDW Coeff of Willy (11.0-15.0) % Plt Count (150-400) K/uL MPV (7.40-12.00) fL Add Manual Diff Neutrophils % (Manual) (48.0-80.0) % Band Neutrophils % % Lymphocytes % (Manual) (16.0-40.0) % Monocytes % (Manual) (0.0-15.0) % Eosinophils % (Manual) (0.0-7.0) % Metamyelocytes % % Nucleated RBC % /100WBC Absolute Seg Neuts (1.4-5.7) Band Neutrophils # Lymphocytes # (Manual) (0.6-2.4) Monocytes # (Manual) (0.0-0.8) Eosinophils # (Manual) (0.0-0.7) Absolute Metamyelocyte Nucleated RBCs # K/uL Lactate (0.20-2.00) mmol/L Sodium (136-148) mmol/L Potassium (3.5-5.1) mmol/L Chloride (98-107) mmol/L Carbon Dioxide (21.0-32.0) mmol/L BUN (7.0-18.0) mg/dL Creatinine (0.8-1.3) mg/dL Est Cr Clr Drug Dosing mL/min Estimated GFR (MDRD) ml/min Glucose (74-106) mg/dL Calcium (8.5-10.1) mg/dL Total Bilirubin (0.2-1.0) mg/dL AST (15-37) IU/L ALT (14-63) IU/L Alkaline Phosphatase (46-116) U/L Troponin I (0.000-0.056) ng/mL Total Protein (6.4-8.2) g/dL Albumin (3.4-5.0) g/dL Globulin (2.6-4.0) g/dL Albumin/Globulin Ratio (0.9-1.6) Lipase (73-393) U/L Urine Color YELLOW Urine Appearance CLEAR Urine pH 6.0 (5.0-8.0) Ur Specific Reynolds 1.015 (1.001-1.035) Urine Protein NEGATIVE (NEGATIVE) mg/dL Urine Glucose (UA) NEGATIVE (NEGATIVE) mg/dL Urine Ketones NEGATIVE (NEGATIVE) mg/dL Urine Occult Blood NEGATIVE (NEGATIVE) Urine Nitrite NEGATIVE (NEGATIVE) Urine Bilirubin NEGATIVE (NEGATIVE) Urine Urobilinogen 0.2 (<2.0) EU/dL Ur Leukocyte Esterase NEGATIVE (NEGATIVE) Result Diagrams: 11/11/18 13:48 11/11/18 13:48 Problem List Initiated/Reviewed/Updated: Yes Orders Last 24hrs: Active Orders 24 hr Category Date Time Status Admission Status [Patient Status] [ADT] Stat ADT 11/11/18 14:43 Active Cardiac Monitoring [RC] Q8H Care 11/11/18 13:46 Active Communication Order [RC] Q6H Care 11/11/18 16:06 Active EKG Documentation Completion [RC] STAT Care 11/11/18 13:46 Active Oxygen Therapy [RC] ASDIRECTED Care 11/11/18 13:46 Active RT Aerosol Therapy [RC] ASDIRECTED Care 11/11/18 13:47 Active Telemetry Monitoring [Cardiac Monitoring] [RC] Care 11/11/18 13:46 Active ASDIRECTED Regular Diet [DIET] Diet 11/12/18 Dinner Active Chest PE [Ang Chest] [CT] Stat Exams 11/11/18 17:50 Ordered CULTURE BLOOD [BC] Stat Lab 11/11/18 12:10 Received CULTURE BLOOD [BC] Stat Lab 11/11/18 13:48 Received CULTURE SPUTUM + SMEAR [RM] Routine Lab 11/11/18 17:50 Ordered LACTIC ACID,WHOLE BLOOD [BG] Q6H Lab 11/11/18 19:48 Ordered LACTIC ACID,WHOLE BLOOD [BG] Q6H Lab 11/12/18 01:48 Ordered LACTIC ACID,WHOLE BLOOD [BG] Q6H Lab 11/12/18 07:48 Ordered LACTIC ACID,WHOLE BLOOD [BG] Q6H Lab 11/12/18 13:48 Ordered LACTIC ACID,WHOLE BLOOD [BG] Q6H Lab 11/12/18 19:48 Ordered LACTIC ACID,WHOLE BLOOD [BG] Q6H Lab 11/13/18 01:48 Ordered VANCOMYCIN TROUGH [CHEM] Timed Lab 11/13/18 15:15 Ordered Acetaminophen [Tylenol] Med 11/11/18 16:45 Active 650 mg PO Q4H PRN Folic Acid Med 11/11/18 18:00 Ordered 1 mg PO DAILY LORazepam [Ativan] Med 11/11/18 17:52 Ordered See Protocol IVPUSH Q4H PRN Levofloxacin/Dextrose 5%-Water [Levaquin in D5W 750 MG/ Med 11/12/18 14:00 Ordered 150 ML] 750 mg Premix Bag 1 bag IV Q24H Pharmacy to Dose - Vancomycin Med 11/11/18 16:15 Active 1 dose .XX ASDIRECTED Piperacillin/Tazobactam [Piperacil-Tazobact] 3.375 gm Med 11/11/18 18:00 Ordered Sodium Chloride 0.9% [Normal Saline] 50 ml IV Q6H Sodium Chloride 0.9% [Normal Saline] 1,000 ml Med 11/11/18 16:15 Active IV ASDIRECTED Thiamine [Vitamin B-1] Med 11/11/18 18:00 Ordered 100 mg PO DAILY Vancomycin 1 gm Med 11/11/18 16:15 Active Sodium Chloride 0.9% [Normal Saline] 250 ml IV Q12H methylPREDNISolone Sod Succ [Solu-MEDROL] Med 11/11/18 22:00 Ordered 125 mg IVPUSH Q8H Blood Culture x2 Reflex Set [OM.PC] Stat Oth 11/11/18 13:48 Ordered Medication Orders Acetaminophen (Tylenol) 650 mg PO Q4H PRN PRN Reason: Pain Last Admin: 11/11/18 17:24 Dose: 650 mg Sodium Chloride (Normal Saline) 1,000 mls @ 125 mls/hr IV ASDIRECTED [facility] Last Admin: 11/11/18 17:03 Dose: 125 mls/hr Vancomycin HCl 1 gm/ Sodium (Chloride) 250 mls @ 166.667 mls/hr IV Q12H [facility] Last Admin: 11/11/18 17:04 Dose: 166.667 mls/hr Levofloxacin/Dextrose 750 mg/ (Premix) 150 mls @ 100 mls/hr IV Q24H [facility] Piperacillin Sod/Tazobactam (Sod 3.375 gm/ Sodium Chloride) 50 mls @ 100 mls/ hr IV Q6H [facility] Vancomycin HCl (Pharmacy To Dose - Vancomycin) 1 dose .XX ASDIRECTED [facility] Assessment/Plan Comment:: 53 yo male admitted with acute hypoxic respiratory failure secondary to pneumonia and COPD. Patient has been noncompliant with outpatient medication since discharge. Hypoxia: will wean supplemental O2 as tolerated. We will check CT angio., we will trend lactic acid Pneumonia: treating with vancomycin, Zosyn and Levaquin, cultures ordered. COPD: solumedrol and duonebs Alcohol abuse: on [facility] protocol with prn ativan.
[2018-11-11] MEDS ORDERED: Ondansetron 4 MG Tab.DIS PO PRN (18:00)
[2018-11-11] MEDS: Heparin Sodium 5,000 Units/ML Vial SUBCUT SCH (18:31)
[2018-11-11] MEDS: Folic Acid 1 MG Tab PO SCH (18:31)
[2018-11-11] MEDS: Thiamine 100 MG Tab PO SCH (18:31)
[2018-11-11] MEDS: Albuterol/Ipratropium 3.0-0.5 MG/3 ML Neb Soln NEB PRN (18:35)
[2018-11-11] MEDS ORDERED: Iopamidol 755 MG/ML 200 ML Multipack Bottle IVPUSH ONE (19:20)
[2018-11-11] MEDS: Piperacillin/Tazobactam 3.375 GM in Sodium Chloride 0.9% 50 ML IV SCH ×2 (19:29→23:54)
--- NOTE | 2018-11-11 20:13 | CT ---
INDICATION: Chest pain and shortness of breath. COMPARISON: 10/04/2018 TECHNIQUE: CT examination of the chest was performed with the uneventful intravenous administration of 100 cc of Isovue 370 while 1 and 3 mm thick axial sections were obtained through the pulmonary arteries. Please note that all CT scans at this facility use dose modulation, iterative reconstruction, and/or weight-based dosing when appropriate to reduce radiation dose to as low as reasonably achievable. FINDINGS: : There is no sign of pulmonary embolism, with normal enhancement and branching of the pulmonary arteries. There are new moderate right and mild left pleural effusions. There is new mild platelike atelectasis in the posterior right upper lobe adjacent to the major fissure. There is new moderate atelectasis of the right lateral middle lobe adjacent to the major fissure. There is new mild patchy peribronchial infiltrate scattered throughout the left lower lobe consistent with bronchitis. More focal patchy infiltrates are seen in the posterior-lateral left lower lobe which may be areas of atelectasis or pneumonia. The previously seen 3 millimeter subpleural nodule in the anterior-lateral left upper lobe is unchanged in appearance, seen on image 46 series 402. There is no sign of mediastinal or hilar mass or adenopathy. The heart and great vessels are normal in appearance. There is no sign of supraclavicular or axillary mass or adenopathy. There is new moderate ascites. The visualized superior liver has a slightly nodular contour, suggestive of cirrhosis. It is low in density from fatty infiltration. The visualized superior spleen, pancreas, left kidney, and adrenals are normal in appearance. The osseous structures are normal in appearance for the patient`s age. IMPRESSION: No sign of pulmonary embolism. New moderate right and mild left pleural effusions. New mild platelike atelectasis in the posterior right upper lobe and moderate atelectasis in the lateral right middle lobe adjacent to the major fissure. New mild patchy peribronchial infiltrates scattered throughout the left lower lobe consistent with bronchitis. New focal patchy infiltrates in the posterior-lateral left lower lobe, atelectasis versus pneumonia. New moderate ascites. Fatty infiltration of the liver. Please note that all CT scans at this facility use dose modulation, iterative reconstruction, and/or weight-based dosing when appropriate to reduce radiation dose to as low as reasonably achievable. Dictated by Matti Schwartz MD @ Nov 11 2018 8:01PM Signed by Dr. Matti Schwartz @ Nov 11 2018 8:12PM
[2018-11-11] MEDS ORDERED: oxyCODONE 5 MG Tab PO ONE (20:38)
[2018-11-11] MEDS: methylPREDNISolone Sodium Succinate 125 MG/2 ML SDV IVPUSH SCH (21:45)
[2018-11-12] MEDS: Heparin Sodium 5,000 Units/ML Vial SUBCUT SCH ×3 (01:09→18:26)
[2018-11-12] MEDS: Albuterol/Ipratropium 3.0-0.5 MG/3 ML Neb Soln NEB PRN ×5 (01:09→23:52)
[2018-11-12] MEDS: Piperacillin/Tazobactam 3.375 GM in Sodium Chloride 0.9% 50 ML IV SCH ×3 (05:45→18:26)
[2018-11-12] MEDS: methylPREDNISolone Sodium Succinate 125 MG/2 ML SDV IVPUSH SCH ×3 (05:45→22:17)
[2018-11-12 06:23] LABS: CHLORIDE,CL 107 mmol/L (98-107); SODIUM,NA 140 mmol/L (136-148)
--- NOTE | 2018-11-12 09:47 | PCM.PN ---
<Addy Wise - Last Filed: 11/12/18 09:41> - General Info Date of Service: 11/12/18 Subjective Update: No acute events overnight. Endorses dyspnea. No chest pain, abdominal pain, dysuria. Stools more formed and less frequent. - Patient Data Vitals - Most Recent: Last Vital Signs Temp 37.7 C 11/12/18 03:16 Pulse 114 H 11/12/18 03:16 Resp 20 11/12/18 03:16 BP 124/66 11/12/18 03:16 Pulse Ox 97 11/12/18 03:16 Weight - Most Recent: 61.235 kg I&O - Last 24 Hours: Intake & Output 11/11/18 11/12/18 11/12/18 22:59 06:59 14:59 Intake Total 250 520 Output Total 100 350 Balance 150 170 Lab Results Last 24 Hours: Laboratory Results - last 24 hr 11/11/18 11/11/18 11/11/18 Range/Units 13:48 13:48 13:48 WBC 20.33 H (4.0-11.0) K/uL RBC 3.21 L (4.50-5.90) M/uL Hgb 10.5 L (13.0-17.0) g/dL Hct 33.2 L (38.0-50.0) % MCV 103.4 H (80.0-98.0) fL MCH 32.7 H (27.0-32.0) pg MCHC 31.6 (31.0-37.0) g/dL RDW Std Deviation 88.4 H (28.0-62.0) fl RDW Coeff of Willy 24 H (11.0-15.0) % Plt Count 278 (150-400) K/uL MPV 11.60 (7.40-12.00) fL Neut % (Auto) (48.0-80.0) % Lymph % (Auto) (16.0-40.0) % Maverick % (Auto) (0.0-15.0) % Eos % (Auto) (0.0-7.0) % Baso % (Auto) (0.0-1.5) % Neut # (Auto) (1.4-5.7) K/uL Lymph # (Auto) (0.6-2.4) K/uL Maverick # (Auto) (0.0-0.8) K/uL Eos # (Auto) (0.0-0.7) K/uL Baso # (Auto) (0.0-0.1) K/uL Add Manual Diff YES Neutrophils % (Manual) 78 (48.0-80.0) % Band Neutrophils % 5 % Lymphocytes % (Manual) 6 L (16.0-40.0) % Monocytes % (Manual) 7 (0.0-15.0) % Eosinophils % (Manual) 1 (0.0-7.0) % Metamyelocytes % 3 % Nucleated RBC % 0.0 /100WBC Absolute Seg Neuts 15.9 H (1.4-5.7) Band Neutrophils # 1.0 Lymphocytes # (Manual) 1.2 (0.6-2.4) Monocytes # (Manual) 1.4 H (0.0-0.8) Eosinophils # (Manual) 0.2 (0.0-0.7) Absolute Metamyelocyte 0.6 Nucleated RBCs # 0 K/uL Lactate 2.8 H (0.20-2.00) mmol/L Sodium 141 (136-148) mmol/L Potassium 4.2 (3.5-5.1) mmol/L Chloride 107 (98-107) mmol/L Carbon Dioxide 21.8 (21.0-32.0) mmol/L BUN 3 L (7.0-18.0) mg/dL Creatinine 0.8 (0.8-1.3) mg/dL Est Cr Clr Drug Dosing 88.04 mL/min Estimated GFR (MDRD) > 60.0 ml/min Glucose 91 (74-106) mg/dL Calcium 8.2 L (8.5-10.1) mg/dL Total Bilirubin 0.9 (0.2-1.0) mg/dL AST 59 H (15-37) IU/L ALT 33 (14-63) IU/L Alkaline Phosphatase 193 H (46-116) U/L Troponin I < 0.050 (0.000-0.056) ng/mL Total Protein 6.0 L (6.4-8.2) g/dL Albumin 2.0 L (3.4-5.0) g/dL Globulin 4.0 (2.6-4.0) g/dL Albumin/Globulin Ratio 0.5 L (0.9-1.6) Lipase 73 (73-393) U/L Prostate Specific Ag (0.05-4.00) ng/mL Urine Color Urine Appearance Urine pH (5.0-8.0) Ur Specific Sabin (1.001-1.035) Urine Protein (NEGATIVE) mg/dL Urine Glucose (UA) (NEGATIVE) mg/dL Urine Ketones (NEGATIVE) mg/dL Urine Occult Blood (NEGATIVE) Urine Nitrite (NEGATIVE) Urine Bilirubin (NEGATIVE) Urine Urobilinogen (<2.0) EU/dL Ur Leukocyte Esterase (NEGATIVE) 11/11/18 11/11/18 11/12/18 Range/Units 15:33 19:53 05:50 WBC 9.61 (4.0-11.0) K/uL RBC 2.70 L (4.50-5.90) M/uL Hgb 8.7 L (13.0-17.0) g/dL Hct 27.5 L (38.0-50.0) % MCV 101.9 H (80.0-98.0) fL MCH 32.2 H (27.0-32.0) pg MCHC 31.6 (31.0-37.0) g/dL RDW Std Deviation 85.6 H (28.0-62.0) fl RDW Coeff of Willy 24 H (11.0-15.0) % Plt Count 238 (150-400) K/uL MPV 11.60 (7.40-12.00) fL Neut % (Auto) 91.0 H (48.0-80.0) % Lymph % (Auto) 7.4 L (16.0-40.0) % Maverick % (Auto) 1.5 (0.0-15.0) % Eos % (Auto) 0.0 (0.0-7.0) % Baso % (Auto) 0.1 (0.0-1.5) % Neut # (Auto) 8.8 H (1.4-5.7) K/uL Lymph # (Auto) 0.7 (0.6-2.4) K/uL Maverick # (Auto) 0.1 (0.0-0.8) K/uL Eos # (Auto) 0.0 (0.0-0.7) K/uL Baso # (Auto) 0.0 (0.0-0.1) K/uL Add Manual Diff Neutrophils % (Manual) (48.0-80.0) % Band Neutrophils % % Lymphocytes % (Manual) (16.0-40.0) % Monocytes % (Manual) (0.0-15.0) % Eosinophils % (Manual) (0.0-7.0) % Metamyelocytes % % Nucleated RBC % 0.0 /100WBC Absolute Seg Neuts (1.4-5.7) Band Neutrophils # Lymphocytes # (Manual) (0.6-2.4) Monocytes # (Manual) (0.0-0.8) Eosinophils # (Manual) (0.0-0.7) Absolute Metamyelocyte Nucleated RBCs # 0 K/uL Lactate 1.5 (0.20-2.00) mmol/L Sodium (136-148) mmol/L Potassium (3.5-5.1) mmol/L Chloride (98-107) mmol/L Carbon Dioxide (21.0-32.0) mmol/L BUN (7.0-18.0) mg/dL Creatinine (0.8-1.3) mg/dL Est Cr Clr Drug Dosing mL/min Estimated GFR (MDRD) ml/min Glucose (74-106) mg/dL Calcium (8.5-10.1) mg/dL Total Bilirubin (0.2-1.0) mg/dL AST (15-37) IU/L ALT (14-63) IU/L Alkaline Phosphatase (46-116) U/L Troponin I (0.000-0.056) ng/mL Total Protein (6.4-8.2) g/dL Albumin (3.4-5.0) g/dL Globulin (2.6-4.0) g/dL Albumin/Globulin Ratio (0.9-1.6) Lipase (73-393) U/L Prostate Specific Ag (0.05-4.00) ng/mL Urine Color YELLOW Urine Appearance CLEAR Urine pH 6.0 (5.0-8.0) Ur Specific Sabin 1.015 (1.001-1.035) Urine Protein NEGATIVE (NEGATIVE) mg/dL Urine Glucose (UA) NEGATIVE (NEGATIVE) mg/dL Urine Ketones NEGATIVE (NEGATIVE) mg/dL Urine Occult Blood NEGATIVE (NEGATIVE) Urine Nitrite NEGATIVE (NEGATIVE) Urine Bilirubin NEGATIVE (NEGATIVE) Urine Urobilinogen 0.2 (<2.0) EU/dL Ur Leukocyte Esterase NEGATIVE (NEGATIVE) 11/12/18 11/12/18 Range/Units 05:50 05:50 WBC (4.0-11.0) K/uL RBC (4.50-5.90) M/uL Hgb (13.0-17.0) g/dL Hct (38.0-50.0) % MCV (80.0-98.0) fL MCH (27.0-32.0) pg MCHC (31.0-37.0) g/dL RDW Std Deviation (28.0-62.0) fl RDW Coeff of Willy (11.0-15.0) % Plt Count (150-400) K/uL MPV (7.40-12.00) fL Neut % (Auto) (48.0-80.0) % Lymph % (Auto) (16.0-40.0) % Maverick % (Auto) (0.0-15.0) % Eos % (Auto) (0.0-7.0) % Baso % (Auto) (0.0-1.5) % Neut # (Auto) (1.4-5.7) K/uL Lymph # (Auto) (0.6-2.4) K/uL Maverick # (Auto) (0.0-0.8) K/uL Eos # (Auto) (0.0-0.7) K/uL Baso # (Auto) (0.0-0.1) K/uL Add Manual Diff Neutrophils % (Manual) (48.0-80.0) % Band Neutrophils % % Lymphocytes % (Manual) (16.0-40.0) % Monocytes % (Manual) (0.0-15.0) % Eosinophils % (Manual) (0.0-7.0) % Metamyelocytes % % Nucleated RBC % /100WBC Absolute Seg Neuts (1.4-5.7) Band Neutrophils # Lymphocytes # (Manual) (0.6-2.4) Monocytes # (Manual) (0.0-0.8) Eosinophils # (Manual) (0.0-0.7) Absolute Metamyelocyte Nucleated RBCs # K/uL Lactate (0.20-2.00) mmol/L Sodium 140 (136-148) mmol/L Potassium 3.8 (3.5-5.1) mmol/L Chloride 107 (98-107) mmol/L Carbon Dioxide 21.6 (21.0-32.0) mmol/L BUN 5 L (7.0-18.0) mg/dL Creatinine 0.7 L (0.8-1.3) mg/dL Est Cr Clr Drug Dosing 104.49 mL/min Estimated GFR (MDRD) > 60.0 ml/min Glucose 142 H (74-106) mg/dL Calcium 7.5 L (8.5-10.1) mg/dL Total Bilirubin 0.6 (0.2-1.0) mg/dL AST 43 H (15-37) IU/L ALT 34 (14-63) IU/L Alkaline Phosphatase 152 H (46-116) U/L Troponin I (0.000-0.056) ng/mL Total Protein 4.9 L (6.4-8.2) g/dL Albumin 1.6 L (3.4-5.0) g/dL Globulin 3.3 (2.6-4.0) g/dL Albumin/Globulin Ratio 0.5 L (0.9-1.6) Lipase (73-393) U/L Prostate Specific Ag 0.42 (0.05-4.00) ng/mL Urine Color Urine Appearance Urine pH (5.0-8.0) Ur Specific Sabin (1.001-1.035) Urine Protein (NEGATIVE) mg/dL Urine Glucose (UA) (NEGATIVE) mg/dL Urine Ketones (NEGATIVE) mg/dL Urine Occult Blood (NEGATIVE) Urine Nitrite (NEGATIVE) Urine Bilirubin (NEGATIVE) Urine Urobilinogen (<2.0) EU/dL Ur Leukocyte Esterase (NEGATIVE) Kike Results Last 24 Hours: Microbiology 11/12/18 00:10 Gram Stain - Preliminary Sputum - Expectorated Med Orders - Current: Current Medications Acetaminophen (Tylenol) 650 mg PO Q4H PRN PRN Reason: Pain Last Admin: 11/11/18 21:44 Dose: 650 mg Albuterol/Ipratropium (Duoneb 3.0-0.5 Mg/3 Ml) 3 ml NEB Q4HRRT PRN PRN Reason: Shortness Of Breath/wheezing Last Admin: 11/12/18 05:45 Dose: 3 ml Folic Acid (Folic Acid) 1 mg PO DAILY COUNTS INCLUDE 234 BEDS AT THE [facility] Last Admin: 11/11/18 18:31 Dose: 1 mg Heparin Sodium (Porcine) (Heparin Sodium) 5,000 units SUBCUT Q8H COUNTS INCLUDE 234 BEDS AT THE [facility] Last Admin: 11/12/18 01:09 Dose: 5,000 units Sodium Chloride (Normal Saline) 1,000 mls @ 125 mls/hr IV ASDIRECTED COUNTS INCLUDE 234 BEDS AT THE [facility] Last Admin: 11/11/18 23:54 Dose: 125 mls/hr Vancomycin HCl 1 gm/ Sodium (Chloride) 250 mls @ 166.667 mls/hr IV Q12H COUNTS INCLUDE 234 BEDS AT THE [facility] Last Admin: 11/12/18 03:16 Dose: 166.667 mls/hr Levofloxacin/Dextrose 750 mg/ (Premix) 150 mls @ 100 mls/hr IV Q24H COUNTS INCLUDE 234 BEDS AT THE [facility] Piperacillin Sod/Tazobactam (Sod 3.375 gm/ Sodium Chloride) 50 mls @ 100 mls/ hr IV Q6H COUNTS INCLUDE 234 BEDS AT THE [facility] Last Admin: 11/12/18 05:45 Dose: 100 mls/hr Lorazepam (Ativan) 0 mg IVPUSH Q4H PRN; Protocol PRN Reason: Agitation Methylprednisolone Sodium Succinate (Solu-Medrol) 125 mg IVPUSH Q8H COUNTS INCLUDE 234 BEDS AT THE [facility] Last Admin: 11/12/18 05:45 Dose: 125 mg Ondansetron HCl (Zofran Odt) 4 mg PO Q4H PRN PRN Reason: nausea, able to take PO Thiamine HCl (Vitamin B-1) 100 mg PO DAILY COUNTS INCLUDE 234 BEDS AT THE [facility] Last Admin: 11/11/18 18:31 Dose: 100 mg Vancomycin HCl (Pharmacy To Dose - Vancomycin) 1 dose .XX ASDIRECTED COUNTS INCLUDE 234 BEDS AT THE [facility] Discontinued Medications Albuterol/Ipratropium (Duoneb 3.0-0.5 Mg/3 Ml) 3 ml NEB ONETIME ONE Stop: 11/11/18 13:48 Last Admin: 11/11/18 13:52 Dose: 3 ml Sodium Chloride (Normal Saline) 1,000 mls @ 999 mls/hr IV BOLUS ONE Stop: 11/11/18 14:46 Last Infusion: 11/11/18 13:59 Dose: 80 mls/hr Levofloxacin/Dextrose 750 mg/ (Premix) 150 mls @ 100 mls/hr IV ONETIME ONE Stop: 11/11/18 16:10 Last Admin: 11/11/18 14:49 Dose: 100 mls/hr Iopamidol (Isovue Multipack-370 (76%)) 100 ml IVPUSH ONETIME ONE Stop: 11/11/18 19:21 Last Admin: 11/11/18 19:25 Dose: 100 ml Methylprednisolone Sodium Succinate (Solu-Medrol) 125 mg IVPUSH ONETIME ONE Stop: 11/11/18 13:48 Last Admin: 11/11/18 13:59 Dose: 125 mg Oxycodone HCl (Oxycodone) 5 mg PO ONETIME ONE Stop: 11/11/18 20:39 Last Admin: 11/11/18 21:45 Dose: 5 mg - Exam Quality Assessment: Supplemental Oxygen General: Alert, Oriented, Cooperative, No Acute Distress Lungs: Clear to Auscultation, Rhonchi, Wheezing GI/Abdominal Exam: Normal Bowel Sounds, Soft, Non-Tender, No Distention Extremities: Normal Inspection, No Pedal Edema Skin: Warm, Dry - Problem List Review Problem List Initiated/Reviewed/Updated: Yes - My Orders Last 24 Hours: My Active Orders 11/12/18 Lunch Gluten Free Diet [DIET] - Plan Plan:: A: 1. Acute hypoxic respiratory failure 2. COPD exacerbation 3. HCAP 4. Alcohol abuse 5. Celiac disease 6. Self care deficit 7. Severe protein undernourishment P: 1. Acute hypoxic respiratory failure 2/2 COPD, HCAP. Continue with duonebs, methylprednisolone and broad spectrum antibiotics. 2. Celiac disease- Gluten free diet. 3. Self care deficit- PT Dispo: 1-2 days. <Israel Brooks M - Last Filed: 11/12/18 10:50> - General Info Admission Dx/Problem (Free Text): I have seen and examined to patient independently of medical imaging director, Addy Gaston MD. I have discussed the case for care of this patient with him. I have reviewed and approve of the plan of care as outlined by medical imaging director. Please see orders. - Patient Data Vitals - Most Recent: Last Vital Signs Temp 37.7 C 11/12/18 03:16 Pulse 114 H 11/12/18 03:16 Resp 20 11/12/18 03:16 BP 124/66 11/12/18 03:16 Pulse Ox 97 11/12/18 03:16 I&O - Last 24 Hours: Intake & Output 11/11/18 11/12/18 11/12/18 22:59 06:59 14:59 Intake Total 250 520 Output Total 100 350 Balance 150 170 Lab Results Last 24 Hours: Laboratory Results - last 24 hr 11/11/18 11/11/18 11/11/18 Range/Units 13:48 13:48 13:48 WBC 20.33 H (4.0-11.0) K/uL RBC 3.21 L (4.50-5.90) M/uL Hgb 10.5 L (13.0-17.0) g/dL Hct 33.2 L (38.0-50.0) % MCV 103.4 H (80.0-98.0) fL MCH 32.7 H (27.0-32.0) pg MCHC 31.6 (31.0-37.0) g/dL RDW Std Deviation 88.4 H (28.0-62.0) fl RDW Coeff of Willy 24 H (11.0-15.0) % Plt Count 278 (150-400) K/uL MPV 11.60 (7.40-12.00) fL Neut % (Auto) (48.0-80.0) % Lymph % (Auto) (16.0-40.0) % Maverick % (Auto) (0.0-15.0) % Eos % (Auto) (0.0-7.0) % Baso % (Auto) (0.0-1.5) % Neut # (Auto) (1.4-5.7) K/uL Lymph # (Auto) (0.6-2.4) K/uL Maverick # (Auto) (0.0-0.8) K/uL Eos # (Auto) (0.0-0.7) K/uL Baso # (Auto) (0.0-0.1) K/uL Add Manual Diff YES Neutrophils % (Manual) 78 (48.0-80.0) % Band Neutrophils % 5 % Lymphocytes % (Manual) 6 L (16.0-40.0) % Monocytes % (Manual) 7 (0.0-15.0) % Eosinophils % (Manual) 1 (0.0-7.0) % Metamyelocytes % 3 % Nucleated RBC % 0.0 /100WBC Absolute Seg Neuts 15.9 H (1.4-5.7) Band Neutrophils # 1.0 Lymphocytes # (Manual) 1.2 (0.6-2.4) Monocytes # (Manual) 1.4 H (0.0-0.8) Eosinophils # (Manual) 0.2 (0.0-0.7) Absolute Metamyelocyte 0.6 Nucleated RBCs # 0 K/uL Lactate 2.8 H (0.20-2.00) mmol/L Sodium 141 (136-148) mmol/L Potassium 4.2 (3.5-5.1) mmol/L Chloride 107 (98-107) mmol/L Carbon Dioxide 21.8 (21.0-32.0) mmol/L BUN 3 L (7.0-18.0) mg/dL Creatinine 0.8 (0.8-1.3) mg/dL Est Cr Clr Drug Dosing 88.04 mL/min Estimated GFR (MDRD) > 60.0 ml/min Glucose 91 (74-106) mg/dL Calcium 8.2 L (8.5-10.1) mg/dL Total Bilirubin 0.9 (0.2-1.0) mg/dL AST 59 H (15-37) IU/L ALT 33 (14-63) IU/L Alkaline Phosphatase 193 H (46-116) U/L Troponin I < 0.050 (0.000-0.056) ng/mL Total Protein 6.0 L (6.4-8.2) g/dL Albumin 2.0 L (3.4-5.0) g/dL Globulin 4.0 (2.6-4.0) g/dL Albumin/Globulin Ratio 0.5 L (0.9-1.6) Lipase 73 (73-393) U/L Prostate Specific Ag (0.05-4.00) ng/mL Urine Color Urine Appearance Urine pH (5.0-8.0) Ur Specific Sabin (1.001-1.035) Urine Protein (NEGATIVE) mg/dL Urine Glucose (UA) (NEGATIVE) mg/dL Urine Ketones (NEGATIVE) mg/dL Urine Occult Blood (NEGATIVE) Urine Nitrite (NEGATIVE) Urine Bilirubin (NEGATIVE) Urine Urobilinogen (<2.0) EU/dL Ur Leukocyte Esterase (NEGATIVE) 11/11/18 11/11/18 11/12/18 Range/Units 15:33 19:53 05:50 WBC 9.61 (4.0-11.0) K/uL RBC 2.70 L (4.50-5.90) M/uL Hgb 8.7 L (13.0-17.0) g/dL Hct 27.5 L (38.0-50.0) % MCV 101.9 H (80.0-98.0) fL MCH 32.2 H (27.0-32.0) pg MCHC 31.6 (31.0-37.0) g/dL RDW Std Deviation 85.6 H (28.0-62.0) fl RDW Coeff of Willy 24 H (11.0-15.0) % Plt Count 238 (150-400) K/uL MPV 11.60 (7.40-12.00) fL Neut % (Auto) 91.0 H (48.0-80.0) % Lymph % (Auto) 7.4 L (16.0-40.0) % Maverick % (Auto) 1.5 (0.0-15.0) % Eos % (Auto) 0.0 (0.0-7.0) % Baso % (Auto) 0.1 (0.0-1.5) % Neut # (Auto) 8.8 H (1.4-5.7) K/uL Lymph # (Auto) 0.7 (0.6-2.4) K/uL Maverick # (Auto) 0.1 (0.0-0.8) K/uL Eos # (Auto) 0.0 (0.0-0.7) K/uL Baso # (Auto) 0.0 (0.0-0.1) K/uL Add Manual Diff Neutrophils % (Manual) (48.0-80.0) % Band Neutrophils % % Lymphocytes % (Manual) (16.0-40.0) % Monocytes % (Manual) (0.0-15.0) % Eosinophils % (Manual) (0.0-7.0) % Metamyelocytes % % Nucleated RBC % 0.0 /100WBC Absolute Seg Neuts (1.4-5.7) Band Neutrophils # Lymphocytes # (Manual) (0.6-2.4) Monocytes # (Manual) (0.0-0.8) Eosinophils # (Manual) (0.0-0.7) Absolute Metamyelocyte Nucleated RBCs # 0 K/uL Lactate 1.5 (0.20-2.00) mmol/L Sodium (136-148) mmol/L Potassium (3.5-5.1) mmol/L Chloride (98-107) mmol/L Carbon Dioxide (21.0-32.0) mmol/L BUN (7.0-18.0) mg/dL Creatinine (0.8-1.3) mg/dL Est Cr Clr Drug Dosing mL/min Estimated GFR (MDRD) ml/min Glucose (74-106) mg/dL Calcium (8.5-10.1) mg/dL Total Bilirubin (0.2-1.0) mg/dL AST (15-37) IU/L ALT (14-63) IU/L Alkaline Phosphatase (46-116) U/L Troponin I (0.000-0.056) ng/mL Total Protein (6.4-8.2) g/dL Albumin (3.4-5.0) g/dL Globulin (2.6-4.0) g/dL Albumin/Globulin Ratio (0.9-1.6) Lipase (73-393) U/L Prostate Specific Ag (0.05-4.00) ng/mL Urine Color YELLOW Urine Appearance CLEAR Urine pH 6.0 (5.0-8.0) Ur Specific Sabin 1.015 (1.001-1.035) Urine Protein NEGATIVE (NEGATIVE) mg/dL Urine Glucose (UA) NEGATIVE (NEGATIVE) mg/dL Urine Ketones NEGATIVE (NEGATIVE) mg/dL Urine Occult Blood NEGATIVE (NEGATIVE) Urine Nitrite NEGATIVE (NEGATIVE) Urine Bilirubin NEGATIVE (NEGATIVE) Urine Urobilinogen 0.2 (<2.0) EU/dL Ur Leukocyte Esterase NEGATIVE (NEGATIVE) 11/12/18 11/12/18 Range/Units 05:50 05:50 WBC (4.0-11.0) K/uL RBC (4.50-5.90) M/uL Hgb (13.0-17.0) g/dL Hct (38.0-50.0) % MCV (80.0-98.0) fL MCH (27.0-32.0) pg MCHC (31.0-37.0) g/dL RDW Std Deviation (28.0-62.0) fl RDW Coeff of Willy (11.0-15.0) % Plt Count (150-400) K/uL MPV (7.40-12.00) fL Neut % (Auto) (48.0-80.0) % Lymph % (Auto) (16.0-40.0) % Maverick % (Auto) (0.0-15.0) % Eos % (Auto) (0.0-7.0) % Baso % (Auto) (0.0-1.5) % Neut # (Auto) (1.4-5.7) K/uL Lymph # (Auto) (0.6-2.4) K/uL Maverick # (Auto) (0.0-0.8) K/uL Eos # (Auto) (0.0-0.7) K/uL Baso # (Auto) (0.0-0.1) K/uL Add Manual Diff Neutrophils % (Manual) (48.0-80.0) % Band Neutrophils % % Lymphocytes % (Manual) (16.0-40.0) % Monocytes % (Manual) (0.0-15.0) % Eosinophils % (Manual) (0.0-7.0) % Metamyelocytes % % Nucleated RBC % /100WBC Absolute Seg Neuts (1.4-5.7) Band Neutrophils # Lymphocytes # (Manual) (0.6-2.4) Monocytes # (Manual) (0.0-0.8) Eosinophils # (Manual) (0.0-0.7) Absolute Metamyelocyte Nucleated RBCs # K/uL Lactate (0.20-2.00) mmol/L Sodium 140 (136-148) mmol/L Potassium 3.8 (3.5-5.1) mmol/L Chloride 107 (98-107) mmol/L Carbon Dioxide 21.6 (21.0-32.0) mmol/L BUN 5 L (7.0-18.0) mg/dL Creatinine 0.7 L (0.8-1.3) mg/dL Est Cr Clr Drug Dosing 104.49 mL/min Estimated GFR (MDRD) > 60.0 ml/min Glucose 142 H (74-106) mg/dL Calcium 7.5 L (8.5-10.1) mg/dL Total Bilirubin 0.6 (0.2-1.0) mg/dL AST 43 H (15-37) IU/L ALT 34 (14-63) IU/L Alkaline Phosphatase 152 H (46-116) U/L Troponin I (0.000-0.056) ng/mL Total Protein 4.9 L (6.4-8.2) g/dL Albumin 1.6 L (3.4-5.0) g/dL Globulin 3.3 (2.6-4.0) g/dL Albumin/Globulin Ratio 0.5 L (0.9-1.6) Lipase (73-393) U/L Prostate Specific Ag 0.42 (0.05-4.00) ng/mL Urine Color Urine Appearance Urine pH (5.0-8.0) Ur Specific Sabin (1.001-1.035) Urine Protein (NEGATIVE) mg/dL Urine Glucose (UA) (NEGATIVE) mg/dL Urine Ketones (NEGATIVE) mg/dL Urine Occult Blood (NEGATIVE) Urine Nitrite (NEGATIVE) Urine Bilirubin (NEGATIVE) Urine Urobilinogen (<2.0) EU/dL Ur Leukocyte Esterase (NEGATIVE) Kike Results Last 24 Hours: Microbiology 11/12/18 00:10 Gram Stain - Preliminary Sputum - Expectorated Med Orders - Current: Current Medications Acetaminophen (Tylenol) 650 mg PO Q4H PRN PRN Reason: Pain Last Admin: 11/12/18 10:13 Dose: 650 mg Albuterol/Ipratropium (Duoneb 3.0-0.5 Mg/3 Ml) 3 ml NEB Q4HRRT PRN PRN Reason: Shortness Of Breath/wheezing Last Admin: 11/12/18 05:45 Dose: 3 ml Benzonatate (Tessalon Perles) 200 mg PO TID SHERWIN Folic Acid (Folic Acid) 1 mg PO DAILY SHERWIN Last Admin: 11/12/18 10:15 Dose: 1 mg Heparin Sodium (Porcine) (Heparin Sodium) 5,000 units SUBCUT Q8H COUNTS INCLUDE 234 BEDS AT THE [facility] Last Admin: 11/12/18 10:16 Dose: 5,000 units Sodium Chloride (Normal Saline) 1,000 mls @ 125 mls/hr IV ASDIRECTED COUNTS INCLUDE 234 BEDS AT THE [facility] Last Admin: 11/11/18 23:54 Dose: 125 mls/hr Vancomycin HCl 1 gm/ Sodium (Chloride) 250 mls @ 166.667 mls/hr IV Q12H COUNTS INCLUDE 234 BEDS AT THE [facility] Last Admin: 11/12/18 03:16 Dose: 166.667 mls/hr Levofloxacin/Dextrose 750 mg/ (Premix) 150 mls @ 100 mls/hr IV Q24H COUNTS INCLUDE 234 BEDS AT THE [facility] Piperacillin Sod/Tazobactam (Sod 3.375 gm/ Sodium Chloride) 50 mls @ 100 mls/ hr IV Q6H COUNTS INCLUDE 234 BEDS AT THE [facility] Last Admin: 11/12/18 05:45 Dose: 100 mls/hr Lorazepam (Ativan) 0 mg IVPUSH Q4H PRN; Protocol PRN Reason: Agitation Methylprednisolone Sodium Succinate (Solu-Medrol) 125 mg IVPUSH Q8H COUNTS INCLUDE 234 BEDS AT THE [facility] Last Admin: 11/12/18 05:45 Dose: 125 mg Ondansetron HCl (Zofran Odt) 4 mg PO Q4H PRN PRN Reason: nausea, able to take PO Thiamine HCl (Vitamin B-1) 100 mg PO DAILY COUNTS INCLUDE 234 BEDS AT THE [facility] Last Admin: 11/12/18 10:15 Dose: 100 mg Vancomycin HCl (Pharmacy To Dose - Vancomycin) 1 dose .XX ASDIRECTED COUNTS INCLUDE 234 BEDS AT THE [facility] Discontinued Medications Albuterol/Ipratropium (Duoneb 3.0-0.5 Mg/3 Ml) 3 ml NEB ONETIME ONE Stop: 11/11/18 13:48 Last Admin: 11/11/18 13:52 Dose: 3 ml Benzonatate (Tessalon Perles) Confirm Administered Dose 100 mg .ROUTE .STK-MED ONE Stop: 11/12/18 10:09 Last Admin: 11/12/18 10:13 Dose: 100 mg Sodium Chloride (Normal Saline) 1,000 mls @ 999 mls/hr IV BOLUS ONE Stop: 11/11/18 14:46 Last Infusion: 11/11/18 13:59 Dose: 80 mls/hr Levofloxacin/Dextrose 750 mg/ (Premix) 150 mls @ 100 mls/hr IV ONETIME ONE Stop: 11/11/18 16:10 Last Admin: 11/11/18 14:49 Dose: 100 mls/hr Iopamidol (Isovue Multipack-370 (76%)) 100 ml IVPUSH ONETIME ONE Stop: 11/11/18 19:21 Last Admin: 11/11/18 19:25 Dose: 100 ml Methylprednisolone Sodium Succinate (Solu-Medrol) 125 mg IVPUSH ONETIME ONE Stop: 11/11/18 13:48 Last Admin: 11/11/18 13:59 Dose: 125 mg Oxycodone HCl (Oxycodone) 5 mg PO ONETIME ONE Stop: 11/11/18 20:39 Last Admin: 11/11/18 21:45 Dose: 5 mg
[2018-11-12] MEDS ORDERED: Benzonatate 100 MG Cap ONE (10:08)
[2018-11-12] MEDS: Acetaminophen 325 MG Tab PO PRN ×2 (10:13→22:35)
[2018-11-12] MEDS: Folic Acid 1 MG Tab PO SCH (10:15)
[2018-11-12] MEDS: Thiamine 100 MG Tab PO SCH (10:15)
[2018-11-12] MEDS ORDERED: Ketorolac 15 MG/ML SDV IVPUSH SCH (12:15)
[2018-11-12] MEDS: Levofloxacin/Dextrose 5%-Water 750 MG in Premix Bag 1 BAG IV SCH (14:13)
[2018-11-12] MEDS: Benzonatate 100 MG Cap PO SCH ×2 (14:14→22:17)
[2018-11-12] MEDS: Sodium Chloride 0.9% 1,000 ML IV SCH (16:33)
[2018-11-13] MEDS: Heparin Sodium 5,000 Units/ML Vial SUBCUT SCH ×3 (01:04→18:01)
[2018-11-13] MEDS: Piperacillin/Tazobactam 3.375 GM in Sodium Chloride 0.9% 50 ML IV SCH ×5 (01:04→23:50)
[2018-11-13] MEDS: Sodium Chloride 0.9% 1,000 ML IV SCH ×2 (02:11→11:55)
[2018-11-13] MEDS: Albuterol/Ipratropium 3.0-0.5 MG/3 ML Neb Soln NEB PRN ×3 (04:10→14:12)
[2018-11-13] MEDS: methylPREDNISolone Sodium Succinate 125 MG/2 ML SDV IVPUSH SCH ×3 (05:44→21:56)
[2018-11-13] MEDS: Benzonatate 100 MG Cap PO SCH ×3 (05:45→21:53)
[2018-11-13 06:14] LABS: CHLORIDE,CL 109 mmol/L (98-107); SODIUM,NA 142 mmol/L (136-148)
[2018-11-13] MEDS: Thiamine 100 MG Tab PO SCH (08:21)
[2018-11-13] MEDS: Folic Acid 1 MG Tab PO SCH (08:21)
[2018-11-13] MEDS ORDERED: Potassium Chloride 20 MEQ Tab.ER PO ONE (09:41)
[2018-11-13] MEDS: Albuterol/Ipratropium 3.0-0.5 MG/3 ML Neb Soln NEB SCH ×3 (11:26→23:49)
[2018-11-13] MEDS: Ketorolac 15 MG/ML SDV IVPUSH PRN ×2 (11:49→20:00)
--- NOTE | 2018-11-13 13:01 | PCM.PN ---
<Addy Wise - Last Filed: 11/13/18 12:56> - General Info Date of Service: 11/13/18 Subjective Update: No acute events overnight. Feeling short of breath this morning. Denies nausea, vomiting, chest pain, abdominal pain, dysuria. - Patient Data Vitals - Most Recent: Last Vital Signs Temp 37.2 C 11/13/18 11:41 Pulse 120 H 11/13/18 11:41 Resp 16 11/13/18 11:41 BP 133/89 11/13/18 11:41 Pulse Ox 93 L 11/13/18 11:41 Weight - Most Recent: 61.235 kg I&O - Last 24 Hours: Intake & Output 11/12/18 11/13/18 11/13/18 22:59 06:59 14:59 Intake Total 1600 2613 50 Balance 1600 2613 50 Lab Results Last 24 Hours: Laboratory Results - last 24 hr 11/13/18 11/13/18 11/13/18 Range/Units 02:20 05:35 05:35 WBC 12.53 H (4.0-11.0) K/uL RBC 2.76 L (4.50-5.90) M/uL Hgb 8.8 L (13.0-17.0) g/dL Hct 28.3 L (38.0-50.0) % MCV 102.5 H (80.0-98.0) fL MCH 31.9 (27.0-32.0) pg MCHC 31.1 (31.0-37.0) g/dL RDW Std Deviation 88.2 H (28.0-62.0) fl RDW Coeff of Willy 24 H (11.0-15.0) % Plt Count 271 (150-400) K/uL MPV 11.90 (7.40-12.00) fL Nucleated RBC % 0.0 /100WBC Nucleated RBCs # 0 K/uL Lactate 0.7 (0.20-2.00) mmol/L Sodium 142 (136-148) mmol/L Potassium 3.2 L (3.5-5.1) mmol/L Chloride 109 H (98-107) mmol/L Carbon Dioxide 20.5 L (21.0-32.0) mmol/L BUN 9 (7.0-18.0) mg/dL Creatinine 0.7 L (0.8-1.3) mg/dL Est Cr Clr Drug Dosing 104.49 mL/min Estimated GFR (MDRD) > 60.0 ml/min Glucose 145 H (74-106) mg/dL Calcium 7.7 L (8.5-10.1) mg/dL Kike Results Last 24 Hours: Microbiology 11/12/18 00:10 Gram Stain - Final Sputum - Expectorated Sputum Culture - Preliminary Yeast 11/11/18 12:10 Aerobic Blood Culture - Preliminary Blood - Venous - Lab Draw NO GROWTH AFTER 1 DAY Anaerobic Blood Culture - Preliminary NO GROWTH AFTER 1 DAY 11/11/18 13:48 Aerobic Blood Culture - Preliminary Blood - Venous NO GROWTH AFTER 1 DAY Anaerobic Blood Culture - Preliminary NO GROWTH AFTER 1 DAY Med Orders - Current: Current Medications Acetaminophen (Tylenol) 650 mg PO Q4H PRN PRN Reason: Pain Last Admin: 11/12/18 22:35 Dose: 650 mg Albuterol/Ipratropium (Duoneb 3.0-0.5 Mg/3 Ml) 3 ml NEB Q6HRRT [facility] Last Admin: 11/13/18 11:26 Dose: 3 ml Albuterol/Ipratropium (Duoneb 3.0-0.5 Mg/3 Ml) 3 ml NEB Q4HRRT PRN PRN Reason: Shortness of Breath Benzonatate (Tessalon Perles) 200 mg PO TID [facility] Last Admin: 11/13/18 05:45 Dose: 200 mg Folic Acid (Folic Acid) 1 mg PO DAILY [facility] Last Admin: 11/13/18 08:21 Dose: 1 mg Heparin Sodium (Porcine) (Heparin Sodium) 5,000 units SUBCUT Q8H [facility] Last Admin: 11/13/18 10:00 Dose: 5,000 units Sodium Chloride (Normal Saline) 1,000 mls @ 125 mls/hr IV ASDIRECTED [facility] Last Admin: 11/13/18 11:55 Dose: 125 mls/hr Vancomycin HCl 1 gm/ Sodium (Chloride) 250 mls @ 166.667 mls/hr IV Q12H [facility] Last Admin: 11/13/18 04:12 Dose: 166.667 mls/hr Levofloxacin/Dextrose 750 mg/ (Premix) 150 mls @ 100 mls/hr IV Q24H [facility] Last Admin: 11/12/18 14:13 Dose: 100 mls/hr Piperacillin Sod/Tazobactam (Sod 3.375 gm/ Sodium Chloride) 50 mls @ 100 mls/ hr IV Q6H [facility] Last Admin: 11/13/18 11:43 Dose: 100 mls/hr Ketorolac Tromethamine (Toradol) 15 mg IVPUSH Q6H PRN PRN Reason: Pain Stop: 11/17/18 12:11 Last Admin: 11/13/18 11:49 Dose: 15 mg Lorazepam (Ativan) 0 mg IVPUSH Q4H PRN; Protocol PRN Reason: Agitation Last Admin: 11/12/18 12:09 Dose: 2 mg Methylprednisolone Sodium Succinate (Solu-Medrol) 125 mg IVPUSH Q8H [facility] Last Admin: 11/13/18 05:44 Dose: 125 mg Ondansetron HCl (Zofran Odt) 4 mg PO Q4H PRN PRN Reason: nausea, able to take PO Thiamine HCl (Vitamin B-1) 100 mg PO DAILY [facility] Last Admin: 11/13/18 08:21 Dose: 100 mg Vancomycin HCl (Pharmacy To Dose - Vancomycin) 1 dose .XX ASDIRECTED [facility] Discontinued Medications Albuterol/Ipratropium (Duoneb 3.0-0.5 Mg/3 Ml) 3 ml NEB ONETIME ONE Stop: 11/11/18 13:48 Last Admin: 11/11/18 13:52 Dose: 3 ml Albuterol/Ipratropium (Duoneb 3.0-0.5 Mg/3 Ml) 3 ml NEB Q4HRRT PRN PRN Reason: Shortness Of Breath/wheezing Last Admin: 11/13/18 09:36 Dose: 3 ml Benzonatate (Tessalon Perles) Confirm Administered Dose 100 mg .ROUTE .STK-MED ONE Stop: 11/12/18 10:09 Last Admin: 11/12/18 10:13 Dose: 100 mg Sodium Chloride (Normal Saline) 1,000 mls @ 999 mls/hr IV BOLUS ONE Stop: 11/11/18 14:46 Last Infusion: 11/11/18 13:59 Dose: 80 mls/hr Levofloxacin/Dextrose 750 mg/ (Premix) 150 mls @ 100 mls/hr IV ONETIME ONE Stop: 11/11/18 16:10 Last Admin: 11/11/18 14:49 Dose: 100 mls/hr Iopamidol (Isovue Multipack-370 (76%)) 100 ml IVPUSH ONETIME ONE Stop: 11/11/18 19:21 Last Admin: 11/11/18 19:25 Dose: 100 ml Ketorolac Tromethamine (Toradol) 15 mg IVPUSH Q6H [facility] Stop: 11/17/18 12:11 Last Admin: 11/12/18 12:44 Dose: 15 mg Methylprednisolone Sodium Succinate (Solu-Medrol) 125 mg IVPUSH ONETIME ONE Stop: 11/11/18 13:48 Last Admin: 11/11/18 13:59 Dose: 125 mg Oxycodone HCl (Oxycodone) 5 mg PO ONETIME ONE Stop: 11/11/18 20:39 Last Admin: 11/11/18 21:45 Dose: 5 mg Potassium Chloride (Klor-Con M20) 40 meq PO ONETIME ONE Stop: 11/13/18 09:42 Last Admin: 11/13/18 10:54 Dose: 40 meq - Exam General: Alert, Oriented, Cooperative, No Acute Distress Lungs: Other (good airflow with rhonchi and wheezing bilaterally) Cardiovascular: Regular Rate, Regular Rhythm GI/Abdominal Exam: Normal Bowel Sounds, Soft, Non-Tender Extremities: Normal Inspection, No Pedal Edema Skin: Warm, Dry - Problem List Review Problem List Initiated/Reviewed/Updated: Yes - My Orders Last 24 Hours: My Active Orders 11/12/18 14:00 Benzonatate [Tessalon Perles] 200 mg PO TID 11/12/18 16:00 CIWAA Assessment [RC] Q4H 11/12/18 16:06 Ketorolac [Toradol] 15 mg IVPUSH Q6H PRN 11/13/18 09:38 RT Aerosol Therapy [RC] ASDIRECTED Albuterol/Ipratropium [DuoNeb 3.0-0.5 MG/3 ML] 3 ml NEB Q4HRRT PRN 11/13/18 12:00 Albuterol/Ipratropium [DuoNeb 3.0-0.5 MG/3 ML] 3 ml NEB Q6HRRT 11/13/18 14:00 Nystatin [Mycostatin] 5 ml PO TID - Plan Plan:: A: 1. Acute hypoxic respiratory failure 2. COPD exacerbation 3. HCAP 4. Hypokalemia 5. Leukocytosis likely reactive due to steroids 6. Oral thrush 7. Alcohol abuse 8. Celiac disease 9. Self care deficit 10. Severe protein undernourishment P: 1. Acute hypoxic respiratory failure. scheduled Duonebs Q6H and PRN. Continue antibiotics and methylprednisolone. 2. Hypokalemia, replaced with KCl 40 mEq PO once. Recheck tomorrow. Dispo: 2-3 days. <CeciliaIsraelGabino - Last Filed: 11/13/18 18:04> - General Info Admission Dx/Problem (Free Text): I have seen and examined to patient independently of medical unit secretary, Addy Gaston MD. I have discussed the case for care of this patient with him. I have reviewed and approve of the plan of care as outlined by medical unit secretary. Please see orders. - Patient Data Vitals - Most Recent: Last Vital Signs Temp 36.7 C 11/13/18 15:06 Pulse 139 H 11/13/18 15:06 Resp 18 11/13/18 15:06 BP 134/80 11/13/18 15:06 Pulse Ox 94 L 11/13/18 15:06 I&O - Last 24 Hours: Intake & Output 11/13/18 11/13/18 11/13/18 06:59 14:59 22:59 Intake Total 2613 60 2330 Output Total 500 Balance 2613 60 1830 Lab Results Last 24 Hours: Laboratory Results - last 24 hr 11/13/18 11/13/18 11/13/18 Range/Units 02:20 05:35 05:35 WBC 12.53 H (4.0-11.0) K/uL RBC 2.76 L (4.50-5.90) M/uL Hgb 8.8 L (13.0-17.0) g/dL Hct 28.3 L (38.0-50.0) % MCV 102.5 H (80.0-98.0) fL MCH 31.9 (27.0-32.0) pg MCHC 31.1 (31.0-37.0) g/dL RDW Std Deviation 88.2 H (28.0-62.0) fl RDW Coeff of Willy 24 H (11.0-15.0) % Plt Count 271 (150-400) K/uL MPV 11.90 (7.40-12.00) fL Nucleated RBC % 0.0 /100WBC Nucleated RBCs # 0 K/uL Lactate 0.7 (0.20-2.00) mmol/L Sodium 142 (136-148) mmol/L Potassium 3.2 L (3.5-5.1) mmol/L Chloride 109 H (98-107) mmol/L Carbon Dioxide 20.5 L (21.0-32.0) mmol/L BUN 9 (7.0-18.0) mg/dL Creatinine 0.7 L (0.8-1.3) mg/dL Est Cr Clr Drug Dosing 104.49 mL/min Estimated GFR (MDRD) > 60.0 ml/min Glucose 145 H (74-106) mg/dL Calcium 7.7 L (8.5-10.1) mg/dL Magnesium (1.8-2.4) mg/dL Vancomycin Trough (5.0-10.0) ug/mL 11/13/18 11/13/18 Range/Units 05:57 15:10 WBC (4.0-11.0) K/uL RBC (4.50-5.90) M/uL Hgb (13.0-17.0) g/dL Hct (38.0-50.0) % MCV (80.0-98.0) fL MCH (27.0-32.0) pg MCHC (31.0-37.0) g/dL RDW Std Deviation (28.0-62.0) fl RDW Coeff of Willy (11.0-15.0) % Plt Count (150-400) K/uL MPV (7.40-12.00) fL Nucleated RBC % /100WBC Nucleated RBCs # K/uL Lactate (0.20-2.00) mmol/L Sodium (136-148) mmol/L Potassium (3.5-5.1) mmol/L Chloride (98-107) mmol/L Carbon Dioxide (21.0-32.0) mmol/L BUN (7.0-18.0) mg/dL Creatinine (0.8-1.3) mg/dL Est Cr Clr Drug Dosing mL/min Estimated GFR (MDRD) ml/min Glucose (74-106) mg/dL Calcium (8.5-10.1) mg/dL Magnesium 1.7 L (1.8-2.4) mg/dL Vancomycin Trough 17.7 H (5.0-10.0) ug/mL Kike Results Last 24 Hours: Microbiology 11/11/18 12:10 Aerobic Blood Culture - Preliminary Blood - Venous - Lab Draw NO GROWTH AFTER 2 DAYS Anaerobic Blood Culture - Preliminary NO GROWTH AFTER 2 DAYS 11/11/18 13:48 Aerobic Blood Culture - Preliminary Blood - Venous NO GROWTH AFTER 2 DAYS Anaerobic Blood Culture - Preliminary NO GROWTH AFTER 2 DAYS 11/12/18 00:10 Gram Stain - Final Sputum - Expectorated Sputum Culture - Preliminary Yeast Med Orders - Current: Current Medications Acetaminophen (Tylenol) 650 mg PO Q4H PRN PRN Reason: Pain Last Admin: 11/13/18 16:59 Dose: 650 mg Albuterol/Ipratropium (Duoneb 3.0-0.5 Mg/3 Ml) 3 ml NEB Q6HRRT [facility] Last Admin: 11/13/18 17:16 Dose: 3 ml Albuterol/Ipratropium (Duoneb 3.0-0.5 Mg/3 Ml) 3 ml NEB Q4HRRT PRN PRN Reason: Shortness of Breath Last Admin: 11/13/18 14:12 Dose: 3 ml Benzonatate (Tessalon Perles) 200 mg PO TID [facility] Last Admin: 11/13/18 13:23 Dose: 200 mg Folic Acid (Folic Acid) 1 mg PO DAILY [facility] Last Admin: 11/13/18 08:21 Dose: 1 mg Heparin Sodium (Porcine) (Heparin Sodium) 5,000 units SUBCUT Q8H [facility] Last Admin: 11/13/18 18:01 Dose: 5,000 units Sodium Chloride (Normal Saline) 1,000 mls @ 125 mls/hr IV ASDIRECTED [facility] Last Admin: 11/13/18 11:55 Dose: 125 mls/hr Vancomycin HCl 1 gm/ Sodium (Chloride) 250 mls @ 166.667 mls/hr IV Q12H [facility] Last Admin: 11/13/18 16:15 Dose: 166.667 mls/hr Levofloxacin/Dextrose 750 mg/ (Premix) 150 mls @ 100 mls/hr IV Q24H [facility] Last Admin: 11/13/18 13:18 Dose: 100 mls/hr Piperacillin Sod/Tazobactam (Sod 3.375 gm/ Sodium Chloride) 50 mls @ 100 mls/ hr IV Q6H [facility] Last Admin: 11/13/18 18:03 Dose: 100 mls/hr Magnesium Sulfate 2 gm/ Premix 50 mls @ 25 mls/hr IV ONETIME ONE Stop: 11/13/18 19:10 Ketorolac Tromethamine (Toradol) 15 mg IVPUSH Q6H PRN PRN Reason: Pain Stop: 11/17/18 12:11 Last Admin: 11/13/18 11:49 Dose: 15 mg Lorazepam (Ativan) 0 mg IVPUSH Q4H PRN; Protocol PRN Reason: Agitation Last Admin: 11/12/18 12:09 Dose: 2 mg Methylprednisolone Sodium Succinate (Solu-Medrol) 125 mg IVPUSH Q8H [facility] Last Admin: 11/13/18 13:25 Dose: 125 mg Nystatin (Mycostatin) 5 ml PO TID [facility] Last Admin: 11/13/18 13:24 Dose: 5 ml Ondansetron HCl (Zofran Odt) 4 mg PO Q4H PRN PRN Reason: nausea, able to take PO Thiamine HCl (Vitamin B-1) 100 mg PO DAILY [facility] Last Admin: 11/13/18 08:21 Dose: 100 mg Vancomycin HCl (Pharmacy To Dose - Vancomycin) 1 dose .XX ASDIRECTED [facility] Discontinued Medications Albuterol/Ipratropium (Duoneb 3.0-0.5 Mg/3 Ml) 3 ml NEB ONETIME ONE Stop: 11/11/18 13:48 Last Admin: 11/11/18 13:52 Dose: 3 ml Albuterol/Ipratropium (Duoneb 3.0-0.5 Mg/3 Ml) 3 ml NEB Q4HRRT PRN PRN Reason: Shortness Of Breath/wheezing Last Admin: 11/13/18 09:36 Dose: 3 ml Benzonatate (Tessalon Perles) Confirm Administered Dose 100 mg .ROUTE .STK-MED ONE Stop: 11/12/18 10:09 Last Admin: 11/12/18 10:13 Dose: 100 mg Sodium Chloride (Normal Saline) 1,000 mls @ 999 mls/hr IV BOLUS ONE Stop: 11/11/18 14:46 Last Infusion: 11/11/18 13:59 Dose: 80 mls/hr Levofloxacin/Dextrose 750 mg/ (Premix) 150 mls @ 100 mls/hr IV ONETIME ONE Stop: 11/11/18 16:10 Last Admin: 11/11/18 14:49 Dose: 100 mls/hr Iopamidol (Isovue Multipack-370 (76%)) 100 ml IVPUSH ONETIME ONE Stop: 11/11/18 19:21 Last Admin: 11/11/18 19:25 Dose: 100 ml Ketorolac Tromethamine (Toradol) 15 mg IVPUSH Q6H [facility] Stop: 11/17/18 12:11 Last Admin: 11/12/18 12:44 Dose: 15 mg Methylprednisolone Sodium Succinate (Solu-Medrol) 125 mg IVPUSH ONETIME ONE Stop: 11/11/18 13:48 Last Admin: 11/11/18 13:59 Dose: 125 mg Oxycodone HCl (Oxycodone) 5 mg PO ONETIME ONE Stop: 11/11/18 20:39 Last Admin: 11/11/18 21:45 Dose: 5 mg Potassium Chloride (Klor-Con M20) 40 meq PO ONETIME ONE Stop: 11/13/18 09:42 Last Admin: 11/13/18 10:54 Dose: 40 meq
[2018-11-13] MEDS: Levofloxacin/Dextrose 5%-Water 750 MG in Premix Bag 1 BAG IV SCH (13:18)
[2018-11-13] MEDS: Nystatin Susp 100,000 Unit/ML 5 ML UD Cup PO SCH ×2 (13:24→21:54)
[2018-11-13] MEDS: Acetaminophen 325 MG Tab PO PRN ×2 (16:59→21:53)
[2018-11-13] MEDS ORDERED: Magnesium Sulfate/Water 2 GM in Premix Bag 1 BAG IV ONE (17:11)
[2018-11-14] MEDS: Albuterol/Ipratropium 3.0-0.5 MG/3 ML Neb Soln NEB PRN (01:58)
[2018-11-14] MEDS: Heparin Sodium 5,000 Units/ML Vial SUBCUT SCH ×3 (01:59→19:31)
[2018-11-14] MEDS: Sodium Chloride 0.9% 1,000 ML IV SCH ×3 (02:12→23:43)
[2018-11-14] MEDS: Acetaminophen 325 MG Tab PO PRN (05:45)
[2018-11-14] MEDS: Benzonatate 100 MG Cap PO SCH ×3 (05:46→21:20)
[2018-11-14] MEDS: methylPREDNISolone Sodium Succinate 125 MG/2 ML SDV IVPUSH SCH ×2 (05:47→08:00)
[2018-11-14] MEDS: Nystatin Susp 100,000 Unit/ML 5 ML UD Cup PO SCH ×3 (05:47→21:20)
[2018-11-14] MEDS: Piperacillin/Tazobactam 3.375 GM in Sodium Chloride 0.9% 50 ML IV SCH ×4 (05:47→23:44)
[2018-11-14] MEDS: Albuterol/Ipratropium 3.0-0.5 MG/3 ML Neb Soln NEB SCH ×4 (05:56→23:44)
[2018-11-14 06:07] LABS: CHLORIDE,CL 110 mmol/L (98-107); SODIUM,NA 143 mmol/L (136-148)
[2018-11-14] MEDS ORDERED: Temazepam 15 MG Cap PO PRN (07:26)
[2018-11-14] MEDS ORDERED: Potassium Chloride 10% 20 MEQ/15 ML Soln 30 ML UD Cup PO SCH (07:30)
[2018-11-14] MEDS: Ketorolac 15 MG/ML SDV IVPUSH PRN ×2 (07:56→20:32)
[2018-11-14] MEDS: Thiamine 100 MG Tab PO SCH (08:10)
[2018-11-14] MEDS: Folic Acid 1 MG Tab PO SCH (08:10)
--- NOTE | 2018-11-14 08:18 | PCM.PN ---
<Addy Wise - Last Filed: 11/14/18 08:14> - General Info Date of Service: 11/14/18 Subjective Update: No acute events overnight. Did not sleep well. Still coughing and short of breath. No chest pain, abdominal pain. Poor appetite. - Patient Data Vitals - Most Recent: Last Vital Signs Temp 36.4 C 11/14/18 07:25 Pulse 106 H 11/14/18 07:25 Resp 20 11/14/18 07:25 BP 134/88 11/14/18 07:25 Pulse Ox 92 L 11/14/18 07:25 Weight - Most Recent: 61.235 kg I&O - Last 24 Hours: Intake & Output 11/13/18 11/14/18 11/14/18 22:59 06:59 14:59 Intake Total 2430 1703 Output Total 500 400 Balance 1930 1303 Lab Results Last 24 Hours: Laboratory Results - last 24 hr 11/13/18 11/13/18 11/14/18 Range/Units 05:57 15:10 05:35 Sodium 143 (136-148) mmol/L Potassium 3.5 (3.5-5.1) mmol/L Chloride 110 H (98-107) mmol/L Carbon Dioxide 24.9 (21.0-32.0) mmol/L BUN 8 (7.0-18.0) mg/dL Creatinine 0.7 L (0.8-1.3) mg/dL Est Cr Clr Drug Dosing 104.49 mL/min Estimated GFR (MDRD) > 60.0 ml/min Glucose 170 H (74-106) mg/dL Calcium 7.8 L (8.5-10.1) mg/dL Magnesium 1.7 L 2.1 (1.8-2.4) mg/dL Vancomycin Trough 17.7 H (5.0-10.0) ug/mL Kike Results Last 24 Hours: Microbiology 11/11/18 12:10 Aerobic Blood Culture - Preliminary Blood - Venous - Lab Draw NO GROWTH AFTER 2 DAYS Anaerobic Blood Culture - Preliminary NO GROWTH AFTER 2 DAYS 11/11/18 13:48 Aerobic Blood Culture - Preliminary Blood - Venous NO GROWTH AFTER 2 DAYS Anaerobic Blood Culture - Preliminary NO GROWTH AFTER 2 DAYS 11/12/18 00:10 Gram Stain - Final Sputum - Expectorated Sputum Culture - Preliminary Yeast Med Orders - Current: Current Medications Acetaminophen (Tylenol) 650 mg PO Q4H PRN PRN Reason: Pain Last Admin: 11/14/18 05:45 Dose: 650 mg Albuterol/Ipratropium (Duoneb 3.0-0.5 Mg/3 Ml) 3 ml NEB Q6HRRT [facility] Last Admin: 11/14/18 05:56 Dose: 3 ml Albuterol/Ipratropium (Duoneb 3.0-0.5 Mg/3 Ml) 3 ml NEB Q4HRRT PRN PRN Reason: Shortness of Breath Last Admin: 11/14/18 01:58 Dose: 3 ml Benzonatate (Tessalon Perles) 200 mg PO TID [facility] Last Admin: 11/14/18 05:46 Dose: 200 mg Folic Acid (Folic Acid) 1 mg PO DAILY [facility] Last Admin: 11/14/18 08:10 Dose: 1 mg Heparin Sodium (Porcine) (Heparin Sodium) 5,000 units SUBCUT Q8H [facility] Last Admin: 11/14/18 01:59 Dose: Not Given Sodium Chloride (Normal Saline) 1,000 mls @ 125 mls/hr IV ASDIRECTED [facility] Last Admin: 11/14/18 02:12 Dose: 125 mls/hr Vancomycin HCl 1 gm/ Sodium (Chloride) 250 mls @ 166.667 mls/hr IV Q12H [facility] Last Admin: 11/14/18 03:46 Dose: 166.667 mls/hr Levofloxacin/Dextrose 750 mg/ (Premix) 150 mls @ 100 mls/hr IV Q24H [facility] Last Admin: 11/13/18 13:18 Dose: 100 mls/hr Piperacillin Sod/Tazobactam (Sod 3.375 gm/ Sodium Chloride) 50 mls @ 100 mls/ hr IV Q6H [facility] Last Admin: 11/14/18 05:47 Dose: 100 mls/hr Ketorolac Tromethamine (Toradol) 15 mg IVPUSH Q6H PRN PRN Reason: Pain Stop: 11/17/18 12:11 Last Admin: 11/14/18 07:56 Dose: 15 mg Lorazepam (Ativan) 0 mg IVPUSH Q4H PRN; Protocol PRN Reason: Agitation Last Admin: 11/12/18 12:09 Dose: 2 mg Methylprednisolone Sodium Succinate (Solu-Medrol) 125 mg IVPUSH DAILY [facility] Last Admin: 11/14/18 08:00 Dose: 125 mg Nystatin (Mycostatin) 5 ml PO TID [facility] Last Admin: 11/14/18 05:47 Dose: 5 ml Ondansetron HCl (Zofran Odt) 4 mg PO Q4H PRN PRN Reason: nausea, able to take PO Potassium Chloride (Potassium Chloride) 40 meq PO Q4H [facility] Stop: 11/14/18 11:31 Last Admin: 11/14/18 08:10 Dose: 40 meq Temazepam (Restoril) 15 mg PO BEDTIME PRN PRN Reason: Insomnia Thiamine HCl (Vitamin B-1) 100 mg PO DAILY [facility] Last Admin: 11/14/18 08:10 Dose: 100 mg Vancomycin HCl (Pharmacy To Dose - Vancomycin) 1 dose .XX ASDIRECTED [facility] Discontinued Medications Albuterol/Ipratropium (Duoneb 3.0-0.5 Mg/3 Ml) 3 ml NEB ONETIME ONE Stop: 11/11/18 13:48 Last Admin: 11/11/18 13:52 Dose: 3 ml Albuterol/Ipratropium (Duoneb 3.0-0.5 Mg/3 Ml) 3 ml NEB Q4HRRT PRN PRN Reason: Shortness Of Breath/wheezing Last Admin: 11/13/18 09:36 Dose: 3 ml Benzonatate (Tessalon Perles) Confirm Administered Dose 100 mg .ROUTE .STK-MED ONE Stop: 11/12/18 10:09 Last Admin: 11/12/18 10:13 Dose: 100 mg Sodium Chloride (Normal Saline) 1,000 mls @ 999 mls/hr IV BOLUS ONE Stop: 11/11/18 14:46 Last Infusion: 11/11/18 13:59 Dose: 80 mls/hr Levofloxacin/Dextrose 750 mg/ (Premix) 150 mls @ 100 mls/hr IV ONETIME ONE Stop: 11/11/18 16:10 Last Admin: 11/11/18 14:49 Dose: 100 mls/hr Magnesium Sulfate 2 gm/ Premix 50 mls @ 25 mls/hr IV ONETIME ONE Stop: 11/13/18 19:10 Last Admin: 11/13/18 18:41 Dose: 25 mls/hr Iopamidol (Isovue Multipack-370 (76%)) 100 ml IVPUSH ONETIME ONE Stop: 11/11/18 19:21 Last Admin: 11/11/18 19:25 Dose: 100 ml Ketorolac Tromethamine (Toradol) 15 mg IVPUSH Q6H [facility] Stop: 11/17/18 12:11 Last Admin: 11/12/18 12:44 Dose: 15 mg Methylprednisolone Sodium Succinate (Solu-Medrol) 125 mg IVPUSH ONETIME ONE Stop: 11/11/18 13:48 Last Admin: 11/11/18 13:59 Dose: 125 mg Methylprednisolone Sodium Succinate (Solu-Medrol) 125 mg IVPUSH Q8H [facility] Last Admin: 11/14/18 05:47 Dose: 125 mg Oxycodone HCl (Oxycodone) 5 mg PO ONETIME ONE Stop: 11/11/18 20:39 Last Admin: 11/11/18 21:45 Dose: 5 mg Potassium Chloride (Klor-Con M20) 40 meq PO ONETIME ONE Stop: 11/13/18 09:42 Last Admin: 11/13/18 10:54 Dose: 40 meq - Exam Quality Assessment: Supplemental Oxygen General: Alert, Oriented, Cooperative, No Acute Distress Lungs: Normal Respiratory Effort, Rhonchi, Wheezing Cardiovascular: Regular Rhythm, Tachycardia GI/Abdominal Exam: Normal Bowel Sounds, Soft, Non-Tender Extremities: No Pedal Edema Skin: Warm, Dry - Problem List Review Problem List Initiated/Reviewed/Updated: Yes - My Orders Last 24 Hours: My Active Orders 11/13/18 09:38 RT Aerosol Therapy [RC] ASDIRECTED Albuterol/Ipratropium [DuoNeb 3.0-0.5 MG/3 ML] 3 ml NEB Q4HRRT PRN 11/13/18 12:00 Albuterol/Ipratropium [DuoNeb 3.0-0.5 MG/3 ML] 3 ml NEB Q6HRRT 11/13/18 14:00 Nystatin [Mycostatin] 5 ml PO TID 11/14/18 07:26 Temazepam [Restoril] 15 mg PO BEDTIME PRN 11/14/18 07:30 Potassium Chloride 40 meq PO Q4H 11/14/18 09:00 methylPREDNISolone Sod Succ [Solu-MEDROL] 125 mg IVPUSH DAILY - Plan Plan:: A: 1. Acute hypoxic respiratory failure, stable 2. COPD exacerbation 3. HCAP 4. Hypokalemia 5. Leukocytosis 6. Oral thrush 7. Alcohol abuse 8. Celiac disease 9. Self care deficit 10. Severe protein undernourishment P: 1. Acute hypoxic respiratory failure. scheduled Duonebs Q6H and PRN. Continue antibiotics and methylprednisolone. 2. HCAP- Will continue with Levaquin, Zosyn and Vancomycin for now. 3. Hypokalemia, replaced with KCl 40 mEq PO x2 doses. Recheck tomorrow. Dispo: likely 2-3 days. <Israel Brooks - Last Filed: 11/14/18 09:59> - Patient Data Vitals - Most Recent: Last Vital Signs Temp 36.4 C 11/14/18 07:25 Pulse 106 H 11/14/18 07:25 Resp 20 11/14/18 07:25 BP 134/88 11/14/18 07:25 Pulse Ox 92 L 11/14/18 07:25 I&O - Last 24 Hours: Intake & Output 11/13/18 11/14/18 11/14/18 22:59 06:59 14:59 Intake Total 2430 1703 Output Total 500 400 Balance 1930 1303 Lab Results Last 24 Hours: Laboratory Results - last 24 hr 11/13/18 11/13/18 11/14/18 Range/Units 05:57 15:10 05:35 Sodium 143 (136-148) mmol/L Potassium 3.5 (3.5-5.1) mmol/L Chloride 110 H (98-107) mmol/L Carbon Dioxide 24.9 (21.0-32.0) mmol/L BUN 8 (7.0-18.0) mg/dL Creatinine 0.7 L (0.8-1.3) mg/dL Est Cr Clr Drug Dosing 104.49 mL/min Estimated GFR (MDRD) > 60.0 ml/min Glucose 170 H (74-106) mg/dL Calcium 7.8 L (8.5-10.1) mg/dL Magnesium 1.7 L 2.1 (1.8-2.4) mg/dL Vancomycin Trough 17.7 H (5.0-10.0) ug/mL Kike Results Last 24 Hours: Microbiology 11/12/18 00:10 Gram Stain - Final Sputum - Expectorated Sputum Culture - Final Yeast 11/11/18 12:10 Aerobic Blood Culture - Preliminary Blood - Venous - Lab Draw NO GROWTH AFTER 2 DAYS Anaerobic Blood Culture - Preliminary NO GROWTH AFTER 2 DAYS 11/11/18 13:48 Aerobic Blood Culture - Preliminary Blood - Venous NO GROWTH AFTER 2 DAYS Anaerobic Blood Culture - Preliminary NO GROWTH AFTER 2 DAYS Med Orders - Current: Current Medications Acetaminophen (Tylenol) 650 mg PO Q4H PRN PRN Reason: Pain Last Admin: 11/14/18 05:45 Dose: 650 mg Albuterol/Ipratropium (Duoneb 3.0-0.5 Mg/3 Ml) 3 ml NEB Q6HRRT [facility] Last Admin: 11/14/18 05:56 Dose: 3 ml Albuterol/Ipratropium (Duoneb 3.0-0.5 Mg/3 Ml) 3 ml NEB Q4HRRT PRN PRN Reason: Shortness of Breath Last Admin: 11/14/18 01:58 Dose: 3 ml Benzonatate (Tessalon Perles) 200 mg PO TID [facility] Last Admin: 11/14/18 05:46 Dose: 200 mg Folic Acid (Folic Acid) 1 mg PO DAILY [facility] Last Admin: 11/14/18 08:10 Dose: 1 mg Heparin Sodium (Porcine) (Heparin Sodium) 5,000 units SUBCUT Q8H [facility] Last Admin: 11/14/18 01:59 Dose: Not Given Sodium Chloride (Normal Saline) 1,000 mls @ 125 mls/hr IV ASDIRECTED [facility] Last Admin: 11/14/18 02:12 Dose: 125 mls/hr Vancomycin HCl 1 gm/ Sodium (Chloride) 250 mls @ 166.667 mls/hr IV Q12H [facility] Last Admin: 11/14/18 03:46 Dose: 166.667 mls/hr Levofloxacin/Dextrose 750 mg/ (Premix) 150 mls @ 100 mls/hr IV Q24H [facility] Last Admin: 11/13/18 13:18 Dose: 100 mls/hr Piperacillin Sod/Tazobactam (Sod 3.375 gm/ Sodium Chloride) 50 mls @ 100 mls/ hr IV Q6H [facility] Last Admin: 11/14/18 05:47 Dose: 100 mls/hr Ketorolac Tromethamine (Toradol) 15 mg IVPUSH Q6H PRN PRN Reason: Pain Stop: 11/17/18 12:11 Last Admin: 11/14/18 07:56 Dose: 15 mg Lorazepam (Ativan) 0.5 mg PO Q8H PRN PRN Reason: Anxiety Methylprednisolone Sodium Succinate (Solu-Medrol) 125 mg IVPUSH DAILY [facility] Last Admin: 11/14/18 08:00 Dose: 125 mg Nystatin (Mycostatin) 5 ml PO TID [facility] Last Admin: 11/14/18 05:47 Dose: 5 ml Ondansetron HCl (Zofran Odt) 4 mg PO Q4H PRN PRN Reason: nausea, able to take PO Last Admin: 11/14/18 08:18 Dose: 4 mg Potassium Chloride (Potassium Chloride) 40 meq PO Q4H [facility] Stop: 11/14/18 11:31 Last Admin: 11/14/18 08:10 Dose: 40 meq Temazepam (Restoril) 15 mg PO BEDTIME PRN PRN Reason: Insomnia Thiamine HCl (Vitamin B-1) 100 mg PO DAILY [facility] Last Admin: 11/14/18 08:10 Dose: 100 mg Vancomycin HCl (Pharmacy To Dose - Vancomycin) 1 dose .XX ASDIRECTED [facility] Discontinued Medications Albuterol/Ipratropium (Duoneb 3.0-0.5 Mg/3 Ml) 3 ml NEB ONETIME ONE Stop: 11/11/18 13:48 Last Admin: 11/11/18 13:52 Dose: 3 ml Albuterol/Ipratropium (Duoneb 3.0-0.5 Mg/3 Ml) 3 ml NEB Q4HRRT PRN PRN Reason: Shortness Of Breath/wheezing Last Admin: 11/13/18 09:36 Dose: 3 ml Benzonatate (Tessalon Perles) Confirm Administered Dose 100 mg .ROUTE .STK-MED ONE Stop: 11/12/18 10:09 Last Admin: 11/12/18 10:13 Dose: 100 mg Sodium Chloride (Normal Saline) 1,000 mls @ 999 mls/hr IV BOLUS ONE Stop: 11/11/18 14:46 Last Infusion: 11/11/18 13:59 Dose: 80 mls/hr Levofloxacin/Dextrose 750 mg/ (Premix) 150 mls @ 100 mls/hr IV ONETIME ONE Stop: 11/11/18 16:10 Last Admin: 11/11/18 14:49 Dose: 100 mls/hr Magnesium Sulfate 2 gm/ Premix 50 mls @ 25 mls/hr IV ONETIME ONE Stop: 11/13/18 19:10 Last Admin: 11/13/18 18:41 Dose: 25 mls/hr Iopamidol (Isovue Multipack-370 (76%)) 100 ml IVPUSH ONETIME ONE Stop: 11/11/18 19:21 Last Admin: 11/11/18 19:25 Dose: 100 ml Ketorolac Tromethamine (Toradol) 15 mg IVPUSH Q6H [facility] Stop: 11/17/18 12:11 Last Admin: 11/12/18 12:44 Dose: 15 mg Lorazepam (Ativan) 0 mg IVPUSH Q4H PRN; Protocol PRN Reason: Agitation Last Admin: 11/12/18 12:09 Dose: 2 mg Methylprednisolone Sodium Succinate (Solu-Medrol) 125 mg IVPUSH ONETIME ONE Stop: 11/11/18 13:48 Last Admin: 11/11/18 13:59 Dose: 125 mg Methylprednisolone Sodium Succinate (Solu-Medrol) 125 mg IVPUSH Q8H [facility] Last Admin: 11/14/18 05:47 Dose: 125 mg Oxycodone HCl (Oxycodone) 5 mg PO ONETIME ONE Stop: 11/11/18 20:39 Last Admin: 11/11/18 21:45 Dose: 5 mg Potassium Chloride (Klor-Con M20) 40 meq PO ONETIME ONE Stop: 11/13/18 09:42 Last Admin: 11/13/18 10:54 Dose: 40 meq
[2018-11-14] MEDS ORDERED: LORazepam 0.5 MG Tab PO PRN (10:00)
[2018-11-14] MEDS ORDERED: Albuterol 8 GM Inhaler INH PRN (10:22)
[2018-11-14] MEDS ORDERED: Potassium Chloride 20 MEQ Tab.ER PO SCH (11:30)
--- NOTE | 2018-11-14 11:30 | CR ---
EXAMINATION: Two-view chest (PA and Lateral views). HISTORY: Dyspnea. Comparison: CT dated 11/11/2018. FINDINGS: The trachea is midline. The cardiomediastinal silhouette is within normal limits. Mild persistent infiltrates bilaterally. No significant pleural effusion or pneumothorax. Osseous structures appear unremarkable. IMPRESSION: Mild persistent pulmonary infiltrates noted.
[2018-11-14] MEDS: Levofloxacin/Dextrose 5%-Water 750 MG in Premix Bag 1 BAG IV SCH (15:07)
--- NOTE | 2018-11-14 16:50 | US ---
EXAMINATION: Right upper quadrant ultrasound HISTORY: Ascites COMPARISON: Abdomen and pelvis dated 11/02/2018 TECHNIQUE: Grayscale and color Doppler imaging obtained. FINDINGS: The pancreas appears normal. The liver is increased in echogenicity with a mildly nodular contour. No focal hepatic mass. The common bile duct measures 5 mm. The gallbladder wall thickness is normal however the gallbladder is minimally distended containing sludge. Right kidney measures 10.6 cm [id number] without evidence of hydronephrosis. Small to moderate abnormal ascites. IMPRESSION: 1. Liver is echogenic and nodular consistent with cirrhosis. 2. Abdominal ascites.
[2018-11-15] MEDS: Heparin Sodium 5,000 Units/ML Vial SUBCUT SCH ×3 (03:07→18:43)
[2018-11-15] MEDS: Ketorolac 15 MG/ML SDV IVPUSH PRN ×2 (03:09→20:33)
[2018-11-15] MEDS: Albuterol/Ipratropium 3.0-0.5 MG/3 ML Neb Soln NEB PRN (04:07)
[2018-11-15] MEDS: Albuterol/Ipratropium 3.0-0.5 MG/3 ML Neb Soln NEB SCH ×4 (05:33→23:57)
[2018-11-15] MEDS: Acetaminophen 325 MG Tab PO PRN (06:14)
[2018-11-15] MEDS: Nystatin Susp 100,000 Unit/ML 5 ML UD Cup PO SCH ×3 (06:14→21:34)
[2018-11-15] MEDS: Benzonatate 100 MG Cap PO SCH ×3 (06:14→21:34)
[2018-11-15] MEDS: Piperacillin/Tazobactam 3.375 GM in Sodium Chloride 0.9% 50 ML IV SCH ×4 (06:15→23:57)
[2018-11-15 06:18] LABS: CHLORIDE,CL 111 mmol/L (98-107); SODIUM,NA 140 mmol/L (136-148)
--- NOTE | 2018-11-15 08:53 | PCM.PN ---
<Addy Wise - Last Filed: 11/15/18 08:45> - General Info Date of Service: 11/15/18 Subjective Update: No acute events overnight. Denies chest pain, abdominal pain, dysuria, diarrhea. Still short of breath with lower extremity edema. - Patient Data Vitals - Most Recent: Last Vital Signs Temp 36.2 C 11/15/18 07:17 Pulse 104 H 11/15/18 03:20 Resp 14 11/15/18 07:17 BP 146/86 H 11/15/18 07:17 Pulse Ox 97 11/15/18 07:17 Weight - Most Recent: 61.235 kg I&O - Last 24 Hours: Intake & Output 11/14/18 11/15/18 11/15/18 22:59 06:59 14:59 Intake Total 850 2569 Output Total 100 650 Balance 750 1919 Lab Results Last 24 Hours: Laboratory Results - last 24 hr 11/15/18 11/15/18 Range/Units 05:35 05:35 WBC 14.81 H (4.0-11.0) K/uL RBC 2.90 L (4.50-5.90) M/uL Hgb 9.4 L (13.0-17.0) g/dL Hct 30.8 L (38.0-50.0) % MCV 106.2 H (80.0-98.0) fL MCH 32.4 H (27.0-32.0) pg MCHC 30.5 L (31.0-37.0) g/dL RDW Std Deviation 92.7 H (28.0-62.0) fl RDW Coeff of Willy 24 H (11.0-15.0) % Plt Count 204 (150-400) K/uL MPV 11.50 (7.40-12.00) fL Nucleated RBC % 0.0 /100WBC Nucleated RBCs # 0 K/uL Sodium 140 (136-148) mmol/L Potassium 4.1 (3.5-5.1) mmol/L Chloride 111 H (98-107) mmol/L Carbon Dioxide 26.3 (21.0-32.0) mmol/L BUN 7 (7.0-18.0) mg/dL Creatinine 0.7 L (0.8-1.3) mg/dL Est Cr Clr Drug Dosing 104.49 mL/min Estimated GFR (MDRD) > 60.0 ml/min Glucose 100 (74-106) mg/dL Calcium 7.9 L (8.5-10.1) mg/dL Kike Results Last 24 Hours: Microbiology 11/11/18 12:10 Aerobic Blood Culture - Preliminary Blood - Venous - Lab Draw NO GROWTH AFTER 3 DAYS Anaerobic Blood Culture - Preliminary NO GROWTH AFTER 3 DAYS 11/11/18 13:48 Aerobic Blood Culture - Preliminary Blood - Venous NO GROWTH AFTER 3 DAYS Anaerobic Blood Culture - Preliminary NO GROWTH AFTER 3 DAYS 11/12/18 00:10 Gram Stain - Final Sputum - Expectorated Sputum Culture - Final Yeast Med Orders - Current: Current Medications Acetaminophen (Tylenol) 650 mg PO Q4H PRN PRN Reason: Pain Last Admin: 11/15/18 06:14 Dose: 650 mg Albuterol (Ventolin Hfa) 0 gm INH Q4H PRN PRN Reason: Wheezing Albuterol/Ipratropium (Duoneb 3.0-0.5 Mg/3 Ml) 3 ml NEB Q6HRRT [facility] Last Admin: 11/15/18 05:33 Dose: 3 ml Albuterol/Ipratropium (Duoneb 3.0-0.5 Mg/3 Ml) 3 ml NEB Q4HRRT PRN PRN Reason: Shortness of Breath Last Admin: 11/15/18 04:07 Dose: 3 ml Benzonatate (Tessalon Perles) 200 mg PO TID [facility] Last Admin: 11/15/18 06:14 Dose: 200 mg Folic Acid (Folic Acid) 1 mg PO DAILY [facility] Last Admin: 11/14/18 08:10 Dose: 1 mg Furosemide (Lasix) 20 mg IVPUSH ONETIME ONE Stop: 11/15/18 10:01 Heparin Sodium (Porcine) (Heparin Sodium) 5,000 units SUBCUT Q8H [facility] Last Admin: 11/15/18 03:07 Dose: 5,000 units Sodium Chloride (Normal Saline) 1,000 mls @ 125 mls/hr IV ASDIRECTED [facility] Last Admin: 11/14/18 23:43 Dose: 125 mls/hr Vancomycin HCl 1 gm/ Sodium (Chloride) 250 mls @ 166.667 mls/hr IV Q12H [facility] Last Admin: 11/15/18 03:15 Dose: 166.667 mls/hr Levofloxacin/Dextrose 750 mg/ (Premix) 150 mls @ 100 mls/hr IV Q24H [facility] Last Admin: 11/14/18 15:07 Dose: 100 mls/hr Piperacillin Sod/Tazobactam (Sod 3.375 gm/ Sodium Chloride) 50 mls @ 100 mls/ hr IV Q6H [facility] Last Admin: 11/15/18 06:15 Dose: 100 mls/hr Albumin Human (Flexbumin 25%) 12.5 gm in 50 mls @ 100 mls/hr IV ONETIME ONE Stop: 11/15/18 08:47 Ketorolac Tromethamine (Toradol) 15 mg IVPUSH Q6H PRN PRN Reason: Pain Stop: 11/17/18 12:11 Last Admin: 11/15/18 03:09 Dose: 15 mg Lorazepam (Ativan) 0.5 mg PO Q8H PRN PRN Reason: Anxiety Methylprednisolone Sodium Succinate (Solu-Medrol) 125 mg IVPUSH DAILY [facility] Last Admin: 11/14/18 08:00 Dose: 125 mg Nystatin (Mycostatin) 5 ml PO TID [facility] Last Admin: 11/15/18 06:14 Dose: 5 ml Ondansetron HCl (Zofran Odt) 4 mg PO Q4H PRN PRN Reason: nausea, able to take PO Last Admin: 11/14/18 08:18 Dose: 4 mg Potassium Chloride (Klor-Con M20) 40 meq PO ONETIME@1130 [facility] Last Admin: 11/14/18 11:29 Dose: 40 meq Temazepam (Restoril) 15 mg PO BEDTIME PRN PRN Reason: Insomnia Thiamine HCl (Vitamin B-1) 100 mg PO DAILY [facility] Last Admin: 11/14/18 08:10 Dose: 100 mg Vancomycin HCl (Pharmacy To Dose - Vancomycin) 1 dose .XX ASDIRECTED [facility] Discontinued Medications Albuterol/Ipratropium (Duoneb 3.0-0.5 Mg/3 Ml) 3 ml NEB ONETIME ONE Stop: 11/11/18 13:48 Last Admin: 11/11/18 13:52 Dose: 3 ml Albuterol/Ipratropium (Duoneb 3.0-0.5 Mg/3 Ml) 3 ml NEB Q4HRRT PRN PRN Reason: Shortness Of Breath/wheezing Last Admin: 11/13/18 09:36 Dose: 3 ml Benzonatate (Tessalon Perles) Confirm Administered Dose 100 mg .ROUTE .STK-MED ONE Stop: 11/12/18 10:09 Last Admin: 11/12/18 10:13 Dose: 100 mg Sodium Chloride (Normal Saline) 1,000 mls @ 999 mls/hr IV BOLUS ONE Stop: 11/11/18 14:46 Last Infusion: 11/11/18 13:59 Dose: 80 mls/hr Levofloxacin/Dextrose 750 mg/ (Premix) 150 mls @ 100 mls/hr IV ONETIME ONE Stop: 11/11/18 16:10 Last Admin: 11/11/18 14:49 Dose: 100 mls/hr Magnesium Sulfate 2 gm/ Premix 50 mls @ 25 mls/hr IV ONETIME ONE Stop: 11/13/18 19:10 Last Admin: 11/13/18 18:41 Dose: 25 mls/hr Iopamidol (Isovue Multipack-370 (76%)) 100 ml IVPUSH ONETIME ONE Stop: 11/11/18 19:21 Last Admin: 11/11/18 19:25 Dose: 100 ml Ketorolac Tromethamine (Toradol) 15 mg IVPUSH Q6H [facility] Stop: 11/17/18 12:11 Last Admin: 11/12/18 12:44 Dose: 15 mg Lorazepam (Ativan) 0 mg IVPUSH Q4H PRN; Protocol PRN Reason: Agitation Last Admin: 11/12/18 12:09 Dose: 2 mg Methylprednisolone Sodium Succinate (Solu-Medrol) 125 mg IVPUSH ONETIME ONE Stop: 11/11/18 13:48 Last Admin: 11/11/18 13:59 Dose: 125 mg Methylprednisolone Sodium Succinate (Solu-Medrol) 125 mg IVPUSH Q8H [facility] Last Admin: 11/14/18 05:47 Dose: 125 mg Oxycodone HCl (Oxycodone) 5 mg PO ONETIME ONE Stop: 11/11/18 20:39 Last Admin: 11/11/18 21:45 Dose: 5 mg Potassium Chloride (Klor-Con M20) 40 meq PO ONETIME ONE Stop: 11/13/18 09:42 Last Admin: 11/13/18 10:54 Dose: 40 meq Potassium Chloride (Potassium Chloride) 40 meq PO Q4H [facility] Stop: 11/14/18 11:31 Last Admin: 11/14/18 08:10 Dose: 40 meq - Exam Quality Assessment: Supplemental Oxygen General: Alert, Oriented, Cooperative, No Acute Distress Lungs: Clear to Auscultation, Normal Respiratory Effort, Crackles, Rhonchi Cardiovascular: Regular Rhythm, Tachycardia GI/Abdominal Exam: Normal Bowel Sounds, Soft, Non-Tender Extremities: Other (2+ pedal edema up to knees) Skin: Warm, Dry - Problem List Review Problem List Initiated/Reviewed/Updated: Yes - My Orders Last 24 Hours: My Active Orders 11/14/18 08:30 OCCULT BLOOD DIAGNOSTIC [OP] Routine 11/14/18 09:00 methylPREDNISolone Sod Succ [Solu-MEDROL] 125 mg IVPUSH DAILY 11/14/18 10:00 LORazepam [Ativan] 0.5 mg PO Q8H PRN 11/14/18 10:22 Albuterol [Ventolin HFA] See Dose Instructions INH Q4H PRN 11/14/18 10:25 RT Post Treatment Assessment [RC] Click to Edit RT Pre-Treatment Assessment [RC] Click to Edit 11/14/18 11:30 Potassium Chloride [Klor-Con M20] 40 meq PO ONETIME@1130 11/15/18 05:35 HEPATITIS PANEL (4) [REF] Routine 11/15/18 08:18 Albumin 25% [Flexbumin 25%] 12.5 gm in 50 ml IV ONETIME 11/15/18 10:00 Furosemide [Lasix] 20 mg IVPUSH ONETIME ONE - Plan Plan:: A: 1. Acute hypoxic respiratory failure, stable 2. Lower extremity edema 3. Liver cirrhosis 4. COPD exacerbation 5. HCAP 6. Leukocytosis 7. Oral thrush 8. Alcohol abuse 9. Celiac disease 10. Self care deficit 11. Severe protein undernourishment P: 1. Acute hypoxic respiratory failure. scheduled Duonebs Q6H and PRN. Continue antibiotics and methylprednisolone daily. 2. Lower extremity edema 2/2 hypoalbuminemia. Will administer albumin 25% and give lasix 1 hour after to see if that helps with edema. 3. Liver cirrhosis, U/S showed hepatic nodularity consistent with liver cirrhosis. Will test for Hepatitis. Likely 2/2 to extensive alcohol history. 4. HCAP- continue antibiotics for now. Dispo: likely dc this weekend. <CeciliaIsrael condon M - Last Filed: 11/15/18 13:12> - General Info Admission Dx/Problem (Free Text): I have seen and examined to patient independently of phlebotomist medical lab assistant, Addy Gaston MD. I have discussed the case for care of this patient with him. I have reviewed and approve of the plan of care as outlined by phlebotomist medical lab assistant. Please see orders. - Patient Data Vitals - Most Recent: Last Vital Signs Temp 36.3 C 11/15/18 11:00 Pulse 104 H 11/15/18 03:20 Resp 12 11/15/18 11:00 BP 150/96 H 11/15/18 11:00 Pulse Ox 90 L 11/15/18 11:00 I&O - Last 24 Hours: Intake & Output 11/14/18 11/15/18 11/15/18 22:59 06:59 14:59 Intake Total 850 2569 100 Output Total 100 650 Balance 750 1919 100 Lab Results Last 24 Hours: Laboratory Results - last 24 hr 11/15/18 11/15/18 Range/Units 05:35 05:35 WBC 14.81 H (4.0-11.0) K/uL RBC 2.90 L (4.50-5.90) M/uL Hgb 9.4 L (13.0-17.0) g/dL Hct 30.8 L (38.0-50.0) % MCV 106.2 H (80.0-98.0) fL MCH 32.4 H (27.0-32.0) pg MCHC 30.5 L (31.0-37.0) g/dL RDW Std Deviation 92.7 H (28.0-62.0) fl RDW Coeff of Willy 24 H (11.0-15.0) % Plt Count 204 (150-400) K/uL MPV 11.50 (7.40-12.00) fL Nucleated RBC % 0.0 /100WBC Nucleated RBCs # 0 K/uL Sodium 140 (136-148) mmol/L Potassium 4.1 (3.5-5.1) mmol/L Chloride 111 H (98-107) mmol/L Carbon Dioxide 26.3 (21.0-32.0) mmol/L BUN 7 (7.0-18.0) mg/dL Creatinine 0.7 L (0.8-1.3) mg/dL Est Cr Clr Drug Dosing 104.49 mL/min Estimated GFR (MDRD) > 60.0 ml/min Glucose 100 (74-106) mg/dL Calcium 7.9 L (8.5-10.1) mg/dL [facility] Results Last 24 Hours: Microbiology 11/14/18 08:30 Stool Occult Blood (KIKE) - Final Stool / Feces 11/11/18 12:10 Aerobic Blood Culture - Preliminary Blood - Venous - Lab Draw NO GROWTH AFTER 3 DAYS Anaerobic Blood Culture - Preliminary NO GROWTH AFTER 3 DAYS 11/11/18 13:48 Aerobic Blood Culture - Preliminary Blood - Venous NO GROWTH AFTER 3 DAYS Anaerobic Blood Culture - Preliminary NO GROWTH AFTER 3 DAYS 11/12/18 00:10 Gram Stain - Final Sputum - Expectorated Sputum Culture - Final Yeast Med Orders - Current: Current Medications Acetaminophen (Tylenol) 650 mg PO Q4H PRN PRN Reason: Pain Last Admin: 11/15/18 06:14 Dose: 650 mg Albuterol (Ventolin Hfa) 0 gm INH Q4H PRN PRN Reason: Wheezing Albuterol/Ipratropium (Duoneb 3.0-0.5 Mg/3 Ml) 3 ml NEB Q6HRRT [facility] Last Admin: 11/15/18 11:31 Dose: 3 ml Albuterol/Ipratropium (Duoneb 3.0-0.5 Mg/3 Ml) 3 ml NEB Q4HRRT PRN PRN Reason: Shortness of Breath Last Admin: 11/15/18 04:07 Dose: 3 ml Benzonatate (Tessalon Perles) 200 mg PO TID [facility] Last Admin: 11/15/18 06:14 Dose: 200 mg Folic Acid (Folic Acid) 1 mg PO DAILY [facility] Last Admin: 11/15/18 09:04 Dose: 1 mg Heparin Sodium (Porcine) (Heparin Sodium) 5,000 units SUBCUT Q8H [facility] Last Admin: 11/15/18 10:07 Dose: 5,000 units Vancomycin HCl 1 gm/ Sodium (Chloride) 250 mls @ 166.667 mls/hr IV Q12H [facility] Last Admin: 11/15/18 03:15 Dose: 166.667 mls/hr Levofloxacin/Dextrose 750 mg/ (Premix) 150 mls @ 100 mls/hr IV Q24H [facility] Last Admin: 11/14/18 15:07 Dose: 100 mls/hr Piperacillin Sod/Tazobactam (Sod 3.375 gm/ Sodium Chloride) 50 mls @ 100 mls/ hr IV Q6H [facility] Last Admin: 11/15/18 11:47 Dose: 100 mls/hr Ketorolac Tromethamine (Toradol) 15 mg IVPUSH Q6H PRN PRN Reason: Pain Stop: 11/17/18 12:11 Last Admin: 11/15/18 03:09 Dose: 15 mg Lorazepam (Ativan) 0.5 mg PO Q8H PRN PRN Reason: Anxiety Methylprednisolone Sodium Succinate (Solu-Medrol) 125 mg IVPUSH DAILY [facility] Last Admin: 11/15/18 09:10 Dose: 125 mg Nystatin (Mycostatin) 5 ml PO TID [facility] Last Admin: 11/15/18 06:14 Dose: 5 ml Ondansetron HCl (Zofran Odt) 4 mg PO Q4H PRN PRN Reason: nausea, able to take PO Last Admin: 11/14/18 08:18 Dose: 4 mg Temazepam (Restoril) 15 mg PO BEDTIME PRN PRN Reason: Insomnia Thiamine HCl (Vitamin B-1) 100 mg PO DAILY [facility] Last Admin: 11/15/18 09:04 Dose: 100 mg Vancomycin HCl (Pharmacy To Dose - Vancomycin) 1 dose .XX ASDIRECTED [facility] Discontinued Medications Albuterol/Ipratropium (Duoneb 3.0-0.5 Mg/3 Ml) 3 ml NEB ONETIME ONE Stop: 11/11/18 13:48 Last Admin: 11/11/18 13:52 Dose: 3 ml Albuterol/Ipratropium (Duoneb 3.0-0.5 Mg/3 Ml) 3 ml NEB Q4HRRT PRN PRN Reason: Shortness Of Breath/wheezing Last Admin: 11/13/18 09:36 Dose: 3 ml Benzonatate (Tessalon Perles) Confirm Administered Dose 100 mg .ROUTE .STK-MED ONE Stop: 11/12/18 10:09 Last Admin: 11/12/18 10:13 Dose: 100 mg Furosemide (Lasix) 20 mg IVPUSH ONETIME ONE Stop: 11/15/18 10:01 Last Admin: 11/15/18 11:03 Dose: 20 mg Sodium Chloride (Normal Saline) 1,000 mls @ 999 mls/hr IV BOLUS ONE Stop: 11/11/18 14:46 Last Infusion: 11/11/18 13:59 Dose: 80 mls/hr Levofloxacin/Dextrose 750 mg/ (Premix) 150 mls @ 100 mls/hr IV ONETIME ONE Stop: 11/11/18 16:10 Last Admin: 11/11/18 14:49 Dose: 100 mls/hr Sodium Chloride (Normal Saline) 1,000 mls @ 125 mls/hr IV ASDIRECTED [facility] Last Admin: 11/15/18 09:26 Dose: 125 mls/hr Magnesium Sulfate 2 gm/ Premix 50 mls @ 25 mls/hr IV ONETIME ONE Stop: 11/13/18 19:10 Last Admin: 11/13/18 18:41 Dose: 25 mls/hr Albumin Human (Flexbumin 25%) 12.5 gm in 50 mls @ 100 mls/hr IV ONETIME ONE Stop: 11/15/18 08:47 Last Admin: 11/15/18 09:18 Dose: 100 mls/hr Iopamidol (Isovue Multipack-370 (76%)) 100 ml IVPUSH ONETIME ONE Stop: 11/11/18 19:21 Last Admin: 11/11/18 19:25 Dose: 100 ml Ketorolac Tromethamine (Toradol) 15 mg IVPUSH Q6H [facility] Stop: 11/17/18 12:11 Last Admin: 11/12/18 12:44 Dose: 15 mg Lorazepam (Ativan) 0 mg IVPUSH Q4H PRN; Protocol PRN Reason: Agitation Last Admin: 11/12/18 12:09 Dose: 2 mg Methylprednisolone Sodium Succinate (Solu-Medrol) 125 mg IVPUSH ONETIME ONE Stop: 11/11/18 13:48 Last Admin: 11/11/18 13:59 Dose: 125 mg Methylprednisolone Sodium Succinate (Solu-Medrol) 125 mg IVPUSH Q8H [facility] Last Admin: 11/14/18 05:47 Dose: 125 mg Oxycodone HCl (Oxycodone) 5 mg PO ONETIME ONE Stop: 11/11/18 20:39 Last Admin: 11/11/18 21:45 Dose: 5 mg Potassium Chloride (Klor-Con M20) 40 meq PO ONETIME ONE Stop: 11/13/18 09:42 Last Admin: 11/13/18 10:54 Dose: 40 meq Potassium Chloride (Potassium Chloride) 40 meq PO Q4H [facility] Stop: 11/14/18 11:31 Last Admin: 11/14/18 08:10 Dose: 40 meq Potassium Chloride (Klor-Con M20) 40 meq PO ONETIME@1130 [facility] Last Admin: 11/14/18 11:29 Dose: 40 meq - My Orders Last 24 Hours: My Active Orders 11/15/18 15:15 VANCOMYCIN TROUGH [CHEM] Routine
[2018-11-15] MEDS: Thiamine 100 MG Tab PO SCH (09:04)
[2018-11-15] MEDS: Folic Acid 1 MG Tab PO SCH (09:04)
[2018-11-15] MEDS: methylPREDNISolone Sodium Succinate 125 MG/2 ML SDV IVPUSH SCH (09:10)
[2018-11-15] MEDS: Albumin 25% 12.5 GM/50 ML BAG IV ONE ×2 (09:16→09:18)
[2018-11-15] MEDS: Sodium Chloride 0.9% 1,000 ML IV SCH (09:26)
[2018-11-15] MEDS ORDERED: Furosemide 20 MG/2 ML VIAL IVPUSH ONE (10:00)
[2018-11-15] MEDS: Levofloxacin/Dextrose 5%-Water 750 MG in Premix Bag 1 BAG IV SCH (14:27)
[2018-11-15] MEDS ORDERED: Furosemide 40 MG/4 ML VIAL IVPUSH ONE ×2 (17:40→19:00)
[2018-11-15] MEDS ORDERED: Albumin 25% 12.5 GM/50 ML BAG IV ONE (18:00)
[2018-11-16] MEDS: Heparin Sodium 5,000 Units/ML Vial SUBCUT SCH ×3 (06:09→17:32)
[2018-11-16 06:25] LABS: CHLORIDE,CL 105 mmol/L (98-107); SODIUM,NA 142 mmol/L (136-148)
[2018-11-16] MEDS: Albuterol/Ipratropium 3.0-0.5 MG/3 ML Neb Soln NEB SCH ×4 (06:30→23:48)
[2018-11-16] MEDS: Piperacillin/Tazobactam 3.375 GM in Sodium Chloride 0.9% 50 ML IV SCH ×4 (06:33→23:47)
[2018-11-16] MEDS: Nystatin Susp 100,000 Unit/ML 5 ML UD Cup PO SCH ×3 (06:33→21:25)
[2018-11-16] MEDS: Benzonatate 100 MG Cap PO SCH ×3 (06:33→21:25)
[2018-11-16] MEDS ORDERED: Potassium Chloride 20 MEQ Tab.ER PO ONE (07:41)
[2018-11-16] MEDS: predniSONE 20 MG Tab PO SCH (07:59)
[2018-11-16] MEDS: Thiamine 100 MG Tab PO SCH (08:46)
[2018-11-16] MEDS: Folic Acid 1 MG Tab PO SCH (08:46)
[2018-11-16] MEDS: Acetaminophen 325 MG Tab PO PRN (10:14)
[2018-11-16] MEDS ORDERED: Magnesium Sulfate/Water 2 GM in Premix Bag 1 BAG IV ONE (11:11)
[2018-11-16] MEDS ORDERED: Albumin 25% 12.5 GM/50 ML BAG IV ONE ×2 (11:11→16:00)
--- NOTE | 2018-11-16 11:26 | PCM.PN ---
<Addy Wise - Last Filed: 11/16/18 11:17> - General Info Date of Service: 11/16/18 Subjective Update: No acute events overnight. Diuresed approximately 5 L urine overnight. Feeling better and less short of breath this morning. - Patient Data Vitals - Most Recent: Last Vital Signs Temp 36.4 C 11/16/18 07:40 Pulse 95 11/16/18 07:40 Resp 19 11/16/18 07:40 BP 127/73 11/16/18 07:40 Pulse Ox 92 L 11/16/18 07:40 Weight - Most Recent: 61.235 kg I&O - Last 24 Hours: Intake & Output 11/15/18 11/16/18 11/16/18 22:59 06:59 14:59 Intake Total 1931 740 300 Output Total 3275 2150 Balance -1344 -1410 300 Lab Results Last 24 Hours: Laboratory Results - last 24 hr 11/15/18 11/16/18 11/16/18 Range/Units 15:16 05:50 05:50 Sodium 142 (136-148) mmol/L Potassium 3.3 L (3.5-5.1) mmol/L Chloride 105 (98-107) mmol/L Carbon Dioxide 27.5 (21.0-32.0) mmol/L BUN 7 (7.0-18.0) mg/dL Creatinine 0.7 L (0.8-1.3) mg/dL Est Cr Clr Drug Dosing 104.49 mL/min Estimated GFR (MDRD) > 60.0 ml/min Glucose 88 (74-106) mg/dL Calcium 8.1 L (8.5-10.1) mg/dL Magnesium 1.7 L (1.8-2.4) mg/dL Total Bilirubin 0.9 (0.2-1.0) mg/dL AST 51 H (15-37) IU/L ALT 32 (14-63) IU/L Alkaline Phosphatase 123 H (46-116) U/L Total Protein 4.9 L (6.4-8.2) g/dL Albumin 2.1 L (3.4-5.0) g/dL Globulin 2.8 (2.6-4.0) g/dL Albumin/Globulin Ratio 0.8 L (0.9-1.6) Carcinoembryonic Ag ng/mL Vancomycin Trough 22.1 H (5.0-10.0) ug/mL 11/16/18 Range/Units 08:14 Sodium (136-148) mmol/L Potassium (3.5-5.1) mmol/L Chloride (98-107) mmol/L Carbon Dioxide (21.0-32.0) mmol/L BUN (7.0-18.0) mg/dL Creatinine (0.8-1.3) mg/dL Est Cr Clr Drug Dosing mL/min Estimated GFR (MDRD) ml/min Glucose (74-106) mg/dL Calcium (8.5-10.1) mg/dL Magnesium (1.8-2.4) mg/dL Total Bilirubin (0.2-1.0) mg/dL AST (15-37) IU/L ALT (14-63) IU/L Alkaline Phosphatase (46-116) U/L Total Protein (6.4-8.2) g/dL Albumin (3.4-5.0) g/dL Globulin (2.6-4.0) g/dL Albumin/Globulin Ratio (0.9-1.6) Carcinoembryonic Ag 10.8 ng/mL Vancomycin Trough (5.0-10.0) ug/mL Kike Results Last 24 Hours: Microbiology 11/11/18 12:10 Aerobic Blood Culture - Preliminary Blood - Venous - Lab Draw NO GROWTH AFTER 4 DAYS Anaerobic Blood Culture - Preliminary NO GROWTH AFTER 4 DAYS 11/11/18 13:48 Aerobic Blood Culture - Preliminary Blood - Venous NO GROWTH AFTER 4 DAYS Anaerobic Blood Culture - Preliminary NO GROWTH AFTER 4 DAYS 11/14/18 08:30 Stool Occult Blood (KIKE) - Final Stool / Feces Med Orders - Current: Current Medications Acetaminophen (Tylenol) 650 mg PO Q4H PRN PRN Reason: Pain Last Admin: 11/16/18 10:14 Dose: 650 mg Albuterol (Ventolin Hfa) 0 gm INH Q4H PRN PRN Reason: Wheezing Albuterol/Ipratropium (Duoneb 3.0-0.5 Mg/3 Ml) 3 ml NEB Q6HRRT [facility] Last Admin: 11/16/18 06:30 Dose: 3 ml Albuterol/Ipratropium (Duoneb 3.0-0.5 Mg/3 Ml) 3 ml NEB Q4HRRT PRN PRN Reason: Shortness of Breath Last Admin: 11/15/18 04:07 Dose: 3 ml Benzonatate (Tessalon Perles) 200 mg PO TID [facility] Last Admin: 11/16/18 06:33 Dose: 200 mg Folic Acid (Folic Acid) 1 mg PO DAILY [facility] Last Admin: 11/16/18 08:46 Dose: 1 mg Heparin Sodium (Porcine) (Heparin Sodium) 5,000 units SUBCUT Q8H [facility] Last Admin: 11/16/18 10:05 Dose: 5,000 units Levofloxacin/Dextrose 750 mg/ (Premix) 150 mls @ 100 mls/hr IV Q24H [facility] Last Admin: 11/15/18 14:27 Dose: 100 mls/hr Piperacillin Sod/Tazobactam (Sod 3.375 gm/ Sodium Chloride) 50 mls @ 100 mls/ hr IV Q6H [facility] Last Admin: 11/16/18 06:33 Dose: 100 mls/hr Vancomycin HCl 0.75 gm/ Sodium (Chloride) 250 mls @ 166.667 mls/hr IV Q12H [facility] Last Admin: 11/16/18 05:25 Dose: 166.667 mls/hr Magnesium Sulfate 2 gm/ Premix 50 mls @ 50 mls/hr IV ONETIME ONE Stop: 11/16/18 12:10 Albumin Human (Flexbumin 25%) 12.5 gm in 50 mls @ 100 mls/hr IV ONETIME ONE Stop: 11/16/18 11:40 Ketorolac Tromethamine (Toradol) 15 mg IVPUSH Q6H PRN PRN Reason: Pain Stop: 11/17/18 12:11 Last Admin: 11/15/18 20:33 Dose: 15 mg Lorazepam (Ativan) 0.5 mg PO Q8H PRN PRN Reason: Anxiety Nystatin (Mycostatin) 5 ml PO TID [facility] Last Admin: 11/16/18 06:33 Dose: 5 ml Ondansetron HCl (Zofran Odt) 4 mg PO Q4H PRN PRN Reason: nausea, able to take PO Last Admin: 11/14/18 08:18 Dose: 4 mg Prednisone (Prednisone) 40 mg PO WITHBREAKFAST [facility] Last Admin: 11/16/18 07:59 Dose: 40 mg Temazepam (Restoril) 15 mg PO BEDTIME PRN PRN Reason: Insomnia Thiamine HCl (Vitamin B-1) 100 mg PO DAILY [facility] Last Admin: 11/16/18 08:46 Dose: 100 mg Vancomycin HCl (Pharmacy To Dose - Vancomycin) 1 dose .XX ASDIRECTED [facility] Discontinued Medications Albuterol/Ipratropium (Duoneb 3.0-0.5 Mg/3 Ml) 3 ml NEB ONETIME ONE Stop: 11/11/18 13:48 Last Admin: 11/11/18 13:52 Dose: 3 ml Albuterol/Ipratropium (Duoneb 3.0-0.5 Mg/3 Ml) 3 ml NEB Q4HRRT PRN PRN Reason: Shortness Of Breath/wheezing Last Admin: 11/13/18 09:36 Dose: 3 ml Benzonatate (Tessalon Perles) Confirm Administered Dose 100 mg .ROUTE .STK-MED ONE Stop: 11/12/18 10:09 Last Admin: 11/12/18 10:13 Dose: 100 mg Furosemide (Lasix) 20 mg IVPUSH ONETIME ONE Stop: 11/15/18 10:01 Last Admin: 11/15/18 11:03 Dose: 20 mg Furosemide (Lasix) 40 mg IVPUSH NOW ONE Stop: 11/15/18 17:41 Last Admin: 11/16/18 07:39 Dose: Not Given Furosemide (Lasix) 40 mg IVPUSH NOW ONE Stop: 11/15/18 19:01 Last Admin: 11/15/18 20:25 Dose: 40 mg Sodium Chloride (Normal Saline) 1,000 mls @ 999 mls/hr IV BOLUS ONE Stop: 11/11/18 14:46 Last Infusion: 11/11/18 13:59 Dose: 80 mls/hr Levofloxacin/Dextrose 750 mg/ (Premix) 150 mls @ 100 mls/hr IV ONETIME ONE Stop: 11/11/18 16:10 Last Admin: 11/11/18 14:49 Dose: 100 mls/hr Sodium Chloride (Normal Saline) 1,000 mls @ 125 mls/hr IV ASDIRECTED [facility] Last Admin: 11/15/18 09:26 Dose: 125 mls/hr Vancomycin HCl 1 gm/ Sodium (Chloride) 250 mls @ 166.667 mls/hr IV Q12H [facility] Last Admin: 11/15/18 19:01 Dose: Not Given Magnesium Sulfate 2 gm/ Premix 50 mls @ 25 mls/hr IV ONETIME ONE Stop: 11/13/18 19:10 Last Admin: 11/13/18 18:41 Dose: 25 mls/hr Albumin Human (Flexbumin 25%) 12.5 gm in 50 mls @ 100 mls/hr IV ONETIME ONE Stop: 11/15/18 08:47 Last Admin: 11/15/18 09:18 Dose: 100 mls/hr Albumin Human (Flexbumin 25%) 12.5 gm in 50 mls @ 100 mls/hr IV ONETIME ONE Stop: 11/15/18 18:29 Last Admin: 11/15/18 18:48 Dose: 100 mls/hr Iopamidol (Isovue Multipack-370 (76%)) 100 ml IVPUSH ONETIME ONE Stop: 11/11/18 19:21 Last Admin: 11/11/18 19:25 Dose: 100 ml Ketorolac Tromethamine (Toradol) 15 mg IVPUSH Q6H [facility] Stop: 11/17/18 12:11 Last Admin: 11/12/18 12:44 Dose: 15 mg Lorazepam (Ativan) 0 mg IVPUSH Q4H PRN; Protocol PRN Reason: Agitation Last Admin: 11/12/18 12:09 Dose: 2 mg Methylprednisolone Sodium Succinate (Solu-Medrol) 125 mg IVPUSH ONETIME ONE Stop: 11/11/18 13:48 Last Admin: 11/11/18 13:59 Dose: 125 mg Methylprednisolone Sodium Succinate (Solu-Medrol) 125 mg IVPUSH Q8H [facility] Last Admin: 11/14/18 05:47 Dose: 125 mg Methylprednisolone Sodium Succinate (Solu-Medrol) 125 mg IVPUSH DAILY [facility] Last Admin: 11/15/18 09:10 Dose: 125 mg Oxycodone HCl (Oxycodone) 5 mg PO ONETIME ONE Stop: 11/11/18 20:39 Last Admin: 11/11/18 21:45 Dose: 5 mg Potassium Chloride (Klor-Con M20) 40 meq PO ONETIME ONE Stop: 11/13/18 09:42 Last Admin: 11/13/18 10:54 Dose: 40 meq Potassium Chloride (Potassium Chloride) 40 meq PO Q4H [facility] Stop: 11/14/18 11:31 Last Admin: 11/14/18 08:10 Dose: 40 meq Potassium Chloride (Klor-Con M20) 40 meq PO ONETIME@1130 [facility] Last Admin: 11/14/18 11:29 Dose: 40 meq Potassium Chloride (Klor-Con M20) 40 meq PO ONETIME ONE Stop: 11/16/18 07:42 Last Admin: 11/16/18 07:58 Dose: 40 meq - Exam Quality Assessment: Supplemental Oxygen General: Alert, Oriented, Cooperative Lungs: Crackles, Rhonchi, Wheezing Cardiovascular: Regular Rate, Regular Rhythm GI/Abdominal Exam: Normal Bowel Sounds, Soft, Non-Tender Extremities: Other (improved pedal edema) Skin: Warm, Dry - Problem List Review Problem List Initiated/Reviewed/Updated: Yes - My Orders Last 24 Hours: My Active Orders 11/16/18 08:00 predniSONE 40 mg PO WITHBREAKFAST 11/16/18 11:11 Albumin 25% [Flexbumin 25%] 12.5 gm in 50 ml IV ONETIME Magnesium Sulfate/Water [Magnesium Sulfate in Water Premix] 2 gm Premix Bag 1 bag IV ONETIME 11/17/18 05:00 AFP, SERUM, TUMOR MARKER [REF] Routine - Plan Plan:: A: 1. Acute hypoxic respiratory failure, stable 2. Lower extremity edema, improving 3. Liver cirrhosis 4. COPD exacerbation 5. HCAP 6. Leukocytosis 7. Oral thrush 8. Alcohol abuse 9. Celiac disease 10. Self care deficit 11. Severe protein undernourishment 12. Hypokalemia, replaced 13. 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 Acute hypoxic respiratory failure. scheduled Duonebs Q6H and PRN. Continue antibiotics and switched to PO prednisone. 2. Lower extremity edema 2/2 hypoalbuminemia s/p albumin administration. Will administer another dose of albumin today and monitor I/O's. 3. Liver cirrhosis, U/S showed hepatic nodularity consistent with liver cirrhosis. pending Hep panel results. CEA was 4. HCAP- continue antibiotics for now. 5. Hypokalemia, replaced with KCl 40 mEq PO once. Recheck tomorrow. 5. Hypomagnesemia, replaced with MgS IV once. recheck tomorrow. 6. Elevated CEA tumor marker, I suspect that the patient may have an underlying malignancy. However, his current medical condition with liver cirrhosis and possible inflammatory bowel disease may be falsely elevating the CEA level. Still pending AFP level. Dispo: likely dc this weekend. <Israel Brooks - Last Filed: 11/16/18 13:57> - General Info Admission Dx/Problem (Free Text): I have seen and examined to patient independently of medical van driver, Addy Gaston MD. I have discussed the case for care of this patient with him. I have reviewed and approve of the plan of care as outlined by medical van driver. Please see orders. - Patient Data Vitals - Most Recent: Last Vital Signs Temp 37.0 C 11/16/18 12:00 Pulse 72 11/16/18 12:00 Resp 18 11/16/18 12:00 BP 131/77 11/16/18 12:00 Pulse Ox 95 11/16/18 12:00 I&O - Last 24 Hours: Intake & Output 11/15/18 11/16/18 11/16/18 22:59 06:59 14:59 Intake Total 1931 740 350 Output Total 3275 2150 Balance -1344 -1410 350 Lab Results Last 24 Hours: Laboratory Results - last 24 hr 11/15/18 11/16/18 11/16/18 Range/Units 15:16 05:50 05:50 Sodium 142 (136-148) mmol/L Potassium 3.3 L (3.5-5.1) mmol/L Chloride 105 (98-107) mmol/L Carbon Dioxide 27.5 (21.0-32.0) mmol/L BUN 7 (7.0-18.0) mg/dL Creatinine 0.7 L (0.8-1.3) mg/dL Est Cr Clr Drug Dosing 104.49 mL/min Estimated GFR (MDRD) > 60.0 ml/min Glucose 88 (74-106) mg/dL Calcium 8.1 L (8.5-10.1) mg/dL Magnesium 1.7 L (1.8-2.4) mg/dL Total Bilirubin 0.9 (0.2-1.0) mg/dL AST 51 H (15-37) IU/L ALT 32 (14-63) IU/L Alkaline Phosphatase 123 H (46-116) U/L Total Protein 4.9 L (6.4-8.2) g/dL Albumin 2.1 L (3.4-5.0) g/dL Globulin 2.8 (2.6-4.0) g/dL Albumin/Globulin Ratio 0.8 L (0.9-1.6) Carcinoembryonic Ag ng/mL Vancomycin Trough 22.1 H (5.0-10.0) ug/mL 11/16/18 Range/Units 08:14 Sodium (136-148) mmol/L Potassium (3.5-5.1) mmol/L Chloride (98-107) mmol/L Carbon Dioxide (21.0-32.0) mmol/L BUN (7.0-18.0) mg/dL Creatinine (0.8-1.3) mg/dL Est Cr Clr Drug Dosing mL/min Estimated GFR (MDRD) ml/min Glucose (74-106) mg/dL Calcium (8.5-10.1) mg/dL Magnesium (1.8-2.4) mg/dL Total Bilirubin (0.2-1.0) mg/dL AST (15-37) IU/L ALT (14-63) IU/L Alkaline Phosphatase (46-116) U/L Total Protein (6.4-8.2) g/dL Albumin (3.4-5.0) g/dL Globulin (2.6-4.0) g/dL Albumin/Globulin Ratio (0.9-1.6) Carcinoembryonic Ag 10.8 ng/mL Vancomycin Trough (5.0-10.0) ug/mL Kike Results Last 24 Hours: Microbiology 11/11/18 13:48 Aerobic Blood Culture - Final Blood - Venous NO GROWTH AFTER 5 DAYS Anaerobic Blood Culture - Final NO GROWTH AFTER 5 DAYS 11/11/18 12:10 Aerobic Blood Culture - Preliminary Blood - Venous - Lab Draw NO GROWTH AFTER 4 DAYS Anaerobic Blood Culture - Preliminary NO GROWTH AFTER 4 DAYS 11/14/18 08:30 Stool Occult Blood (KIKE) - Final Stool / Feces Med Orders - Current: Current Medications Acetaminophen (Tylenol) 650 mg PO Q4H PRN PRN Reason: Pain Last Admin: 11/16/18 10:14 Dose: 650 mg Albuterol (Ventolin Hfa) 0 gm INH Q4H PRN PRN Reason: Wheezing Albuterol/Ipratropium (Duoneb 3.0-0.5 Mg/3 Ml) 3 ml NEB Q6HRRT [facility] Last Admin: 11/16/18 12:00 Dose: 3 ml Albuterol/Ipratropium (Duoneb 3.0-0.5 Mg/3 Ml) 3 ml NEB Q4HRRT PRN PRN Reason: Shortness of Breath Last Admin: 11/15/18 04:07 Dose: 3 ml Benzonatate (Tessalon Perles) 200 mg PO TID [facility] Last Admin: 11/16/18 06:33 Dose: 200 mg Folic Acid (Folic Acid) 1 mg PO DAILY [facility] Last Admin: 11/16/18 08:46 Dose: 1 mg Heparin Sodium (Porcine) (Heparin Sodium) 5,000 units SUBCUT Q8H [facility] Last Admin: 11/16/18 10:05 Dose: 5,000 units Levofloxacin/Dextrose 750 mg/ (Premix) 150 mls @ 100 mls/hr IV Q24H [facility] Last Admin: 11/15/18 14:27 Dose: 100 mls/hr Piperacillin Sod/Tazobactam (Sod 3.375 gm/ Sodium Chloride) 50 mls @ 100 mls/ hr IV Q6H [facility] Last Admin: 11/16/18 12:20 Dose: 100 mls/hr Vancomycin HCl 0.75 gm/ Sodium (Chloride) 250 mls @ 166.667 mls/hr IV Q12H [facility] Last Admin: 11/16/18 05:25 Dose: 166.667 mls/hr Ketorolac Tromethamine (Toradol) 15 mg IVPUSH Q6H PRN PRN Reason: Pain Stop: 11/17/18 12:11 Last Admin: 11/15/18 20:33 Dose: 15 mg Lorazepam (Ativan) 0.5 mg PO Q8H PRN PRN Reason: Anxiety Nystatin (Mycostatin) 5 ml PO TID [facility] Last Admin: 11/16/18 06:33 Dose: 5 ml Ondansetron HCl (Zofran Odt) 4 mg PO Q4H PRN PRN Reason: nausea, able to take PO Last Admin: 11/14/18 08:18 Dose: 4 mg Prednisone (Prednisone) 40 mg PO WITHBREAKFAST [facility] Last Admin: 11/16/18 07:59 Dose: 40 mg Temazepam (Restoril) 15 mg PO BEDTIME PRN PRN Reason: Insomnia Thiamine HCl (Vitamin B-1) 100 mg PO DAILY [facility] Last Admin: 11/16/18 08:46 Dose: 100 mg Vancomycin HCl (Pharmacy To Dose - Vancomycin) 1 dose .XX ASDIRECTED [facility] Discontinued Medications Albuterol/Ipratropium (Duoneb 3.0-0.5 Mg/3 Ml) 3 ml NEB ONETIME ONE Stop: 11/11/18 13:48 Last Admin: 11/11/18 13:52 Dose: 3 ml Albuterol/Ipratropium (Duoneb 3.0-0.5 Mg/3 Ml) 3 ml NEB Q4HRRT PRN PRN Reason: Shortness Of Breath/wheezing Last Admin: 11/13/18 09:36 Dose: 3 ml Benzonatate (Tessalon Perles) Confirm Administered Dose 100 mg .ROUTE .STK-MED ONE Stop: 11/12/18 10:09 Last Admin: 11/12/18 10:13 Dose: 100 mg Furosemide (Lasix) 20 mg IVPUSH ONETIME ONE Stop: 11/15/18 10:01 Last Admin: 11/15/18 11:03 Dose: 20 mg Furosemide (Lasix) 40 mg IVPUSH NOW ONE Stop: 11/15/18 17:41 Last Admin: 11/16/18 07:39 Dose: Not Given Furosemide (Lasix) 40 mg IVPUSH NOW ONE Stop: 11/15/18 19:01 Last Admin: 11/15/18 20:25 Dose: 40 mg Sodium Chloride (Normal Saline) 1,000 mls @ 999 mls/hr IV BOLUS ONE Stop: 11/11/18 14:46 Last Infusion: 11/11/18 13:59 Dose: 80 mls/hr Levofloxacin/Dextrose 750 mg/ (Premix) 150 mls @ 100 mls/hr IV ONETIME ONE Stop: 11/11/18 16:10 Last Admin: 11/11/18 14:49 Dose: 100 mls/hr Sodium Chloride (Normal Saline) 1,000 mls @ 125 mls/hr IV ASDIRECTED [facility] Last Admin: 11/15/18 09:26 Dose: 125 mls/hr Vancomycin HCl 1 gm/ Sodium (Chloride) 250 mls @ 166.667 mls/hr IV Q12H [facility] Last Admin: 11/15/18 19:01 Dose: Not Given Magnesium Sulfate 2 gm/ Premix 50 mls @ 25 mls/hr IV ONETIME ONE Stop: 11/13/18 19:10 Last Admin: 11/13/18 18:41 Dose: 25 mls/hr Albumin Human (Flexbumin 25%) 12.5 gm in 50 mls @ 100 mls/hr IV ONETIME ONE Stop: 11/15/18 08:47 Last Admin: 11/15/18 09:18 Dose: 100 mls/hr Albumin Human (Flexbumin 25%) 12.5 gm in 50 mls @ 100 mls/hr IV ONETIME ONE Stop: 11/15/18 18:29 Last Admin: 11/15/18 18:48 Dose: 100 mls/hr Magnesium Sulfate 2 gm/ Premix 50 mls @ 50 mls/hr IV ONETIME ONE Stop: 11/16/18 12:10 Last Admin: 11/16/18 12:02 Dose: 50 mls/hr Albumin Human (Flexbumin 25%) 12.5 gm in 50 mls @ 100 mls/hr IV ONETIME ONE Stop: 11/16/18 11:40 Last Admin: 11/16/18 11:38 Dose: 100 mls/hr Iopamidol (Isovue Multipack-370 (76%)) 100 ml IVPUSH ONETIME ONE Stop: 11/11/18 19:21 Last Admin: 11/11/18 19:25 Dose: 100 ml Ketorolac Tromethamine (Toradol) 15 mg IVPUSH Q6H [facility] Stop: 11/17/18 12:11 Last Admin: 11/12/18 12:44 Dose: 15 mg Lorazepam (Ativan) 0 mg IVPUSH Q4H PRN; Protocol PRN Reason: Agitation Last Admin: 11/12/18 12:09 Dose: 2 mg Methylprednisolone Sodium Succinate (Solu-Medrol) 125 mg IVPUSH ONETIME ONE Stop: 11/11/18 13:48 Last Admin: 11/11/18 13:59 Dose: 125 mg Methylprednisolone Sodium Succinate (Solu-Medrol) 125 mg IVPUSH Q8H [facility] Last Admin: 11/14/18 05:47 Dose: 125 mg Methylprednisolone Sodium Succinate (Solu-Medrol) 125 mg IVPUSH DAILY [facility] Last Admin: 11/15/18 09:10 Dose: 125 mg Oxycodone HCl (Oxycodone) 5 mg PO ONETIME ONE Stop: 11/11/18 20:39 Last Admin: 11/11/18 21:45 Dose: 5 mg Potassium Chloride (Klor-Con M20) 40 meq PO ONETIME ONE Stop: 11/13/18 09:42 Last Admin: 11/13/18 10:54 Dose: 40 meq Potassium Chloride (Potassium Chloride) 40 meq PO Q4H [facility] Stop: 11/14/18 11:31 Last Admin: 11/14/18 08:10 Dose: 40 meq Potassium Chloride (Klor-Con M20) 40 meq PO ONETIME@1130 [facility] Last Admin: 11/14/18 11:29 Dose: 40 meq Potassium Chloride (Klor-Con M20) 40 meq PO ONETIME ONE Stop: 11/16/18 07:42 Last Admin: 11/16/18 07:58 Dose: 40 meq - My Orders Last 24 Hours: My Active Orders 11/15/18 16:45 Vancomycin 0.75 gm Sodium Chloride 0.9% [Normal Saline] 250 ml IV Q12H 11/17/18 15:45 VANCOMYCIN TROUGH [CHEM] Timed
[2018-11-16] MEDS: Levofloxacin/Dextrose 5%-Water 750 MG in Premix Bag 1 BAG IV SCH (14:03)
[2018-11-16] MEDS: Albuterol/Ipratropium 3.0-0.5 MG/3 ML Neb Soln NEB PRN (14:25)
[2018-11-16] MEDS ORDERED: Furosemide 40 MG/4 ML VIAL IVPUSH ONE (17:00)
[2018-11-17] MEDS: Heparin Sodium 5,000 Units/ML Vial SUBCUT SCH ×4 (03:33→17:38)
[2018-11-17] MEDS: Albuterol/Ipratropium 3.0-0.5 MG/3 ML Neb Soln NEB SCH ×3 (05:57→18:12)
[2018-11-17] MEDS: Nystatin Susp 100,000 Unit/ML 5 ML UD Cup PO SCH ×3 (05:59→21:43)
[2018-11-17] MEDS: Piperacillin/Tazobactam 3.375 GM in Sodium Chloride 0.9% 50 ML IV SCH ×3 (05:59→17:33)
[2018-11-17] MEDS: Benzonatate 100 MG Cap PO SCH ×3 (05:59→21:43)
[2018-11-17] MEDS: Acetaminophen 325 MG Tab PO PRN ×4 (06:07→18:26)
--- NOTE | 2018-11-17 06:46 | PCM.PN ---
- General Info Date of Service: 11/17/18 Admission Dx/Problem (Free Text): The patient was admitted secondary to shortness of breath, weakness and fatigue. Subjective Update: The patient is a 53-year-old gentleman who was admitted to acute hospitalization on November 11, 2018 after previously in hospital and receiving treatment for pneumonia, COPD and enteritis. The patient today says that he is still feeling weak. He is short of breath. He is still having cough. The patient says that his appetite is poor. The patient says that he has been walking but not as much. Functional Status: Reports: Pain Controlled - Review of Systems General: Reports: No Symptoms HEENT: Reports: No Symptoms Pulmonary: Reports: Shortness of Breath, Cough, Sputum Cardiovascular: Reports: No Symptoms Gastrointestinal: Reports: Decreased Appetite Genitourinary: Reports: No Symptoms Musculoskeletal: Reports: No Symptoms Skin: Reports: No Symptoms Neurological: Reports: No Symptoms Psychiatric: Reports: No Symptoms - Patient Data Vitals - Most Recent: Last Vital Signs Temp 36.7 C 11/17/18 04:00 Pulse 86 11/17/18 04:00 Resp 18 11/17/18 04:00 BP 130/82 11/17/18 04:00 Pulse Ox 93 L 11/17/18 04:00 Weight - Most Recent: 61.235 kg I&O - Last 24 Hours: Intake & Output 11/16/18 11/16/18 11/17/18 14:59 22:59 06:59 Intake Total 400 1020 690 Output Total 490 1900 Balance 400 530 -1210 Lab Results Last 24 Hours: Laboratory Results - last 24 hr 11/16/18 11/16/18 Range/Units 05:50 08:14 Magnesium 1.7 L (1.8-2.4) mg/dL Carcinoembryonic Ag 10.8 ng/mL Kike Results Last 24 Hours: Microbiology 11/11/18 12:10 Aerobic Blood Culture - Final Blood - Venous - Lab Draw NO GROWTH AFTER 5 DAYS Anaerobic Blood Culture - Final NO GROWTH AFTER 5 DAYS 11/11/18 13:48 Aerobic Blood Culture - Final Blood - Venous NO GROWTH AFTER 5 DAYS Anaerobic Blood Culture - Final NO GROWTH AFTER 5 DAYS Med Orders - Current: Current Medications Acetaminophen (Tylenol) 650 mg PO Q4H PRN PRN Reason: Pain Last Admin: 11/17/18 06:07 Dose: 650 mg Albuterol (Ventolin Hfa) 0 gm INH Q4H PRN PRN Reason: Wheezing Albuterol/Ipratropium (Duoneb 3.0-0.5 Mg/3 Ml) 3 ml NEB Q6HRRT [facility] Last Admin: 11/17/18 05:57 Dose: 3 ml Albuterol/Ipratropium (Duoneb 3.0-0.5 Mg/3 Ml) 3 ml NEB Q4HRRT PRN PRN Reason: Shortness of Breath Last Admin: 11/16/18 14:25 Dose: 3 ml Benzonatate (Tessalon Perles) 200 mg PO TID [facility] Last Admin: 11/17/18 05:59 Dose: 200 mg Folic Acid (Folic Acid) 1 mg PO DAILY [facility] Last Admin: 11/16/18 08:46 Dose: 1 mg Heparin Sodium (Porcine) (Heparin Sodium) 5,000 units SUBCUT Q8H [facility] Last Admin: 11/17/18 03:33 Dose: Not Given Levofloxacin/Dextrose 750 mg/ (Premix) 150 mls @ 100 mls/hr IV Q24H [facility] Last Admin: 11/16/18 14:03 Dose: 100 mls/hr Piperacillin Sod/Tazobactam (Sod 3.375 gm/ Sodium Chloride) 50 mls @ 100 mls/ hr IV Q6H [facility] Last Admin: 11/17/18 05:59 Dose: 100 mls/hr Ketorolac Tromethamine (Toradol) 15 mg IVPUSH Q6H PRN PRN Reason: Pain Stop: 11/17/18 12:11 Last Admin: 11/15/18 20:33 Dose: 15 mg Lorazepam (Ativan) 0.5 mg PO Q8H PRN PRN Reason: Anxiety Nystatin (Mycostatin) 5 ml PO TID [facility] Last Admin: 11/17/18 05:59 Dose: 5 ml Ondansetron HCl (Zofran Odt) 4 mg PO Q4H PRN PRN Reason: nausea, able to take PO Last Admin: 11/14/18 08:18 Dose: 4 mg Prednisone (Prednisone) 40 mg PO WITHBREAKFAST [facility] Last Admin: 11/16/18 07:59 Dose: 40 mg Temazepam (Restoril) 15 mg PO BEDTIME PRN PRN Reason: Insomnia Thiamine HCl (Vitamin B-1) 100 mg PO DAILY [facility] Last Admin: 11/16/18 08:46 Dose: 100 mg Discontinued Medications Albuterol/Ipratropium (Duoneb 3.0-0.5 Mg/3 Ml) 3 ml NEB ONETIME ONE Stop: 11/11/18 13:48 Last Admin: 11/11/18 13:52 Dose: 3 ml Albuterol/Ipratropium (Duoneb 3.0-0.5 Mg/3 Ml) 3 ml NEB Q4HRRT PRN PRN Reason: Shortness Of Breath/wheezing Last Admin: 11/13/18 09:36 Dose: 3 ml Benzonatate (Tessalon Perles) Confirm Administered Dose 100 mg .ROUTE .STK-MED ONE Stop: 11/12/18 10:09 Last Admin: 11/12/18 10:13 Dose: 100 mg Furosemide (Lasix) 20 mg IVPUSH ONETIME ONE Stop: 11/15/18 10:01 Last Admin: 11/15/18 11:03 Dose: 20 mg Furosemide (Lasix) 40 mg IVPUSH NOW ONE Stop: 11/15/18 17:41 Last Admin: 11/16/18 07:39 Dose: Not Given Furosemide (Lasix) 40 mg IVPUSH NOW ONE Stop: 11/15/18 19:01 Last Admin: 11/15/18 20:25 Dose: 40 mg Furosemide (Lasix) 20 mg IVPUSH NOW ONE Stop: 11/16/18 17:01 Last Admin: 11/16/18 17:26 Dose: 20 mg Sodium Chloride (Normal Saline) 1,000 mls @ 999 mls/hr IV BOLUS ONE Stop: 11/11/18 14:46 Last Infusion: 11/11/18 13:59 Dose: 80 mls/hr Levofloxacin/Dextrose 750 mg/ (Premix) 150 mls @ 100 mls/hr IV ONETIME ONE Stop: 11/11/18 16:10 Last Admin: 11/11/18 14:49 Dose: 100 mls/hr Sodium Chloride (Normal Saline) 1,000 mls @ 125 mls/hr IV ASDIRECTED [facility] Last Admin: 11/15/18 09:26 Dose: 125 mls/hr Vancomycin HCl 1 gm/ Sodium (Chloride) 250 mls @ 166.667 mls/hr IV Q12H [facility] Last Admin: 11/15/18 19:01 Dose: Not Given Magnesium Sulfate 2 gm/ Premix 50 mls @ 25 mls/hr IV ONETIME ONE Stop: 11/13/18 19:10 Last Admin: 11/13/18 18:41 Dose: 25 mls/hr Albumin Human (Flexbumin 25%) 12.5 gm in 50 mls @ 100 mls/hr IV ONETIME ONE Stop: 11/15/18 08:47 Last Admin: 11/15/18 09:18 Dose: 100 mls/hr Vancomycin HCl 0.75 gm/ Sodium (Chloride) 250 mls @ 166.667 mls/hr IV Q12H [facility] Last Admin: 11/16/18 16:33 Dose: 166.667 mls/hr Albumin Human (Flexbumin 25%) 12.5 gm in 50 mls @ 100 mls/hr IV ONETIME ONE Stop: 11/15/18 18:29 Last Admin: 11/15/18 18:48 Dose: 100 mls/hr Magnesium Sulfate 2 gm/ Premix 50 mls @ 50 mls/hr IV ONETIME ONE Stop: 11/16/18 12:10 Last Admin: 11/16/18 12:02 Dose: 50 mls/hr Albumin Human (Flexbumin 25%) 12.5 gm in 50 mls @ 100 mls/hr IV ONETIME ONE Stop: 11/16/18 11:40 Last Admin: 11/16/18 11:38 Dose: 100 mls/hr Albumin Human (Flexbumin 25%) 12.5 gm in 50 mls @ 100 mls/hr IV ONETIME ONE Stop: 11/16/18 16:29 Last Admin: 11/16/18 15:34 Dose: 100 mls/hr Iopamidol (Isovue Multipack-370 (76%)) 100 ml IVPUSH ONETIME ONE Stop: 11/11/18 19:21 Last Admin: 11/11/18 19:25 Dose: 100 ml Ketorolac Tromethamine (Toradol) 15 mg IVPUSH Q6H [facility] Stop: 11/17/18 12:11 Last Admin: 11/12/18 12:44 Dose: 15 mg Lorazepam (Ativan) 0 mg IVPUSH Q4H PRN; Protocol PRN Reason: Agitation Last Admin: 11/12/18 12:09 Dose: 2 mg Methylprednisolone Sodium Succinate (Solu-Medrol) 125 mg IVPUSH ONETIME ONE Stop: 11/11/18 13:48 Last Admin: 11/11/18 13:59 Dose: 125 mg Methylprednisolone Sodium Succinate (Solu-Medrol) 125 mg IVPUSH Q8H [facility] Last Admin: 11/14/18 05:47 Dose: 125 mg Methylprednisolone Sodium Succinate (Solu-Medrol) 125 mg IVPUSH DAILY [facility] Last Admin: 11/15/18 09:10 Dose: 125 mg Oxycodone HCl (Oxycodone) 5 mg PO ONETIME ONE Stop: 11/11/18 20:39 Last Admin: 11/11/18 21:45 Dose: 5 mg Potassium Chloride (Klor-Con M20) 40 meq PO ONETIME ONE Stop: 11/13/18 09:42 Last Admin: 11/13/18 10:54 Dose: 40 meq Potassium Chloride (Potassium Chloride) 40 meq PO Q4H [facility] Stop: 11/14/18 11:31 Last Admin: 11/14/18 08:10 Dose: 40 meq Potassium Chloride (Klor-Con M20) 40 meq PO ONETIME@1130 [facility] Last Admin: 11/14/18 11:29 Dose: 40 meq Potassium Chloride (Klor-Con M20) 40 meq PO ONETIME ONE Stop: 11/16/18 07:42 Last Admin: 11/16/18 07:58 Dose: 40 meq Vancomycin HCl (Pharmacy To Dose - Vancomycin) 1 dose .XX ASDIRECTED [facility] - Exam Quality Assessment: Supplemental Oxygen General: Alert, Oriented, Cooperative, Other (Thin) HEENT: Pupils Equal, Pupils Reactive, EOMI. No: Mucous Membr. Moist/[place] (Dry) Neck: Supple, Trachea Midline Lungs: Decreased Breath Sounds, Crackles, Rales, Rhonchi Cardiovascular: Regular Rate, Regular Rhythm, No Murmurs GI/Abdominal Exam: Normal Bowel Sounds, Soft, Non-Tender, No Distention. No: Guarding, Rigid, Rebound Back Exam: Normal Inspection, Full Range of Motion Extremities: Normal Inspection, Normal Range of Motion, No Pedal Edema Skin: Warm, Dry, Intact Neurological: No New Focal Deficit Psy/Mental Status: Alert, Normal Affect, Normal Mood - Problem List & Annotations (1) Liver cirrhosis SNOMED Code(s): 11483192 Code(s): K74.60 - UNSPECIFIED CIRRHOSIS OF LIVER Status: Chronic Priority : High Current Visit: Yes Qualifiers: Hepatic cirrhosis type: alcoholic cirrhosis Ascites presence: with ascites Qualified Code(s): K70.31 - Alcoholic cirrhosis of liver with ascites (2) Hypoxia SNOMED Code(s): 505600481 Code(s): R09.02 - HYPOXEMIA Status: Acute Current Visit: Yes (3) Pneumonia SNOMED Code(s): 747427646 Code(s): J18.9 - PNEUMONIA, UNSPECIFIED ORGANISM Status: Acute Current Visit: Yes Qualifiers: Pneumonia type: due to unspecified organism Laterality: left Lung location: lower lobe of lung Qualified Code(s): J18.1 - Lobar pneumonia, unspecified organism (4) COPD exacerbation SNOMED Code(s): 479467832 Code(s): J44.1 - CHRONIC OBSTRUCTIVE PULMONARY DISEASE W (ACUTE) EXACERBATION Status: Acute Priority: High Current Visit: No (5) Neuropathy involving both lower extremities SNOMED Code(s): 34086285457587217 Code(s): G57.93 - UNSPECIFIED MONONEUROPATHY OF BILATERAL LOWER LIMBS Status: Chronic Priority: High Current Visit: No (6) Pulmonary cachexia due to chronic obstructive pulmonary disease SNOMED Code(s): 689670976 Code(s): J44.9 - CHRONIC OBSTRUCTIVE PULMONARY DISEASE, UNSPECIFIED; R64 - CACHEXIA Status: Chronic Priority: High Current Visit: No (7) Severe protein-calorie malnutrition SNOMED Code(s): 153131692, 607893411, 300445472 Code(s): E43 - UNSPECIFIED SEVERE PROTEIN-CALORIE MALNUTRITION Status: Chronic Priority: High Current Visit: No - Problem List Review Problem List Initiated/Reviewed/Updated: Yes - Plan Plan:: A: 1. Acute hypoxic respiratory failure, stable 2. Lower extremity edema, improving 3. Liver cirrhosis 4. COPD exacerbation 5. HCAP 6. Leukocytosis 7. Oral thrush 8. Alcohol abuse 9. Celiac disease 10. Self care deficit 11. Severe protein undernourishment 12. Hypokalemia, replaced 13. 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 Acute hypoxic respiratory failure. scheduled Duonebs Q6H and PRN. Continue antibiotics and switched to PO prednisone. 2. Lower extremity edema 2/2 hypoalbuminemia s/p albumin administration. Will administer another dose of albumin today and monitor I/O's. 3. Liver cirrhosis, U/S showed hepatic nodularity consistent with liver cirrhosis. pending Hep panel results. CEA was 4. HCAP- continue antibiotics for now. 5. Hypokalemia, replaced with KCl 40 mEq PO once. Recheck tomorrow. 5. Hypomagnesemia, replaced with MgS IV once. recheck tomorrow. 6. Elevated CEA tumor marker, I suspect that the patient may have an underlying malignancy. However, his current medical condition with liver cirrhosis and possible inflammatory bowel disease may be falsely elevating the CEA level. Still pending AFP level. Dispo: likely dc this weekend. The patient is a 53-year-old gentleman who had presented initially out of concern with pneumonia. The patient also has a history of acute hypoxic respiratory failure and an ultrasound of his abdomen recently showed echogenic liver with nodular areas consistent with cirrhosis. The patient also had a mildly elevated CEA and is consistent with his previous history of alcohol use and cigarette use. The patient also has been complaining of leg swelling which is consistent with his hyperglobulinemia. I've ordered an INR this patient is having or problems with bruising. The patient electrolyte imbalances will be replaced as necessary. He's been encouraged to eat to help with his severe protein malnutrition as well as to ambulate to help preserve his strength. The patient has expressed a desire to return to home in [place]. I've ordered repeat laboratory studies for the morning.
[2018-11-17 07:19] LABS: CHLORIDE,CL 102 mmol/L (98-107); SODIUM,NA 139 mmol/L (136-148)
[2018-11-17] MEDS: Folic Acid 1 MG Tab PO SCH (08:15)
[2018-11-17] MEDS: predniSONE 20 MG Tab PO SCH (08:15)
[2018-11-17] MEDS: Thiamine 100 MG Tab PO SCH (08:15)
[2018-11-17] MEDS: Levofloxacin/Dextrose 5%-Water 750 MG in Premix Bag 1 BAG IV SCH (14:51)
--- NOTE | 2018-11-17 15:45 | CR ---
INDICATION: Wheezing and dyspnea. TECHNIQUE: Single view. COMPARISON: 11/11/2018. FINDINGS: The patchy infiltrate on the prior study has improved in the right perihilar region. New mild increased opacification left upper lobe is noted. This appears increased. Heart size is within normal limits. No significant pleural fluid is seen. IMPRESSION: There is mild increased opacification left upper lobe suggestive of early pneumonia. The patchy perihilar infiltrate on the right has improved. Heart size is stable. Dictated by Rashel Mukherjee MD @ 11/17/2018 11:03:10 AM Dictated by: Rashel Mukherjee MD @ 11/17/2018 11:03:25 (Electronically Signed)
[2018-11-18] MEDS: Piperacillin/Tazobactam 3.375 GM in Sodium Chloride 0.9% 50 ML IV SCH ×2 (00:04→06:31)
[2018-11-18] MEDS: Albuterol/Ipratropium 3.0-0.5 MG/3 ML Neb Soln NEB SCH ×4 (00:04→17:38)
[2018-11-18] MEDS: Heparin Sodium 5,000 Units/ML Vial SUBCUT SCH ×3 (02:02→19:46)
[2018-11-18] MEDS: Benzonatate 100 MG Cap PO SCH ×3 (06:32→21:06)
[2018-11-18] MEDS: Nystatin Susp 100,000 Unit/ML 5 ML UD Cup PO SCH ×3 (07:13→21:08)
[2018-11-18] MEDS: predniSONE 20 MG Tab PO SCH (08:16)
[2018-11-18] MEDS: Folic Acid 1 MG Tab PO SCH (08:17)
[2018-11-18] MEDS: Thiamine 100 MG Tab PO SCH (08:17)
[2018-11-18] MEDS ORDERED: Furosemide 20 MG/2 ML VIAL IVPUSH ONE (08:36)
[2018-11-18 09:09] LABS: CHLORIDE,CL 101 mmol/L (98-107); SODIUM,NA 137 mmol/L (136-148)
--- NOTE | 2018-11-18 09:12 | PCM.DCSUM1 ---
<Addy Wise - Last Filed: 11/18/18 13:44> Discharge Summary - Hospital Course Free Text/Narrative:: 53 y/o male with complex medical history who has had multiple re-admissions in the past 2 months. He presented to the ER 3 days after being discharged on 11/09/18. However, he stated he did not feel his prescriptions after discharge and he was feeling short of breath at home. He was admitted for HCAP and started on antibiotics which included Levaquin, Zosyn and Vancomycin. In addition, he was re-started on scheduled duoneb treatments and methylprednisolone for his COPD. His O2 requirements fluctuated from high 80's to low 90's. He was requiring 2L O2 NC to keep sats greater than 90%. In addition, he was administered albumin due to his hypoalbuminemia and was able to diurese over 8L urine output. A RUQ ultrasound found a nodular liver consistent with cirrhosis. INR was 1.2. AFP level was pending. His shortness of breath improved. He was also found to have Celiac's Disease and started on a gluten free diet and high protein supplementation since he was severely protein malnourished. He was tested for HIV and Hepatitis which were negative. His WBC was elevated and attributed to prednisone intake. He was discharged home on home oxygen and inhalers for his COPD. - Discharge Data Discharge Date: 11/18/18 Discharge Disposition: Home, Self-Care 01 Condition: Poor - Patient Summary/Data Consults: Consultations 11/12/18 09:49 Consult to Physical Therapy [PT Evaluation and Treatment] [CONS] Routine - Patient Instructions Diet: Usual Diet as Tolerated Diet, Other: Gluten free for Celiac's disease Activity: As Tolerated Notify Provider of: Fever, Increased Pain, Swelling and Redness, Nausea and/or Vomiting - Discharge Plan *PRESCRIPTION DRUG MONITORING PROGRAM REVIEWED*: Not Applicable *COPY OF PRESCRIPTION DRUG MONITORING REPORT IN PATIENT ABI: Not Applicable Prescriptions/Med Rec: predniSONE 40 mg PO WITHBREAKFAST 5 Days #5 tablet Home Medications: Home Meds Albuterol Sulfate [Proair Hfa] 1 - 2 puff INH ASDIRECTED PRN 06/30/16 [History] Glycopyrrolate/Formoterol Fum [Bevespi Aerosphere Inhaler] 1 - 2 inh PO DAILY [History] B Complex With Vitamin C [Vitamin B-Complex & C] 1 each PO DAILY #30 tablet.er 10/07/18 [Rx] Gabapentin [Neurontin] 300 mg PO BID #30 capsule 10/07/18 [Rx] Ascorbic Acid [Vitamin C] 1,500 mg PO TID #90 tablet 11/09/18 [Rx] Calcium Carbonate/Vitamin D3 [Caltrate 600+D 1500 MG-400 Units] 1 tab PO DAILY # 30 tablet 11/09/18 [Rx] Folic Acid 1 mg PO BEDTIME #30 tablet 11/09/18 [Rx] Loperamide [Imodium] 2 mg PO Q6H PRN #30 cap 11/09/18 [Rx] Nystatin [Nystop] 1 mg TOP TID PRN #1 bottle 11/09/18 [Rx] Pantoprazole Sodium 40 mg PO DAILY #30 tablet.dr 11/09/18 [Rx] Sod Phos Di, Jennings/K Phos Jennings [Av-Phos 250 Neutral Tablet] 250 mg PO DAILY #30 tablet 11/09/18 [Rx] Nicotine Polacrilex [Nicotine Gum] 2 mg BC ASDIRECTED 11/15/18 [History] Thiamine [Vitamin B-1] 100 mg PO DAILY 11/15/18 [History] predniSONE 40 mg PO WITHBREAKFAST 5 Days #5 tablet 11/18/18 [Rx] Patient Handouts: Hypoxia, Cirrhosis, Prednisone tablets, Community-Acquired Pneumonia, Adult, [id number] Referrals: Bandar Ureña MD [Primary Care Provider] - - Discharge Summary/Plan Comment DC Time >30 min.: No - Patient Data Vitals - Most Recent: Last Vital Signs Temp 36.9 C 11/18/18 07:45 Pulse 104 H 11/18/18 07:45 Resp 19 11/18/18 07:45 BP 131/70 11/18/18 07:45 Pulse Ox 90 L 11/18/18 07:45 Weight - Most Recent: 61.235 kg I&O - Last 24 hours: Intake & Output 11/17/18 11/18/18 11/18/18 22:59 06:59 14:59 Intake Total 460 410 Output Total 490 900 Balance -30 -490 Lab Results - Last 24 hrs: Laboratory Results - last 24 hr 11/15/18 11/17/18 Range/Units 05:35 10:50 INR 1.26 Hepatitis A IgM Ab Negative (Negative) Hep Bs Antigen Negative (Negative) Hep B Core IgM Ab Negative (Negative) Hepatitis C Antibody <0.1 (0.0-0.9) s/co ratio Med Orders - Current: Current Medications Acetaminophen (Tylenol) 650 mg PO Q4H PRN PRN Reason: Pain Last Admin: 11/17/18 18:26 Dose: 650 mg Albuterol (Ventolin Hfa) 0 gm INH Q4H PRN PRN Reason: Wheezing Albuterol/Ipratropium (Duoneb 3.0-0.5 Mg/3 Ml) 3 ml NEB Q6HRRT [facility] Last Admin: 11/18/18 05:53 Dose: 3 ml Albuterol/Ipratropium (Duoneb 3.0-0.5 Mg/3 Ml) 3 ml NEB Q4HRRT PRN PRN Reason: Shortness of Breath Last Admin: 11/16/18 14:25 Dose: 3 ml Benzonatate (Tessalon Perles) 200 mg PO TID [facility] Last Admin: 11/18/18 06:32 Dose: 200 mg Folic Acid (Folic Acid) 1 mg PO DAILY [facility] Last Admin: 11/18/18 08:17 Dose: 1 mg Heparin Sodium (Porcine) (Heparin Sodium) 5,000 units SUBCUT Q8H [facility] Last Admin: 11/18/18 02:02 Dose: Not Given Lorazepam (Ativan) 0.5 mg PO Q8H PRN PRN Reason: Anxiety Nystatin (Mycostatin) 5 ml PO TID [facility] Last Admin: 11/18/18 07:13 Dose: Not Given Ondansetron HCl (Zofran Odt) 4 mg PO Q4H PRN PRN Reason: nausea, able to take PO Last Admin: 11/14/18 08:18 Dose: 4 mg Prednisone (Prednisone) 40 mg PO WITHBREAKFAST [facility] Last Admin: 11/18/18 08:16 Dose: 40 mg Temazepam (Restoril) 15 mg PO BEDTIME PRN PRN Reason: Insomnia Thiamine HCl (Vitamin B-1) 100 mg PO DAILY [facility] Last Admin: 11/18/18 08:17 Dose: 100 mg Discontinued Medications Albuterol/Ipratropium (Duoneb 3.0-0.5 Mg/3 Ml) 3 ml NEB ONETIME ONE Stop: 11/11/18 13:48 Last Admin: 11/11/18 13:52 Dose: 3 ml Albuterol/Ipratropium (Duoneb 3.0-0.5 Mg/3 Ml) 3 ml NEB Q4HRRT PRN PRN Reason: Shortness Of Breath/wheezing Last Admin: 11/13/18 09:36 Dose: 3 ml Benzonatate (Tessalon Perles) Confirm Administered Dose 100 mg .ROUTE .STK-MED ONE Stop: 11/12/18 10:09 Last Admin: 11/12/18 10:13 Dose: 100 mg Furosemide (Lasix) 20 mg IVPUSH ONETIME ONE Stop: 11/15/18 10:01 Last Admin: 11/15/18 11:03 Dose: 20 mg Furosemide (Lasix) 40 mg IVPUSH NOW ONE Stop: 11/15/18 17:41 Last Admin: 11/16/18 07:39 Dose: Not Given Furosemide (Lasix) 40 mg IVPUSH NOW ONE Stop: 11/15/18 19:01 Last Admin: 11/15/18 20:25 Dose: 40 mg Furosemide (Lasix) 20 mg IVPUSH NOW ONE Stop: 11/16/18 17:01 Last Admin: 11/16/18 17:26 Dose: 20 mg Furosemide (Lasix) 20 mg IVPUSH NOW ONE Stop: 11/18/18 08:37 Last Admin: 11/18/18 08:57 Dose: 20 mg Sodium Chloride (Normal Saline) 1,000 mls @ 999 mls/hr IV BOLUS ONE Stop: 11/11/18 14:46 Last Infusion: 11/11/18 13:59 Dose: 80 mls/hr Levofloxacin/Dextrose 750 mg/ (Premix) 150 mls @ 100 mls/hr IV ONETIME ONE Stop: 11/11/18 16:10 Last Admin: 11/11/18 14:49 Dose: 100 mls/hr Sodium Chloride (Normal Saline) 1,000 mls @ 125 mls/hr IV ASDIRECTED [facility] Last Admin: 11/15/18 09:26 Dose: 125 mls/hr Vancomycin HCl 1 gm/ Sodium (Chloride) 250 mls @ 166.667 mls/hr IV Q12H [facility] Last Admin: 11/15/18 19:01 Dose: Not Given Levofloxacin/Dextrose 750 mg/ (Premix) 150 mls @ 100 mls/hr IV Q24H [facility] Last Admin: 11/17/18 14:51 Dose: 100 mls/hr Piperacillin Sod/Tazobactam (Sod 3.375 gm/ Sodium Chloride) 50 mls @ 100 mls/ hr IV Q6H [facility] Last Admin: 11/18/18 06:31 Dose: 100 mls/hr Magnesium Sulfate 2 gm/ Premix 50 mls @ 25 mls/hr IV ONETIME ONE Stop: 11/13/18 19:10 Last Admin: 11/13/18 18:41 Dose: 25 mls/hr Albumin Human (Flexbumin 25%) 12.5 gm in 50 mls @ 100 mls/hr IV ONETIME ONE Stop: 11/15/18 08:47 Last Admin: 11/15/18 09:18 Dose: 100 mls/hr Vancomycin HCl 0.75 gm/ Sodium (Chloride) 250 mls @ 166.667 mls/hr IV Q12H [facility] Last Admin: 11/16/18 16:33 Dose: 166.667 mls/hr Albumin Human (Flexbumin 25%) 12.5 gm in 50 mls @ 100 mls/hr IV ONETIME ONE Stop: 11/15/18 18:29 Last Admin: 11/15/18 18:48 Dose: 100 mls/hr Magnesium Sulfate 2 gm/ Premix 50 mls @ 50 mls/hr IV ONETIME ONE Stop: 11/16/18 12:10 Last Admin: 11/16/18 12:02 Dose: 50 mls/hr Albumin Human (Flexbumin 25%) 12.5 gm in 50 mls @ 100 mls/hr IV ONETIME ONE Stop: 11/16/18 11:40 Last Admin: 11/16/18 11:38 Dose: 100 mls/hr Albumin Human (Flexbumin 25%) 12.5 gm in 50 mls @ 100 mls/hr IV ONETIME ONE Stop: 11/16/18 16:29 Last Admin: 11/16/18 15:34 Dose: 100 mls/hr Iopamidol (Isovue Multipack-370 (76%)) 100 ml IVPUSH ONETIME ONE Stop: 11/11/18 19:21 Last Admin: 11/11/18 19:25 Dose: 100 ml Ketorolac Tromethamine (Toradol) 15 mg IVPUSH Q6H [facility] Stop: 11/17/18 12:11 Last Admin: 11/12/18 12:44 Dose: 15 mg Ketorolac Tromethamine (Toradol) 15 mg IVPUSH Q6H PRN PRN Reason: Pain Stop: 11/17/18 12:11 Last Admin: 11/15/18 20:33 Dose: 15 mg Lorazepam (Ativan) 0 mg IVPUSH Q4H PRN; Protocol PRN Reason: Agitation Last Admin: 11/12/18 12:09 Dose: 2 mg Methylprednisolone Sodium Succinate (Solu-Medrol) 125 mg IVPUSH ONETIME ONE Stop: 11/11/18 13:48 Last Admin: 11/11/18 13:59 Dose: 125 mg Methylprednisolone Sodium Succinate (Solu-Medrol) 125 mg IVPUSH Q8H [facility] Last Admin: 11/14/18 05:47 Dose: 125 mg Methylprednisolone Sodium Succinate (Solu-Medrol) 125 mg IVPUSH DAILY [facility] Last Admin: 11/15/18 09:10 Dose: 125 mg Oxycodone HCl (Oxycodone) 5 mg PO ONETIME ONE Stop: 11/11/18 20:39 Last Admin: 11/11/18 21:45 Dose: 5 mg Potassium Chloride (Klor-Con M20) 40 meq PO ONETIME ONE Stop: 11/13/18 09:42 Last Admin: 11/13/18 10:54 Dose: 40 meq Potassium Chloride (Potassium Chloride) 40 meq PO Q4H [facility] Stop: 11/14/18 11:31 Last Admin: 11/14/18 08:10 Dose: 40 meq Potassium Chloride (Klor-Con M20) 40 meq PO ONETIME@1130 [facility] Last Admin: 11/14/18 11:29 Dose: 40 meq Potassium Chloride (Klor-Con M20) 40 meq PO ONETIME ONE Stop: 11/16/18 07:42 Last Admin: 11/16/18 07:58 Dose: 40 meq Vancomycin HCl (Pharmacy To Dose - Vancomycin) 1 dose .XX ASDIRECTED [facility] <Israel Brooks - Last Filed: 11/18/18 14:22> Discharge Summary - Hospital Course HPI Initial Comments: I have seen and examined to patient independently of medical records assistant, Addy Gaston MD. I have discussed the case for care of this patient with him. I have reviewed and approve of the plan of care as outlined by medical records assistant. Please see orders. The patients alpha one antitrypsin activity is pending. - Discharge Diagnosis/Problem(s) (1) Liver cirrhosis SNOMED Code(s): 55713863 ICD Code: K74.60 - UNSPECIFIED CIRRHOSIS OF LIVER Status: Chronic Priority: High Current Visit: Yes Qualifiers: Hepatic cirrhosis type: alcoholic cirrhosis Ascites presence: with ascites Qualified Code(s): K70.31 - Alcoholic cirrhosis of liver with ascites (2) Hypoxia SNOMED Code(s): 201742730 ICD Code: R09.02 - HYPOXEMIA Status: Acute Current Visit: Yes (3) Pneumonia SNOMED Code(s): 062132081 ICD Code: J18.9 - PNEUMONIA, UNSPECIFIED ORGANISM Status: Acute Current Visit: Yes Qualifiers: Pneumonia type: due to unspecified organism Laterality: left Lung location: lower lobe of lung Qualified Code(s): J18.1 - Lobar pneumonia, unspecified organism (4) COPD exacerbation SNOMED Code(s): 801252220 ICD Code: J44.1 - CHRONIC OBSTRUCTIVE PULMONARY DISEASE W (ACUTE) EXACERBATION Status: Acute Priority: High Current Visit: No (5) Neuropathy involving both lower extremities SNOMED Code(s): 73784281026032341 ICD Code: G57.93 - UNSPECIFIED MONONEUROPATHY OF BILATERAL LOWER LIMBS Status: Chronic Priority: High Current Visit: No (6) Pulmonary cachexia due to chronic obstructive pulmonary disease SNOMED Code(s): 070347516 ICD Code: J44.9 - CHRONIC OBSTRUCTIVE PULMONARY DISEASE, UNSPECIFIED; R64 - CACHEXIA Status: Chronic Priority: High Current Visit: No (7) Severe protein-calorie malnutrition SNOMED Code(s): 995956860, 856928339, 606421381 ICD Code: E43 - UNSPECIFIED SEVERE PROTEIN-CALORIE MALNUTRITION Status: Chronic Priority: High Current Visit: No - Patient Summary/Data Consults: Consultations 11/12/18 09:49 Consult to Physical Therapy [PT Evaluation and Treatment] [CONS] Routine - Patient Data Vitals - Most Recent: Last Vital Signs Temp 36.7 C 11/18/18 12:00 Pulse 93 11/18/18 12:00 Resp 20 11/18/18 12:00 BP 134/62 11/18/18 12:00 Pulse Ox 92 L 11/18/18 12:00 I&O - Last 24 hours: Intake & Output 11/17/18 11/18/18 11/18/18 22:59 06:59 14:59 Intake Total 460 410 Output Total 490 900 Balance -30 -490 Lab Results - Last 24 hrs: Laboratory Results - last 24 hr 11/18/18 11/18/18 11/18/18 Range/Units 08:30 08:30 08:30 WBC 18.45 H (4.0-11.0) K/uL RBC 2.89 L (4.50-5.90) M/uL Hgb 9.6 L (13.0-17.0) g/dL Hct 29.3 L (38.0-50.0) % MCV 101.4 H (80.0-98.0) fL MCH 33.2 H (27.0-32.0) pg MCHC 32.8 (31.0-37.0) g/dL RDW Std Deviation 85.7 H (28.0-62.0) fl RDW Coeff of Willy 23 H (11.0-15.0) % Plt Count 185 (150-400) K/uL MPV 11.20 (7.40-12.00) fL Add Manual Diff YES Neutrophils % (Manual) 78 (48.0-80.0) % Band Neutrophils % 8 % Lymphocytes % (Manual) 11 L (16.0-40.0) % Monocytes % (Manual) 3 (0.0-15.0) % Nucleated RBC % 0.0 /100WBC Absolute Seg Neuts 14.4 H (1.4-5.7) Band Neutrophils # 1.5 Lymphocytes # (Manual) 2.0 (0.6-2.4) Monocytes # (Manual) 0.6 (0.0-0.8) Nucleated RBCs # 0 K/uL Anisocytosis 1+ S Sodium 137 (136-148) mmol/L Potassium 2.8 L (3.5-5.1) mmol/L Chloride 101 (98-107) mmol/L Carbon Dioxide 30.3 (21.0-32.0) mmol/L BUN 4 L (7.0-18.0) mg/dL Creatinine 0.7 L (0.8-1.3) mg/dL Est Cr Clr Drug Dosing 104.49 mL/min Estimated GFR (MDRD) > 60.0 ml/min Glucose 102 (74-106) mg/dL Calcium 8.2 L (8.5-10.1) mg/dL Magnesium 1.6 L (1.8-2.4) mg/dL Med Orders - Current: Current Medications Acetaminophen (Tylenol) 650 mg PO Q4H PRN PRN Reason: Pain Last Admin: 11/18/18 09:56 Dose: 650 mg Albuterol (Ventolin Hfa) 0 gm INH Q4H PRN PRN Reason: Wheezing Albuterol/Ipratropium (Duoneb 3.0-0.5 Mg/3 Ml) 3 ml NEB Q6HRRT [facility] Last Admin: 11/18/18 11:48 Dose: 3 ml Albuterol/Ipratropium (Duoneb 3.0-0.5 Mg/3 Ml) 3 ml NEB Q4HRRT PRN PRN Reason: Shortness of Breath Last Admin: 11/16/18 14:25 Dose: 3 ml Benzonatate (Tessalon Perles) 200 mg PO TID [facility] Last Admin: 11/18/18 14:18 Dose: 200 mg Budesonide/Formoterol Fumarate (Symbicort 160-4.5 Mcg) 0 gm INH BID [facility] Last Admin: 11/18/18 12:04 Dose: 1 canister Folic Acid (Folic Acid) 1 mg PO DAILY [facility] Last Admin: 11/18/18 08:17 Dose: 1 mg Heparin Sodium (Porcine) (Heparin Sodium) 5,000 units SUBCUT Q8H [facility] Last Admin: 11/18/18 09:52 Dose: Not Given Lorazepam (Ativan) 0.5 mg PO Q8H PRN PRN Reason: Anxiety Nystatin (Mycostatin) 5 ml PO TID [facility] Last Admin: 11/18/18 14:18 Dose: 5 ml Ondansetron HCl (Zofran Odt) 4 mg PO Q4H PRN PRN Reason: nausea, able to take PO Last Admin: 11/14/18 08:18 Dose: 4 mg Prednisone (Prednisone) 40 mg PO WITHBREAKFAST [facility] Last Admin: 11/18/18 08:16 Dose: 40 mg Temazepam (Restoril) 15 mg PO BEDTIME PRN PRN Reason: Insomnia Thiamine HCl (Vitamin B-1) 100 mg PO DAILY [facility] Last Admin: 11/18/18 08:17 Dose: 100 mg Tiotropium [place] (Spiriva Handihaler) 18 mcg INH DAILY [facility] Last Admin: 11/18/18 11:29 Dose: 18 mcg Discontinued Medications Albuterol/Ipratropium (Duoneb 3.0-0.5 Mg/3 Ml) 3 ml NEB ONETIME ONE Stop: 11/11/18 13:48 Last Admin: 11/11/18 13:52 Dose: 3 ml Albuterol/Ipratropium (Duoneb 3.0-0.5 Mg/3 Ml) 3 ml NEB Q4HRRT PRN PRN Reason: Shortness Of Breath/wheezing Last Admin: 11/13/18 09:36 Dose: 3 ml Benzonatate (Tessalon Perles) Confirm Administered Dose 100 mg .ROUTE .STK-MED ONE Stop: 11/12/18 10:09 Last Admin: 11/12/18 10:13 Dose: 100 mg Furosemide (Lasix) 20 mg IVPUSH ONETIME ONE Stop: 11/15/18 10:01 Last Admin: 11/15/18 11:03 Dose: 20 mg Furosemide (Lasix) 40 mg IVPUSH NOW ONE Stop: 11/15/18 17:41 Last Admin: 11/16/18 07:39 Dose: Not Given Furosemide (Lasix) 40 mg IVPUSH NOW ONE Stop: 11/15/18 19:01 Last Admin: 11/15/18 20:25 Dose: 40 mg Furosemide (Lasix) 20 mg IVPUSH NOW ONE Stop: 11/16/18 17:01 Last Admin: 11/16/18 17:26 Dose: 20 mg Furosemide (Lasix) 20 mg IVPUSH NOW ONE Stop: 11/18/18 08:37 Last Admin: 11/18/18 08:57 Dose: 20 mg Sodium Chloride (Normal Saline) 1,000 mls @ 999 mls/hr IV BOLUS ONE Stop: 11/11/18 14:46 Last Infusion: 11/11/18 13:59 Dose: 80 mls/hr Levofloxacin/Dextrose 750 mg/ (Premix) 150 mls @ 100 mls/hr IV ONETIME ONE Stop: 11/11/18 16:10 Last Admin: 11/11/18 14:49 Dose: 100 mls/hr Sodium Chloride (Normal Saline) 1,000 mls @ 125 mls/hr IV ASDIRECTED [facility] Last Admin: 11/15/18 09:26 Dose: 125 mls/hr Vancomycin HCl 1 gm/ Sodium (Chloride) 250 mls @ 166.667 mls/hr IV Q12H [facility] Last Admin: 11/15/18 19:01 Dose: Not Given Levofloxacin/Dextrose 750 mg/ (Premix) 150 mls @ 100 mls/hr IV Q24H [facility] Last Admin: 11/17/18 14:51 Dose: 100 mls/hr Piperacillin Sod/Tazobactam (Sod 3.375 gm/ Sodium Chloride) 50 mls @ 100 mls/ hr IV Q6H [facility] Last Admin: 11/18/18 06:31 Dose: 100 mls/hr Magnesium Sulfate 2 gm/ Premix 50 mls @ 25 mls/hr IV ONETIME ONE Stop: 11/13/18 19:10 Last Admin: 11/13/18 18:41 Dose: 25 mls/hr Albumin Human (Flexbumin 25%) 12.5 gm in 50 mls @ 100 mls/hr IV ONETIME ONE Stop: 11/15/18 08:47 Last Admin: 11/15/18 09:18 Dose: 100 mls/hr Vancomycin HCl 0.75 gm/ Sodium (Chloride) 250 mls @ 166.667 mls/hr IV Q12H [facility] Last Admin: 11/16/18 16:33 Dose: 166.667 mls/hr Albumin Human (Flexbumin 25%) 12.5 gm in 50 mls @ 100 mls/hr IV ONETIME ONE Stop: 11/15/18 18:29 Last Admin: 11/15/18 18:48 Dose: 100 mls/hr Magnesium Sulfate 2 gm/ Premix 50 mls @ 50 mls/hr IV ONETIME ONE Stop: 11/16/18 12:10 Last Admin: 11/16/18 12:02 Dose: 50 mls/hr Albumin Human (Flexbumin 25%) 12.5 gm in 50 mls @ 100 mls/hr IV ONETIME ONE Stop: 11/16/18 11:40 Last Admin: 11/16/18 11:38 Dose: 100 mls/hr Albumin Human (Flexbumin 25%) 12.5 gm in 50 mls @ 100 mls/hr IV ONETIME ONE Stop: 11/16/18 16:29 Last Admin: 11/16/18 15:34 Dose: 100 mls/hr Magnesium Sulfate 2 gm/ Premix 50 mls @ 25 mls/hr IV ONETIME ONE Stop: 11/18/18 14:08 Last Admin: 11/18/18 12:37 Dose: 25 mls/hr Iopamidol (Isovue Multipack-370 (76%)) 100 ml IVPUSH ONETIME ONE Stop: 11/11/18 19:21 Last Admin: 11/11/18 19:25 Dose: 100 ml Ketorolac Tromethamine (Toradol) 15 mg IVPUSH Q6H [facility] Stop: 11/17/18 12:11 Last Admin: 11/12/18 12:44 Dose: 15 mg Ketorolac Tromethamine (Toradol) 15 mg IVPUSH Q6H PRN PRN Reason: Pain Stop: 11/17/18 12:11 Last Admin: 11/15/18 20:33 Dose: 15 mg Lorazepam (Ativan) 0 mg IVPUSH Q4H PRN; Protocol PRN Reason: Agitation Last Admin: 11/12/18 12:09 Dose: 2 mg Methylprednisolone Sodium Succinate (Solu-Medrol) 125 mg IVPUSH ONETIME ONE Stop: 11/11/18 13:48 Last Admin: 11/11/18 13:59 Dose: 125 mg Methylprednisolone Sodium Succinate (Solu-Medrol) 125 mg IVPUSH Q8H [facility] Last Admin: 11/14/18 05:47 Dose: 125 mg Methylprednisolone Sodium Succinate (Solu-Medrol) 125 mg IVPUSH DAILY [facility] Last Admin: 11/15/18 09:10 Dose: 125 mg Oxycodone HCl (Oxycodone) 5 mg PO ONETIME ONE Stop: 11/11/18 20:39 Last Admin: 11/11/18 21:45 Dose: 5 mg Potassium Chloride (Klor-Con M20) 40 meq PO ONETIME ONE Stop: 11/13/18 09:42 Last Admin: 11/13/18 10:54 Dose: 40 meq Potassium Chloride (Potassium Chloride) 40 meq PO Q4H [facility] Stop: 11/14/18 11:31 Last Admin: 11/14/18 08:10 Dose: 40 meq Potassium Chloride (Klor-Con M20) 40 meq PO ONETIME@1130 [facility] Last Admin: 11/14/18 11:29 Dose: 40 meq Potassium Chloride (Klor-Con M20) 40 meq PO ONETIME ONE Stop: 11/16/18 07:42 Last Admin: 11/16/18 07:58 Dose: 40 meq Potassium Chloride (Klor-Con M20) 40 meq PO ONETIME ONE Stop: 11/18/18 09:58 Last Admin: 11/18/18 10:30 Dose: 40 meq Potassium Chloride (Klor-Con M20) 40 meq PO ONETIME ONE Stop: 11/18/18 14:01 Last Admin: 11/18/18 14:18 Dose: 40 meq Vancomycin HCl (Pharmacy To Dose - Vancomycin) 1 dose .XX ASDIRECTED [facility]
[2018-11-18] MEDS: Acetaminophen 325 MG Tab PO PRN (09:56)
[2018-11-18] MEDS ORDERED: Potassium Chloride 20 MEQ Tab.ER PO ONE ×2 (09:57→14:00)
--- NOTE | 2018-11-18 11:21 | CR ---
Indication: Dyspnea. Technique: Single AP portable view of the chest was obtained. Comparison: November 17, 2018. Findings: The heart is normal in size. The lungs are clear. No infiltrate, pleural effusion, or pneumothorax is identified. Impression: No acute cardiopulmonary process. Dictated by Linda Valenzuela MD @ Nov 18 2018 11:17AM Signed by Dr. Linda Valenzuela @ Nov 18 2018 11:19AM
[2018-11-18] MEDS: Tiotropium Inhaler 18 MCG Inhalation Powder Cap Kit of 5 INH SCH (11:29)
[2018-11-18] MEDS: Budesonide/Formoterol 160-4.5 MCG/Puff 6 GM Inhaler INH SCH ×2 (12:04→21:07)
[2018-11-18] MEDS ORDERED: Magnesium Sulfate/Water 2 GM in Premix Bag 1 BAG IV ONE (12:09)
--- NOTE | 2018-11-18 15:36 | PCM.PN ---
<Addy Wise - Last Filed: 11/18/18 15:40> - General Info Date of Service: 11/18/18 Subjective Update: No acute events overnight. Diuresing well. Requiring 2-3 L O2 NC. Overall, states he feels better. No chest pain, abdominal pain. - Patient Data Vitals - Most Recent: Last Vital Signs Temp 36.7 C 11/18/18 12:00 Pulse 93 11/18/18 12:00 Resp 20 11/18/18 12:00 BP 134/62 11/18/18 12:00 Pulse Ox 92 L 11/18/18 12:00 Weight - Most Recent: 61.235 kg I&O - Last 24 Hours: Intake & Output 11/18/18 11/18/18 11/18/18 06:59 14:59 22:59 Intake Total 410 Output Total 900 Balance -490 Lab Results Last 24 Hours: Laboratory Results - last 24 hr 11/18/18 11/18/18 11/18/18 Range/Units 08:30 08:30 08:30 WBC 18.45 H (4.0-11.0) K/uL RBC 2.89 L (4.50-5.90) M/uL Hgb 9.6 L (13.0-17.0) g/dL Hct 29.3 L (38.0-50.0) % MCV 101.4 H (80.0-98.0) fL MCH 33.2 H (27.0-32.0) pg MCHC 32.8 (31.0-37.0) g/dL RDW Std Deviation 85.7 H (28.0-62.0) fl RDW Coeff of Willy 23 H (11.0-15.0) % Plt Count 185 (150-400) K/uL MPV 11.20 (7.40-12.00) fL Add Manual Diff YES Neutrophils % (Manual) 78 (48.0-80.0) % Band Neutrophils % 8 % Lymphocytes % (Manual) 11 L (16.0-40.0) % Monocytes % (Manual) 3 (0.0-15.0) % Nucleated RBC % 0.0 /100WBC Absolute Seg Neuts 14.4 H (1.4-5.7) Band Neutrophils # 1.5 Lymphocytes # (Manual) 2.0 (0.6-2.4) Monocytes # (Manual) 0.6 (0.0-0.8) Nucleated RBCs # 0 K/uL Anisocytosis 1+ S Sodium 137 (136-148) mmol/L Potassium 2.8 L (3.5-5.1) mmol/L Chloride 101 (98-107) mmol/L Carbon Dioxide 30.3 (21.0-32.0) mmol/L BUN 4 L (7.0-18.0) mg/dL Creatinine 0.7 L (0.8-1.3) mg/dL Est Cr Clr Drug Dosing 104.49 mL/min Estimated GFR (MDRD) > 60.0 ml/min Glucose 102 (74-106) mg/dL Calcium 8.2 L (8.5-10.1) mg/dL Magnesium 1.6 L (1.8-2.4) mg/dL Med Orders - Current: Current Medications Acetaminophen (Tylenol) 650 mg PO Q4H PRN PRN Reason: Pain Last Admin: 11/18/18 09:56 Dose: 650 mg Albuterol (Ventolin Hfa) 0 gm INH Q4H PRN PRN Reason: Wheezing Albuterol/Ipratropium (Duoneb 3.0-0.5 Mg/3 Ml) 3 ml NEB Q6HRRT [facility] Last Admin: 11/18/18 11:48 Dose: 3 ml Albuterol/Ipratropium (Duoneb 3.0-0.5 Mg/3 Ml) 3 ml NEB Q4HRRT PRN PRN Reason: Shortness of Breath Last Admin: 11/16/18 14:25 Dose: 3 ml Benzonatate (Tessalon Perles) 200 mg PO TID [facility] Last Admin: 11/18/18 14:18 Dose: 200 mg Budesonide/Formoterol Fumarate (Symbicort 160-4.5 Mcg) 0 gm INH BID [facility] Last Admin: 11/18/18 12:04 Dose: 1 canister Folic Acid (Folic Acid) 1 mg PO DAILY [facility] Last Admin: 11/18/18 08:17 Dose: 1 mg Heparin Sodium (Porcine) (Heparin Sodium) 5,000 units SUBCUT Q8H [facility] Last Admin: 11/18/18 09:52 Dose: Not Given Lorazepam (Ativan) 0.5 mg PO Q8H PRN PRN Reason: Anxiety Nystatin (Mycostatin) 5 ml PO TID [facility] Last Admin: 11/18/18 14:18 Dose: 5 ml Ondansetron HCl (Zofran Odt) 4 mg PO Q4H PRN PRN Reason: nausea, able to take PO Last Admin: 11/14/18 08:18 Dose: 4 mg Prednisone (Prednisone) 40 mg PO WITHBREAKFAST [facility] Last Admin: 11/18/18 08:16 Dose: 40 mg Temazepam (Restoril) 15 mg PO BEDTIME PRN PRN Reason: Insomnia Thiamine HCl (Vitamin B-1) 100 mg PO DAILY [facility] Last Admin: 11/18/18 08:17 Dose: 100 mg Tiotropium [place] (Spiriva Handihaler) 18 mcg INH DAILY [facility] Last Admin: 11/18/18 11:29 Dose: 18 mcg Discontinued Medications Albuterol/Ipratropium (Duoneb 3.0-0.5 Mg/3 Ml) 3 ml NEB ONETIME ONE Stop: 11/11/18 13:48 Last Admin: 11/11/18 13:52 Dose: 3 ml Albuterol/Ipratropium (Duoneb 3.0-0.5 Mg/3 Ml) 3 ml NEB Q4HRRT PRN PRN Reason: Shortness Of Breath/wheezing Last Admin: 11/13/18 09:36 Dose: 3 ml Benzonatate (Tessalon Perles) Confirm Administered Dose 100 mg .ROUTE .STK-MED ONE Stop: 11/12/18 10:09 Last Admin: 11/12/18 10:13 Dose: 100 mg Furosemide (Lasix) 20 mg IVPUSH ONETIME ONE Stop: 11/15/18 10:01 Last Admin: 11/15/18 11:03 Dose: 20 mg Furosemide (Lasix) 40 mg IVPUSH NOW ONE Stop: 11/15/18 17:41 Last Admin: 11/16/18 07:39 Dose: Not Given Furosemide (Lasix) 40 mg IVPUSH NOW ONE Stop: 11/15/18 19:01 Last Admin: 11/15/18 20:25 Dose: 40 mg Furosemide (Lasix) 20 mg IVPUSH NOW ONE Stop: 11/16/18 17:01 Last Admin: 11/16/18 17:26 Dose: 20 mg Furosemide (Lasix) 20 mg IVPUSH NOW ONE Stop: 11/18/18 08:37 Last Admin: 11/18/18 08:57 Dose: 20 mg Sodium Chloride (Normal Saline) 1,000 mls @ 999 mls/hr IV BOLUS ONE Stop: 11/11/18 14:46 Last Infusion: 11/11/18 13:59 Dose: 80 mls/hr Levofloxacin/Dextrose 750 mg/ (Premix) 150 mls @ 100 mls/hr IV ONETIME ONE Stop: 11/11/18 16:10 Last Admin: 11/11/18 14:49 Dose: 100 mls/hr Sodium Chloride (Normal Saline) 1,000 mls @ 125 mls/hr IV ASDIRECTED [facility] Last Admin: 11/15/18 09:26 Dose: 125 mls/hr Vancomycin HCl 1 gm/ Sodium (Chloride) 250 mls @ 166.667 mls/hr IV Q12H [facility] Last Admin: 11/15/18 19:01 Dose: Not Given Levofloxacin/Dextrose 750 mg/ (Premix) 150 mls @ 100 mls/hr IV Q24H [facility] Last Admin: 11/17/18 14:51 Dose: 100 mls/hr Piperacillin Sod/Tazobactam (Sod 3.375 gm/ Sodium Chloride) 50 mls @ 100 mls/ hr IV Q6H [facility] Last Admin: 11/18/18 06:31 Dose: 100 mls/hr Magnesium Sulfate 2 gm/ Premix 50 mls @ 25 mls/hr IV ONETIME ONE Stop: 11/13/18 19:10 Last Admin: 11/13/18 18:41 Dose: 25 mls/hr Albumin Human (Flexbumin 25%) 12.5 gm in 50 mls @ 100 mls/hr IV ONETIME ONE Stop: 11/15/18 08:47 Last Admin: 11/15/18 09:18 Dose: 100 mls/hr Vancomycin HCl 0.75 gm/ Sodium (Chloride) 250 mls @ 166.667 mls/hr IV Q12H [facility] Last Admin: 11/16/18 16:33 Dose: 166.667 mls/hr Albumin Human (Flexbumin 25%) 12.5 gm in 50 mls @ 100 mls/hr IV ONETIME ONE Stop: 11/15/18 18:29 Last Admin: 11/15/18 18:48 Dose: 100 mls/hr Magnesium Sulfate 2 gm/ Premix 50 mls @ 50 mls/hr IV ONETIME ONE Stop: 11/16/18 12:10 Last Admin: 11/16/18 12:02 Dose: 50 mls/hr Albumin Human (Flexbumin 25%) 12.5 gm in 50 mls @ 100 mls/hr IV ONETIME ONE Stop: 11/16/18 11:40 Last Admin: 11/16/18 11:38 Dose: 100 mls/hr Albumin Human (Flexbumin 25%) 12.5 gm in 50 mls @ 100 mls/hr IV ONETIME ONE Stop: 11/16/18 16:29 Last Admin: 11/16/18 15:34 Dose: 100 mls/hr Magnesium Sulfate 2 gm/ Premix 50 mls @ 25 mls/hr IV ONETIME ONE Stop: 11/18/18 14:08 Last Admin: 11/18/18 12:37 Dose: 25 mls/hr Iopamidol (Isovue Multipack-370 (76%)) 100 ml IVPUSH ONETIME ONE Stop: 11/11/18 19:21 Last Admin: 11/11/18 19:25 Dose: 100 ml Ketorolac Tromethamine (Toradol) 15 mg IVPUSH Q6H [facility] Stop: 11/17/18 12:11 Last Admin: 11/12/18 12:44 Dose: 15 mg Ketorolac Tromethamine (Toradol) 15 mg IVPUSH Q6H PRN PRN Reason: Pain Stop: 11/17/18 12:11 Last Admin: 11/15/18 20:33 Dose: 15 mg Lorazepam (Ativan) 0 mg IVPUSH Q4H PRN; Protocol PRN Reason: Agitation Last Admin: 11/12/18 12:09 Dose: 2 mg Methylprednisolone Sodium Succinate (Solu-Medrol) 125 mg IVPUSH ONETIME ONE Stop: 11/11/18 13:48 Last Admin: 11/11/18 13:59 Dose: 125 mg Methylprednisolone Sodium Succinate (Solu-Medrol) 125 mg IVPUSH Q8H [facility] Last Admin: 11/14/18 05:47 Dose: 125 mg Methylprednisolone Sodium Succinate (Solu-Medrol) 125 mg IVPUSH DAILY [facility] Last Admin: 11/15/18 09:10 Dose: 125 mg Oxycodone HCl (Oxycodone) 5 mg PO ONETIME ONE Stop: 11/11/18 20:39 Last Admin: 11/11/18 21:45 Dose: 5 mg Potassium Chloride (Klor-Con M20) 40 meq PO ONETIME ONE Stop: 11/13/18 09:42 Last Admin: 11/13/18 10:54 Dose: 40 meq Potassium Chloride (Potassium Chloride) 40 meq PO Q4H [facility] Stop: 11/14/18 11:31 Last Admin: 11/14/18 08:10 Dose: 40 meq Potassium Chloride (Klor-Con M20) 40 meq PO ONETIME@1130 [facility] Last Admin: 11/14/18 11:29 Dose: 40 meq Potassium Chloride (Klor-Con M20) 40 meq PO ONETIME ONE Stop: 11/16/18 07:42 Last Admin: 11/16/18 07:58 Dose: 40 meq Potassium Chloride (Klor-Con M20) 40 meq PO ONETIME ONE Stop: 11/18/18 09:58 Last Admin: 11/18/18 10:30 Dose: 40 meq Potassium Chloride (Klor-Con M20) 40 meq PO ONETIME ONE Stop: 11/18/18 14:01 Last Admin: 11/18/18 14:18 Dose: 40 meq Vancomycin HCl (Pharmacy To Dose - Vancomycin) 1 dose .XX ASDIRECTED [facility] - Exam General: Alert, Oriented, Cooperative, No Acute Distress Lungs: Rhonchi, Wheezing Cardiovascular: Regular Rate, Regular Rhythm GI/Abdominal Exam: Normal Bowel Sounds, Soft, Non-Tender Extremities: Pedal Edema Skin: Warm, Dry - Problem List Review Problem List Initiated/Reviewed/Updated: Yes - My Orders Last 24 Hours: My Active Orders 11/18/18 08:30 [id number], SERUM [REF] Routine 11/18/18 10:45 Budesonide/Formoterol [Symbicort 160-4.5 MCG] See Dose Instructions INH BID 11/18/18 10:47 RT Post Treatment Assessment [RC] Click to Edit RT Pre-Treatment Assessment [RC] Click to Edit 11/18/18 11:00 Tiotropium [Spiriva HandiHaler] 18 mcg INH DAILY 11/18/18 14:19 Ready for Discharge [RC] PER UNIT ROUTINE 11/18/18 15:24 Ang Chest [CT] Routine Ang Neck [CT] Routine - Plan Plan:: A: 1. Acute hypoxic respiratory failure, stable 2. Lower extremity edema, improving 3. Liver cirrhosis 4. COPD exacerbation 5. HCAP 6. Leukocytosis 7. Oral thrush 8. Alcohol abuse 9. Celiac disease 10. Self care deficit 11. Severe protein undernourishment 12. Hypokalemia, replaced 13. 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 Acute hypoxic respiratory failure. Symbicort and spiriva. Duonebs PRN. Will get CT chest and soft tissue neck to re-evaluate the pneumonia and assess for any neck mass. 2. HCAP- Zosyn and Vancomycin. Dispo: pending respiratory improvement <Israel Brooks - Last Filed: 11/19/18 07:30> - General Info Admission Dx/Problem (Free Text): I have seen and examined to patient independently of medical device sales consultant, Addy Gaston MD. I have discussed the case for care of this patient with him. I have reviewed and approve of the plan of care as outlined by medical device sales consultant. Please see orders. - Patient Data Vitals - Most Recent: Last Vital Signs Temp 36.6 C 11/19/18 04:00 Pulse 91 11/19/18 04:00 Resp 16 11/19/18 04:00 BP 131/74 11/19/18 04:00 Pulse Ox 91 L 11/19/18 04:00 I&O - Last 24 Hours: Intake & Output 11/18/18 11/19/18 11/19/18 22:59 06:59 14:59 Intake Total 500 400 Output Total 2355 950 Balance -1855 -550 Lab Results Last 24 Hours: Laboratory Results - last 24 hr 11/18/18 11/18/18 11/18/18 Range/Units 08:30 08:30 08:30 WBC 18.45 H (4.0-11.0) K/uL RBC 2.89 L (4.50-5.90) M/uL Hgb 9.6 L (13.0-17.0) g/dL Hct 29.3 L (38.0-50.0) % MCV 101.4 H (80.0-98.0) fL MCH 33.2 H (27.0-32.0) pg MCHC 32.8 (31.0-37.0) g/dL RDW Std Deviation 85.7 H (28.0-62.0) fl RDW Coeff of Willy 23 H (11.0-15.0) % Plt Count 185 (150-400) K/uL MPV 11.20 (7.40-12.00) fL Neut % (Auto) Lymph % (Auto) [place] % (Auto) Eos % (Auto) Baso % (Auto) Neut # (Auto) Lymph # (Auto) [place] # (Auto) Eos # (Auto) Baso # (Auto) Add Manual Diff YES Neutrophils % (Manual) 78 (48.0-80.0) % Band Neutrophils % 8 % Lymphocytes % (Manual) 11 L (16.0-40.0) % Monocytes % (Manual) 3 (0.0-15.0) % Metamyelocytes % % Nucleated RBC % 0.0 /100WBC Absolute Seg Neuts 14.4 H (1.4-5.7) Band Neutrophils # 1.5 Lymphocytes # (Manual) 2.0 (0.6-2.4) Monocytes # (Manual) 0.6 (0.0-0.8) Absolute Metamyelocyte Nucleated RBCs # 0 K/uL Anisocytosis 1+ S Sodium 137 (136-148) mmol/L Potassium 2.8 L (3.5-5.1) mmol/L Chloride 101 (98-107) mmol/L Carbon Dioxide 30.3 (21.0-32.0) mmol/L BUN 4 L (7.0-18.0) mg/dL Creatinine 0.7 L (0.8-1.3) mg/dL Est Cr Clr Drug Dosing 104.49 mL/min Estimated GFR (MDRD) > 60.0 ml/min Glucose 102 (74-106) mg/dL Calcium 8.2 L (8.5-10.1) mg/dL Magnesium 1.6 L (1.8-2.4) mg/dL Total Bilirubin (0.2-1.0) mg/dL AST (15-37) IU/L ALT (14-63) IU/L Alkaline Phosphatase (46-116) U/L Total Protein (6.4-8.2) g/dL Albumin (3.4-5.0) g/dL Globulin (2.6-4.0) g/dL Albumin/Globulin Ratio (0.9-1.6) 11/19/18 11/19/18 Range/Units 05:57 05:57 WBC 15.35 H (4.0-11.0) K/uL RBC 2.77 L (4.50-5.90) M/uL Hgb 9.0 L (13.0-17.0) g/dL Hct 28.0 L (38.0-50.0) % MCV 101.1 H (80.0-98.0) fL MCH 32.5 H (27.0-32.0) pg MCHC 32.1 (31.0-37.0) g/dL RDW Std Deviation 85.4 H (28.0-62.0) fl RDW Coeff of Willy 23 H (11.0-15.0) % Plt Count 163 (150-400) K/uL MPV 10.80 (7.40-12.00) fL Neut % (Auto) [place]ER Lymph % (Auto) [place] % (Auto) [place] Eos % (Auto) GL[place] EMBOSSER Baso % (Auto) [place] EMBOSSER Neut # (Auto) [place] E[place]OSSER Lymph # (Auto) [place] # (Auto) [place] E[place]ER Eos # (Auto) GL[place] E[place]ER Baso # (Auto) GLASS EMBOSSER Add Manual Diff YES Neutrophils % (Manual) 85 H (48.0-80.0) % Band Neutrophils % 4 % Lymphocytes % (Manual) 9 L (16.0-40.0) % Monocytes % (Manual) (0.0-15.0) % Metamyelocytes % 2 % Nucleated RBC % 0.0 /100WBC Absolute Seg Neuts 13.0 H (1.4-5.7) Band Neutrophils # 0.6 Lymphocytes # (Manual) 1.4 (0.6-2.4) Monocytes # (Manual) (0.0-0.8) Absolute Metamyelocyte 0.3 Nucleated RBCs # 0 K/uL Anisocytosis Sodium 139 (136-148) mmol/L Potassium 3.3 L (3.5-5.1) mmol/L Chloride 103 (98-107) mmol/L Carbon Dioxide 31.1 (21.0-32.0) mmol/L BUN 5 L (7.0-18.0) mg/dL Creatinine 0.5 L (0.8-1.3) mg/dL Est Cr Clr Drug Dosing 146.28 mL/min Estimated GFR (MDRD) > 60.0 ml/min Glucose 91 (74-106) mg/dL Calcium 8.3 L (8.5-10.1) mg/dL Magnesium 2.0 (1.8-2.4) mg/dL Total Bilirubin 1.0 (0.2-1.0) mg/dL AST 38 H (15-37) IU/L ALT 28 (14-63) IU/L Alkaline Phosphatase 103 (46-116) U/L Total Protein 5.3 L (6.4-8.2) g/dL Albumin 2.3 L (3.4-5.0) g/dL Globulin 3.0 (2.6-4.0) g/dL Albumin/Globulin Ratio 0.8 L (0.9-1.6) Med Orders - Current: Current Medications Acetaminophen (Tylenol) 650 mg PO Q4H PRN PRN Reason: Pain Last Admin: 11/18/18 09:56 Dose: 650 mg Albuterol (Ventolin Hfa) 0 gm INH Q4H PRN PRN Reason: Wheezing Albuterol/Ipratropium (Duoneb 3.0-0.5 Mg/3 Ml) 3 ml NEB Q6HRRT [facility] Last Admin: 11/19/18 05:43 Dose: 3 ml Albuterol/Ipratropium (Duoneb 3.0-0.5 Mg/3 Ml) 3 ml NEB Q4HRRT PRN PRN Reason: Shortness of Breath Last Admin: 11/16/18 14:25 Dose: 3 ml Benzonatate (Tessalon Perles) 200 mg PO TID [facility] Last Admin: 11/19/18 05:52 Dose: 200 mg Budesonide/Formoterol Fumarate (Symbicort 160-4.5 Mcg) 0 gm INH BID [facility] Last Admin: 11/18/18 21:07 Dose: 1 canister Folic Acid (Folic Acid) 1 mg PO DAILY [facility] Last Admin: 11/18/18 08:17 Dose: 1 mg Heparin Sodium (Porcine) (Heparin Sodium) 5,000 units SUBCUT Q8H [facility] Last Admin: 11/19/18 02:29 Dose: Not Given Lorazepam (Ativan) 0.5 mg PO Q8H PRN PRN Reason: Anxiety Nystatin (Mycostatin) 5 ml PO TID [facility] Last Admin: 11/19/18 05:52 Dose: 5 ml Ondansetron HCl (Zofran Odt) 4 mg PO Q4H PRN PRN Reason: nausea, able to take PO Last Admin: 11/14/18 08:18 Dose: 4 mg Prednisone (Prednisone) 40 mg PO WITHBREAKFAST [facility] Last Admin: 11/18/18 08:16 Dose: 40 mg Temazepam (Restoril) 15 mg PO BEDTIME PRN PRN Reason: Insomnia Last Admin: 11/18/18 21:14 Dose: 15 mg Thiamine HCl (Vitamin B-1) 100 mg PO DAILY [facility] Last Admin: 11/18/18 08:17 Dose: 100 mg Tiotropium [place] (Spiriva Handihaler) 18 mcg INH DAILY [facility] Last Admin: 11/18/18 11:29 Dose: 18 mcg Discontinued Medications Albuterol/Ipratropium (Duoneb 3.0-0.5 Mg/3 Ml) 3 ml NEB ONETIME ONE Stop: 11/11/18 13:48 Last Admin: 11/11/18 13:52 Dose: 3 ml Albuterol/Ipratropium (Duoneb 3.0-0.5 Mg/3 Ml) 3 ml NEB Q4HRRT PRN PRN Reason: Shortness Of Breath/wheezing Last Admin: 11/13/18 09:36 Dose: 3 ml Benzonatate (Tessalon Perles) Confirm Administered Dose 100 mg .ROUTE .STK-MED ONE Stop: 11/12/18 10:09 Last Admin: 11/12/18 10:13 Dose: 100 mg Furosemide (Lasix) 20 mg IVPUSH ONETIME ONE Stop: 11/15/18 10:01 Last Admin: 11/15/18 11:03 Dose: 20 mg Furosemide (Lasix) 40 mg IVPUSH NOW ONE Stop: 11/15/18 17:41 Last Admin: 11/16/18 07:39 Dose: Not Given Furosemide (Lasix) 40 mg IVPUSH NOW ONE Stop: 11/15/18 19:01 Last Admin: 11/15/18 20:25 Dose: 40 mg Furosemide (Lasix) 20 mg IVPUSH NOW ONE Stop: 11/16/18 17:01 Last Admin: 11/16/18 17:26 Dose: 20 mg Furosemide (Lasix) 20 mg IVPUSH NOW ONE Stop: 11/18/18 08:37 Last Admin: 11/18/18 08:57 Dose: 20 mg Sodium Chloride (Normal Saline) 1,000 mls @ 999 mls/hr IV BOLUS ONE Stop: 11/11/18 14:46 Last Infusion: 11/11/18 13:59 Dose: 80 mls/hr Levofloxacin/Dextrose 750 mg/ (Premix) 150 mls @ 100 mls/hr IV ONETIME ONE Stop: 11/11/18 16:10 Last Admin: 11/11/18 14:49 Dose: 100 mls/hr Sodium Chloride (Normal Saline) 1,000 mls @ 125 mls/hr IV ASDIRECTED [facility] Last Admin: 11/15/18 09:26 Dose: 125 mls/hr Vancomycin HCl 1 gm/ Sodium (Chloride) 250 mls @ 166.667 mls/hr IV Q12H [facility] Last Admin: 11/15/18 19:01 Dose: Not Given Levofloxacin/Dextrose 750 mg/ (Premix) 150 mls @ 100 mls/hr IV Q24H [facility] Last Admin: 11/17/18 14:51 Dose: 100 mls/hr Piperacillin Sod/Tazobactam (Sod 3.375 gm/ Sodium Chloride) 50 mls @ 100 mls/ hr IV Q6H [facility] Last Admin: 11/18/18 06:31 Dose: 100 mls/hr Magnesium Sulfate 2 gm/ Premix 50 mls @ 25 mls/hr IV ONETIME ONE Stop: 11/13/18 19:10 Last Admin: 11/13/18 18:41 Dose: 25 mls/hr Albumin Human (Flexbumin 25%) 12.5 gm in 50 mls @ 100 mls/hr IV ONETIME ONE Stop: 11/15/18 08:47 Last Admin: 11/15/18 09:18 Dose: 100 mls/hr Vancomycin HCl 0.75 gm/ Sodium (Chloride) 250 mls @ 166.667 mls/hr IV Q12H [facility] Last Admin: 11/16/18 16:33 Dose: 166.667 mls/hr Albumin Human (Flexbumin 25%) 12.5 gm in 50 mls @ 100 mls/hr IV ONETIME ONE Stop: 11/15/18 18:29 Last Admin: 11/15/18 18:48 Dose: 100 mls/hr Magnesium Sulfate 2 gm/ Premix 50 mls @ 50 mls/hr IV ONETIME ONE Stop: 11/16/18 12:10 Last Admin: 11/16/18 12:02 Dose: 50 mls/hr Albumin Human (Flexbumin 25%) 12.5 gm in 50 mls @ 100 mls/hr IV ONETIME ONE Stop: 11/16/18 11:40 Last Admin: 11/16/18 11:38 Dose: 100 mls/hr Albumin Human (Flexbumin 25%) 12.5 gm in 50 mls @ 100 mls/hr IV ONETIME ONE Stop: 11/16/18 16:29 Last Admin: 11/16/18 15:34 Dose: 100 mls/hr Magnesium Sulfate 2 gm/ Premix 50 mls @ 25 mls/hr IV ONETIME ONE Stop: 11/18/18 14:08 Last Admin: 11/18/18 12:37 Dose: 25 mls/hr Iopamidol (Isovue Multipack-370 (76%)) 100 ml IVPUSH ONETIME ONE Stop: 11/11/18 19:21 Last Admin: 11/11/18 19:25 Dose: 100 ml Iopamidol (Isovue Multipack-370 (76%)) 75 ml IVPUSH ONETIME [facility] Stop: 11/18/18 16:18 Last Admin: 11/18/18 16:18 Dose: 75 ml Ketorolac Tromethamine (Toradol) 15 mg IVPUSH Q6H [facility] Stop: 11/17/18 12:11 Last Admin: 11/12/18 12:44 Dose: 15 mg Ketorolac Tromethamine (Toradol) 15 mg IVPUSH Q6H PRN PRN Reason: Pain Stop: 11/17/18 12:11 Last Admin: 11/15/18 20:33 Dose: 15 mg Lorazepam (Ativan) 0 mg IVPUSH Q4H PRN; Protocol PRN Reason: Agitation Last Admin: 11/12/18 12:09 Dose: 2 mg Methylprednisolone Sodium Succinate (Solu-Medrol) 125 mg IVPUSH ONETIME ONE Stop: 11/11/18 13:48 Last Admin: 11/11/18 13:59 Dose: 125 mg Methylprednisolone Sodium Succinate (Solu-Medrol) 125 mg IVPUSH Q8H [facility] Last Admin: 11/14/18 05:47 Dose: 125 mg Methylprednisolone Sodium Succinate (Solu-Medrol) 125 mg IVPUSH DAILY [facility] Last Admin: 11/15/18 09:10 Dose: 125 mg Oxycodone HCl (Oxycodone) 5 mg PO ONETIME ONE Stop: 11/11/18 20:39 Last Admin: 11/11/18 21:45 Dose: 5 mg Potassium Chloride (Klor-Con M20) 40 meq PO ONETIME ONE Stop: 11/13/18 09:42 Last Admin: 11/13/18 10:54 Dose: 40 meq Potassium Chloride (Potassium Chloride) 40 meq PO Q4H [facility] Stop: 11/14/18 11:31 Last Admin: 11/14/18 08:10 Dose: 40 meq Potassium Chloride (Klor-Con M20) 40 meq PO ONETIME@1130 [facility] Last Admin: 11/14/18 11:29 Dose: 40 meq Potassium Chloride (Klor-Con M20) 40 meq PO ONETIME ONE Stop: 11/16/18 07:42 Last Admin: 11/16/18 07:58 Dose: 40 meq Potassium Chloride (Klor-Con M20) 40 meq PO ONETIME ONE Stop: 11/18/18 09:58 Last Admin: 11/18/18 10:30 Dose: 40 meq Potassium Chloride (Klor-Con M20) 40 meq PO ONETIME ONE Stop: 11/18/18 14:01 Last Admin: 11/18/18 14:18 Dose: 40 meq Vancomycin HCl (Pharmacy To Dose - Vancomycin) 1 dose .XX ASDIRECTED [facility] - Problem List & Annotations (1) Liver cirrhosis SNOMED Code(s): 88335218 Code(s): K74.60 - UNSPECIFIED CIRRHOSIS OF LIVER Status: Chronic Priority : High Current Visit: Yes Qualifiers: Hepatic cirrhosis type: alcoholic cirrhosis Ascites presence: with ascites Qualified Code(s): K70.31 - Alcoholic cirrhosis of liver with ascites (2) Hypoxia SNOMED Code(s): 861330587 Code(s): R09.02 - HYPOXEMIA Status: Acute Current Visit: Yes (3) Pneumonia SNOMED Code(s): 160735912 Code(s): J18.9 - PNEUMONIA, UNSPECIFIED ORGANISM Status: Acute Current Visit: Yes Qualifiers: Pneumonia type: due to unspecified organism Laterality: left Lung location: lower lobe of lung Qualified Code(s): J18.1 - Lobar pneumonia, unspecified organism (4) COPD exacerbation SNOMED Code(s): 227904556 Code(s): J44.1 - CHRONIC OBSTRUCTIVE PULMONARY DISEASE W (ACUTE) EXACERBATION Status: Acute Priority: High Current Visit: No (5) Neuropathy involving both lower extremities SNOMED Code(s): 16180124854980412 Code(s): G57.93 - UNSPECIFIED MONONEUROPATHY OF BILATERAL LOWER LIMBS Status: Chronic Priority: High Current Visit: No (6) Pulmonary cachexia due to chronic obstructive pulmonary disease SNOMED Code(s): 545132445 Code(s): J44.9 - CHRONIC OBSTRUCTIVE PULMONARY DISEASE, UNSPECIFIED; R64 - [place] Status: Chronic Priority: High Current Visit: No (7) Severe protein-calorie malnutrition SNOMED Code(s): 656074808, 407373332, 100818614 Code(s): E43 - UNSPECIFIED SEVERE PROTEIN-CALORIE MALNUTRITION Status: Chronic Priority: High Current Visit: No
[2018-11-18] MEDS ORDERED: Iopamidol 755 MG/ML 500 ML Multipack Bottle IVPUSH STA (16:17)
--- NOTE | 2018-11-18 16:31 | CT ---
INDICATION: SOB. PNA. Rule out mass. TECHNIQUE: Volumetric helical scanning of the neck was performed with 75 cc of Isovue 370 contrast material IV. Coronal and sagittal reconstructions were obtained. COMPARISON: Today`s chest CT. FINDINGS: No mass, lymphadenopathy or inflammatory process is identified. The airway is normal. The larynx is unremarkable. The salivary and thyroid glands are within normal limits. No vascular abnormality is demonstrated. Right maxillary sinus fluid and membrane thickening is demonstrated. Mild membrane thickening and possible fluid is noted in the left maxillary sinus as well. The other visualized paranasal sinuses and mastoids are grossly clear. No significant bony abnormality is demonstrated. IMPRESSION: 1. Negative CT of the neck. 2. Acute right maxillary sinusitis and possible acute left maxillary sinusitis Please note that all CT scans at this facility use dose modulation, iterative reconstruction, and/or weight-based dosing when appropriate to reduce radiation dose to as low as reasonably achievable. Dictated by Steve Prakash MD @ Nov 18 2018 4:23PM Signed by Dr. Steve Prakash @ Nov 18 2018 4:30PM
--- NOTE | 2018-11-18 16:44 | CT ---
INDICATION: SOB. Pneumonia. TECHNIQUE: Volumetric helical scanning of the thorax was performed with 75 cc of Isovue 370 nonionic contrast material IV. Coronal and sagittal reconstructions were obtained. COMPARISON: Today`s neck CT as well as the chest CT of 11/11/2018. FINDINGS: A small right pleural effusion is noted and is somewhat smaller than on the previous examination. A smaller left pleural effusion is stable. Passive atelectasis in the lower lobes due to pleural effusions is decreased. Ground-glass infiltrates in the lower lungs are generally improved but are increased in the left upper lobe. Right middle lobe atelectasis is unchanged. There is new subsegmental atelectasis in the lingula. No mediastinal or hilar lymphadenopathy is demonstrated. The heart size is normal. A small pericardial effusion is demonstrated and appears increased from the previous exam. Images of the upper abdomen demonstrate a small amount of ascites, as before. IMPRESSION: 1. Increased ground-glass infiltrate in the left upper lobe but generally decreased ground-glass infiltrates in the lower lungs. 2. Small right pleural effusion somewhat smaller than on the previous examination and smaller left pleural effusions stable. 3. Unchanged right middle lobe atelectasis and new lingular subsegmental atelectasis. 4. Small pericardial effusion, somewhat increased. 5. Small amount of ascites, grossly unchanged. Please note that all CT scans at this facility use dose modulation, iterative reconstruction, and/or weight-based dosing when appropriate to reduce radiation dose to as low as reasonably achievable. Dictated by Steve Prakash MD @ Nov 18 2018 4:23PM Signed by Dr. Steve Prakash @ Nov 18 2018 4:42PM
[2018-11-19] MEDS: Albuterol/Ipratropium 3.0-0.5 MG/3 ML Neb Soln NEB SCH ×4 (00:08→18:40)
[2018-11-19] MEDS: Heparin Sodium 5,000 Units/ML Vial SUBCUT SCH ×3 (02:29→18:09)
[2018-11-19] MEDS: Benzonatate 100 MG Cap PO SCH ×3 (05:52→22:13)
[2018-11-19] MEDS: Nystatin Susp 100,000 Unit/ML 5 ML UD Cup PO SCH (05:52)
[2018-11-19 06:44] LABS: CHLORIDE,CL 103 mmol/L (98-107); SODIUM,NA 139 mmol/L (136-148)
[2018-11-19] MEDS: predniSONE 20 MG Tab PO SCH (08:22)
[2018-11-19] MEDS: Thiamine 100 MG Tab PO SCH (08:22)
[2018-11-19] MEDS: Folic Acid 1 MG Tab PO SCH (08:23)
[2018-11-19] MEDS: Acetaminophen 325 MG Tab PO PRN ×2 (08:41→20:14)
[2018-11-19] MEDS ORDERED: Potassium Chloride 20 MEQ Tab.ER PO ONE (09:04)
[2018-11-19] MEDS: Tiotropium Inhaler 18 MCG Inhalation Powder Cap Kit of 5 INH SCH (09:50)
[2018-11-19] MEDS: Budesonide/Formoterol 160-4.5 MCG/Puff 6 GM Inhaler INH SCH ×3 (09:50→21:07)
--- NOTE | 2018-11-19 13:13 | PCM.PN ---
<Addy Wise - Last Filed: 11/19/18 13:08> - General Info Date of Service: 11/19/18 Subjective Update: No acute events overnight. requiring 2-3 L O2 NC. Denies chest pain, abdominal pain, dysuria, diarrhea. - Patient Data Vitals - Most Recent: Last Vital Signs Temp 36.9 C 11/19/18 07:49 Pulse 105 H 11/19/18 07:49 Resp 20 11/19/18 07:49 BP 144/93 H 11/19/18 07:49 Pulse Ox 94 L 11/19/18 07:49 Weight - Most Recent: 61.235 kg I&O - Last 24 Hours: Intake & Output 11/18/18 11/19/18 11/19/18 22:59 06:59 14:59 Intake Total 500 400 Output Total 2355 950 Balance -1855 -550 Lab Results Last 24 Hours: Laboratory Results - last 24 hr 11/19/18 11/19/18 Range/Units 05:57 05:57 WBC 15.35 H (4.0-11.0) K/uL RBC 2.77 L (4.50-5.90) M/uL Hgb 9.0 L (13.0-17.0) g/dL Hct 28.0 L (38.0-50.0) % MCV 101.1 H (80.0-98.0) fL MCH 32.5 H (27.0-32.0) pg MCHC 32.1 (31.0-37.0) g/dL RDW Std Deviation 85.4 H (28.0-62.0) fl RDW Coeff of Willy 23 H (11.0-15.0) % Plt Count 163 (150-400) K/uL MPV 10.80 (7.40-12.00) fL Neut % (Auto) RAILWAY YARD ASSISTANT Lymph % (Auto) RAILWAY YARD ASSISTANT Piute % (Auto) RAILWAY YARD ASSISTANT Eos % (Auto) RAILWAY YARD ASSISTANT Baso % (Auto) RAILWAY YARD ASSISTANT Neut # (Auto) RAILWAY YARD ASSISTANT Lymph # (Auto) RAILWAY YARD ASSISTANT [place] # (Auto) RAILWAY YARD ASSISTANT Eos # (Auto) RAILWAY YARD ASSISTANT Baso # (Auto) RAILWAY YARD ASSISTANT Add Manual Diff YES Neutrophils % (Manual) 85 H (48.0-80.0) % Band Neutrophils % 4 % Lymphocytes % (Manual) 9 L (16.0-40.0) % Metamyelocytes % 2 % Nucleated RBC % 0.0 /100WBC Absolute Seg Neuts 13.0 H (1.4-5.7) Band Neutrophils # 0.6 Lymphocytes # (Manual) 1.4 (0.6-2.4) Absolute Metamyelocyte 0.3 Nucleated RBCs # 0 K/uL Sodium 139 (136-148) mmol/L Potassium 3.3 L (3.5-5.1) mmol/L Chloride 103 (98-107) mmol/L Carbon Dioxide 31.1 (21.0-32.0) mmol/L BUN 5 L (7.0-18.0) mg/dL Creatinine 0.5 L (0.8-1.3) mg/dL Est Cr Clr Drug Dosing 146.28 mL/min Estimated GFR (MDRD) > 60.0 ml/min Glucose 91 (74-106) mg/dL Calcium 8.3 L (8.5-10.1) mg/dL Magnesium 2.0 (1.8-2.4) mg/dL Total Bilirubin 1.0 (0.2-1.0) mg/dL AST 38 H (15-37) IU/L ALT 28 (14-63) IU/L Alkaline Phosphatase 103 (46-116) U/L Total Protein 5.3 L (6.4-8.2) g/dL Albumin 2.3 L (3.4-5.0) g/dL Globulin 3.0 (2.6-4.0) g/dL Albumin/Globulin Ratio 0.8 L (0.9-1.6) Med Orders - Current: Current Medications Acetaminophen (Tylenol) 650 mg PO Q4H PRN PRN Reason: Pain Last Admin: 11/19/18 08:41 Dose: 650 mg Albuterol (Ventolin Hfa) 0 gm INH Q4H PRN PRN Reason: Wheezing Albuterol/Ipratropium (Duoneb 3.0-0.5 Mg/3 Ml) 3 ml NEB Q6HRRT [facility] Last Admin: 11/19/18 12:00 Dose: 3 ml Albuterol/Ipratropium (Duoneb 3.0-0.5 Mg/3 Ml) 3 ml NEB Q4HRRT PRN PRN Reason: Shortness of Breath Last Admin: 11/16/18 14:25 Dose: 3 ml Benzonatate (Tessalon Perles) 200 mg PO TID [facility] Last Admin: 11/19/18 05:52 Dose: 200 mg Budesonide/Formoterol Fumarate (Symbicort 160-4.5 Mcg) 0 gm INH BID [facility] Last Admin: 11/19/18 09:50 Dose: 1 canister Folic Acid (Folic Acid) 1 mg PO DAILY [facility] Last Admin: 11/19/18 08:23 Dose: 1 mg Heparin Sodium (Porcine) (Heparin Sodium) 5,000 units SUBCUT Q8H [facility] Last Admin: 11/19/18 09:32 Dose: Not Given Lorazepam (Ativan) 0.5 mg PO Q8H PRN PRN Reason: Anxiety Ondansetron HCl (Zofran Odt) 4 mg PO Q4H PRN PRN Reason: nausea, able to take PO Last Admin: 11/14/18 08:18 Dose: 4 mg Prednisone (Prednisone) 40 mg PO WITHBREAKFAST [facility] Last Admin: 11/19/18 08:22 Dose: 40 mg Temazepam (Restoril) 15 mg PO BEDTIME PRN PRN Reason: Insomnia Last Admin: 11/18/18 21:14 Dose: 15 mg Thiamine HCl (Vitamin B-1) 100 mg PO DAILY [facility] Last Admin: 11/19/18 08:22 Dose: 100 mg Tiotropium Dundee (Spiriva Handihaler) 18 mcg INH DAILY [facility] Last Admin: 11/19/18 09:50 Dose: 18 mcg Discontinued Medications Albuterol/Ipratropium (Duoneb 3.0-0.5 Mg/3 Ml) 3 ml NEB ONETIME ONE Stop: 11/11/18 13:48 Last Admin: 11/11/18 13:52 Dose: 3 ml Albuterol/Ipratropium (Duoneb 3.0-0.5 Mg/3 Ml) 3 ml NEB Q4HRRT PRN PRN Reason: Shortness Of Breath/wheezing Last Admin: 11/13/18 09:36 Dose: 3 ml Benzonatate (Tessalon Perles) Confirm Administered Dose 100 mg .ROUTE .STK-MED ONE Stop: 11/12/18 10:09 Last Admin: 11/12/18 10:13 Dose: 100 mg Furosemide (Lasix) 20 mg IVPUSH ONETIME ONE Stop: 11/15/18 10:01 Last Admin: 11/15/18 11:03 Dose: 20 mg Furosemide (Lasix) 40 mg IVPUSH NOW ONE Stop: 11/15/18 17:41 Last Admin: 11/16/18 07:39 Dose: Not Given Furosemide (Lasix) 40 mg IVPUSH NOW ONE Stop: 11/15/18 19:01 Last Admin: 11/15/18 20:25 Dose: 40 mg Furosemide (Lasix) 20 mg IVPUSH NOW ONE Stop: 11/16/18 17:01 Last Admin: 11/16/18 17:26 Dose: 20 mg Furosemide (Lasix) 20 mg IVPUSH NOW ONE Stop: 11/18/18 08:37 Last Admin: 11/18/18 08:57 Dose: 20 mg Sodium Chloride (Normal Saline) 1,000 mls @ 999 mls/hr IV BOLUS ONE Stop: 11/11/18 14:46 Last Infusion: 11/11/18 13:59 Dose: 80 mls/hr Levofloxacin/Dextrose 750 mg/ (Premix) 150 mls @ 100 mls/hr IV ONETIME ONE Stop: 11/11/18 16:10 Last Admin: 11/11/18 14:49 Dose: 100 mls/hr Sodium Chloride (Normal Saline) 1,000 mls @ 125 mls/hr IV ASDIRECTED [facility] Last Admin: 11/15/18 09:26 Dose: 125 mls/hr Vancomycin HCl 1 gm/ Sodium (Chloride) 250 mls @ 166.667 mls/hr IV Q12H [facility] Last Admin: 11/15/18 19:01 Dose: Not Given Levofloxacin/Dextrose 750 mg/ (Premix) 150 mls @ 100 mls/hr IV Q24H [facility] Last Admin: 11/17/18 14:51 Dose: 100 mls/hr Piperacillin Sod/Tazobactam (Sod 3.375 gm/ Sodium Chloride) 50 mls @ 100 mls/ hr IV Q6H [facility] Last Admin: 11/18/18 06:31 Dose: 100 mls/hr Magnesium Sulfate 2 gm/ Premix 50 mls @ 25 mls/hr IV ONETIME ONE Stop: 11/13/18 19:10 Last Admin: 11/13/18 18:41 Dose: 25 mls/hr Albumin Human (Flexbumin 25%) 12.5 gm in 50 mls @ 100 mls/hr IV ONETIME ONE Stop: 11/15/18 08:47 Last Admin: 11/15/18 09:18 Dose: 100 mls/hr Vancomycin HCl 0.75 gm/ Sodium (Chloride) 250 mls @ 166.667 mls/hr IV Q12H [facility] Last Admin: 11/16/18 16:33 Dose: 166.667 mls/hr Albumin Human (Flexbumin 25%) 12.5 gm in 50 mls @ 100 mls/hr IV ONETIME ONE Stop: 11/15/18 18:29 Last Admin: 11/15/18 18:48 Dose: 100 mls/hr Magnesium Sulfate 2 gm/ Premix 50 mls @ 50 mls/hr IV ONETIME ONE Stop: 11/16/18 12:10 Last Admin: 11/16/18 12:02 Dose: 50 mls/hr Albumin Human (Flexbumin 25%) 12.5 gm in 50 mls @ 100 mls/hr IV ONETIME ONE Stop: 11/16/18 11:40 Last Admin: 11/16/18 11:38 Dose: 100 mls/hr Albumin Human (Flexbumin 25%) 12.5 gm in 50 mls @ 100 mls/hr IV ONETIME ONE Stop: 11/16/18 16:29 Last Admin: 11/16/18 15:34 Dose: 100 mls/hr Magnesium Sulfate 2 gm/ Premix 50 mls @ 25 mls/hr IV ONETIME ONE Stop: 11/18/18 14:08 Last Admin: 11/18/18 12:37 Dose: 25 mls/hr Iopamidol (Isovue Multipack-370 (76%)) 100 ml IVPUSH ONETIME ONE Stop: 11/11/18 19:21 Last Admin: 11/11/18 19:25 Dose: 100 ml Iopamidol (Isovue Multipack-370 (76%)) 75 ml IVPUSH ONETIME STA Stop: 11/18/18 16:18 Last Admin: 11/18/18 16:18 Dose: 75 ml Ketorolac Tromethamine (Toradol) 15 mg IVPUSH Q6H [facility] Stop: 11/17/18 12:11 Last Admin: 11/12/18 12:44 Dose: 15 mg Ketorolac Tromethamine (Toradol) 15 mg IVPUSH Q6H PRN PRN Reason: Pain Stop: 11/17/18 12:11 Last Admin: 11/15/18 20:33 Dose: 15 mg Lorazepam (Ativan) 0 mg IVPUSH Q4H PRN; Protocol PRN Reason: Agitation Last Admin: 11/12/18 12:09 Dose: 2 mg Methylprednisolone Sodium Succinate (Solu-Medrol) 125 mg IVPUSH ONETIME ONE Stop: 11/11/18 13:48 Last Admin: 11/11/18 13:59 Dose: 125 mg Methylprednisolone Sodium Succinate (Solu-Medrol) 125 mg IVPUSH Q8H [facility] Last Admin: 11/14/18 05:47 Dose: 125 mg Methylprednisolone Sodium Succinate (Solu-Medrol) 125 mg IVPUSH DAILY [facility] Last Admin: 11/15/18 09:10 Dose: 125 mg Nystatin (Mycostatin) 5 ml PO TID [facility] Last Admin: 11/19/18 05:52 Dose: 5 ml Oxycodone HCl (Oxycodone) 5 mg PO ONETIME ONE Stop: 11/11/18 20:39 Last Admin: 11/11/18 21:45 Dose: 5 mg Potassium Chloride (Klor-Con M20) 40 meq PO ONETIME ONE Stop: 11/13/18 09:42 Last Admin: 11/13/18 10:54 Dose: 40 meq Potassium Chloride (Potassium Chloride) 40 meq PO Q4H [facility] Stop: 11/14/18 11:31 Last Admin: 11/14/18 08:10 Dose: 40 meq Potassium Chloride (Klor-Con M20) 40 meq PO ONETIME@1130 [facility] Last Admin: 11/14/18 11:29 Dose: 40 meq Potassium Chloride (Klor-Con M20) 40 meq PO ONETIME ONE Stop: 11/16/18 07:42 Last Admin: 11/16/18 07:58 Dose: 40 meq Potassium Chloride (Klor-Con M20) 40 meq PO ONETIME ONE Stop: 11/18/18 09:58 Last Admin: 11/18/18 10:30 Dose: 40 meq Potassium Chloride (Klor-Con M20) 40 meq PO ONETIME ONE Stop: 11/18/18 14:01 Last Admin: 11/18/18 14:18 Dose: 40 meq Potassium Chloride (Klor-Con M20) 40 meq PO ONETIME ONE Stop: 11/19/18 09:05 Last Admin: 11/19/18 09:32 Dose: 40 meq Vancomycin HCl (Pharmacy To Dose - Vancomycin) 1 dose .XX ASDIRECTED [facility] - Exam Quality Assessment: Supplemental Oxygen General: Alert, Oriented, Cooperative Lungs: Rhonchi Cardiovascular: Regular Rate, Regular Rhythm GI/Abdominal Exam: Normal Bowel Sounds, Soft, Non-Tender, No Distention, No Abnormal Bruit Extremities: Normal Inspection, Normal Range of Motion, Pedal Edema Skin: Warm, Dry - Problem List Review Problem List Initiated/Reviewed/Updated: Yes - My Orders Last 24 Hours: My Active Orders 11/18/18 14:19 Ready for Discharge [] PER UNIT ROUTINE 11/19/18 15:59 Echo Comp wo Cont [US] Routine - Plan Plan:: A: 1. Acute hypoxic respiratory failure, stable 2. Lower extremity edema, improving 3. Liver cirrhosis 4. COPD exacerbation 5. HCAP 6. Leukocytosis 7. Oral thrush 8. Alcohol abuse 9. Celiac disease 10. Self care deficit 11. Severe protein undernourishment 12. Hypokalemia, replaced 13. 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 Acute hypoxic respiratory failure. wean O2 as tolerated. Will plan to DC home on home oxygen. 2. hypokalemia, replaced with KCl 40 mEq once. recheck tomorrow. Dispo: likely dc tomorrow. I have been in touch with his sister, Teagan ) and updated her on her brother's condition. Unfortunately, a pulsatile O2 compressor was not enough for him to main his O2 sats >90%. He will be requiring continuous oxygen. Sister has been working on getting a continuos compressor. Patient should be able for discharge home tomorrow on home oxygen. <Israel Brooks - Last Filed: 11/19/18 17:01> - General Info Admission Dx/Problem (Free Text): I have seen and examined to patient independently of medical review coordinator, Addy Gaston MD. I have discussed the case for care of this patient with him. I have reviewed and approve of the plan of care as outlined by medical review coordinator. Please see orders. - Patient Data Vitals - Most Recent: Last Vital Signs Temp 36.7 C 11/19/18 12:00 Pulse 113 H 11/19/18 12:00 Resp 20 11/19/18 12:00 BP 132/88 11/19/18 12:00 Pulse Ox 94 L 11/19/18 12:00 I&O - Last 24 Hours: Intake & Output 11/19/18 11/19/18 11/19/18 06:59 14:59 22:59 Intake Total 400 740 Output Total 950 800 Balance -550 -60 Lab Results Last 24 Hours: Laboratory Results - last 24 hr 11/19/18 11/19/18 Range/Units 05:57 05:57 WBC 15.35 H (4.0-11.0) K/uL RBC 2.77 L (4.50-5.90) M/uL Hgb 9.0 L (13.0-17.0) g/dL Hct 28.0 L (38.0-50.0) % MCV 101.1 H (80.0-98.0) fL MCH 32.5 H (27.0-32.0) pg MCHC 32.1 (31.0-37.0) g/dL RDW Std Deviation 85.4 H (28.0-62.0) fl RDW Coeff of Willy 23 H (11.0-15.0) % Plt Count 163 (150-400) K/uL MPV 10.80 (7.40-12.00) fL Neut % (Auto) RAILWAY YARD ASSISTANT Lymph % (Auto) RAILWAY YARD ASSISTANT Piute % (Auto) RAILWAY YARD ASSISTANT Eos % (Auto) RAILWAY YARD ASSISTANT Baso % (Auto) RAILWAY YARD ASSISTANT Neut # (Auto) RAILWAY YARD ASSISTANT Lymph # (Auto) RAILWAY YARD ASSISTANT [place] # (Auto) RAILWAY YARD ASSISTANT Eos # (Auto) RAILWAY YARD ASSISTANT Baso # (Auto) RAILWAY YARD ASSISTANT Add Manual Diff YES Neutrophils % (Manual) 85 H (48.0-80.0) % Band Neutrophils % 4 % Lymphocytes % (Manual) 9 L (16.0-40.0) % Metamyelocytes % 2 % Nucleated RBC % 0.0 /100WBC Absolute Seg Neuts 13.0 H (1.4-5.7) Band Neutrophils # 0.6 Lymphocytes # (Manual) 1.4 (0.6-2.4) Absolute Metamyelocyte 0.3 Nucleated RBCs # 0 K/uL Sodium 139 (136-148) mmol/L Potassium 3.3 L (3.5-5.1) mmol/L Chloride 103 (98-107) mmol/L Carbon Dioxide 31.1 (21.0-32.0) mmol/L BUN 5 L (7.0-18.0) mg/dL Creatinine 0.5 L (0.8-1.3) mg/dL Est Cr Clr Drug Dosing 146.28 mL/min Estimated GFR (MDRD) > 60.0 ml/min Glucose 91 (74-106) mg/dL Calcium 8.3 L (8.5-10.1) mg/dL Magnesium 2.0 (1.8-2.4) mg/dL Total Bilirubin 1.0 (0.2-1.0) mg/dL AST 38 H (15-37) IU/L ALT 28 (14-63) IU/L Alkaline Phosphatase 103 (46-116) U/L Total Protein 5.3 L (6.4-8.2) g/dL Albumin 2.3 L (3.4-5.0) g/dL Globulin 3.0 (2.6-4.0) g/dL Albumin/Globulin Ratio 0.8 L (0.9-1.6) Med Orders - Current: Current Medications Acetaminophen (Tylenol) 650 mg PO Q4H PRN PRN Reason: Pain Last Admin: 11/19/18 08:41 Dose: 650 mg Albuterol (Ventolin Hfa) 0 gm INH Q4H PRN PRN Reason: Wheezing Albuterol/Ipratropium (Duoneb 3.0-0.5 Mg/3 Ml) 3 ml NEB Q6HRRT [facility] Last Admin: 11/19/18 12:00 Dose: 3 ml Albuterol/Ipratropium (Duoneb 3.0-0.5 Mg/3 Ml) 3 ml NEB Q4HRRT PRN PRN Reason: Shortness of Breath Last Admin: 11/16/18 14:25 Dose: 3 ml Benzonatate (Tessalon Perles) 200 mg PO TID [facility] Last Admin: 11/19/18 14:01 Dose: 200 mg Budesonide/Formoterol Fumarate (Symbicort 160-4.5 Mcg) 0 gm INH BID [facility] Last Admin: 11/19/18 09:50 Dose: 1 canister Folic Acid (Folic Acid) 1 mg PO DAILY [facility] Last Admin: 11/19/18 08:23 Dose: 1 mg Heparin Sodium (Porcine) (Heparin Sodium) 5,000 units SUBCUT Q8H [facility] Last Admin: 11/19/18 09:32 Dose: Not Given Lorazepam (Ativan) 0.5 mg PO Q8H PRN PRN Reason: Anxiety Ondansetron HCl (Zofran Odt) 4 mg PO Q4H PRN PRN Reason: nausea, able to take PO Last Admin: 11/14/18 08:18 Dose: 4 mg Prednisone (Prednisone) 40 mg PO WITHBREAKFAST [facility] Last Admin: 11/19/18 08:22 Dose: 40 mg Temazepam (Restoril) 15 mg PO BEDTIME PRN PRN Reason: Insomnia Last Admin: 11/18/18 21:14 Dose: 15 mg Thiamine HCl (Vitamin B-1) 100 mg PO DAILY [facility] Last Admin: 11/19/18 08:22 Dose: 100 mg Tiotropium Dundee (Spiriva Handihaler) 18 mcg INH DAILY [facility] Last Admin: 11/19/18 09:50 Dose: 18 mcg Discontinued Medications Albuterol/Ipratropium (Duoneb 3.0-0.5 Mg/3 Ml) 3 ml NEB ONETIME ONE Stop: 11/11/18 13:48 Last Admin: 11/11/18 13:52 Dose: 3 ml Albuterol/Ipratropium (Duoneb 3.0-0.5 Mg/3 Ml) 3 ml NEB Q4HRRT PRN PRN Reason: Shortness Of Breath/wheezing Last Admin: 11/13/18 09:36 Dose: 3 ml Benzonatate (Tessalon Perles) Confirm Administered Dose 100 mg .ROUTE .STK-MED ONE Stop: 11/12/18 10:09 Last Admin: 11/12/18 10:13 Dose: 100 mg Furosemide (Lasix) 20 mg IVPUSH ONETIME ONE Stop: 11/15/18 10:01 Last Admin: 11/15/18 11:03 Dose: 20 mg Furosemide (Lasix) 40 mg IVPUSH NOW ONE Stop: 11/15/18 17:41 Last Admin: 11/16/18 07:39 Dose: Not Given Furosemide (Lasix) 40 mg IVPUSH NOW ONE Stop: 11/15/18 19:01 Last Admin: 11/15/18 20:25 Dose: 40 mg Furosemide (Lasix) 20 mg IVPUSH NOW ONE Stop: 11/16/18 17:01 Last Admin: 11/16/18 17:26 Dose: 20 mg Furosemide (Lasix) 20 mg IVPUSH NOW ONE Stop: 11/18/18 08:37 Last Admin: 11/18/18 08:57 Dose: 20 mg Sodium Chloride (Normal Saline) 1,000 mls @ 999 mls/hr IV BOLUS ONE Stop: 11/11/18 14:46 Last Infusion: 11/11/18 13:59 Dose: 80 mls/hr Levofloxacin/Dextrose 750 mg/ (Premix) 150 mls @ 100 mls/hr IV ONETIME ONE Stop: 11/11/18 16:10 Last Admin: 11/11/18 14:49 Dose: 100 mls/hr Sodium Chloride (Normal Saline) 1,000 mls @ 125 mls/hr IV ASDIRECTED [facility] Last Admin: 11/15/18 09:26 Dose: 125 mls/hr Vancomycin HCl 1 gm/ Sodium (Chloride) 250 mls @ 166.667 mls/hr IV Q12H [facility] Last Admin: 11/15/18 19:01 Dose: Not Given Levofloxacin/Dextrose 750 mg/ (Premix) 150 mls @ 100 mls/hr IV Q24H [facility] Last Admin: 11/17/18 14:51 Dose: 100 mls/hr Piperacillin Sod/Tazobactam (Sod 3.375 gm/ Sodium Chloride) 50 mls @ 100 mls/ hr IV Q6H [facility] Last Admin: 11/18/18 06:31 Dose: 100 mls/hr Magnesium Sulfate 2 gm/ Premix 50 mls @ 25 mls/hr IV ONETIME ONE Stop: 11/13/18 19:10 Last Admin: 11/13/18 18:41 Dose: 25 mls/hr Albumin Human (Flexbumin 25%) 12.5 gm in 50 mls @ 100 mls/hr IV ONETIME ONE Stop: 11/15/18 08:47 Last Admin: 11/15/18 09:18 Dose: 100 mls/hr Vancomycin HCl 0.75 gm/ Sodium (Chloride) 250 mls @ 166.667 mls/hr IV Q12H [facility] Last Admin: 11/16/18 16:33 Dose: 166.667 mls/hr Albumin Human (Flexbumin 25%) 12.5 gm in 50 mls @ 100 mls/hr IV ONETIME ONE Stop: 11/15/18 18:29 Last Admin: 11/15/18 18:48 Dose: 100 mls/hr Magnesium Sulfate 2 gm/ Premix 50 mls @ 50 mls/hr IV ONETIME ONE Stop: 11/16/18 12:10 Last Admin: 11/16/18 12:02 Dose: 50 mls/hr Albumin Human (Flexbumin 25%) 12.5 gm in 50 mls @ 100 mls/hr IV ONETIME ONE Stop: 11/16/18 11:40 Last Admin: 11/16/18 11:38 Dose: 100 mls/hr Albumin Human (Flexbumin 25%) 12.5 gm in 50 mls @ 100 mls/hr IV ONETIME ONE Stop: 11/16/18 16:29 Last Admin: 11/16/18 15:34 Dose: 100 mls/hr Magnesium Sulfate 2 gm/ Premix 50 mls @ 25 mls/hr IV ONETIME ONE Stop: 11/18/18 14:08 Last Admin: 11/18/18 12:37 Dose: 25 mls/hr Iopamidol (Isovue Multipack-370 (76%)) 100 ml IVPUSH ONETIME ONE Stop: 11/11/18 19:21 Last Admin: 11/11/18 19:25 Dose: 100 ml Iopamidol (Isovue Multipack-370 (76%)) 75 ml IVPUSH ONETIME STA Stop: 11/18/18 16:18 Last Admin: 11/18/18 16:18 Dose: 75 ml Ketorolac Tromethamine (Toradol) 15 mg IVPUSH Q6H [facility] Stop: 11/17/18 12:11 Last Admin: 11/12/18 12:44 Dose: 15 mg Ketorolac Tromethamine (Toradol) 15 mg IVPUSH Q6H PRN PRN Reason: Pain Stop: 11/17/18 12:11 Last Admin: 11/15/18 20:33 Dose: 15 mg Lorazepam (Ativan) 0 mg IVPUSH Q4H PRN; Protocol PRN Reason: Agitation Last Admin: 11/12/18 12:09 Dose: 2 mg Methylprednisolone Sodium Succinate (Solu-Medrol) 125 mg IVPUSH ONETIME ONE Stop: 11/11/18 13:48 Last Admin: 11/11/18 13:59 Dose: 125 mg Methylprednisolone Sodium Succinate (Solu-Medrol) 125 mg IVPUSH Q8H [facility] Last Admin: 11/14/18 05:47 Dose: 125 mg Methylprednisolone Sodium Succinate (Solu-Medrol) 125 mg IVPUSH DAILY [facility] Last Admin: 11/15/18 09:10 Dose: 125 mg Nystatin (Mycostatin) 5 ml PO TID [facility] Last Admin: 11/19/18 05:52 Dose: 5 ml Oxycodone HCl (Oxycodone) 5 mg PO ONETIME ONE Stop: 11/11/18 20:39 Last Admin: 11/11/18 21:45 Dose: 5 mg Potassium Chloride (Klor-Con M20) 40 meq PO ONETIME ONE Stop: 11/13/18 09:42 Last Admin: 11/13/18 10:54 Dose: 40 meq Potassium Chloride (Potassium Chloride) 40 meq PO Q4H [facility] Stop: 11/14/18 11:31 Last Admin: 11/14/18 08:10 Dose: 40 meq Potassium Chloride (Klor-Con M20) 40 meq PO ONETIME@1130 [facility] Last Admin: 11/14/18 11:29 Dose: 40 meq Potassium Chloride (Klor-Con M20) 40 meq PO ONETIME ONE Stop: 11/16/18 07:42 Last Admin: 11/16/18 07:58 Dose: 40 meq Potassium Chloride (Klor-Con M20) 40 meq PO ONETIME ONE Stop: 11/18/18 09:58 Last Admin: 11/18/18 10:30 Dose: 40 meq Potassium Chloride (Klor-Con M20) 40 meq PO ONETIME ONE Stop: 11/18/18 14:01 Last Admin: 11/18/18 14:18 Dose: 40 meq Potassium Chloride (Klor-Con M20) 40 meq PO ONETIME ONE Stop: 11/19/18 09:05 Last Admin: 11/19/18 09:32 Dose: 40 meq Vancomycin HCl (Pharmacy To Dose - Vancomycin) 1 dose .XX ASDIRECTED [facility] - Problem List & Annotations (1) Liver cirrhosis SNOMED Code(s): 94164779 Code(s): K74.60 - UNSPECIFIED CIRRHOSIS OF LIVER Status: Chronic Priority : High Current Visit: Yes Qualifiers: Hepatic cirrhosis type: alcoholic cirrhosis Ascites presence: with ascites Qualified Code(s): K70.31 - Alcoholic cirrhosis of liver with ascites (2) Hypoxia SNOMED Code(s): 227933814 Code(s): R09.02 - HYPOXEMIA Status: Acute Current Visit: Yes (3) Pneumonia SNOMED Code(s): 176097701 Code(s): J18.9 - PNEUMONIA, UNSPECIFIED ORGANISM Status: Acute Current Visit: Yes Qualifiers: Pneumonia type: due to unspecified organism Laterality: left Lung location: lower lobe of lung Qualified Code(s): J18.1 - Lobar pneumonia, unspecified organism (4) COPD exacerbation SNOMED Code(s): 775694488 Code(s): J44.1 - CHRONIC OBSTRUCTIVE PULMONARY DISEASE W (ACUTE) EXACERBATION Status: Acute Priority: High Current Visit: No (5) Neuropathy involving both lower extremities SNOMED Code(s): 22907466872394020 Code(s): G57.93 - UNSPECIFIED MONONEUROPATHY OF BILATERAL LOWER LIMBS Status: Chronic Priority: High Current Visit: No (6) Pulmonary cachexia due to chronic obstructive pulmonary disease SNOMED Code(s): 761674123 Code(s): J44.9 - CHRONIC OBSTRUCTIVE PULMONARY DISEASE, UNSPECIFIED; R64 - [place] Status: Chronic Priority: High Current Visit: No (7) Severe protein-calorie malnutrition SNOMED Code(s): 845735853, 039216048, [id number] Code(s): E43 - UNSPECIFIED SEVERE PROTEIN-CALORIE MALNUTRITION Status: Chronic Priority: High Current Visit: No
[2018-11-19] MEDS ORDERED: Calcium Carbonate 500 MG Tab.Chew PO PRN (17:56)
[2018-11-20] MEDS: Albuterol/Ipratropium 3.0-0.5 MG/3 ML Neb Soln NEB SCH ×5 (00:06→23:35)
[2018-11-20] MEDS: Acetaminophen 325 MG Tab PO PRN ×3 (00:14→23:46)
[2018-11-20] MEDS: Heparin Sodium 5,000 Units/ML Vial SUBCUT SCH ×4 (02:30→18:34)
[2018-11-20] MEDS: Benzonatate 100 MG Cap PO SCH ×3 (05:52→21:06)
[2018-11-20 06:11] LABS: CHLORIDE,CL 103 mmol/L (98-107); SODIUM,NA 138 mmol/L (136-148)
[2018-11-20] MEDS: Budesonide/Formoterol 160-4.5 MCG/Puff 6 GM Inhaler INH SCH (08:38)
[2018-11-20] MEDS: Tiotropium Inhaler 18 MCG Inhalation Powder Cap Kit of 5 INH SCH (08:39)
[2018-11-20] MEDS: Thiamine 100 MG Tab PO SCH (08:54)
[2018-11-20] MEDS: Folic Acid 1 MG Tab PO SCH (08:54)
[2018-11-20] MEDS: predniSONE 20 MG Tab PO SCH (08:54)
--- NOTE | 2018-11-20 09:21 | PCM.DCSUM1 ---
Discharge Summary - Hospital Course Free Text/Narrative:: 53 y/o male with complex medical history who has had multiple re-admissions in the past 2 months. He presented to the ER 3 days after being discharged on 11/09/18. However, he stated he did not feel his prescriptions after discharge and he was feeling short of breath at home. He was admitted for HCAP and started on antibiotics which included Levaquin, Zosyn and Vancomycin. In addition, he was re-started on scheduled duoneb treatments and methylprednisolone for his COPD. His O2 requirements fluctuated from high 80's to low 90's. He was requiring 2L O2 NC to keep sats greater than 90%. In addition, he was administered albumin due to his hypoalbuminemia and was able to diurese over 8L urine output. A RUQ ultrasound found a nodular liver consistent with cirrhosis. INR was 1.2. AFP level was pending. His shortness of breath improved. He was also found to have Celiac's Disease and started on a gluten free diet and high protein supplementation since he was severely protein malnourished. He was tested for HIV and Hepatitis which were negative. His WBC was elevated and attributed to prednisone intake. He was discharged home on home oxygen and inhalers for his COPD. - Discharge Data Discharge Disposition: Home, Self-Care 01 Condition: Poor - Patient Summary/Data Consults: Consultations 11/12/18 09:49 Consult to Physical Therapy [PT Evaluation and Treatment] [CONS] Routine - Patient Instructions Diet: Usual Diet as Tolerated Diet, Other: Gluten free for Celiac's disease Activity: As Tolerated Notify Provider of: Fever, Increased Pain, Swelling and Redness, Nausea and/or Vomiting - Discharge Plan *PRESCRIPTION DRUG MONITORING PROGRAM REVIEWED*: Not Applicable *COPY OF PRESCRIPTION DRUG MONITORING REPORT IN PATIENT BAI: Not Applicable Prescriptions/Med Rec: Albuterol [Ventolin HFA] 2 puff INH Q4H PRN #2 inhaler PRN Reason: Wheezing Fluticasone/Salmeterol [Advair 250-50] 1 puff INH BID #2 diskus Folic Acid 1 mg PO DAILY #90 tablet Thiamine [Vitamin B-1] 100 mg PO DAILY #90 tablet Tiotropium [Spiriva HandiHaler] 18 mcg INH DAILY #2 cap Home Medications: Home Meds Albuterol Sulfate [Proair Hfa] 1 - 2 puff INH ASDIRECTED PRN 06/30/16 [History] Glycopyrrolate/Formoterol Fum [Bevespi Aerosphere Inhaler] 1 - 2 inh PO DAILY [History] B Complex With Vitamin C [Vitamin B-Complex & C] 1 each PO DAILY #30 tablet.er 10/07/18 [Rx] Gabapentin [Neurontin] 300 mg PO BID #30 capsule 10/07/18 [Rx] Ascorbic Acid [Vitamin C] 1,500 mg PO TID #90 tablet 11/09/18 [Rx] Calcium Carbonate/Vitamin D3 [Caltrate 600+D 1500 MG-400 Units] 1 tab PO DAILY # 30 tablet 11/09/18 [Rx] Folic Acid 1 mg PO BEDTIME #30 tablet 11/09/18 [Rx] Loperamide [Imodium] 2 mg PO Q6H PRN #30 cap 11/09/18 [Rx] Nystatin [Nystop] 1 mg TOP TID PRN #1 bottle 11/09/18 [Rx] Pantoprazole Sodium 40 mg PO DAILY #30 tablet. 11/09/18 [Rx] Sod Phos Di, [place]/K Phos [place] [Av-Phos 250 Neutral Tablet] 250 mg PO DAILY #30 tablet 11/09/18 [Rx] Nicotine Polacrilex [Nicotine Gum] 2 mg BC ASDIRECTED 11/15/18 [History] Thiamine [Vitamin B-1] 100 mg PO DAILY 11/15/18 [History] Albuterol [Ventolin HFA] 2 puff INH Q4H PRN #2 inhaler 11/20/18 [Rx] Fluticasone/Salmeterol [Advair 250-50] 1 puff INH BID #2 diskus 11/20/18 [Rx] Folic Acid 1 mg PO DAILY #90 tablet 11/20/18 [Rx] Thiamine [Vitamin B-1] 100 mg PO DAILY #90 tablet 11/20/18 [Rx] Tiotropium [Spiriva HandiHaler] 18 mcg INH DAILY #2 cap 11/20/18 [Rx] Patient Handouts: Hypoxia, Amoxicillin; Clavulanic Acid tablets, Budesonide; Formoterol Inhalation, Albuterol inhalation aerosol, Cirrhosis, Gluten-Free Diet for Celiac Disease, Adult, Thiamine, Vitamin B1 tablets, Tiotropium respiratory inhalation spray (Spiriva Respimat), Prednisone tablets, Folic Acid , Vitamin B9 tablets, Community-Acquired Pneumonia, Adult, [id number] Referrals: [facility] [Outside] Addy Wise MD [Resident] - 11/29/18 3:45 pm - Patient Data Vitals - Most Recent: Last Vital Signs Temp 36.6 C 11/20/18 04:00 Pulse 108 H 11/20/18 04:00 Resp 18 11/20/18 04:00 BP 125/86 11/20/18 04:00 Pulse Ox 91 L 11/20/18 04:00 Weight - Most Recent: 61.235 kg I&O - Last 24 hours: Intake & Output 11/19/18 11/20/18 11/20/18 22:59 06:59 14:59 Intake Total 740 700 Output Total 800 750 Balance -60 -50 Lab Results - Last 24 hrs: Laboratory Results - last 24 hr 11/20/18 11/20/18 Range/Units 05:35 05:35 WBC 13.87 H (4.0-11.0) K/uL RBC 2.64 L (4.50-5.90) M/uL Hgb 8.5 L (13.0-17.0) g/dL Hct 27.0 L (38.0-50.0) % MCV 102.3 H (80.0-98.0) fL MCH 32.2 H (27.0-32.0) pg MCHC 31.5 (31.0-37.0) g/dL RDW Std Deviation 86.3 H (28.0-62.0) fl RDW Coeff of Willy 23 H (11.0-15.0) % Plt Count 154 (150-400) K/uL MPV 11.00 (7.40-12.00) fL Nucleated RBC % 0.0 /100WBC Nucleated RBCs # 0 K/uL Sodium 138 (136-148) mmol/L Potassium 3.8 (3.5-5.1) mmol/L Chloride 103 (98-107) mmol/L Carbon Dioxide 29.8 (21.0-32.0) mmol/L BUN 6 L (7.0-18.0) mg/dL Creatinine 0.5 L (0.8-1.3) mg/dL Est Cr Clr Drug Dosing 146.28 mL/min Estimated GFR (MDRD) > 60.0 ml/min Glucose 90 (74-106) mg/dL Calcium 8.4 L (8.5-10.1) mg/dL Med Orders - Current: Current Medications Acetaminophen (Tylenol) 650 mg PO Q4H PRN PRN Reason: Pain Last Admin: 11/20/18 00:14 Dose: 650 mg Albuterol (Ventolin Hfa) 0 gm INH Q4H PRN PRN Reason: Wheezing Albuterol/Ipratropium (Duoneb 3.0-0.5 Mg/3 Ml) 3 ml NEB Q6HRRT [facility] Last Admin: 11/20/18 06:00 Dose: 3 ml Albuterol/Ipratropium (Duoneb 3.0-0.5 Mg/3 Ml) 3 ml NEB Q4HRRT PRN PRN Reason: Shortness of Breath Last Admin: 11/16/18 14:25 Dose: 3 ml Benzonatate (Tessalon Perles) 200 mg PO TID [facility] Last Admin: 11/20/18 05:52 Dose: 200 mg Budesonide/Formoterol Fumarate (Symbicort 160-4.5 Mcg) 0 gm INH BID [facility] Last Admin: 11/20/18 08:38 Dose: 1 puff Calcium Carbonate/Glycine (Tums) 1,000 mg PO Q2HR PRN PRN Reason: Indigestion Last Admin: 11/19/18 18:51 Dose: 1,000 mg Folic Acid (Folic Acid) 1 mg PO DAILY [facility] Last Admin: 11/20/18 08:54 Dose: 1 mg Heparin Sodium (Porcine) (Heparin Sodium) 5,000 units SUBCUT Q8H [facility] Last Admin: 11/20/18 02:30 Dose: Not Given Lorazepam (Ativan) 0.5 mg PO Q8H PRN PRN Reason: Anxiety Ondansetron HCl (Zofran Odt) 4 mg PO Q4H PRN PRN Reason: nausea, able to take PO Last Admin: 11/14/18 08:18 Dose: 4 mg Prednisone (Prednisone) 40 mg PO WITHBREAKFAST [facility] Last Admin: 11/20/18 08:54 Dose: 40 mg Temazepam (Restoril) 15 mg PO BEDTIME PRN PRN Reason: Insomnia Last Admin: 11/18/18 21:14 Dose: 15 mg Thiamine HCl (Vitamin B-1) 100 mg PO DAILY [facility] Last Admin: 11/20/18 08:54 Dose: 100 mg Tiotropium [place] (Spiriva Handihaler) 18 mcg INH DAILY [facility] Last Admin: 11/20/18 08:39 Dose: 18 mcg Discontinued Medications Albuterol/Ipratropium (Duoneb 3.0-0.5 Mg/3 Ml) 3 ml NEB ONETIME ONE Stop: 11/11/18 13:48 Last Admin: 11/11/18 13:52 Dose: 3 ml Albuterol/Ipratropium (Duoneb 3.0-0.5 Mg/3 Ml) 3 ml NEB Q4HRRT PRN PRN Reason: Shortness Of Breath/wheezing Last Admin: 11/13/18 09:36 Dose: 3 ml Benzonatate (Tessalon Perles) Confirm Administered Dose 100 mg .ROUTE .STK-MED ONE Stop: 11/12/18 10:09 Last Admin: 11/12/18 10:13 Dose: 100 mg Furosemide (Lasix) 20 mg IVPUSH ONETIME ONE Stop: 11/15/18 10:01 Last Admin: 11/15/18 11:03 Dose: 20 mg Furosemide (Lasix) 40 mg IVPUSH NOW ONE Stop: 11/15/18 17:41 Last Admin: 11/16/18 07:39 Dose: Not Given Furosemide (Lasix) 40 mg IVPUSH NOW ONE Stop: 11/15/18 19:01 Last Admin: 11/15/18 20:25 Dose: 40 mg Furosemide (Lasix) 20 mg IVPUSH NOW ONE Stop: 11/16/18 17:01 Last Admin: 11/16/18 17:26 Dose: 20 mg Furosemide (Lasix) 20 mg IVPUSH NOW ONE Stop: 11/18/18 08:37 Last Admin: 11/18/18 08:57 Dose: 20 mg Sodium Chloride (Normal Saline) 1,000 mls @ 999 mls/hr IV BOLUS ONE Stop: 11/11/18 14:46 Last Infusion: 11/11/18 13:59 Dose: 80 mls/hr Levofloxacin/Dextrose 750 mg/ (Premix) 150 mls @ 100 mls/hr IV ONETIME ONE Stop: 11/11/18 16:10 Last Admin: 11/11/18 14:49 Dose: 100 mls/hr Sodium Chloride (Normal Saline) 1,000 mls @ 125 mls/hr IV ASDIRECTED [facility] Last Admin: 11/15/18 09:26 Dose: 125 mls/hr Vancomycin HCl 1 gm/ Sodium (Chloride) 250 mls @ 166.667 mls/hr IV Q12H [facility] Last Admin: 11/15/18 19:01 Dose: Not Given Levofloxacin/Dextrose 750 mg/ (Premix) 150 mls @ 100 mls/hr IV Q24H [facility] Last Admin: 11/17/18 14:51 Dose: 100 mls/hr Piperacillin Sod/Tazobactam (Sod 3.375 gm/ Sodium Chloride) 50 mls @ 100 mls/ hr IV Q6H [facility] Last Admin: 11/18/18 06:31 Dose: 100 mls/hr Magnesium Sulfate 2 gm/ Premix 50 mls @ 25 mls/hr IV ONETIME ONE Stop: 11/13/18 19:10 Last Admin: 11/13/18 18:41 Dose: 25 mls/hr Albumin Human (Flexbumin 25%) 12.5 gm in 50 mls @ 100 mls/hr IV ONETIME ONE Stop: 11/15/18 08:47 Last Admin: 11/15/18 09:18 Dose: 100 mls/hr Vancomycin HCl 0.75 gm/ Sodium (Chloride) 250 mls @ 166.667 mls/hr IV Q12H [facility] Last Admin: 11/16/18 16:33 Dose: 166.667 mls/hr Albumin Human (Flexbumin 25%) 12.5 gm in 50 mls @ 100 mls/hr IV ONETIME ONE Stop: 11/15/18 18:29 Last Admin: 11/15/18 18:48 Dose: 100 mls/hr Magnesium Sulfate 2 gm/ Premix 50 mls @ 50 mls/hr IV ONETIME ONE Stop: 11/16/18 12:10 Last Admin: 11/16/18 12:02 Dose: 50 mls/hr Albumin Human (Flexbumin 25%) 12.5 gm in 50 mls @ 100 mls/hr IV ONETIME ONE Stop: 11/16/18 11:40 Last Admin: 11/16/18 11:38 Dose: 100 mls/hr Albumin Human (Flexbumin 25%) 12.5 gm in 50 mls @ 100 mls/hr IV ONETIME ONE Stop: 11/16/18 16:29 Last Admin: 11/16/18 15:34 Dose: 100 mls/hr Magnesium Sulfate 2 gm/ Premix 50 mls @ 25 mls/hr IV ONETIME ONE Stop: 11/18/18 14:08 Last Admin: 11/18/18 12:37 Dose: 25 mls/hr Iopamidol (Isovue Multipack-370 (76%)) 100 ml IVPUSH ONETIME ONE Stop: 11/11/18 19:21 Last Admin: 11/11/18 19:25 Dose: 100 ml Iopamidol (Isovue Multipack-370 (76%)) 75 ml IVPUSH ONETIME STA Stop: 11/18/18 16:18 Last Admin: 11/18/18 16:18 Dose: 75 ml Ketorolac Tromethamine (Toradol) 15 mg IVPUSH Q6H [facility] Stop: 11/17/18 12:11 Last Admin: 11/12/18 12:44 Dose: 15 mg Ketorolac Tromethamine (Toradol) 15 mg IVPUSH Q6H PRN PRN Reason: Pain Stop: 11/17/18 12:11 Last Admin: 11/15/18 20:33 Dose: 15 mg Lorazepam (Ativan) 0 mg IVPUSH Q4H PRN; Protocol PRN Reason: Agitation Last Admin: 11/12/18 12:09 Dose: 2 mg Methylprednisolone Sodium Succinate (Solu-Medrol) 125 mg IVPUSH ONETIME ONE Stop: 11/11/18 13:48 Last Admin: 11/11/18 13:59 Dose: 125 mg Methylprednisolone Sodium Succinate (Solu-Medrol) 125 mg IVPUSH Q8H [facility] Last Admin: 11/14/18 05:47 Dose: 125 mg Methylprednisolone Sodium Succinate (Solu-Medrol) 125 mg IVPUSH DAILY [facility] Last Admin: 11/15/18 09:10 Dose: 125 mg Nystatin (Mycostatin) 5 ml PO TID [facility] Last Admin: 11/19/18 05:52 Dose: 5 ml Oxycodone HCl (Oxycodone) 5 mg PO ONETIME ONE Stop: 11/11/18 20:39 Last Admin: 11/11/18 21:45 Dose: 5 mg Potassium Chloride (Klor-Con M20) 40 meq PO ONETIME ONE Stop: 11/13/18 09:42 Last Admin: 11/13/18 10:54 Dose: 40 meq Potassium Chloride (Potassium Chloride) 40 meq PO Q4H [facility] Stop: 11/14/18 11:31 Last Admin: 11/14/18 08:10 Dose: 40 meq Potassium Chloride (Klor-Con M20) 40 meq PO ONETIME@1130 [facility] Last Admin: 11/14/18 11:29 Dose: 40 meq Potassium Chloride (Klor-Con M20) 40 meq PO ONETIME ONE Stop: 11/16/18 07:42 Last Admin: 11/16/18 07:58 Dose: 40 meq Potassium Chloride (Klor-Con M20) 40 meq PO ONETIME ONE Stop: 11/18/18 09:58 Last Admin: 11/18/18 10:30 Dose: 40 meq Potassium Chloride (Klor-Con M20) 40 meq PO ONETIME ONE Stop: 11/18/18 14:01 Last Admin: 11/18/18 14:18 Dose: 40 meq Potassium Chloride (Klor-Con M20) 40 meq PO ONETIME ONE Stop: 11/19/18 09:05 Last Admin: 11/19/18 09:32 Dose: 40 meq Vancomycin HCl (Pharmacy To Dose - Vancomycin) 1 dose .XX ASDIRECTED [facility]
[2018-11-20] MEDS: Fluticasone/Salmeterol 250-50 MCG Inhalation Powder 14/Diskus INH SCH ×2 (11:21→21:08)
--- NOTE | 2018-11-20 11:52 | CR ---
EXAMINATION: Portable chest radiograph. HISTORY: Hypoxia. FINDINGS: The trachea is midline. The cardiomediastinal silhouette is within normal limits. Trace bilateral pleural effusions. Right basilar consolidation is noted. No pneumothorax. Osseous structures appear unremarkable. IMPRESSION: 1. Likely developing right basilar pneumonia. 2. Trace bilateral pleural effusions.
[2018-11-20] MEDS ORDERED: Furosemide 20 MG/2 ML VIAL IVPUSH ONE (13:37)
[2018-11-20] MEDS: Potassium Chloride 20 MEQ Tab.ER PO SCH (16:40)
--- NOTE | 2018-11-20 18:04 | PCM.PN ---
<Addy Wise - Last Filed: 11/20/18 17:56> - General Info Date of Service: 11/20/18 Subjective Update: patient became hypoxic into low-mid 80's this morning while sitting. Needing 5 L NC to maintain >90%. - Patient Data Vitals - Most Recent: Last Vital Signs Temp 36.7 C 11/20/18 16:00 Pulse 120 H 11/20/18 16:00 Resp 20 11/20/18 16:00 BP 112/73 11/20/18 16:00 Pulse Ox 97 11/20/18 16:00 Weight - Most Recent: 61.235 kg I&O - Last 24 Hours: Intake & Output 11/20/18 11/20/18 11/20/18 06:59 14:59 22:59 Intake Total 700 700 Output Total 750 1970 Balance -50 -1270 Lab Results Last 24 Hours: Laboratory Results - last 24 hr 11/20/18 11/20/18 11/20/18 Range/Units 05:35 05:35 11:30 WBC 13.87 H (4.0-11.0) K/uL RBC 2.64 L (4.50-5.90) M/uL Hgb 8.5 L (13.0-17.0) g/dL Hct 27.0 L (38.0-50.0) % MCV 102.3 H (80.0-98.0) fL MCH 32.2 H (27.0-32.0) pg MCHC 31.5 (31.0-37.0) g/dL RDW Std Deviation 86.3 H (28.0-62.0) fl RDW Coeff of Willy 23 H (11.0-15.0) % Plt Count 154 (150-400) K/uL MPV 11.00 (7.40-12.00) fL Nucleated RBC % 0.0 /100WBC Nucleated RBCs # 0 K/uL ABG pH 7.512 H (7.35-7.45) ABG pCO2 37 (35-45) mmHG ABG pO2 52 L (75-100) mmHG ABG HCO3 30 H (22-26) mEq/L ABG Total CO2 27.4 ABG Base Excess 6.4 H (-2.0-2.0) Sodium 138 (136-148) mmol/L Potassium 3.8 (3.5-5.1) mmol/L Chloride 103 (98-107) mmol/L Carbon Dioxide 29.8 (21.0-32.0) mmol/L BUN 6 L (7.0-18.0) mg/dL Creatinine 0.5 L (0.8-1.3) mg/dL Est Cr Clr Drug Dosing 146.28 mL/min Estimated GFR (MDRD) > 60.0 ml/min Glucose 90 (74-106) mg/dL Calcium 8.4 L (8.5-10.1) mg/dL B-Natriuretic Peptide (<100) PG/ML 11/20/18 Range/Units 12:55 WBC (4.0-11.0) K/uL RBC (4.50-5.90) M/uL Hgb (13.0-17.0) g/dL Hct (38.0-50.0) % MCV (80.0-98.0) fL MCH (27.0-32.0) pg MCHC (31.0-37.0) g/dL RDW Std Deviation (28.0-62.0) fl RDW Coeff of Willy (11.0-15.0) % Plt Count (150-400) K/uL MPV (7.40-12.00) fL Nucleated RBC % /100WBC Nucleated RBCs # K/uL ABG pH (7.35-7.45) ABG pCO2 (35-45) mmHG ABG pO2 (75-100) mmHG ABG HCO3 (22-26) mEq/L ABG Total CO2 ABG Base Excess (-2.0-2.0) Sodium (136-148) mmol/L Potassium (3.5-5.1) mmol/L Chloride (98-107) mmol/L Carbon Dioxide (21.0-32.0) mmol/L BUN (7.0-18.0) mg/dL Creatinine (0.8-1.3) mg/dL Est Cr Clr Drug Dosing mL/min Estimated GFR (MDRD) ml/min Glucose (74-106) mg/dL Calcium (8.5-10.1) mg/dL B-Natriuretic Peptide 481 H (<100) PG/ML Med Orders - Current: Current Medications Acetaminophen (Tylenol) 650 mg PO Q4H PRN PRN Reason: Pain Last Admin: 11/20/18 14:14 Dose: 650 mg Acetazolamide (Diamox) 250 mg PO BID [facility] Albuterol (Ventolin Hfa) 0 gm INH Q4H PRN PRN Reason: Wheezing Albuterol/Ipratropium (Duoneb 3.0-0.5 Mg/3 Ml) 3 ml NEB Q6HRRT [facility] Last Admin: 11/20/18 17:46 Dose: 3 ml Albuterol/Ipratropium (Duoneb 3.0-0.5 Mg/3 Ml) 3 ml NEB Q4HRRT PRN PRN Reason: Shortness of Breath Last Admin: 11/16/18 14:25 Dose: 3 ml Benzonatate (Tessalon Perles) 200 mg PO TID [facility] Last Admin: 11/20/18 13:31 Dose: 200 mg Calcium Carbonate/Glycine (Tums) 1,000 mg PO Q2HR PRN PRN Reason: Indigestion Last Admin: 11/19/18 18:51 Dose: 1,000 mg Folic Acid (Folic Acid) 1 mg PO DAILY [facility] Last Admin: 11/20/18 08:54 Dose: 1 mg Furosemide (Lasix) 20 mg IVPUSH Q6H [facility] Stop: 11/21/18 00:01 Heparin Sodium (Porcine) (Heparin Sodium) 5,000 units SUBCUT Q8H [facility] Last Admin: 11/20/18 11:33 Dose: Not Given Lorazepam (Ativan) 0.5 mg PO Q8H PRN PRN Reason: Anxiety Last Admin: 11/20/18 11:27 Dose: 0.5 mg Ondansetron HCl (Zofran Odt) 4 mg PO Q4H PRN PRN Reason: nausea, able to take PO Last Admin: 11/14/18 08:18 Dose: 4 mg Potassium Chloride (Klor-Con M20) 40 meq PO DAILY [facility] Last Admin: 11/20/18 16:40 Dose: 40 meq Prednisone (Prednisone) 40 mg PO WITHBREAKFAST [facility] Last Admin: 11/20/18 08:54 Dose: 40 mg Fluticasone/Salmeterol (Advair Diskus 250-50) 1 puff INH BID [facility] Last Admin: 11/20/18 11:21 Dose: Not Given Temazepam (Restoril) 15 mg PO BEDTIME PRN PRN Reason: Insomnia Last Admin: 11/18/18 21:14 Dose: 15 mg Thiamine HCl (Vitamin B-1) 100 mg PO DAILY [facility] Last Admin: 11/20/18 08:54 Dose: 100 mg Tiotropium [place] (Spiriva Handihaler) 18 mcg INH DAILY [facility] Last Admin: 11/20/18 08:39 Dose: 18 mcg Discontinued Medications Albuterol/Ipratropium (Duoneb 3.0-0.5 Mg/3 Ml) 3 ml NEB ONETIME ONE Stop: 11/11/18 13:48 Last Admin: 11/11/18 13:52 Dose: 3 ml Albuterol/Ipratropium (Duoneb 3.0-0.5 Mg/3 Ml) 3 ml NEB Q4HRRT PRN PRN Reason: Shortness Of Breath/wheezing Last Admin: 11/13/18 09:36 Dose: 3 ml Benzonatate (Tessalon Perles) Confirm Administered Dose 100 mg .ROUTE .STK-MED ONE Stop: 11/12/18 10:09 Last Admin: 11/12/18 10:13 Dose: 100 mg Budesonide/Formoterol Fumarate (Symbicort 160-4.5 Mcg) 0 gm INH BID [facility] Last Admin: 11/20/18 08:38 Dose: 1 puff Furosemide (Lasix) 20 mg IVPUSH ONETIME ONE Stop: 11/15/18 10:01 Last Admin: 11/15/18 11:03 Dose: 20 mg Furosemide (Lasix) 40 mg IVPUSH NOW ONE Stop: 11/15/18 17:41 Last Admin: 11/16/18 07:39 Dose: Not Given Furosemide (Lasix) 40 mg IVPUSH NOW ONE Stop: 11/15/18 19:01 Last Admin: 11/15/18 20:25 Dose: 40 mg Furosemide (Lasix) 20 mg IVPUSH NOW ONE Stop: 11/16/18 17:01 Last Admin: 11/16/18 17:26 Dose: 20 mg Furosemide (Lasix) 20 mg IVPUSH NOW ONE Stop: 11/18/18 08:37 Last Admin: 11/18/18 08:57 Dose: 20 mg Furosemide (Lasix) 20 mg IVPUSH NOW ONE Stop: 11/20/18 13:38 Last Admin: 11/20/18 14:14 Dose: 20 mg Sodium Chloride (Normal Saline) 1,000 mls @ 999 mls/hr IV BOLUS ONE Stop: 11/11/18 14:46 Last Infusion: 11/11/18 13:59 Dose: 80 mls/hr Levofloxacin/Dextrose 750 mg/ (Premix) 150 mls @ 100 mls/hr IV ONETIME ONE Stop: 11/11/18 16:10 Last Admin: 11/11/18 14:49 Dose: 100 mls/hr Sodium Chloride (Normal Saline) 1,000 mls @ 125 mls/hr IV ASDIRECTED [facility] Last Admin: 11/15/18 09:26 Dose: 125 mls/hr Vancomycin HCl 1 gm/ Sodium (Chloride) 250 mls @ 166.667 mls/hr IV Q12H [facility] Last Admin: 11/15/18 19:01 Dose: Not Given Levofloxacin/Dextrose 750 mg/ (Premix) 150 mls @ 100 mls/hr IV Q24H [facility] Last Admin: 11/17/18 14:51 Dose: 100 mls/hr Piperacillin Sod/Tazobactam (Sod 3.375 gm/ Sodium Chloride) 50 mls @ 100 mls/ hr IV Q6H [facility] Last Admin: 11/18/18 06:31 Dose: 100 mls/hr Magnesium Sulfate 2 gm/ Premix 50 mls @ 25 mls/hr IV ONETIME ONE Stop: 11/13/18 19:10 Last Admin: 11/13/18 18:41 Dose: 25 mls/hr Albumin Human (Flexbumin 25%) 12.5 gm in 50 mls @ 100 mls/hr IV ONETIME ONE Stop: 11/15/18 08:47 Last Admin: 11/15/18 09:18 Dose: 100 mls/hr Vancomycin HCl 0.75 gm/ Sodium (Chloride) 250 mls @ 166.667 mls/hr IV Q12H [facility] Last Admin: 11/16/18 16:33 Dose: 166.667 mls/hr Albumin Human (Flexbumin 25%) 12.5 gm in 50 mls @ 100 mls/hr IV ONETIME ONE Stop: 11/15/18 18:29 Last Admin: 11/15/18 18:48 Dose: 100 mls/hr Magnesium Sulfate 2 gm/ Premix 50 mls @ 50 mls/hr IV ONETIME ONE Stop: 11/16/18 12:10 Last Admin: 11/16/18 12:02 Dose: 50 mls/hr Albumin Human (Flexbumin 25%) 12.5 gm in 50 mls @ 100 mls/hr IV ONETIME ONE Stop: 11/16/18 11:40 Last Admin: 11/16/18 11:38 Dose: 100 mls/hr Albumin Human (Flexbumin 25%) 12.5 gm in 50 mls @ 100 mls/hr IV ONETIME ONE Stop: 11/16/18 16:29 Last Admin: 11/16/18 15:34 Dose: 100 mls/hr Magnesium Sulfate 2 gm/ Premix 50 mls @ 25 mls/hr IV ONETIME ONE Stop: 11/18/18 14:08 Last Admin: 11/18/18 12:37 Dose: 25 mls/hr Iopamidol (Isovue Multipack-370 (76%)) 100 ml IVPUSH ONETIME ONE Stop: 11/11/18 19:21 Last Admin: 11/11/18 19:25 Dose: 100 ml Iopamidol (Isovue Multipack-370 (76%)) 75 ml IVPUSH ONETIME STA Stop: 11/18/18 16:18 Last Admin: 11/18/18 16:18 Dose: 75 ml Ketorolac Tromethamine (Toradol) 15 mg IVPUSH Q6H [facility] Stop: 11/17/18 12:11 Last Admin: 11/12/18 12:44 Dose: 15 mg Ketorolac Tromethamine (Toradol) 15 mg IVPUSH Q6H PRN PRN Reason: Pain Stop: 11/17/18 12:11 Last Admin: 11/15/18 20:33 Dose: 15 mg Lorazepam (Ativan) 0 mg IVPUSH Q4H PRN; Protocol PRN Reason: Agitation Last Admin: 11/12/18 12:09 Dose: 2 mg Methylprednisolone Sodium Succinate (Solu-Medrol) 125 mg IVPUSH ONETIME ONE Stop: 11/11/18 13:48 Last Admin: 11/11/18 13:59 Dose: 125 mg Methylprednisolone Sodium Succinate (Solu-Medrol) 125 mg IVPUSH Q8H [facility] Last Admin: 11/14/18 05:47 Dose: 125 mg Methylprednisolone Sodium Succinate (Solu-Medrol) 125 mg IVPUSH DAILY [facility] Last Admin: 11/15/18 09:10 Dose: 125 mg Nystatin (Mycostatin) 5 ml PO TID [facility] Last Admin: 11/19/18 05:52 Dose: 5 ml Oxycodone HCl (Oxycodone) 5 mg PO ONETIME ONE Stop: 11/11/18 20:39 Last Admin: 11/11/18 21:45 Dose: 5 mg Potassium Chloride (Klor-Con M20) 40 meq PO ONETIME ONE Stop: 11/13/18 09:42 Last Admin: 11/13/18 10:54 Dose: 40 meq Potassium Chloride (Potassium Chloride) 40 meq PO Q4H [facility] Stop: 11/14/18 11:31 Last Admin: 11/14/18 08:10 Dose: 40 meq Potassium Chloride (Klor-Con M20) 40 meq PO ONETIME@1130 [facility] Last Admin: 11/14/18 11:29 Dose: 40 meq Potassium Chloride (Klor-Con M20) 40 meq PO ONETIME ONE Stop: 11/16/18 07:42 Last Admin: 11/16/18 07:58 Dose: 40 meq Potassium Chloride (Klor-Con M20) 40 meq PO ONETIME ONE Stop: 11/18/18 09:58 Last Admin: 11/18/18 10:30 Dose: 40 meq Potassium Chloride (Klor-Con M20) 40 meq PO ONETIME ONE Stop: 11/18/18 14:01 Last Admin: 11/18/18 14:18 Dose: 40 meq Potassium Chloride (Klor-Con M20) 40 meq PO ONETIME ONE Stop: 11/19/18 09:05 Last Admin: 11/19/18 09:32 Dose: 40 meq Vancomycin HCl (Pharmacy To Dose - Vancomycin) 1 dose .XX ASDIRECTED [facility] - Exam Quality Assessment: Supplemental Oxygen General: Alert, Oriented, Cooperative, No Acute Distress Lungs: Normal Respiratory Effort, Rhonchi Cardiovascular: Regular Rhythm, Tachycardia GI/Abdominal Exam: Normal Bowel Sounds, Soft, Non-Tender Extremities: No Pedal Edema Skin: Warm, Dry - Problem List Review Problem List Initiated/Reviewed/Updated: Yes - My Orders Last 24 Hours: My Active Orders 11/19/18 17:56 Calcium Carbonate [Tums] 1,000 mg PO Q2HR PRN 11/20/18 05:25 INFLUENZA A+B AG SCREEN [RM] Stat 11/20/18 10:20 RT Post Treatment Assessment [RC] Click to Edit RT Pre-Treatment Assessment [RC] Click to Edit 11/20/18 10:30 Fluticasone/Salmeterol [Advair Diskus 250-50] 1 puff INH BID 11/20/18 12:14 Ang Chest [CT] Routine 11/20/18 16:00 Potassium Chloride [Klor-Con M20] 40 meq PO DAILY 11/20/18 17:21 Antiembolic Devices [RC] PER UNIT ROUTINE SCD [Sequential Compression Device] [OM.PC] Routine 11/20/18 18:00 Furosemide [Lasix] 20 mg IVPUSH Q6H 11/20/18 21:00 acetaZOLAMIDE [Diamox] 250 mg PO BID 11/21/18 05:11 B-TYPE NATRIURETIC PEPTIDE,BNP [CHEM] AM CBC W/O DIFF,HEMOGRAM [HEME] AM COMPREHENSIVE METABOLIC PN,CMP [CHEM] AM INR,PT,PROTHROMBIN TIME [COAG] AM 11/22/18 05:11 CBC W/O DIFF,HEMOGRAM [HEME] AM COMPREHENSIVE METABOLIC PN,CMP [CHEM] AM INR,PT,PROTHROMBIN TIME [COAG] AM 11/23/18 05:11 CBC W/O DIFF,HEMOGRAM [HEME] AM COMPREHENSIVE METABOLIC PN,CMP [CHEM] AM INR,PT,PROTHROMBIN TIME [COAG] AM - Plan Plan:: A: 1. Acute hypoxic respiratory failure, stable 2. Lower extremity edema, improving 3. Liver cirrhosis 4. COPD exacerbation 5. HCAP 6. Leukocytosis 7. Oral thrush 8. Alcohol abuse 9. Celiac disease 10. Self care deficit 11. Severe protein undernourishment 12. Hypokalemia, replaced 13. 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 José at [facility] in [place] and went over the patient's medical condition which has not been improving and requiring more O2. He suggested CT angio to r/o PE and BNP. CT angio was not able to be performed today due to inability to obtain vein access. In addition, BNP was elevated at 400. He suggested increasing lasix frequency to 20 mg IV Q6H and acetazolimide to see if that improves his oxygenation requirement. Will re-evaluate tomorrow morning and see if breathing improves with diuresis. <Israel Brooks M - Last Filed: 11/21/18 06:54> - General Info Admission Dx/Problem (Free Text): I have seen and examined to patient independently of medical assembly, Addy Gaston MD. I have discussed the case for care of this patient with him. I have reviewed and approve of the plan of care as outlined by medical assembly. Please see orders. Patient has had increasing O2 demands and is not improving as expected. Continue on current abx for now. May need BAL. - Patient Data Vitals - Most Recent: Last Vital Signs Temp 36.4 C 11/21/18 04:00 Pulse 104 H 11/21/18 04:00 Resp 21 H 11/21/18 04:00 BP 128/76 11/21/18 04:00 Pulse Ox 96 11/21/18 04:00 I&O - Last 24 Hours: Intake & Output 11/20/18 11/20/18 11/21/18 14:59 22:59 06:59 Intake Total 700 675 Output Total 1970 2150 Balance -1270 -1475 Lab Results Last 24 Hours: Laboratory Results - last 24 hr 11/20/18 11/20/18 11/21/18 Range/Units 11:30 12:55 05:15 WBC 15.71 H (4.0-11.0) K/uL RBC 2.78 L (4.50-5.90) M/uL Hgb 9.1 L (13.0-17.0) g/dL Hct 28.2 L (38.0-50.0) % MCV 101.4 H (80.0-98.0) fL MCH 32.7 H (27.0-32.0) pg MCHC 32.3 (31.0-37.0) g/dL RDW Std Deviation 81.9 H (28.0-62.0) fl RDW Coeff of Willy 22 H (11.0-15.0) % Plt Count 176 (150-400) K/uL MPV 11.30 (7.40-12.00) fL Nucleated RBC % 0.0 /100WBC Nucleated RBCs # 0 K/uL INR ABG pH 7.512 H (7.35-7.45) ABG pCO2 37 (35-45) mmHG ABG pO2 52 L (75-100) mmHG ABG HCO3 30 H (22-26) mEq/L ABG Total CO2 27.4 ABG Base Excess 6.4 H (-2.0-2.0) Sodium (136-148) mmol/L Potassium (3.5-5.1) mmol/L Chloride (98-107) mmol/L Carbon Dioxide (21.0-32.0) mmol/L BUN (7.0-18.0) mg/dL Creatinine (0.8-1.3) mg/dL Est Cr Clr Drug Dosing mL/min Estimated GFR (MDRD) ml/min Glucose (74-106) mg/dL Calcium (8.5-10.1) mg/dL Total Bilirubin (0.2-1.0) mg/dL AST (15-37) IU/L ALT (14-63) IU/L Alkaline Phosphatase (46-116) U/L B-Natriuretic Peptide 481 H (<100) PG/ML Total Protein (6.4-8.2) g/dL Albumin (3.4-5.0) g/dL Globulin (2.6-4.0) g/dL Albumin/Globulin Ratio (0.9-1.6) 11/21/18 11/21/18 Range/Units 05:15 05:15 WBC (4.0-11.0) K/uL RBC (4.50-5.90) M/uL Hgb (13.0-17.0) g/dL Hct (38.0-50.0) % MCV (80.0-98.0) fL MCH (27.0-32.0) pg MCHC (31.0-37.0) g/dL RDW Std Deviation (28.0-62.0) fl RDW Coeff of Willy (11.0-15.0) % Plt Count (150-400) K/uL MPV (7.40-12.00) fL Nucleated RBC % /100WBC Nucleated RBCs # K/uL INR 1.08 ABG pH (7.35-7.45) ABG pCO2 (35-45) mmHG ABG pO2 (75-100) mmHG ABG HCO3 (22-26) mEq/L ABG Total CO2 ABG Base Excess (-2.0-2.0) Sodium 134 L (136-148) mmol/L Potassium 3.5 (3.5-5.1) mmol/L Chloride 98 (98-107) mmol/L Carbon Dioxide 29.3 (21.0-32.0) mmol/L BUN 9 (7.0-18.0) mg/dL Creatinine 0.7 L (0.8-1.3) mg/dL Est Cr Clr Drug Dosing 104.49 mL/min Estimated GFR (MDRD) > 60.0 ml/min Glucose 93 (74-106) mg/dL Calcium 8.5 (8.5-10.1) mg/dL Total Bilirubin 0.9 (0.2-1.0) mg/dL AST 31 (15-37) IU/L ALT 26 (14-63) IU/L Alkaline Phosphatase 120 H (46-116) U/L B-Natriuretic Peptide (<100) PG/ML Total Protein 5.6 L (6.4-8.2) g/dL Albumin 2.4 L (3.4-5.0) g/dL Globulin 3.2 (2.6-4.0) g/dL Albumin/Globulin Ratio 0.8 L (0.9-1.6) Med Orders - Current: Current Medications Acetaminophen (Tylenol) 650 mg PO Q4H PRN PRN Reason: Pain Last Admin: 11/20/18 23:46 Dose: 650 mg Acetazolamide (Diamox) 250 mg PO BID [facility] Last Admin: 11/20/18 21:06 Dose: 250 mg Albuterol (Ventolin Hfa) 0 gm INH Q4H PRN PRN Reason: Wheezing Albuterol/Ipratropium (Duoneb 3.0-0.5 Mg/3 Ml) 3 ml NEB Q6HRRT [facility] Last Admin: 11/21/18 05:38 Dose: 3 ml Albuterol/Ipratropium (Duoneb 3.0-0.5 Mg/3 Ml) 3 ml NEB Q4HRRT PRN PRN Reason: Shortness of Breath Last Admin: 11/16/18 14:25 Dose: 3 ml Benzonatate (Tessalon Perles) 200 mg PO TID [facility] Last Admin: 11/21/18 05:59 Dose: 200 mg Calcium Carbonate/Glycine (Tums) 1,000 mg PO Q2HR PRN PRN Reason: Indigestion Last Admin: 11/19/18 18:51 Dose: 1,000 mg Folic Acid (Folic Acid) 1 mg PO DAILY [facility] Last Admin: 11/20/18 08:54 Dose: 1 mg Heparin Sodium (Porcine) (Heparin Sodium) 5,000 units SUBCUT Q8H [facility] Last Admin: 11/21/18 01:52 Dose: Not Given Lorazepam (Ativan) 0.5 mg PO Q8H PRN PRN Reason: Anxiety Last Admin: 11/20/18 11:27 Dose: 0.5 mg Ondansetron HCl (Zofran Odt) 4 mg PO Q4H PRN PRN Reason: nausea, able to take PO Last Admin: 11/14/18 08:18 Dose: 4 mg Potassium Chloride (Klor-Con M20) 40 meq PO DAILY [facility] Last Admin: 11/20/18 16:40 Dose: 40 meq Prednisone (Prednisone) 40 mg PO WITHBREAKFAST [facility] Last Admin: 11/20/18 08:54 Dose: 40 mg Fluticasone/Salmeterol (Advair Diskus 250-50) 1 puff INH BID [facility] Last Admin: 11/20/18 21:08 Dose: 1 puff Temazepam (Restoril) 15 mg PO BEDTIME PRN PRN Reason: Insomnia Last Admin: 11/18/18 21:14 Dose: 15 mg Thiamine HCl (Vitamin B-1) 100 mg PO DAILY [facility] Last Admin: 11/20/18 08:54 Dose: 100 mg Tiotropium [place] (Spiriva Handihaler) 18 mcg INH DAILY [facility] Last Admin: 11/20/18 08:39 Dose: 18 mcg Discontinued Medications Albuterol/Ipratropium (Duoneb 3.0-0.5 Mg/3 Ml) 3 ml NEB ONETIME ONE Stop: 11/11/18 13:48 Last Admin: 11/11/18 13:52 Dose: 3 ml Albuterol/Ipratropium (Duoneb 3.0-0.5 Mg/3 Ml) 3 ml NEB Q4HRRT PRN PRN Reason: Shortness Of Breath/wheezing Last Admin: 11/13/18 09:36 Dose: 3 ml Benzonatate (Tessalon Perles) Confirm Administered Dose 100 mg .ROUTE .STK-MED ONE Stop: 11/12/18 10:09 Last Admin: 11/12/18 10:13 Dose: 100 mg Budesonide/Formoterol Fumarate (Symbicort 160-4.5 Mcg) 0 gm INH BID [facility] Last Admin: 11/20/18 08:38 Dose: 1 puff Furosemide (Lasix) 20 mg IVPUSH ONETIME ONE Stop: 11/15/18 10:01 Last Admin: 11/15/18 11:03 Dose: 20 mg Furosemide (Lasix) 40 mg IVPUSH NOW ONE Stop: 11/15/18 17:41 Last Admin: 11/16/18 07:39 Dose: Not Given Furosemide (Lasix) 40 mg IVPUSH NOW ONE Stop: 11/15/18 19:01 Last Admin: 11/15/18 20:25 Dose: 40 mg Furosemide (Lasix) 20 mg IVPUSH NOW ONE Stop: 11/16/18 17:01 Last Admin: 11/16/18 17:26 Dose: 20 mg Furosemide (Lasix) 20 mg IVPUSH NOW ONE Stop: 11/18/18 08:37 Last Admin: 11/18/18 08:57 Dose: 20 mg Furosemide (Lasix) 20 mg IVPUSH NOW ONE Stop: 11/20/18 13:38 Last Admin: 11/20/18 14:14 Dose: 20 mg Furosemide (Lasix) 20 mg IVPUSH Q6H [facility] Stop: 11/21/18 00:01 Last Admin: 11/20/18 23:35 Dose: 20 mg Sodium Chloride (Normal Saline) 1,000 mls @ 999 mls/hr IV BOLUS ONE Stop: 11/11/18 14:46 Last Infusion: 11/11/18 13:59 Dose: 80 mls/hr Levofloxacin/Dextrose 750 mg/ (Premix) 150 mls @ 100 mls/hr IV ONETIME ONE Stop: 11/11/18 16:10 Last Admin: 11/11/18 14:49 Dose: 100 mls/hr Sodium Chloride (Normal Saline) 1,000 mls @ 125 mls/hr IV ASDIRECTED [facility] Last Admin: 11/15/18 09:26 Dose: 125 mls/hr Vancomycin HCl 1 gm/ Sodium (Chloride) 250 mls @ 166.667 mls/hr IV Q12H [facility] Last Admin: 11/15/18 19:01 Dose: Not Given Levofloxacin/Dextrose 750 mg/ (Premix) 150 mls @ 100 mls/hr IV Q24H [facility] Last Admin: 11/17/18 14:51 Dose: 100 mls/hr Piperacillin Sod/Tazobactam (Sod 3.375 gm/ Sodium Chloride) 50 mls @ 100 mls/ hr IV Q6H [facility] Last Admin: 11/18/18 06:31 Dose: 100 mls/hr Magnesium Sulfate 2 gm/ Premix 50 mls @ 25 mls/hr IV ONETIME ONE Stop: 11/13/18 19:10 Last Admin: 11/13/18 18:41 Dose: 25 mls/hr Albumin Human (Flexbumin 25%) 12.5 gm in 50 mls @ 100 mls/hr IV ONETIME ONE Stop: 11/15/18 08:47 Last Admin: 11/15/18 09:18 Dose: 100 mls/hr Vancomycin HCl 0.75 gm/ Sodium (Chloride) 250 mls @ 166.667 mls/hr IV Q12H [facility] Last Admin: 11/16/18 16:33 Dose: 166.667 mls/hr Albumin Human (Flexbumin 25%) 12.5 gm in 50 mls @ 100 mls/hr IV ONETIME ONE Stop: 11/15/18 18:29 Last Admin: 11/15/18 18:48 Dose: 100 mls/hr Magnesium Sulfate 2 gm/ Premix 50 mls @ 50 mls/hr IV ONETIME ONE Stop: 11/16/18 12:10 Last Admin: 11/16/18 12:02 Dose: 50 mls/hr Albumin Human (Flexbumin 25%) 12.5 gm in 50 mls @ 100 mls/hr IV ONETIME ONE Stop: 11/16/18 11:40 Last Admin: 11/16/18 11:38 Dose: 100 mls/hr Albumin Human (Flexbumin 25%) 12.5 gm in 50 mls @ 100 mls/hr IV ONETIME ONE Stop: 11/16/18 16:29 Last Admin: 11/16/18 15:34 Dose: 100 mls/hr Magnesium Sulfate 2 gm/ Premix 50 mls @ 25 mls/hr IV ONETIME ONE Stop: 11/18/18 14:08 Last Admin: 11/18/18 12:37 Dose: 25 mls/hr Iopamidol (Isovue Multipack-370 (76%)) 100 ml IVPUSH ONETIME ONE Stop: 11/11/18 19:21 Last Admin: 11/11/18 19:25 Dose: 100 ml Iopamidol (Isovue Multipack-370 (76%)) 75 ml IVPUSH ONETIME STA Stop: 11/18/18 16:18 Last Admin: 11/18/18 16:18 Dose: 75 ml Ketorolac Tromethamine (Toradol) 15 mg IVPUSH Q6H [facility] Stop: 11/17/18 12:11 Last Admin: 11/12/18 12:44 Dose: 15 mg Ketorolac Tromethamine (Toradol) 15 mg IVPUSH Q6H PRN PRN Reason: Pain Stop: 11/17/18 12:11 Last Admin: 11/15/18 20:33 Dose: 15 mg Lorazepam (Ativan) 0 mg IVPUSH Q4H PRN; Protocol PRN Reason: Agitation Last Admin: 11/12/18 12:09 Dose: 2 mg Methylprednisolone Sodium Succinate (Solu-Medrol) 125 mg IVPUSH ONETIME ONE Stop: 11/11/18 13:48 Last Admin: 11/11/18 13:59 Dose: 125 mg Methylprednisolone Sodium Succinate (Solu-Medrol) 125 mg IVPUSH Q8H [facility] Last Admin: 11/14/18 05:47 Dose: 125 mg Methylprednisolone Sodium Succinate (Solu-Medrol) 125 mg IVPUSH DAILY [facility] Last Admin: 11/15/18 09:10 Dose: 125 mg Nystatin (Mycostatin) 5 ml PO TID [facility] Last Admin: 11/19/18 05:52 Dose: 5 ml Oxycodone HCl (Oxycodone) 5 mg PO ONETIME ONE Stop: 11/11/18 20:39 Last Admin: 11/11/18 21:45 Dose: 5 mg Potassium Chloride (Klor-Con M20) 40 meq PO ONETIME ONE Stop: 11/13/18 09:42 Last Admin: 11/13/18 10:54 Dose: 40 meq Potassium Chloride (Potassium Chloride) 40 meq PO Q4H [facility] Stop: 11/14/18 11:31 Last Admin: 11/14/18 08:10 Dose: 40 meq Potassium Chloride (Klor-Con M20) 40 meq PO ONETIME@1130 [facility] Last Admin: 11/14/18 11:29 Dose: 40 meq Potassium Chloride (Klor-Con M20) 40 meq PO ONETIME ONE Stop: 11/16/18 07:42 Last Admin: 11/16/18 07:58 Dose: 40 meq Potassium Chloride (Klor-Con M20) 40 meq PO ONETIME ONE Stop: 11/18/18 09:58 Last Admin: 11/18/18 10:30 Dose: 40 meq Potassium Chloride (Klor-Con M20) 40 meq PO ONETIME ONE Stop: 11/18/18 14:01 Last Admin: 11/18/18 14:18 Dose: 40 meq Potassium Chloride (Klor-Con M20) 40 meq PO ONETIME ONE Stop: 11/19/18 09:05 Last Admin: 11/19/18 09:32 Dose: 40 meq Vancomycin HCl (Pharmacy To Dose - Vancomycin) 1 dose .XX ASDIRECTED [facility] - Problem List & Annotations (1) Liver cirrhosis SNOMED Code(s): 63333334 Code(s): K74.60 - UNSPECIFIED CIRRHOSIS OF LIVER Status: Chronic Priority : High Current Visit: Yes Qualifiers: Hepatic cirrhosis type: alcoholic cirrhosis Ascites presence: with ascites Qualified Code(s): K70.31 - Alcoholic cirrhosis of liver with ascites (2) Hypoxia SNOMED Code(s): 968175049 Code(s): R09.02 - HYPOXEMIA Status: Acute Current Visit: Yes (3) Pneumonia SNOMED Code(s): 271873578 Code(s): J18.9 - PNEUMONIA, UNSPECIFIED ORGANISM Status: Acute Current Visit: Yes Qualifiers: Pneumonia type: due to unspecified organism Laterality: left Lung location: lower lobe of lung Qualified Code(s): J18.1 - Lobar pneumonia, unspecified organism (4) COPD exacerbation SNOMED Code(s): 865188736 Code(s): J44.1 - CHRONIC OBSTRUCTIVE PULMONARY DISEASE W (ACUTE) EXACERBATION Status: Acute Priority: High Current Visit: No (5) Neuropathy involving both lower extremities SNOMED Code(s): 66867572765525843 Code(s): G57.93 - UNSPECIFIED MONONEUROPATHY OF BILATERAL LOWER LIMBS Status: Chronic Priority: High Current Visit: No (6) Pulmonary cachexia due to chronic obstructive pulmonary disease SNOMED Code(s): 107702245 Code(s): J44.9 - CHRONIC OBSTRUCTIVE PULMONARY DISEASE, UNSPECIFIED; R64 - [place] Status: Chronic Priority: High Current Visit: No (7) Severe protein-calorie malnutrition SNOMED Code(s): 178066924, [id number], [id number] Code(s): E43 - UNSPECIFIED SEVERE PROTEIN-CALORIE MALNUTRITION Status: Chronic Priority: High Current Visit: No
[2018-11-20] MEDS: Furosemide 20 MG/2 ML VIAL IVPUSH SCH ×2 (18:34→23:35)
[2018-11-20] MEDS: acetaZOLAMIDE 250 MG Tab PO SCH (21:06)
[2018-11-21] MEDS: Heparin Sodium 5,000 Units/ML Vial SUBCUT SCH ×2 (01:52→09:43)
[2018-11-21] MEDS: Albuterol/Ipratropium 3.0-0.5 MG/3 ML Neb Soln NEB SCH (05:38)
[2018-11-21] MEDS: Benzonatate 100 MG Cap PO SCH (05:59)
[2018-11-21 06:09] LABS: CHLORIDE,CL 98 mmol/L (98-107); SODIUM,NA 134 mmol/L (136-148)
[2018-11-21 08:07] VITALS: BP 117/71
[2018-11-21] MEDS: Potassium Chloride 20 MEQ Tab.ER PO SCH (09:16)
[2018-11-21] MEDS: Folic Acid 1 MG Tab PO SCH (09:16)
[2018-11-21] MEDS: predniSONE 20 MG Tab PO SCH (09:16)
[2018-11-21] MEDS: acetaZOLAMIDE 250 MG Tab PO SCH (09:16)
[2018-11-21] MEDS: Acetaminophen 325 MG Tab PO PRN (09:17)
[2018-11-21] MEDS: Thiamine 100 MG Tab PO SCH (09:17)
[2018-11-21] MEDS: Fluticasone/Salmeterol 250-50 MCG Inhalation Powder 14/Diskus INH SCH (09:19)
[2018-11-21] MEDS: Tiotropium Inhaler 18 MCG Inhalation Powder Cap Kit of 5 INH SCH (09:19)
--- NOTE | 2018-11-21 09:27 | PCM.DCSUM1 ---
<Addy Wise - Last Filed: 11/21/18 09:55> Discharge Summary - Hospital Course Free Text/Narrative:: Admission date: 11/11/18 Transfer date: 11/21/18 Admission diagnosis: 1. Acute hypoxic respiratory failure 2. COPD exacerbation 3. HCAP 4. Alcohol abuse 5. Severe protein undernourishment Discharge diagnosis: 1. Acute hypoxemic respiratory failure 2. Lower extremity edema, resolved 3. Suspected liver cirrhosis 4. COPD exacerbation 5. HCAP 6. Leukocytosis 7. Tachycardia 8. Macrocytic anemia s/o 2 units PRBCs 9. Oral thrush 10. Alcohol abuse 11. Celiac disease 12. Self care deficit 13. Severe protein undernourishment 14. Hypokalemia, replaced 15. Hypomagnesemia, replaced 16. Elevated CEA tumor marker 17. Pending AFP and [id number] levels 53 y/o male with complex medical history significant for alcohol abuse, COPD, smoker who was readmitted on 11/11/18 for COPD exacerbation, HCAP. Patient had been admitted earlier that month and treated for COPD exacerbation and discharged home, however, patient became more short of breath and was admitted. Patient was needing 2 L O2 NC, where as, he was not on any home oxygen before this hospitalization. He was started on broad spectrum antibiotics which included Vancomycin, Levaquin, Zosyn treated for 7 days. His leukocytosis improved and oxygenation requirements remained at 2 L O2 NC, however, during this hospitalization patient started requiring 4-5 L O2 NC. ABG showed pH 7.5, CO2 [address] chest w/contrast was negative for PE and subsequent CT imaging showed ground glass opacities in left upper lobe and right lower lobe with possible developing pneumonia in right lower lobe. He was continued on scheduled duonebs Q6H and PRN on prednisone 40 mg PO daily. RUQ U/ S showed suspected liver cirrhosis. ECHO was done and showed EF 60% and preserved LV function without significant valve disease. BNP was 400 and he was diuresed with lasix 20 mg IV Q6H with good urine output, however, patient was still requiring 4-5 L O2 NC, tachypneic and tachycardic in 120's. Attempted to do CT chest to r/o PE, however, unable to obtain access by nursing staff and anesthesia. Tumor markers were ordered and CEA was mildly elevated at 10 and AFT was still pending. In addition, ordered [id number] level but was still pending. I suspect that he may have an underlying malignancy and may benefit from a pulmonology consult for his respiratory failure and possible BAL to evaluate for malignancy. In addition, a repeat CT angio to r/o PE. Patient was transferred to [facility] on 11/21/[address] Nicholas as the accepting provider. - Discharge Data Discharge Date: 11/21/18 Discharge Disposition: DC/Tfer to Acute Hospital 02 Condition: Poor - Patient Summary/Data Consults: Consultations 11/12/18 09:49 Consult to Physical Therapy [PT Evaluation and Treatment] [CONS] Routine - Patient Instructions Diet: Usual Diet as Tolerated Diet, Other: Gluten free for Celiac's disease Activity: As Tolerated - Discharge Plan *PRESCRIPTION DRUG MONITORING PROGRAM REVIEWED*: Not Applicable *COPY OF PRESCRIPTION DRUG MONITORING REPORT IN PATIENT ABI: Not Applicable Prescriptions/Med Rec: Folic Acid 1 mg PO DAILY #90 tablet Thiamine [Vitamin B-1] 100 mg PO DAILY #90 tablet Home Medications: Home Meds Albuterol Sulfate [Proair Hfa] 1 - 2 puff INH ASDIRECTED PRN 06/30/16 [History] Glycopyrrolate/Formoterol Fum [Bevespi Aerosphere Inhaler] 2 inh PO DAILY [History] B Complex With Vitamin C [Vitamin B-Complex & C] 1 each PO DAILY #30 tablet.er 10/07/18 [Rx] Gabapentin [Neurontin] 300 mg PO BID #30 capsule 10/07/18 [Rx] Ascorbic Acid [Vitamin C] 1,500 mg PO TID #90 tablet 11/09/18 [Rx] Calcium Carbonate/Vitamin D3 [Caltrate 600+D 1500 MG-400 Units] 1 tab PO DAILY # 30 tablet 11/09/18 [Rx] Folic Acid 1 mg PO BEDTIME #30 tablet 11/09/18 [Rx] Nystatin [Nystop] 1 mg TOP TID PRN #1 bottle 11/09/18 [Rx] Pantoprazole Sodium 40 mg PO DAILY #30 tablet. 11/09/18 [Rx] Sod Phos Di, Tama/K Phos Tama [Av-Phos 250 Neutral Tablet] 250 mg PO DAILY #30 tablet 11/09/18 [Rx] Nicotine Polacrilex [Nicotine Gum] 2 mg BC ASDIRECTED 11/15/18 [History] Thiamine [Vitamin B-1] 100 mg PO TID 11/15/18 [History] Albuterol Sulfate [Proair Hfa] 1 - 2 puff IH ASDIRECTED 11/20/18 [History] Cefdinir [Omnicef] 300 mg PO BID 11/20/18 [History] Folic Acid 1 mg PO DAILY #90 tablet 11/20/18 [Rx] Loperamide [Imodium] 2 mg PO Q6H PRN 11/20/18 [History] Nystatin [Nyamyc] 1 applic TP TID 11/20/18 [History] Thiamine [Vitamin B-1] 100 mg PO DAILY #90 tablet 11/20/18 [Rx] predniSONE [Prednisone] 20 mg PO DAILY 11/20/18 [History] Oxygen Therapy Mode: Nasal Cannula Oxygen Flow Rate (L/min): 3 Maintain SpO2% greater than: 88 Patient Handouts: Hypoxia, Amoxicillin; Clavulanic Acid tablets, Budesonide; Formoterol Inhalation, Albuterol inhalation aerosol, Cirrhosis, Gluten-Free Diet for Celiac Disease, Adult, Thiamine, Vitamin B1 tablets, Tiotropium respiratory inhalation spray (Spiriva Respimat), Prednisone tablets, Folic Acid , Vitamin B9 tablets, Community-Acquired Pneumonia, Adult, Omxe-ro-Qmev Referrals: [facility] [Outside] Addy Wise MD [Resident] - 11/29/18 3:45 pm - Discharge Summary/Plan Comment DC Time >30 min.: No - Patient Data Vitals - Most Recent: Last Vital Signs Temp 36.8 C 11/21/18 07:30 Pulse 123 H 11/21/18 07:30 Resp 18 11/21/18 07:30 BP 117/71 11/21/18 07:30 Pulse Ox 95 11/21/18 07:30 Weight - Most Recent: 61.235 kg I&O - Last 24 hours: Intake & Output 11/20/18 11/21/18 11/21/18 22:59 06:59 14:59 Intake Total 700 675 Output Total 4666 2150 Balance -1270 -1475 Lab Results - Last 24 hrs: Laboratory Results - last 24 hr 11/20/18 11/20/1811/21/19 Range/Units 11:30 12:55 05:15 WBC 15.71 H (4.0-11.0) K/uL RBC 2.78 L (4.50-5.90) M/uL Hgb 9.1 L (13.0-17.0) g/dL Hct 28.2 L (38.0-50.0) % MCV 101.4 H (80.0-98.0) fL MCH 32.7 H (27.0-32.0) pg MCHC 32.3 (31.0-37.0) g/dL RDW Std Deviation 81.9 H (28.0-62.0) fl RDW Coeff of Willy 22 H (11.0-15.0) % Plt Count 176 (150-400) K/uL MPV 11.30 (7.40-12.00) fL Nucleated RBC % 0.0 /100WBC Nucleated RBCs # 0 K/uL INR ABG pH 7.512 H (7.35-7.45) ABG pCO2 37 (35-45) mmHG ABG pO2 52 L (75-100) mmHG ABG HCO3 30 H (22-26) mEq/L ABG Total CO2 27.4 ABG Base Excess 6.4 H (-2.0-2.0) Sodium (136-148) mmol/L Potassium (3.5-5.1) mmol/L Chloride (98-107) mmol/L Carbon Dioxide (21.0-32.0) mmol/L BUN (7.0-18.0) mg/dL Creatinine (0.8-1.3) mg/dL Est Cr Clr Drug Dosing mL/min Estimated GFR (MDRD) ml/min Glucose (74-106) mg/dL Calcium (8.5-10.1) mg/dL Total Bilirubin (0.2-1.0) mg/dL AST (15-37) IU/L ALT (14-63) IU/L Alkaline Phosphatase (46-116) U/L B-Natriuretic Peptide 481 H (<100) PG/ML Total Protein (6.4-8.2) g/dL Albumin (3.4-5.0) g/dL Globulin (2.6-4.0) g/dL Albumin/Globulin Ratio (0.9-1.6) 11/21/18 11/21/18 11/21/18 Range/Units 05:15 05:15 05:15 WBC (4.0-11.0) K/uL RBC (4.50-5.90) M/uL Hgb (13.0-17.0) g/dL Hct (38.0-50.0) % MCV (80.0-98.0) fL MCH (27.0-32.0) pg MCHC (31.0-37.0) g/dL RDW Std Deviation (28.0-62.0) fl RDW Coeff of Willy (11.0-15.0) % Plt Count (150-400) K/uL MPV (7.40-12.00) fL Nucleated RBC % /100WBC Nucleated RBCs # K/uL INR 1.08 ABG pH (7.35-7.45) ABG pCO2 (35-45) mmHG ABG pO2 (75-100) mmHG ABG HCO3 (22-26) mEq/L ABG Total CO2 ABG Base Excess (-2.0-2.0) Sodium 134 L (136-148) mmol/L Potassium 3.5 (3.5-5.1) mmol/L Chloride 98 (98-107) mmol/L Carbon Dioxide 29.3 (21.0-32.0) mmol/L BUN 9 (7.0-18.0) mg/dL Creatinine 0.7 L (0.8-1.3) mg/dL Est Cr Clr Drug Dosing 104.49 mL/min Estimated GFR (MDRD) > 60.0 ml/min Glucose 93 (74-106) mg/dL Calcium 8.5 (8.5-10.1) mg/dL Total Bilirubin 0.9 (0.2-1.0) mg/dL AST 31 (15-37) IU/L ALT 26 (14-63) IU/L Alkaline Phosphatase 120 H (46-116) U/L B-Natriuretic Peptide 294 H (<100) PG/ML Total Protein 5.6 L (6.4-8.2) g/dL Albumin 2.4 L (3.4-5.0) g/dL Globulin 3.2 (2.6-4.0) g/dL Albumin/Globulin Ratio 0.8 L (0.9-1.6) Med Orders - Current: Current Medications Acetaminophen (Tylenol) 650 mg PO Q4H PRN PRN Reason: Pain Last Admin: 11/21/18 09:17 Dose: 650 mg Acetazolamide (Diamox) 250 mg PO BID [facility] Last Admin: 11/21/18 09:16 Dose: 250 mg Albuterol (Ventolin Hfa) 0 gm INH Q4H PRN PRN Reason: Wheezing Albuterol/Ipratropium (Duoneb 3.0-0.5 Mg/3 Ml) 3 ml NEB Q6HRRT [facility] Last Admin: 11/21/18 05:38 Dose: 3 ml Albuterol/Ipratropium (Duoneb 3.0-0.5 Mg/3 Ml) 3 ml NEB Q4HRRT PRN PRN Reason: Shortness of Breath Last Admin: 11/16/18 14:25 Dose: 3 ml Benzonatate (Tessalon Perles) 200 mg PO TID [facility] Last Admin: 11/21/18 05:59 Dose: 200 mg Calcium Carbonate/Glycine (Tums) 1,000 mg PO Q2HR PRN PRN Reason: Indigestion Last Admin: 11/19/18 18:51 Dose: 1,000 mg Folic Acid (Folic Acid) 1 mg PO DAILY [facility] Last Admin: 11/21/18 09:16 Dose: 1 mg Heparin Sodium (Porcine) (Heparin Sodium) 5,000 units SUBCUT Q8H [facility] Last Admin: 11/21/18 01:52 Dose: Not Given Lorazepam (Ativan) 0.5 mg PO Q8H PRN PRN Reason: Anxiety Last Admin: 11/20/18 11:27 Dose: 0.5 mg Ondansetron HCl (Zofran Odt) 4 mg PO Q4H PRN PRN Reason: nausea, able to take PO Last Admin: 11/14/18 08:18 Dose: 4 mg Potassium Chloride (Klor-Con M20) 40 meq PO DAILY [facility] Last Admin: 11/21/18 09:16 Dose: 40 meq Prednisone (Prednisone) 40 mg PO WITHBREAKFAST [facility] Last Admin: 11/21/18 09:16 Dose: 40 mg Fluticasone/Salmeterol (Advair Diskus 250-50) 1 puff INH BID [facility] Last Admin: 11/21/18 09:19 Dose: 1 puff Temazepam (Restoril) 15 mg PO BEDTIME PRN PRN Reason: Insomnia Last Admin: 11/18/18 21:14 Dose: 15 mg Thiamine HCl (Vitamin B-1) 100 mg PO DAILY [facility] Last Admin: 11/21/18 09:17 Dose: 100 mg Tiotropium [place] (Spiriva Handihaler) 18 mcg INH DAILY [facility] Last Admin: 11/21/18 09:19 Dose: 18 mcg Discontinued Medications Albuterol/Ipratropium (Duoneb 3.0-0.5 Mg/3 Ml) 3 ml NEB ONETIME ONE Stop: 11/11/18 13:48 Last Admin: 11/11/18 13:52 Dose: 3 ml Albuterol/Ipratropium (Duoneb 3.0-0.5 Mg/3 Ml) 3 ml NEB Q4HRRT PRN PRN Reason: Shortness Of Breath/wheezing Last Admin: 11/13/18 09:36 Dose: 3 ml Benzonatate (Tessalon Perles) Confirm Administered Dose 100 mg .ROUTE .STK-MED ONE Stop: 11/12/18 10:09 Last Admin: 11/12/18 10:13 Dose: 100 mg Budesonide/Formoterol Fumarate (Symbicort 160-4.5 Mcg) 0 gm INH BID [facility] Last Admin: 11/20/18 08:38 Dose: 1 puff Furosemide (Lasix) 20 mg IVPUSH ONETIME ONE Stop: 11/15/18 10:01 Last Admin: 11/15/18 11:03 Dose: 20 mg Furosemide (Lasix) 40 mg IVPUSH NOW ONE Stop: 11/15/18 17:41 Last Admin: 11/16/18 07:39 Dose: Not Given Furosemide (Lasix) 40 mg IVPUSH NOW ONE Stop: 11/15/18 19:01 Last Admin: 11/15/18 20:25 Dose: 40 mg Furosemide (Lasix) 20 mg IVPUSH NOW ONE Stop: 11/16/18 17:01 Last Admin: 11/16/18 17:26 Dose: 20 mg Furosemide (Lasix) 20 mg IVPUSH NOW ONE Stop: 11/18/18 08:37 Last Admin: 11/18/18 08:57 Dose: 20 mg Furosemide (Lasix) 20 mg IVPUSH NOW ONE Stop: 11/20/18 13:38 Last Admin: 11/20/18 14:14 Dose: 20 mg Furosemide (Lasix) 20 mg IVPUSH Q6H SHERWIN Stop: 11/21/18 00:01 Last Admin: 11/20/18 23:35 Dose: 20 mg Sodium Chloride (Normal Saline) 1,000 mls @ 999 mls/hr IV BOLUS ONE Stop: 11/11/18 14:46 Last Infusion: 11/11/18 13:59 Dose: 80 mls/hr Levofloxacin/Dextrose 750 mg/ (Premix) 150 mls @ 100 mls/hr IV ONETIME ONE Stop: 11/11/18 16:10 Last Admin: 11/11/18 14:49 Dose: 100 mls/hr Sodium Chloride (Normal Saline) 1,000 mls @ 125 mls/hr IV ASDIRECTED [facility] Last Admin: 11/15/18 09:26 Dose: 125 mls/hr Vancomycin HCl 1 gm/ Sodium (Chloride) 250 mls @ 166.667 mls/hr IV Q12H [facility] Last Admin: 11/15/18 19:01 Dose: Not Given Levofloxacin/Dextrose 750 mg/ (Premix) 150 mls @ 100 mls/hr IV Q24H [facility] Last Admin: 11/17/18 14:51 Dose: 100 mls/hr Piperacillin Sod/Tazobactam (Sod 3.375 gm/ Sodium Chloride) 50 mls @ 100 mls/ hr IV Q6H [facility] Last Admin: 11/18/18 06:31 Dose: 100 mls/hr Magnesium Sulfate 2 gm/ Premix 50 mls @ 25 mls/hr IV ONETIME ONE Stop: 11/13/18 19:10 Last Admin: 11/13/18 18:41 Dose: 25 mls/hr Albumin Human (Flexbumin 25%) 12.5 gm in 50 mls @ 100 mls/hr IV ONETIME ONE Stop: 11/15/18 08:47 Last Admin: 11/15/18 09:18 Dose: 100 mls/hr Vancomycin HCl 0.75 gm/ Sodium (Chloride) 250 mls @ 166.667 mls/hr IV Q12H [facility] Last Admin: 11/16/18 16:33 Dose: 166.667 mls/hr Albumin Human (Flexbumin 25%) 12.5 gm in 50 mls @ 100 mls/hr IV ONETIME ONE Stop: 11/15/18 18:29 Last Admin: 11/15/18 18:48 Dose: 100 mls/hr Magnesium Sulfate 2 gm/ Premix 50 mls @ 50 mls/hr IV ONETIME ONE Stop: 11/16/18 12:10 Last Admin: 11/16/18 12:02 Dose: 50 mls/hr Albumin Human (Flexbumin 25%) 12.5 gm in 50 mls @ 100 mls/hr IV ONETIME ONE Stop: 11/16/18 11:40 Last Admin: 11/16/18 11:38 Dose: 100 mls/hr Albumin Human (Flexbumin 25%) 12.5 gm in 50 mls @ 100 mls/hr IV ONETIME ONE Stop: 11/16/18 16:29 Last Admin: 11/16/18 15:34 Dose: 100 mls/hr Magnesium Sulfate 2 gm/ Premix 50 mls @ 25 mls/hr IV ONETIME ONE Stop: 11/18/18 14:08 Last Admin: 11/18/18 12:37 Dose: 25 mls/hr Iopamidol (Isovue Multipack-370 (76%)) 100 ml IVPUSH ONETIME ONE Stop: 11/11/18 19:21 Last Admin: 11/11/18 19:25 Dose: 100 ml Iopamidol (Isovue Multipack-370 (76%)) 75 ml IVPUSH ONETIME STA Stop: 11/18/18 16:18 Last Admin: 11/18/18 16:18 Dose: 75 ml Ketorolac Tromethamine (Toradol) 15 mg IVPUSH Q6H [place]ERWIN Stop: 11/17/18 12:11 Last Admin: 11/12/18 12:44 Dose: 15 mg Ketorolac Tromethamine (Toradol) 15 mg IVPUSH Q6H PRN PRN Reason: Pain Stop: 11/17/18 12:11 Last Admin: 11/15/18 20:33 Dose: 15 mg Lorazepam (Ativan) 0 mg IVPUSH Q4H PRN; Protocol PRN Reason: Agitation Last Admin: 11/12/18 12:09 Dose: 2 mg Methylprednisolone Sodium Succinate (Solu-Medrol) 125 mg IVPUSH ONETIME ONE Stop: 11/11/18 13:48 Last Admin: 11/11/18 13:59 Dose: 125 mg Methylprednisolone Sodium Succinate (Solu-Medrol) 125 mg IVPUSH Q8H [facility] Last Admin: 11/14/18 05:47 Dose: 125 mg Methylprednisolone Sodium Succinate (Solu-Medrol) 125 mg IVPUSH DAILY [facility] Last Admin: 11/15/18 09:10 Dose: 125 mg Nystatin (Mycostatin) 5 ml PO TID [facility] Last Admin: 11/19/18 05:52 Dose: 5 ml Oxycodone HCl (Oxycodone) 5 mg PO ONETIME ONE Stop: 11/11/18 20:39 Last Admin: 11/11/18 21:45 Dose: 5 mg Potassium Chloride (Klor-Con M20) 40 meq PO ONETIME ONE Stop: 11/13/18 09:42 Last Admin: 11/13/18 10:54 Dose: 40 meq Potassium Chloride (Potassium Chloride) 40 meq PO Q4H [facility] Stop: 11/14/18 11:31 Last Admin: 11/14/18 08:10 Dose: 40 meq Potassium Chloride (Klor-Con M20) 40 meq PO ONETIME@1130 [facility] Last Admin: 11/14/18 11:29 Dose: 40 meq Potassium Chloride (Klor-Con M20) 40 meq PO ONETIME ONE Stop: 11/16/18 07:42 Last Admin: 11/16/18 07:58 Dose: 40 meq Potassium Chloride (Klor-Con M20) 40 meq PO ONETIME ONE Stop: 11/18/18 09:58 Last Admin: 11/18/18 10:30 Dose: 40 meq Potassium Chloride (Klor-Con M20) 40 meq PO ONETIME ONE Stop: 11/18/18 14:01 Last Admin: 11/18/18 14:18 Dose: 40 meq Potassium Chloride (Klor-Con M20) 40 meq PO ONETIME ONE Stop: 11/19/18 09:05 Last Admin: 11/19/18 09:32 Dose: 40 meq Vancomycin HCl (Pharmacy To Dose - Vancomycin) 1 dose .XX ASDIRECTED [facility] <Israel Brooks - Last Filed: 11/21/18 10:17> Discharge Summary - Hospital Course HPI Initial Comments: I have seen and examined to patient independently of director of medical review, Addy Gaston MD. I have discussed the case for care of this patient with him. I have reviewed and approve of the plan of care as outlined by director of medical review. Please see orders. Patient is chronically ill at this point and requires further work-up with regards to pulmonary issues and cirrhosis. Alpha-1 antitrypsin testing is currently pending. - Discharge Diagnosis/Problem(s) (1) Liver cirrhosis SNOMED Code(s): 41328908 ICD Code: K74.60 - UNSPECIFIED CIRRHOSIS OF LIVER Status: Chronic Priority: High Current Visit: Yes Qualifiers: Hepatic cirrhosis type: alcoholic cirrhosis Ascites presence: with ascites Qualified Code(s): K70.31 - Alcoholic cirrhosis of liver with ascites (2) Hypoxia SNOMED Code(s): 894173999 ICD Code: R09.02 - HYPOXEMIA Status: Acute Current Visit: Yes (3) Pneumonia SNOMED Code(s): 495425049 ICD Code: J18.9 - PNEUMONIA, UNSPECIFIED ORGANISM Status: Acute Current Visit: Yes Qualifiers: Pneumonia type: due to unspecified organism Laterality: left Lung location: lower lobe of lung Qualified Code(s): J18.1 - Lobar pneumonia, unspecified organism (4) COPD exacerbation SNOMED Code(s): 837605970 ICD Code: J44.1 - CHRONIC OBSTRUCTIVE PULMONARY DISEASE W (ACUTE) EXACERBATION Status: Acute Priority: High Current Visit: No (5) Neuropathy involving both lower extremities SNOMED Code(s): 32041112906514904 ICD Code: G57.93 - UNSPECIFIED MONONEUROPATHY OF BILATERAL LOWER LIMBS Status: Chronic Priority: High Current Visit: No (6) Pulmonary cachexia due to chronic obstructive pulmonary disease SNOMED Code(s): 193441919 ICD Code: J44.9 - CHRONIC OBSTRUCTIVE PULMONARY DISEASE, UNSPECIFIED; R64 - CACHEXIA Status: Chronic Priority: High Current Visit: No (7) Severe protein-calorie malnutrition SNOMED Code(s): 480889572, 547261052, 921316974 ICD Code: E43 - UNSPECIFIED SEVERE PROTEIN-CALORIE MALNUTRITION Status: Chronic Priority: High Current Visit: No - Patient Summary/Data Consults: Consultations 11/12/18 09:49 Consult to Physical Therapy [PT Evaluation and Treatment] [CONS] Routine - Patient Data Vitals - Most Recent: Last Vital Signs Temp 36.8 C 11/21/18 07:30 Pulse 123 H 11/21/18 07:30 Resp 18 11/21/18 07:30 BP 117/71 11/21/18 07:30 Pulse Ox 95 11/21/18 07:30 I&O - Last 24 hours: Intake & Output 11/20/18 11/21/18 11/21/18 22:59 06:59 14:59 Intake Total 700 675 Output Total 1970 2150 Balance -1270 -1475 Lab Results - Last 24 hrs: Laboratory Results - last 24 hr 11/20/18 11/20/18 11/21/18 Range/Units 11:30 12:55 05:15 WBC 15.71 H (4.0-11.0) K/uL RBC 2.78 L (4.50-5.90) M/uL Hgb 9.1 L (13.0-17.0) g/dL Hct 28.2 L (38.0-50.0) % MCV 101.4 H (80.0-98.0) fL MCH 32.7 H (27.0-32.0) pg MCHC 32.3 (31.0-37.0) g/dL RDW Std Deviation 81.9 H (28.0-62.0) fl RDW Coeff of Willy 22 H (11.0-15.0) % Plt Count 176 (150-400) K/uL MPV 11.30 (7.40-12.00) fL Nucleated RBC % 0.0 /100WBC Nucleated RBCs # 0 K/uL INR ABG pH 7.512 H (7.35-7.45) ABG pCO2 37 (35-45) mmHG ABG pO2 52 L (75-100) mmHG ABG HCO3 30 H (22-26) mEq/L ABG Total CO2 27.4 ABG Base Excess 6.4 H (-2.0-2.0) Sodium (136-148) mmol/L Potassium (3.5-5.1) mmol/L Chloride (98-107) mmol/L Carbon Dioxide (21.0-32.0) mmol/L BUN (7.0-18.0) mg/dL Creatinine (0.8-1.3) mg/dL Est Cr Clr Drug Dosing mL/min Estimated GFR (MDRD) ml/min Glucose (74-106) mg/dL Calcium (8.5-10.1) mg/dL Total Bilirubin (0.2-1.0) mg/dL AST (15-37) IU/L ALT (14-63) IU/L Alkaline Phosphatase (46-116) U/L B-Natriuretic Peptide 481 H (<100) PG/ML Total Protein (6.4-8.2) g/dL Albumin (3.4-5.0) g/dL Globulin (2.6-4.0) g/dL Albumin/Globulin Ratio (0.9-1.6) 11/21/18 11/21/18 11/21/18 Range/Units 05:15 05:15 05:15 WBC (4.0-11.0) K/uL RBC (4.50-5.90) M/uL Hgb (13.0-17.0) g/dL Hct (38.0-50.0) % MCV (80.0-98.0) fL MCH (27.0-32.0) pg MCHC (31.0-37.0) g/dL RDW Std Deviation (28.0-62.0) fl RDW Coeff of Willy (11.0-15.0) % Plt Count (150-400) K/uL MPV (7.40-12.00) fL Nucleated RBC % /100WBC Nucleated RBCs # K/uL INR 1.08 ABG pH (7.35-7.45) ABG pCO2 (35-45) mmHG ABG pO2 (75-100) mmHG ABG HCO3 (22-26) mEq/L ABG Total CO2 ABG Base Excess (-2.0-2.0) Sodium 134 L (136-148) mmol/L Potassium 3.5 (3.5-5.1) mmol/L Chloride 98 (98-107) mmol/L Carbon Dioxide 29.3 (21.0-32.0) mmol/L BUN 9 (7.0-18.0) mg/dL Creatinine 0.7 L (0.8-1.3) mg/dL Est Cr Clr Drug Dosing 104.49 mL/min Estimated GFR (MDRD) > 60.0 ml/min Glucose 93 (74-106) mg/dL Calcium 8.5 (8.5-10.1) mg/dL Total Bilirubin 0.9 (0.2-1.0) mg/dL AST 31 (15-37) IU/L ALT 26 (14-63) IU/L Alkaline Phosphatase 120 H (46-116) U/L B-Natriuretic Peptide 294 H (<100) PG/ML Total Protein 5.6 L (6.4-8.2) g/dL Albumin 2.4 L (3.4-5.0) g/dL Globulin 3.2 (2.6-4.0) g/dL Albumin/Globulin Ratio 0.8 L (0.9-1.6) Med Orders - Current: Current Medications Acetaminophen (Tylenol) 650 mg PO Q4H PRN PRN Reason: Pain Last Admin: 11/21/18 09:17 Dose: 650 mg Acetazolamide (Diamox) 250 mg PO BID [facility] Last Admin: 11/21/18 09:16 Dose: 250 mg Albuterol (Ventolin Hfa) 0 gm INH Q4H PRN PRN Reason: Wheezing Albuterol/Ipratropium (Duoneb 3.0-0.5 Mg/3 Ml) 3 ml NEB Q6HRRT [facility] Last Admin: 11/21/18 05:38 Dose: 3 ml Albuterol/Ipratropium (Duoneb 3.0-0.5 Mg/3 Ml) 3 ml NEB Q4HRRT PRN PRN Reason: Shortness of Breath Last Admin: 11/16/18 14:25 Dose: 3 ml Benzonatate (Tessalon Perles) 200 mg PO TID [facility] Last Admin: 11/21/18 05:59 Dose: 200 mg Calcium Carbonate/Glycine (Tums) 1,000 mg PO Q2HR PRN PRN Reason: Indigestion Last Admin: 11/19/18 18:51 Dose: 1,000 mg Folic Acid (Folic Acid) 1 mg PO DAILY [facility] Last Admin: 11/21/18 09:16 Dose: 1 mg Heparin Sodium (Porcine) (Heparin Sodium) 5,000 units SUBCUT Q8H [facility] Last Admin: 11/21/18 09:43 Dose: Not Given Lorazepam (Ativan) 0.5 mg PO Q8H PRN PRN Reason: Anxiety Last Admin: 11/20/18 11:27 Dose: 0.5 mg Ondansetron HCl (Zofran Odt) 4 mg PO Q4H PRN PRN Reason: nausea, able to take PO Last Admin: 11/14/18 08:18 Dose: 4 mg Potassium Chloride (Klor-Con M20) 40 meq PO DAILY [facility] Last Admin: 11/21/18 09:16 Dose: 40 meq Prednisone (Prednisone) 40 mg PO WITHBREAKFAST [facility] Last Admin: 11/21/18 09:16 Dose: 40 mg Fluticasone/Salmeterol (Advair Diskus 250-50) 1 puff INH BID [facility] Last Admin: 11/21/18 09:19 Dose: 1 puff Temazepam (Restoril) 15 mg PO BEDTIME PRN PRN Reason: Insomnia Last Admin: 11/18/18 21:14 Dose: 15 mg Thiamine HCl (Vitamin B-1) 100 mg PO DAILY [facility] Last Admin: 11/21/18 09:17 Dose: 100 mg Tiotropium [place] (Spiriva Handihaler) 18 mcg INH DAILY [facility] Last Admin: 11/21/18 09:19 Dose: 18 mcg Discontinued Medications Albuterol/Ipratropium (Duoneb 3.0-0.5 Mg/3 Ml) 3 ml NEB ONETIME ONE Stop: 11/11/18 13:48 Last Admin: 11/11/18 13:52 Dose: 3 ml Albuterol/Ipratropium (Duoneb 3.0-0.5 Mg/3 Ml) 3 ml NEB Q4HRRT PRN PRN Reason: Shortness Of Breath/wheezing Last Admin: 11/13/18 09:36 Dose: 3 ml Benzonatate (Tessalon Perles) Confirm Administered Dose 100 mg .ROUTE .STK-MED ONE Stop: 11/12/18 10:09 Last Admin: 11/12/18 10:13 Dose: 100 mg Budesonide/Formoterol Fumarate (Symbicort 160-4.5 Mcg) 0 gm INH BID [facility] Last Admin: 11/20/18 08:38 Dose: 1 puff Furosemide (Lasix) 20 mg IVPUSH ONETIME ONE Stop: 11/15/18 10:01 Last Admin: 11/15/18 11:03 Dose: 20 mg Furosemide (Lasix) 40 mg IVPUSH NOW ONE Stop: 11/15/18 17:41 Last Admin: 11/16/18 07:39 Dose: Not Given Furosemide (Lasix) 40 mg IVPUSH NOW ONE Stop: 11/15/18 19:01 Last Admin: 11/15/18 20:25 Dose: 40 mg Furosemide (Lasix) 20 mg IVPUSH NOW ONE Stop: 11/16/18 17:01 Last Admin: 11/16/18 17:26 Dose: 20 mg Furosemide (Lasix) 20 mg IVPUSH NOW ONE Stop: 11/18/18 08:37 Last Admin: 11/18/18 08:57 Dose: 20 mg Furosemide (Lasix) 20 mg IVPUSH NOW ONE Stop: 11/20/18 13:38 Last Admin: 11/20/18 14:14 Dose: 20 mg Furosemide (Lasix) 20 mg IVPUSH Q6H [facility] Stop: 11/21/18 00:01 Last Admin: 11/20/18 23:35 Dose: 20 mg Sodium Chloride (Normal Saline) 1,000 mls @ 999 mls/hr IV BOLUS ONE Stop: 11/11/18 14:46 Last Infusion: 11/11/18 13:59 Dose: 80 mls/hr Levofloxacin/Dextrose 750 mg/ (Premix) 150 mls @ 100 mls/hr IV ONETIME ONE Stop: 11/11/18 16:10 Last Admin: 11/11/18 14:49 Dose: 100 mls/hr Sodium Chloride (Normal Saline) 1,000 mls @ 125 mls/hr IV ASDIRECTED [facility] Last Admin: 11/15/18 09:26 Dose: 125 mls/hr Vancomycin HCl 1 gm/ Sodium (Chloride) 250 mls @ 166.667 mls/hr IV Q12H [facility] Last Admin: 11/15/18 19:01 Dose: Not Given Levofloxacin/Dextrose 750 mg/ (Premix) 150 mls @ 100 mls/hr IV Q24H [facility] Last Admin: 11/17/18 14:51 Dose: 100 mls/hr Piperacillin Sod/Tazobactam (Sod 3.375 gm/ Sodium Chloride) 50 mls @ 100 mls/ hr IV Q6H [facility] Last Admin: 11/18/18 06:31 Dose: 100 mls/hr Magnesium Sulfate 2 gm/ Premix 50 mls @ 25 mls/hr IV ONETIME ONE Stop: 11/13/18 19:10 Last Admin: 11/13/18 18:41 Dose: 25 mls/hr Albumin Human (Flexbumin 25%) 12.5 gm in 50 mls @ 100 mls/hr IV ONETIME ONE Stop: 11/15/18 08:47 Last Admin: 11/15/18 09:18 Dose: 100 mls/hr Vancomycin HCl 0.75 gm/ Sodium (Chloride) 250 mls @ 166.667 mls/hr IV Q12H [facility] Last Admin: 11/16/18 16:33 Dose: 166.667 mls/hr Albumin Human (Flexbumin 25%) 12.5 gm in 50 mls @ 100 mls/hr IV ONETIME ONE Stop: 11/15/18 18:29 Last Admin: 11/15/18 18:48 Dose: 100 mls/hr Magnesium Sulfate 2 gm/ Premix 50 mls @ 50 mls/hr IV ONETIME ONE Stop: 11/16/18 12:10 Last Admin: 11/16/18 12:02 Dose: 50 mls/hr Albumin Human (Flexbumin 25%) 12.5 gm in 50 mls @ 100 mls/hr IV ONETIME ONE Stop: 11/16/18 11:40 Last Admin: 11/16/18 11:38 Dose: 100 mls/hr Albumin Human (Flexbumin 25%) 12.5 gm in 50 mls @ 100 mls/hr IV ONETIME ONE Stop: 11/16/18 16:29 Last Admin: 11/16/18 15:34 Dose: 100 mls/hr Magnesium Sulfate 2 gm/ Premix 50 mls @ 25 mls/hr IV ONETIME ONE Stop: 11/18/18 14:08 Last Admin: 11/18/18 12:37 Dose: 25 mls/hr Iopamidol (Isovue Multipack-370 (76%)) 100 ml IVPUSH ONETIME ONE Stop: 11/11/18 19:21 Last Admin: 11/11/18 19:25 Dose: 100 ml Iopamidol (Isovue Multipack-370 (76%)) 75 ml IVPUSH ONETIME STA Stop: 11/18/18 16:18 Last Admin: 11/18/18 16:18 Dose: 75 ml Ketorolac Tromethamine (Toradol) 15 mg IVPUSH Q6H [facility] Stop: 11/17/18 12:11 Last Admin: 11/12/18 12:44 Dose: 15 mg Ketorolac Tromethamine (Toradol) 15 mg IVPUSH Q6H PRN PRN Reason: Pain Stop: 11/17/18 12:11 Last Admin: 11/15/18 20:33 Dose: 15 mg Lorazepam (Ativan) 0 mg IVPUSH Q4H PRN; Protocol PRN Reason: Agitation Last Admin: 11/12/18 12:09 Dose: 2 mg Methylprednisolone Sodium Succinate (Solu-Medrol) 125 mg IVPUSH ONETIME ONE Stop: 11/11/18 13:48 Last Admin: 11/11/18 13:59 Dose: 125 mg Methylprednisolone Sodium Succinate (Solu-Medrol) 125 mg IVPUSH Q8H [facility] Last Admin: 11/14/18 05:47 Dose: 125 mg Methylprednisolone Sodium Succinate (Solu-Medrol) 125 mg IVPUSH DAILY [facility] Last Admin: 11/15/18 09:10 Dose: 125 mg Nystatin (Mycostatin) 5 ml PO TID [facility] Last Admin: 11/19/18 05:52 Dose: 5 ml Oxycodone HCl (Oxycodone) 5 mg PO ONETIME ONE Stop: 11/11/18 20:39 Last Admin: 11/11/18 21:45 Dose: 5 mg Potassium Chloride (Klor-Con M20) 40 meq PO ONETIME ONE Stop: 11/13/18 09:42 Last Admin: 11/13/18 10:54 Dose: 40 meq Potassium Chloride (Potassium Chloride) 40 meq PO Q4H [facility] Stop: 11/14/18 11:31 Last Admin: 11/14/18 08:10 Dose: 40 meq Potassium Chloride (Klor-Con M20) 40 meq PO ONETIME@1130 [facility] Last Admin: 11/14/18 11:29 Dose: 40 meq Potassium Chloride (Klor-Con M20) 40 meq PO ONETIME ONE Stop: 11/16/18 07:42 Last Admin: 11/16/18 07:58 Dose: 40 meq Potassium Chloride (Klor-Con M20) 40 meq PO ONETIME ONE Stop: 11/18/18 09:58 Last Admin: 11/18/18 10:30 Dose: 40 meq Potassium Chloride (Klor-Con M20) 40 meq PO ONETIME ONE Stop: 11/18/18 14:01 Last Admin: 11/18/18 14:18 Dose: 40 meq Potassium Chloride (Klor-Con M20) 40 meq PO ONETIME ONE Stop: 11/19/18 09:05 Last Admin: 11/19/18 09:32 Dose: 40 meq Vancomycin HCl (Pharmacy To Dose - Vancomycin) 1 dose .XX ASDIRECTED SHERWIN
--- NOTE | 2018-11-22 14:31 | ECHO ---
EXAM DATE: 11/12/18 PATIENT'S AGE: 53 The echocardiogram report can be seen in this patient's EMR (Electronic Medical Record) in the Reports section. The report has also been scanned into PACs. [facility]OLA
== END 2018-11-21 10:40 | DRG 193 ==
LOC: MW.ED 13:40 → MW.MS 14:57 → OBSVTOIN 11-12 09:47 → MW.MS 11-12 10:40
PROVIDERS: ADMIT Internal Medicine; ATTEND Internal Medicine
PROC: HZ2ZZZZ Detoxification Services for Substance Abuse Treatment (ICD-10-PCS; principal; 2018-11-12)
PROC: 30233N1 Transfusion of Nonautologous Red Blood Cells into Peripheral Vein, Percutaneous Approach (ICD-10-PCS; 2018-11-12)
DX: J18.1 Lobar pneumonia, unspecified organism (principal); J96.01 Acute respiratory failure with hypoxia; E43 Unspecified severe protein-calorie malnutrition; J44.1 Chronic obstructive pulmonary disease with (acute) exacerbation; B37.0 Candidal stomatitis; R64 Cachexia; J44.0 Chronic obstructive pulmonary disease with (acute) lower respiratory infection; Z68.1 Body mass index [BMI] 19.9 or less, adult; K70.31 Alcoholic cirrhosis of liver with ascites; G57.93 Unspecified mononeuropathy of bilateral lower limbs; F17.210 Nicotine dependence, cigarettes, uncomplicated; M19.91 Primary osteoarthritis, unspecified site; F10.10 Alcohol abuse, uncomplicated; R00.0 Tachycardia, unspecified; E87.6 Hypokalemia; E83.42 Hypomagnesemia; E88.09 Other disorders of plasma-protein metabolism, not elsewhere classified; T38.0X5A Adverse effect of glucocorticoids and synthetic analogues, initial encounter; D64.9 Anemia, unspecified; Z79.52 Long term (current) use of systemic steroids; Z91.14 Patient's other noncompliance with medication regimen; Z79.899 Other long term (current) drug therapy
CPT/HCPCS: 36415; 36600; 70491; 70491-26; 71045; 71045-26; 71260; 71260-26; 71275; 71275-26; 76705; 76705-26; 80048; 80053; 80074; 80202; 81003; 82103; 82105; 82272; 82378; 82803; 83605; 83690; 83735; 83880; 84153; 84484; 85025; 85027; 85610; 87040; 87070; 87205; 87804; 93005; 93306; 94640; 96361; 96365; 96366; 96367; 96372; 96375; 96376; 97161-GP; 97530-GP; 99284; 99285-25; A4217; A9270-GY; G0378; J1644; J1885; J1940; J1956; J2060; J2543; J2930; J3370; J3475; J7040; J7050; J7620-GY; P9047; Q9967